=== PATIENT | male | born 1970 | race American Indian/Alaskan Native ===

== ENCOUNTER 2017-08-09 14:26 | Inpatient (IN) | payer MEDICAID ==
--- NOTE | 2017-08-09 15:23 | RAD ---
HISTORY: PES COMPARISON: No prior. FINDINGS: LUNGS: No active pulmonary disease. PLEURA: No significant pleural effusion identified, no pneumothorax apparent. CARDIOVASCULAR: Normal. OSSEOUS STRUCTURES: No significant abnormalities. VISUALIZED UPPER ABDOMEN: Normal. OTHER FINDINGS: None. IMPRESSION: No active disease.
--- NOTE | 2017-08-09 15:47 | ED PDOC ---
Arrival/HPI - General Chief Complaint: Psychiatric Evaluation Time Seen by Provider: 08/09/17 14:53 Historian: Patient - History of Present Illness Narrative History of Present Illness (Text): 08/09/17 15:40 47-year-old male with schizoaffective disorder and depression presents today with suicidal and homicidal ideations. Patient states he hasn't been sleeping in the past 3 days. Patient states he has thoughts of jumping in front of a train to kill himself. Patient states he is noncompliant with his medication. Patient denies chest pain or shortness of breath. Denies abdominal pain. Denies urinary symptoms. No nausea vomiting diarrhea or constipation. Denies any other complaints Past Medical History - Provider Review Nursing Documentation Reviewed: Yes - Travel History Have you recently traveled outside [place] w/in the past 3 mons?: No - Infectious Disease Hx of Infectious Diseases: None - Tetanus Immunization Tetanus Immunization: Unknown - Cardiac Hx Hypertension: Yes - Endocrine/Metabolic Hx Diabetes Mellitus Type 2: Yes - Psychiatric Hx Substance Use: Yes (heroin) - Anesthesia Hx Anesthesia: No Family/Social History - Physician Review Nursing Documentation Reviewed: Yes Family/Social History: Unknown Family HX Smoking Status: Current Some Days Smoker Hx Alcohol Use: No Hx Substance Use: Yes (heroin) Substance used: quit Allergies/Home Meds Allergies/Adverse Reactions: Allergies No Known Allergies Allergy (Verified 08/09/17 20:11) Home Medications: Home Meds Medication Instructions Recorded Confirmed MetFORMIN [glucOPHAGE] 1,000 mg PO DAILY 08/09/17 08/09/17 cloNIDine [clonidine HCl] 0.2 mg PO DAILY 08/09/17 08/09/17 Review of Systems - Review of Systems Constitutional: absent: Fatigue, Fevers Respiratory: absent: SOB, Cough Cardiovascular: absent: Chest Pain, Palpitations Gastrointestinal: absent: Abdominal Pain, Nausea, Vomiting Genitourinary Male: absent: Dysuria Musculoskeletal: absent: Arthralgias Skin: absent: Rash, Pruritis Neurological: absent: Headache, Dizziness Psychiatric: Anxiety, Depression, Suicidal Ideation Physical Exam Vital Signs Reviewed: Yes Vital Signs Temp Pulse Resp BP Pulse Ox 08/09/17 18:14 90 24 138/90 94 L 08/09/17 16:41 98.6 F 90 19 129/75 99 08/09/17 14:55 98.4 F 102 H 19 141/86 96 Temperature: Afebrile Blood Pressure: Normal Pulse: Tachycardic Respiratory Rate: Normal Appearance: Positive for: Well-Appearing, Non-Toxic, Comfortable Pain Distress: None Mental Status: Positive for: Alert and Oriented X 3, Agitated - Systems Exam Head: Present: Atraumatic Mouth: Present: Moist Mucous Membranes Neck: Present: Normal Range of Motion Respiratory/Chest: Present: Clear to Auscultation Cardiovascular: Present: Tachycardic. No: Rub, Gallop, Muffled Abdomen: No: Tenderness, Distention, Peritoneal Signs, Rebound, Guarding Back: Present: Normal Inspection Upper Extremity: Present: Normal ROM Lower Extremity: Present: Normal ROM Neurological: Present: GCS=15, Speech Normal Skin: Present: Warm, Dry, Normal Color. No: Rashes Psychiatric: Present: Alert, Oriented x 3, Suicidal Ideation, Homicidal Ideation Medical Decision Making ED Course and Treatment: 08/09/17 15:42 Patient is nontoxic well-appearing in no distress vital signs are stable. CBC WNL CMP WNL Tylenol WNL Salicylate WNL Alcohol level WNL Urine drug screen + benzos, + methadone, + barbituates UA; wnl cxr: wnl ekg NSR at 96b/m no st elevations ,normal axis, normal intervals. pt is medically cleared for PES evaluation Patient was seen and evaluated by PES screener: jensen pt signed voluntarily to behavioral health floor. Impression: Schizoaffective disorder Admitted to behavioral health floor - Lab Interpretations Lab Results: 08/09/17 15:40 08/09/17 15:40 Lab Results 08/09/17 17:35: Urine Opiates Screen Negative, Urine Methadone Screen Positive H , Ur Barbiturates Screen Positive H, Ur Phencyclidine Scrn Negative, Ur Amphetamines Screen Negative, U Benzodiazepines Scrn Positive, U Oth Cocaine Metabols Negative, U Cannabinoids Screen Negative 08/09/17 17:30: Urine Color Yellow, Urine Appearance Clear, Urine pH 6.0, Ur Specific [place] >= 1.030, Urine Protein Trace H, Urine Glucose (UA) Negative, Urine Ketones Negative, Urine Blood Negative, Urine Nitrate Negative, Urine Bilirubin Negative, Urine Urobilinogen 0.2, Ur Leukocyte Esterase Negative, Urine RBC 0 - 2, Urine WBC 1 - 3, Ur Epithelial Cells None, Urine Bacteria Few 08/09/17 15:40: Alcohol, Quantitative < 10 08/09/17 15:40: Salicylates < 1 L, Acetaminophen < 10.0 L 08/09/17 15:40: Sodium 142, Potassium 4.5, Chloride 103, Carbon Dioxide 27, Anion Gap 17, BUN 17, Creatinine 1.1, Est GFR ( Amer) > 60, Est GFR (Non- Af Amer) > 60, Random Glucose 113 H, Calcium 10.0, Total Bilirubin 0.4, AST 25, ALT 27, Alkaline Phosphatase 91, Total Protein 7.8, Albumin 4.5, Globulin 3.3, Albumin/Globulin Ratio 1.3 08/09/17 15:40: WBC 8.4, RBC 4.41, Hgb 13.0 L, Hct 38.3 L, MCV 86.8, MCH 29.5, MCHC 33.9, RDW 14.0, Plt Count 274, MPV 10.0, Gran % 61.9, Lymph % (Auto) 31.7, [place] % (Auto) 4.8, Eos % (Auto) 1.2 L, Baso % (Auto) 0.4, Gran # 5.22, Lymph # 2.7, [place] # 0.4, Eos # 0.1, Baso # 0.03 - RAD Interpretation Radiology Orders: 08/09/17 14:55 CHEST PORTABLE [RAD] Stat - Medication Orders Current Medication Orders: Acetaminophen (Tylenol 325mg Tab) 650 mg PO Q4H PRN PRN Reason: Pain, Mild (1-3) Al Hydrox/Mg Hydrox/Simethicone (Maalox Plus 30 Ml) 30 ml PO DAILY PRN PRN Reason: Upset Stomach Lorazepam (Ativan) 2 mg PO Q6H PRN; Protocol PRN Reason: Anxiety Lorazepam (Ativan) 2 mg IM Q6H PRN; Protocol PRN Reason: Agitation Magnesium Hydroxide (Milk Of Magnesia) 30 ml PO DAILY PRN PRN Reason: Constipation Zaleplon (Sonata) 5 mg PO HS PRN PRN Reason: Insomnia Ziprasidone (Geodon Inj) 20 mg IM Q6H PRN; Protocol PRN Reason: Agitation Ziprasidone (Geodon Cap) 20 mg PO Q6H PRN; Protocol PRN Reason: Agitation Discontinued Medications Lorazepam (Ativan) 2 mg IM ONCE ONE PRN Reason: Protocol Stop: 08/09/17 14:54 Last Admin: 08/09/17 15:07 Dose: 2 mg IM Administration Charges Document 08/09/17 15:07 MISHA (Rec: 08/09/17 15:08 MISHA [facility] [id number]) Injection Site MAR Injection Site Left Gluteus [place]on Charges for Administration # of IM Administrations 1 Disposition/Present on Arrival - Present on Arrival Any Indicators Present on Arrival: No History of DVT/PE: No History of Uncontrolled Diabetes: No Urinary Catheter: No History of Decub. Ulcer: No History Surgical Site Infection Following: None - Disposition Have Diagnosis and Disposition been Completed?: Yes Diagnosis: Schizoaffective disorder Disposition: HOSPITALIZED Disposition Time: 17:20 Patient Plan: Admission Patient Problems: Current Active Problems Problem Status Onset Schizoaffective disorder Acute Condition: FAIR
[2017-08-09 15:51] LABS: BASO # 0.03 K/mm3 (0.0-2.0); BASO % 0.4 % (0.0-3.0); EOS # 0.1 (0.0-0.7); EOS % 1.2 % (1.5-5.0); GRAN # 5.22 (1.4-6.5); GRAN % 61.9 % (50.0-68.0); HEMATOCRIT 38.3 % (42.0-52.0); LYMPH # 2.7 (1.2-3.4); LYMPH % 31.7 % (22.0-35.0); MEAN CELL VOLUME 86.8 fl (80.0-105.0); MEAN CORPUSCULAR HEMOGLOBIN 29.5 pg (25.0-35.0); MEAN CORPUSCULAR HGB CONC 33.9 g/dl (31.0-37.0); MONO # 0.4 (0.1-0.6); MONO % 4.8 % (1.0-6.0); WHITE BLOOD COUNT 8.4 10^3/ul (4.5-11.0)
[2017-08-09 16:05] LABS: ALB/GLOB RATIO 1.3 (1.1-1.8); ALKALINE PHOSPHATASE 91 U/L (38-126); ALT/SGPT 27 U/L (7-56); AST/SGOT 25 U/L (17-59); BILIRUBIN,TOTAL 0.4 mg/dL (0.2-1.3); BLOOD UREA NITROGEN 17 mg/dL (7-21); CARBON DIOXIDE 27 mmol/L (21-33); CHLORIDE 103 mmol/L (98-107); GFR AFRICAN-AMERICAN > 60; GLUCOSE,RANDOM 113 mg/dL (70-110); POTASSIUM 4.5 mmol/L (3.6-5.0); SODIUM 142 mmol/L (132-148); TOTAL PROTEIN 7.8 g/dL (5.8-8.3)
[2017-08-09 17:38] LABS: URINE BILIRUBIN NEGATIVE (NEGATIVE); URINE BLOOD NEGATIVE (NEGATIVE); URINE GLUCOSE (UA) NEGATIVE (NEGATIVE); URINE KETONE NEGATIVE (NEGATIVE); URINE LEUKOCYTE ESTERASE NEGATIVE Leu/uL (NEGATIVE); URINE PROTEIN TRACE mg/dL (<30 mg/dL); URINE UROBILINOGEN 0.2 E.U./dL (<1 E.U./dL)
[2017-08-09 17:42] LABS: URINE APPEARANCE CLEAR (CLEAR); URINE COLOR YELLOW (YELLOW)
[2017-08-09 17:48] LABS: URINE RBC 0 - 2 /hpf (0-2)
[2017-08-09 17:49] LABS: URINE BACTERIA FEW (NEG)
--- NOTE | 2017-08-09 19:45 | CARD ---
APPROVED REPORT EKG Measurement Heart [id number] <Conclusion> Normal sinus rhythm Normal ECG
[2017-08-09] MEDS ORDERED: Alum-Mag Hydrox-Simethicone Susp (30 mL) PO PRN (19:46)
[2017-08-09] MEDS ORDERED: Magnesium Hydroxide Susp 30 ml UD PO PRN (19:46)
--- NOTE | 2017-08-10 01:15 | PCM.BM ---
<Deb Lopez C - Last Filed: 08/10/17 01:12> Treatment Plan Problems - Problems identified on initial assessmt DEPRESSION Date Initiated: 08/09/17 Time Initiated: 20:00 Assessment reference: NA Status: Active SUICIDAL IDEATION Date Initiated: 08/09/17 Time Initiated: 20:00 Status: Active Treatment assets and liabiliti Patient Assests: adapts well, cooperative, motivated, self-reliant, ADL independent, negotiates basic needs, cognitively intact Patient Liabilities: live alone, financial problems, substance abuse, medical problems - Milieu Protocol Maintain good personal hygiene: daily Encourage regular showers, every shift Remind patient to perform daily oral care, every shift Assist patient to perform ADL's Maintain personal safety: every other day Educate patient to report safety concerns to staff, every other day Monitor environment for contraband/sharps Medication safety: Monitor for expected outcome, potential side effects: every other day, Assess barriers to learning: every other day, Assess readiness for medication education: every other day Family Contact Family involvement: Family/SO is involved Family contact: Patient agrees to contact Discharge/Continuing Care - Education Needs Education Needs: Patient Medication, Patient Diagnosis/Disease Process, Patient Placement options, Patient Community resources, Patient Health Practices/Safety - Discharge Discharge Criteria: Tolerates medication w/o severe side effects, Free of Suicidal thoughts, Free of Homicidal thoughts, Free of agitation, Normal sleep pattern, Ability to care for self <Darcie Lang - Last Filed: 08/10/17 13:46> - Diagnosis (1) Schizoaffective disorder Status: Acute Interventions: 08/10/17 13:47 Psychoeducation/psychotherapy Psychopharmacology/adjustment of medications as needed/ monitoring possible side effects Evaluate pt on daily basis Compliance with medications and follow up appointments Long acting medication if pt is noncompliant with pill form Suicide and homicide risk assessment and prevention, coping strategies, safety plan Relapse prevention Reduction of symptoms Improve functional status Possible assertive community treatment Cognitive behavioral therapy Family involvement Possible social skill training as outpatient (2) Opioid use disorder, moderate, in sustained remission, on maintenance therapy Status: Acute Interventions: 08/10/17 13:47 Maintaining sobriety Relapse prevention Possible rehabilitation Motivational interviewing 12-step programs: AA meetings <Jessica Crane Y - Last Filed: 08/10/17 16:28> Family Contact Family involvement: Famliy/SO not involved Family contact: Patient declines to allow family contact at present - Goals for Treatment Patient goals for treatment: "To feel normal."
[2017-08-10 08:06] LABS: CHOLESTEROL 165 mg/dL (130-200); GLUCOSE,FASTING 88 mg/dL (65-110)
[2017-08-10] MEDS ORDERED: Albuterol-Ipratrop 3 mg / 0.5 (3 ml) UD IH PRN (11:52)
--- NOTE | 2017-08-10 12:40 | CP.PCM.CON ---
<Bret Mendoza Marcial - Last Filed: 08/10/17 12:33> History of Present Illness - History of Present Illness History of Present Illness: Internal medicine consult note for Dr. Francisco Machado DO, PGY-3 Reason For Consult: Medical management HPI: 47 M with PMHx of Schizoaffective disorder and depression presented with 1 day duration of HI and SI with a plan of jumping in front of a train. Pt also states that he has not slept in 3 days. Pt explicitly denies any complaints at this time. Pt denies f/ch/cp/sob/n/v/d/ dysuria/frequency/urgency/hematuria/hematochezia/hematemesis PSHx: Pt denies PMHx: DM, HTN, Asthma, Schizoaffective disorder, Depression All: NKDA SocHx: 1/2 ppd tobacco X 10 years, Heroin (stopped a year ago) FamHx: HTN, Emphysema Meds: Metformin 1000mg bid, Catapres 2 mg qD, Albuterol PRN (uses it twice a day though) ROS: Const'l: pt denies fever, chills, generalized weakness ENT: pt denies dysphagia, otalgia, hearing deficit, rhinorrhea Eyes: pt denies sudden loss of vision, diplopia, blurred vision MSK: pt denies muscle stiffness, joint pain, extremity cramping Cardio: pt denies sob, heart murmur, cp Pulm: pt denies cough, hemoptysis, wheeze GI: pt denies loss of appetite, abdominal pain, constipation, melena, n/v/d : pt denies burning on urination, urinary frequency, hematuria, urinary urgency Neuro: pt denies paresis, paresthesia, dizziness, wheeler, numbness, tingling Derm: pt denies skin changes, lesions, nail changes Endo: pt denies intolerance to heat/cold, diaphoresis, night sweats, polydipsia Psych: pt denies anxiety, depression, mood changes Past Patient History - Infectious Disease Hx of Infectious Diseases: None - Tetanus Immunizations Tetanus Immunization: Unknown - Past Social History Smoking Status: Current Some Days Smoker - CARDIAC Hx Hypertension: Yes - PULMONARY Hx Tuberculosis: No - NEUROLOGICAL HX Cerebrovascular Accident: No Hx Seizures: No - RENAL Hx Chronic Kidney Disease: No - ENDOCRINE/METABOLIC Hx Diabetes Mellitus Type 2: Yes - HEMATOLOGICAL/ONCOLOGICAL Hx Cancer: No Hx Human Immunodeficiency Virus (HIV): No - INTEGUMENTARY Hx Dermatological Problems: No - MUSCULOSKELETAL/RHEUMATOLOGICAL Hx Musculoskeletal Disorders: No - GASTROINTESTINAL Hx Gastrointestinal Disorders: No - GENITOURINARY/GYNECOLOGICAL Hx Genitourinary Disorders: No Hx Sexually Transmitted Disorders: No - PSYCHIATRIC Hx Substance Use: Yes (heroin) - SURGICAL HISTORY Hx Surgeries: No - ANESTHESIA Hx Anesthesia: No Meds Home Medications: Home Medication List Medication Instructions Recorded Confirmed Type ARIPiprazole [Abilify] 10 mg PO DAILY #14 tab 08/15/17 Rx Fluticasone/Salmeterol 250/50 1 puff IH Q12 #1 puff 08/15/17 Rx [Advair Diskus 250/50] Gabapentin [Neurontin] 300 mg PO TID #45 cap 08/15/17 Rx Methadone 100 mg PO DAILY tab 08/15/17 Rx Nicotine 21 mg/24 hr [Nicoderm Cq] 1 patch TD DAILY #14 patch 08/15/17 Rx Sertraline [Zoloft] 100 mg PO DAILY #14 tab 08/15/17 Rx Zaleplon [Sonata] 5 mg PO HS PRN #14 cap 08/15/17 Rx amLODIPine [Norvasc] 10 mg PO DAILY #7 tab 08/15/17 Rx cloNIDine [Catapres] 0.1 mg PO BID #14 tab 08/15/17 Rx Allergies/Adverse Reactions: Allergies Allergy/AdvReac Type Severity Reaction Status Date / Time No Known Allergies Allergy Verified 08/09/17 20:11 - Medications Medications: Current Medications Acetaminophen (Tylenol 325mg Tab) 650 mg PO Q4H PRN PRN Reason: Pain, Mild (1-3) Al Hydrox/Mg Hydrox/Simethicone (Maalox Plus 30 Ml) 30 ml PO DAILY PRN PRN Reason: Upset Stomach Albuterol/Ipratropium (Duoneb 3 Mg/0.5 Mg (3 Ml) Ud) 3 ml IH Q2H PRN PRN Reason: Shortness of Breath Lorazepam (Ativan) 2 mg PO Q6H PRN; Protocol PRN Reason: Anxiety Lorazepam (Ativan) 2 mg IM Q6H PRN; Protocol PRN Reason: Agitation Magnesium Hydroxide (Milk Of Magnesia) 30 ml PO DAILY PRN PRN Reason: Constipation Methadone HCl (Methadone) 100 mg PO DAILY [facility] Fluticasone/Salmeterol (Advair Diskus 250/50) 1 puff IH Q12 KEYANNA Zaleplon (Sonata) 5 mg PO HS PRN PRN Reason: Insomnia Last Admin: 08/09/17 22:17 Dose: 5 mg Ziprasidone (Geodon Inj) 20 mg IM Q6H PRN; Protocol PRN Reason: Agitation Ziprasidone (Geodon Cap) 20 mg PO Q6H PRN; Protocol PRN Reason: Agitation Physical Exam - Additional Findings Additional findings: Phys Exam: VS as below Const'l: +Sluggish, a&o x 4, nad Head/Neck: neck supple, no jvd, trachea midline, carotid midline, no cervical /head mass Eyes: rory, nonicteric sclera, eom intact ENT: +Dry mucous membranes; auditory acuity grossly intact, throat not congested, no nasal deformity Cardio: rrr, no m/r/g, no carotid bruit, nml s1, s2 Pulm: +Course rhonchi diffusely anteriorly and posteriorly; no accessory muscle use, equal nml breath sounds bilaterally, ctab Abd: s/nt/nd, nbs x 4 q, no palpable masses Derm: no rashes, no ulcers, no lesions Extr: +Dry b/l LE; no edema, no cyanosis, no calf tenderness, no lesions, no varicosities Neuro: cn II-XII grossly intact, ue and le 5/5 muscle strength bilaterally, no los ue, le bilaterally and core Results - Vital Signs Recent Vital Signs: Last Vital Signs Temp 96.9 F L 08/10/17 06:59 Pulse 81 08/10/17 06:59 Resp 19 08/10/17 06:59 BP 122/84 08/10/17 06:59 Pulse Ox 94 L 08/09/17 18:14 - Labs Result Diagrams: 08/09/17 15:40 08/09/17 15:40 Labs: Laboratory Results - last 24 hr 08/09/17 08/10/17 08/10/17 22:21 06:38 07:00 POC Glucose (mg/dL) 57 L 102 Fasting Glucose 88 Triglycerides 117 Cholesterol 165 LDL Cholesterol Direct 93 HDL Cholesterol 54 TSH 3rd Generation 08/10/17 08/10/17 07:00 12:00 POC Glucose (mg/dL) 116 H Fasting Glucose Triglycerides Cholesterol LDL Cholesterol Direct HDL Cholesterol TSH 3rd Generation 0.87 Assessment & Plan - Assessment and Plan (Free Text) Assessment: A/P 47 M with PMHx of schizoaffective disorder and Depression, we are consulted to manage his diabetes, asthma, and HTN. No complaints at this time, but coarse breath sounds on exam. Acute Dehydration - Encourage oral intake Hx/o DM - RISS Low Hx/o Asthma - Duonebs q2 PRN - CXR shows no acute disease Hx/o HTN - BP stable right now, patient is normotensive - Hold home catapres HI, SI likely 2/2 medication non-compliance - As per psych Thank you for allowing us to participate in the care of this patient. <Janet Singh - Last Filed: 08/15/17 14:15> Meds - Medications Medications: Current Medications Acetaminophen (Tylenol 325mg Tab) 650 mg PO Q4H PRN PRN Reason: Pain, Mild (1-3) Al Hydrox/Mg Hydrox/Simethicone (Maalox Plus 30 Ml) 30 ml PO DAILY PRN PRN Reason: Upset Stomach Albuterol/Ipratropium (Duoneb 3 Mg/0.5 Mg (3 Ml) Ud) 3 ml IH Q2H PRN PRN Reason: Shortness of Breath Amlodipine Besylate (Norvasc) 10 mg PO DAILY [facility] Last Admin: 08/15/17 09:02 Dose: 10 mg Aripiprazole (Abilify) 10 mg PO AMHS [facility] Clonidine HCl (Catapres) 0.1 mg PO BID KEYNANA Last Admin: 08/15/17 09:01 Dose: 0.1 mg Gabapentin (Neurontin) 300 mg PO TID [facility] PRN Reason: Protocol Last Admin: 08/15/17 13:54 Dose: 300 mg Insulin Human Regular (Humulin R Low) 0 units SC ACHS [facility]ANNA PRN Reason: Protocol Last Admin: 08/15/17 09:03 Dose: Not Given Lorazepam (Ativan) 2 mg PO Q6H PRN; Protocol PRN Reason: Anxiety Last Admin: 08/15/17 13:54 Dose: 2 mg Lorazepam (Ativan) 2 mg IM Q6H PRN; Protocol PRN Reason: Agitation Magnesium Hydroxide (Milk Of Magnesia) 30 ml PO DAILY PRN PRN Reason: Constipation Methadone HCl (Methadone) 100 mg PO DAILY [facility] Last Admin: 08/15/17 09:02 Dose: 100 mg Nicotine (Nicoderm Cq) 1 patch TD DAILY [facility] Last Admin: 08/15/17 09:01 Dose: 1 patch Fluticasone/Salmeterol (Advair Diskus 250/50) 1 puff IH Q12 [facility] Last Admin: 08/15/17 07:05 Dose: 1 puff Sertraline HCl (Zoloft) 100 mg PO DAILY [facility] Last Admin: 08/15/17 09:02 Dose: 100 mg Zaleplon (Sonata) 5 mg PO HS PRN PRN Reason: Insomnia Last Admin: 08/14/17 22:08 Dose: 5 mg Ziprasidone (Geodon Inj) 20 mg IM Q6H PRN; Protocol PRN Reason: Agitation Ziprasidone (Geodon Cap) 20 mg PO Q6H PRN; Protocol PRN Reason: Agitation Last Admin: 08/14/17 22:08 Dose: 20 mg Results - Vital Signs Recent Vital Signs: Last Vital Signs Temp 98.2 F 08/15/17 07:48 Pulse 65 08/15/17 07:48 Resp 20 08/15/17 07:48 BP 116/82 08/15/17 09:02 Pulse Ox 97 08/11/17 06:07 - Labs Result Diagrams: 08/09/17 15:40 08/09/17 15:40 Labs: Laboratory Results - last 24 hr 08/14/17 08/14/17 08/15/17 16:23 21:37 07:40 POC Glucose (mg/dL) 120 H 208 H 111 H 08/15/17 11:11 POC Glucose (mg/dL) 168 H Attending/Attestation - Attestation I have personally seen and examined this patient.: Yes I have fully participated in the care of the patient.: Yes I have reviewed all pertinent clinical information: Yes Notes (Text): I have seen and examined the patient at bedside. Agree with the above note with the following additions/ exceptions: Briefly this is 47 year old male with history of schizoaffective disorder, depression, asthma and HTN who was admitted for evaluation of worsening of depression and suicidal thoughts. Manage as per psychiatrist. TSH within normal range. Patient appeared mildly dehydrated which was resolved upon evaluation. Continue to encourage oral water intake. BP was noted. Medications restarted. Thanks for allowing us to participate in patients care. We will sign off at this time. Please reconsult as needed. Dr Janet Singh
--- NOTE | 2017-08-10 14:29 | PCM.PSYCH ---
Initial Psychiatric Evaluation - Initial Psychiatric Evaluation Type of Admission: Voluntary Legal Status: Capacity (patient has capacity to sign consent for treatment) Chief Complaint (in patient's own words): I started to hear voices 3 days ago, they were telling me to jump in front of the train, instead of doing that I decided to come to the hospital" Patient's Reaction to Hospitalization: patient was admitted to the psychiatric inpatient unit for evaluation and stabilization of psychosis, mood symptoms, possible suicidal ideation with a plan to jump in front of the train. History of Present Illness and Precipitating Events: shortly patient is 47 year old -German male, not known previous psychiatric history, self reported history of schizoaffective disorder, patient also has history of opioid use disorder, reported to be sober for the past 2 years, patient also has multiple psychiatric admissions (more than 10), most recent was more than 6 months ago, patient currently unemployed, reportedly in [place], brought himself to the hospital looking for help for possible suicidal ideations as well as plan to jump in front of the train, possible depressive symptoms, possible psychotic symptoms. Considering the patient's symptoms and presentation, patient require to have psychiatric admission for further evaluation and stabilization. Patient has chronic noncompliance with the medications and follow-up appointment. Patient was seen today at the morning time at the treatment team meeting, poor personal hygiene, good ADLs, patient seems to be poor and unreliable historian, this board writer had the impression that pt does not want to provide whole history, pt was superficially cooperative. Patient said that 4-5 days ago she started to hear voices, command hallucinations, telling him to jump in front of the train, patient describes voices as a male voice. Patient does not have history of acting on them, and hot type hallucinations, patient reported that he wanted to come to the hospital because he didn't want to act on the voices. Patient also reported that he was feeling paranoid and was feeling that people talking about him. Patient reported that he also was feeling depressed, hopeless and helpless, worthless and guilty, patient reported that she was feeling this way for past 5 days. pt denied feeling anxious, denied history of abuse, denied history of aggression , denied history of legal problems. Patient reported that he has history of "mind racing", most recent was "just now ", but pt's speech is slow and underproductive. Patient reported history of opioid use disorder, is present moment attends methadone clinic at [place], dose of methadone 100 mg, confirmed by the nursing staff, last dose was given yesterday, will resume that medication. Patient denied any other substance abuse, denies alcohol consumption. patient reported being sober for past 3 years. as per collaterals, patient has history of hospital shopping, admitted himself into the hospital looking for food and senior care. past psychiatric history: Patient has history of one suicidal attempt at the age of 20, patient reported that he overdose on medications, denied history of being intubated after that, patient reported that he has all together more than 10 psychiatric admissions, most recent was about 6 months ago at [facility]. Patient does not remember how long that he stay in the hospital, does not remember medications what he was taking but remember Seroquel. Medical problems: Patient reported h/o asthma, observed limping. Patient reported smoking about one pack a day, nicotine patch offered. patient denied any history of mental illness, denied family history of suicidal attempts. MSE: poor personal hygiene, some psychomotor recommendation, speech was underproductive slow, low volume. No eye contact, mood described as "depressed and hopeless", affect was flat, thought processes concrete, thought content: Patient reported to hear voices, feeling paranoid, but patient does not present to be psychotic, insight and judgment limited, impulses seems to be well controlled. 08/09/17 15:40 08/09/17 15:40 Lab Results 08/10/17 12:00: POC Glucose (mg/dL) 116 H 08/10/17 07:00: TSH 3rd Generation 0.87 08/10/17 07:00: Fasting Glucose 88, Triglycerides 117, Cholesterol 165, LDL Cholesterol Direct 93, HDL Cholesterol 54 08/10/17 06:38: POC Glucose (mg/dL) 102 08/09/17 22:21: POC Glucose (mg/dL) 57 L 08/09/17 17:35: Urine Opiates Screen Negative, Urine Methadone Screen Positive H , Ur Barbiturates Screen Positive H, Ur Phencyclidine Scrn Negative, Ur Amphetamines Screen Negative, U Benzodiazepines Scrn Positive, U Oth Cocaine Metabols Negative, U Cannabinoids Screen Negative 08/09/17 17:30: Urine Color Yellow, Urine Appearance Clear, Urine pH 6.0, Ur Specific [place] >= 1.030, Urine Protein Trace H, Urine Glucose (UA) Negative, Urine Ketones Negative, Urine Blood Negative, Urine Nitrate Negative, Urine Bilirubin Negative, Urine Urobilinogen 0.2, Ur Leukocyte Esterase Negative, Urine RBC 0 - 2, Urine WBC 1 - 3, Ur Epithelial Cells None, Urine Bacteria Few 08/09/17 15:40: Alcohol, Quantitative < 10 08/09/17 15:40: Salicylates < 1 L, Acetaminophen < 10.0 L 08/09/17 15:40: Sodium 142, Potassium 4.5, Chloride 103, Carbon Dioxide 27, Anion Gap 17, BUN 17, Creatinine 1.1, Est GFR ( Amer) > 60, Est GFR (Non- Af Amer) > 60, Random Glucose 113 H, Calcium 10.0, Total Bilirubin 0.4, AST 25, ALT 27, Alkaline Phosphatase 91, Total Protein 7.8, Albumin 4.5, Globulin 3.3, Albumin/Globulin Ratio 1.3 08/09/17 15:40: WBC 8.4, RBC 4.41, Hgb 13.0 L, Hct 38.3 L, MCV 86.8, MCH 29.5, MCHC 33.9, RDW 14.0, Plt Count 274, MPV 10.0, Gran % 61.9, Lymph % (Auto) 31.7, [place] % (Auto) 4.8, Eos % (Auto) 1.2 L, Baso % (Auto) 0.4, Gran # 5.22, Lymph # 2.7, [place] # 0.4, Eos # 0.1, Baso # 0.03 impression: As per history schizoaffective disorderwhich is self-reported Opioid use disorder in remission, on maintenance methadone program Barbiturates were positive and urine Rule out malingering Treatment plan: Treatment plan: Milieu/structure/supportive therapy Medical consult appreciated, see medical team note for more detailed info SW consultation for discharge plan and social issues Med management Seroquel 100 mg at the nighttime for psychosis and mood stabilization Zoloft 50 mg daily for depression as well as for anxiety When necessary medications Methadone maintenance therapy 100 mg daily, dose was confirmed by methadone program [place] dose was confirmed by [facility] [phone] last dose was 08/09/17 Family involvement Follow up on labs Will monitor closely SW evaluation for d/c planning Pt was educated about risk/benefits and alternatives of medications, coping strategies (safety plan, suicide prevention), relapse prevention, importance of follow up with psychiatrist and therapist, stay away from drugs/alcohol/smoking Current Medications: Active Medications Generic Name Dose Route Start Last Admin Trade Name Freq PRN Reason Stop Dose Admin Acetaminophen 650 mg 08/09/17 19:46 Tylenol 325mg Tab PO Q4H PRN Pain, Mild (1-3) Al Hydrox/Mg Hydrox/Simethicone 30 ml 08/09/17 19:46 Maalox Plus 30 Ml PO DAILY PRN Upset Stomach Albuterol/Ipratropium 3 ml 08/10/17 11:52 Duoneb 3 Mg/0.5 Mg (3 Ml) Ud IH Q2H PRN Shortness of Breath Insulin Human Regular 0 units 08/10/17 16:30 Humulin R Low SC ACHS KEYANNA Protocol Lorazepam 2 mg 08/09/17 19:46 Ativan PO Q6H PRN Anxiety Protocol Lorazepam 2 mg 08/09/17 19:46 Ativan IM Q6H PRN Agitation Protocol Magnesium Hydroxide 30 ml 08/09/17 19:46 Milk Of Magnesia PO DAILY PRN Constipation Methadone HCl 100 mg 08/10/17 12:30 08/10/17 12:57 Methadone PO 100 mg DAILY KEYANNA Administration Fluticasone/Salmeterol 1 puff 08/10/17 18:00 Advair Diskus 250/50 IH Q12 KEYANNA Zaleplon 5 mg 08/09/17 19:46 08/09/17 22:17 Sonata PO 5 mg HS PRN Administration Insomnia Ziprasidone 20 mg 08/09/17 19:46 Geodon Inj IM Q6H PRN Agitation Protocol Ziprasidone 20 mg 08/09/17 19:46 Geodon Cap PO Q6H PRN Agitation Protocol Past Psychiatric History - Past Psychiatric History Pertinent Medical Hx (Current Medical&Sleep Prob, Allergies): Allergies Allergy/AdvReac Type Severity Reaction Status Date / Time No Known Allergies Allergy Verified 08/09/17 20:11 MetFORMIN [glucOPHAGE] 1,000 mg PO DAILY 08/09/17 cloNIDine [clonidine HCl] 0.2 mg PO DAILY 08/09/17 DSM 5 DX - Recommended/Plan of Treatment Projected ELOS: 5days Prognosis: fair Discharge Plan and Discharge Criteria: Pt will be not depressed or manic, will be more hopeful, will be not psychotic or anxious, will be not having thoughts of harming self or others, will be tolerating medications well, will not have major side effects, will be able to function, will not pose threat to self or others. - Smoking Cessation Smoking Cessation Initiated: Yes
[2017-08-10] MEDS: Insulin Reg-LOW-Coverage SC SCH ×2 (17:00→21:44)
[2017-08-10] MEDS: Fluticasone-Salmeterol 250-50mcg Diskus IH SCH (17:31)
[2017-08-11 06:07] VITALS: O2SAT 97
[2017-08-11] MEDS: Insulin Reg-LOW-Coverage SC SCH ×4 (08:24→21:56)
--- NOTE | 2017-08-11 15:50 | PCM.PYCHPN ---
Psychiatric Progress Note - Psychiatric Progress Note Patient seen today, length of contact: 30min Patient Chief Complaint: "I don't remember" Medical Problems: HTN, ?diabetes Diagnostic Results: 08/09/17 15:40 08/09/17 15:40 Lab Results 08/11/17 11:50: POC Glucose (mg/dL) 105 08/11/17 05:58: POC Glucose (mg/dL) 104 08/10/17 21:26: POC Glucose (mg/dL) 132 H 08/10/17 16:16: POC Glucose (mg/dL) 91 08/10/17 12:00: POC Glucose (mg/dL) 116 H 08/10/17 07:00: RPR Nonreactive 08/10/17 07:00: TSH 3rd Generation 0.87 08/10/17 07:00: Fasting Glucose 88, Triglycerides 117, Cholesterol 165, LDL Cholesterol Direct 93, HDL Cholesterol 54 08/10/17 06:38: POC Glucose (mg/dL) 102 08/09/17 22:21: POC Glucose (mg/dL) 57 L 08/09/17 17:35: Urine Opiates Screen Negative, Urine Methadone Screen Positive H , Ur Barbiturates Screen Positive H, Ur Phencyclidine Scrn Negative, Ur Amphetamines Screen Negative, U Benzodiazepines Scrn Positive, U Oth Cocaine Metabols Negative, U Cannabinoids Screen Negative 08/09/17 17:30: Urine Color Yellow, Urine Appearance Clear, Urine pH 6.0, Ur Specific [place] >= 1.030, Urine Protein Trace H, Urine Glucose (UA) Negative, Urine Ketones Negative, Urine Blood Negative, Urine Nitrate Negative, Urine Bilirubin Negative, Urine Urobilinogen 0.2, Ur Leukocyte Esterase Negative, Urine RBC 0 - 2, Urine WBC 1 - 3, Ur Epithelial Cells None, Urine Bacteria Few 08/09/17 15:40: Alcohol, Quantitative < 10 08/09/17 15:40: Salicylates < 1 L, Acetaminophen < 10.0 L 08/09/17 15:40: Sodium 142, Potassium 4.5, Chloride 103, Carbon Dioxide 27, Anion Gap 17, BUN 17, Creatinine 1.1, Est GFR ( Amer) > 60, Est GFR (Non- Af Amer) > 60, Random Glucose 113 H, Calcium 10.0, Total Bilirubin 0.4, AST 25, ALT 27, Alkaline Phosphatase 91, Total Protein 7.8, Albumin 4.5, Globulin 3.3, Albumin/Globulin Ratio 1.3 08/09/17 15:40: WBC 8.4, RBC 4.41, Hgb 13.0 L, Hct 38.3 L, MCV 86.8, MCH 29.5, MCHC 33.9, RDW 14.0, Plt Count 274, MPV 10.0, Gran % 61.9, Lymph % (Auto) 31.7, [place] % (Auto) 4.8, Eos % (Auto) 1.2 L, Baso % (Auto) 0.4, Gran # 5.22, Lymph # 2.7, [place] # 0.4, Eos # 0.1, Baso # 0.03 Vital Signs Temp Pulse Resp BP Pulse Ox 08/11/17 08:28 76 133/81 08/11/17 06:07 98.3 F 76 20 133/81 97 08/10/17 17:24 71 144/101 H 08/10/17 16:30 74 138/100 H 08/10/17 06:59 96.9 F L 81 19 122/84 08/09/17 20:28 20 08/09/17 18:14 90 24 138/90 94 L 08/09/17 16:41 98.6 F 90 19 129/75 99 08/09/17 14:55 98.4 F 102 H 19 141/86 96 DSM 5 Symptoms Update: shortly patient is 47 year old -Libyan male, not known previous psychiatric history, self reported history of schizoaffective disorder, patient also has history of opioid use disorder, reported to be sober for the past 2 years, patient also has multiple psychiatric admissions (more than 10), most recent was more than 6 months ago, patient currently unemployed, reportedly in [place], brought himself to the hospital looking for help for possible suicidal ideations as well as plan to jump in front of the train, possible depressive symptoms, possible psychotic symptoms. pt is very poor and unreliable historian, pt said last admission was more than six months ago, but after med list was obtained from pt's pharmacy [phone] all medications were filled in August 01, psychotropic medication was provided by Dr. Gardner, a psychiatrist at [place], when pt was confronted about it, pt had no explanation about it but "I don't remember". previous chart reviewed, pt was d/c from [place] [facility] unit on August 01. documented : "Patient has had multiple psychiatric admissions at [facility] the most recent in April. Patient admits he has not been compliant with his medication. After discharge he went back to [facility] , his methadone clinic that he has been going to for 3 years. Patient using heroin on top of methadone 10 bags/day. Patient drinks 1 pint of vodka/day and beer on top of that. Patient admits to xanax use 2 sticks/day. Patient denies barbiturate use even though his urine was positive . Patient denies any other drug use" Med list: Lexapro 20 mg by mouth daily Abilify 10 mg daily Amlodipine 10 mg daily gabapentin 600 mg 3 times a day, pt willing to resume meds. as per staff pt preoccupied with medications, constantly asking medications, no agitation or aggression. Patient reported that he has history of "mind racing", most recent was "just now ", but pt's speech is slow and underproductive. MSE: poor personal hygiene, some psychomotor retardation, speech was underproductive slow, low volume.intermittent eye contact, mood described as "depressed and hopeless", affect was flat, thought processes concrete, thought content: Patient reported to hear voices, feeling paranoid, but patient does not present to be psychotic, insight and judgment limited, impulses seems to be well controlled. impression: As per history schizoaffective disorderwhich is self-reported Opioid use disorder in remission, on maintenance methadone program Barbiturates were positive and urine Rule out malingering Treatment plan: Treatment plan: Milieu/structure/supportive therapy Medical consult appreciated, see medical team note for more detailed info SW consultation for discharge plan and social issues Med management Seroquel d/c, pt was on januvia (?DM) abilify resumed 5mg po amhs for psychosis neurontin resumed 300mg po tid for mood stabilization Zoloft 50 mg daily for depression as well as for anxiety amlodipine 10mg po daily for HTN When necessary medications Methadone maintenance therapy 100 mg daily, dose was confirmed by methadone program [place] dose was confirmed by [facility] meth[facility] [phone] last dose was 08/09/17 Family involvement Follow up on labs Will monitor closely SW evaluation for d/c planning Pt was educated about risk/benefits and alternatives of medications, coping strategies (safety plan, suicide prevention), relapse prevention, importance of follow up with psychiatrist and therapist, stay away from drugs/alcohol/smoking Medication Change: Yes (d/c seroquel, abilify started ) Medical Record Reviewed: Yes Consults ordered or reviewed: medical consult appreciated Mental Status Examination - Homicidal Ideation Homicidal Ideation: No Goal/Treatment Plan - Goal/Treatment Plan Need for Continued Stay: Remain at risks for inpatient hospitalization, Severe depression anxiety, Discharge may exacerbated symptoms, Severe functional impairment Estimated Date of D/C: 08/19/17
[2017-08-11] MEDS: Fluticasone-Salmeterol 250-50mcg Diskus IH SCH (18:07)
[2017-08-12] MEDS: Fluticasone-Salmeterol 250-50mcg Diskus IH SCH ×3 (09:30→19:51)
[2017-08-12] MEDS: Insulin Reg-LOW-Coverage SC SCH ×3 (09:43→17:37)
--- NOTE | 2017-08-12 12:47 | PCM.PYCHPN ---
Psychiatric Progress Note - Psychiatric Progress Note Patient seen today, length of contact: 30min Patient Chief Complaint: "I am doing better..." Medical Problems: HTN, ?diabetes Diagnostic Results: 08/09/17 15:40 08/09/17 15:40 Lab Results 08/11/17 11:50: POC Glucose (mg/dL) 105 08/11/17 05:58: POC Glucose (mg/dL) 104 08/10/17 21:26: POC Glucose (mg/dL) 132 H 08/10/17 16:16: POC Glucose (mg/dL) 91 08/10/17 12:00: POC Glucose (mg/dL) 116 H 08/10/17 07:00: RPR Nonreactive 08/10/17 07:00: TSH 3rd Generation 0.87 08/10/17 07:00: Fasting Glucose 88, Triglycerides 117, Cholesterol 165, LDL Cholesterol Direct 93, HDL Cholesterol 54 08/10/17 06:38: POC Glucose (mg/dL) 102 08/09/17 22:21: POC Glucose (mg/dL) 57 L 08/09/17 17:35: Urine Opiates Screen Negative, Urine Methadone Screen Positive H , Ur Barbiturates Screen Positive H, Ur Phencyclidine Scrn Negative, Ur Amphetamines Screen Negative, U Benzodiazepines Scrn Positive, U Oth Cocaine Metabols Negative, U Cannabinoids Screen Negative 08/09/17 17:30: Urine Color Yellow, Urine Appearance Clear, Urine pH 6.0, Ur Specific [place] >= 1.030, Urine Protein Trace H, Urine Glucose (UA) Negative, Urine Ketones Negative, Urine Blood Negative, Urine Nitrate Negative, Urine Bilirubin Negative, Urine Urobilinogen 0.2, Ur Leukocyte Esterase Negative, Urine RBC 0 - 2, Urine WBC 1 - 3, Ur Epithelial Cells None, Urine Bacteria Few 08/09/17 15:40: Alcohol, Quantitative < 10 08/09/17 15:40: Salicylates < 1 L, Acetaminophen < 10.0 L 08/09/17 15:40: Sodium 142, Potassium 4.5, Chloride 103, Carbon Dioxide 27, Anion Gap 17, BUN 17, Creatinine 1.1, Est GFR ( Amer) > 60, Est GFR (Non- Af Amer) > 60, Random Glucose 113 H, Calcium 10.0, Total Bilirubin 0.4, AST 25, ALT 27, Alkaline Phosphatase 91, Total Protein 7.8, Albumin 4.5, Globulin 3.3, Albumin/Globulin Ratio 1.3 08/09/17 15:40: WBC 8.4, RBC 4.41, Hgb 13.0 L, Hct 38.3 L, MCV 86.8, MCH 29.5, MCHC 33.9, RDW 14.0, Plt Count 274, MPV 10.0, Gran % 61.9, Lymph % (Auto) 31.7, [place] % (Auto) 4.8, Eos % (Auto) 1.2 L, Baso % (Auto) 0.4, Gran # 5.22, Lymph # 2.7, [place] # 0.4, Eos # 0.1, Baso # 0.03 Vital Signs Temp Pulse Resp BP Pulse Ox 08/11/17 08:28 76 133/81 08/11/17 06:07 98.3 F 76 20 133/81 97 08/10/17 17:24 71 144/101 H 08/10/17 16:30 74 138/100 H 08/10/17 06:59 96.9 F L 81 19 122/84 08/09/17 20:28 20 08/09/17 18:14 90 24 138/90 94 L 08/09/17 16:41 98.6 F 90 19 129/75 99 08/09/17 14:55 98.4 F 102 H 19 141/86 96 Temp Pulse Resp BP Pulse Ox 97.8 F 72 17 140/96 H 97 08/12/17 07:00 08/12/17 09:35 08/12/17 07:00 08/12/17 09:35 08/11/17 06:07 DSM 5 Symptoms Update: shortly patient is 47 year old -Dominican male, not known previous psychiatric history, self reported history of schizoaffective disorder, patient also has history of opioid use disorder, reported to be sober for the past 2 years, patient also has multiple psychiatric admissions (more than 10), most recent was more than 6 months ago, patient currently unemployed, reportedly in [place], brought himself to the hospital looking for help for possible suicidal ideations as well as plan to jump in front of the train, possible depressive symptoms, possible psychotic symptoms. pt is very poor and unreliable historian, recently discharged from the [place], less than a week ago, but said last admission was more than 6months ago. pt is low profile, stays in room, not participating in unit activities. Pt reported tolerating meds well, no side effects observed or reported, no agitation or aggression. Patient reported that he has history of "mind racing", most recent was "just now ", but pt's speech is slow and underproductive. MSE: poor personal hygiene, some psychomotor retardation, speech was underproductive slow, low volume.intermittent eye contact, mood described as "I am better", affect was flat, thought processes concrete, thought content: Patient reported to hear voices, feeling paranoid, but patient does not present to be psychotic, insight and judgment limited, impulses seems to be well controlled. impression: As per history schizoaffective disorderwhich is self-reported Opioid use disorder in remission, on maintenance methadone program Barbiturates were positive and urine Rule out malingering Treatment plan: Treatment plan: Milieu/structure/supportive therapy Medical consult appreciated, see medical team note for more detailed info consultation for discharge plan and social issues Med management abilify 5mg po amhs for psychosis neurontin 300mg po tid for mood stabilization Zoloft inceased to 100 mg daily for depression as well as for anxiety amlodipine 10mg po daily for HTN When necessary medications Methadone maintenance therapy 100 mg daily, dose was confirmed by methadone program [place] dose was confirmed by [facility] methadone clinic [phone] last dose was 08/09/17 Family involvement Follow up on labs Will monitor closely evaluation for d/c planning Pt was educated about risk/benefits and alternatives of medications, coping strategies (safety plan, suicide prevention), relapse prevention, importance of follow up with psychiatrist and therapist, stay away from drugs/alcohol/smoking Medication Change: Yes (zoloft increased) Medical Record Reviewed: Yes Mental Status Examination - Homicidal Ideation Homicidal Ideation: No Goal/Treatment Plan - Goal/Treatment Plan Need for Continued Stay: Remain at risks for inpatient hospitalization, Severe depression anxiety, Discharge may exacerbated symptoms, Severe functional impairment Estimated Date of D/C: 08/19/17
[2017-08-13] MEDS: Fluticasone-Salmeterol 250-50mcg Diskus IH SCH ×3 (08:42→21:06)
[2017-08-13] MEDS: Insulin Reg-LOW-Coverage SC SCH ×4 (08:48→21:17)
--- NOTE | 2017-08-13 09:10 | PCM.PYCHPN ---
Psychiatric Progress Note - Psychiatric Progress Note Patient seen today, length of contact: 25 min Patient Chief Complaint: "fair" Problems Identified/Issues Discussed: I reviewed assessment and recent notes. Patient was interviewed at bedside. He appears unkempt and superficially cooperative with my interview questions. Indicated he is feeling "fair". Affect is flat and responses are brief. Denies hallucinations and delusions were not elicited. Specifically denies hearing voices commanding him to hurt himself and denies any thoughts or plans to harm himself or others. Patient reports that he is tolerating his medications and denies any new discomfort or pain. He is sleeping well. Staff notes indicate the patient has been irritable and labile but in fair control. Paces the unit sometimes and appears anxious. Med seeking at times. There are no behavioral issues overnight Diagnostic Results: As per history schizoaffective disorderwhich is self-reported Opioid use disorder in remission, on maintenance methadone program Barbiturates were positive and urine Rule out malingering Medication Change: No ( ) Medical Record Reviewed: Yes Mental Status Examination - Cognitive Function Orientation: Person, Place, Situation - Mood Mood: Other ("fair") - Affect Affect: Flat - Speech Speech: Appropriate - Formal Thought Process Formal Thought Process: No Impairment - Suicidal Ideation Suicidal Ideation: No - Homicidal Ideation Homicidal Ideation: No Goal/Treatment Plan - Goal/Treatment Plan Need for Continued Stay: Remain at risks for inpatient hospitalization, Severe depression anxiety, Discharge may exacerbated symptoms, Severe functional impairment Progress Toward Problem(s) and Goals/Treatment Plan: * c/w current tx and plan * No new weekend labs thus far * Vitals reviewed and noted below: Selected Entries 08/12/17 08/12/17 08/12/17 07:00 09:34 09:35 Temperature 97.8 F Pulse Rate 72 72 Respiratory 17 Rate Blood Pressure 140/96 H 140/96 H 140/96 H 08/12/17 08/12/17 15:54 16:30 Temperature Pulse Rate 80 80 Respiratory Rate Blood Pressure 119/82 119/82 Estimated Date of D/C: 08/19/17
[2017-08-14] MEDS: Fluticasone-Salmeterol 250-50mcg Diskus IH SCH ×2 (09:33→18:46)
[2017-08-14] MEDS: Insulin Reg-LOW-Coverage SC SCH ×4 (09:36→22:47)
--- NOTE | 2017-08-14 09:45 | PCM.PYCHPN ---
Psychiatric Progress Note - Psychiatric Progress Note Patient seen today, length of contact: 25 min Patient Chief Complaint: "same" Problems Identified/Issues Discussed: I reviewed recent notes and patient was interviewed at bedside. He appears unkempt and superficially cooperative with my interview questions. Indicated he is feeling "the same". Affect is flat and responses are brief. Denies hallucinations and delusions were not elicited. Specifically denies hearing voices commanding him to hurt himself and denies any thoughts or plans to harm himself or others. Patient reports that he is tolerating his medications and denies any new discomfort or pain--except for lower back pain. He is sleeping well. Staff notes indicate the patient has been irritable and labile but in fair control. Paces the unit sometimes and appears anxious. Still needs some redirection. There were no major behavioral issues over the weekend. Diagnostic Results: As per history schizoaffective disorderwhich is self-reported Opioid use disorder in remission, on maintenance methadone program Barbiturates were positive and urine Rule out malingering Medication Change: No ( ) Medical Record Reviewed: Yes Mental Status Examination - Cognitive Function Orientation: Person, Place, Situation - Mood Mood: Other ("fair") - Affect Affect: Flat, Other (can be irritable, labile) - Speech Speech: Appropriate - Formal Thought Process Formal Thought Process: No Impairment - Suicidal Ideation Suicidal Ideation: No - Homicidal Ideation Homicidal Ideation: No Goal/Treatment Plan - Goal/Treatment Plan Need for Continued Stay: Remain at risks for inpatient hospitalization, Severe depression anxiety, Discharge may exacerbated symptoms, Severe functional impairment Progress Toward Problem(s) and Goals/Treatment Plan: * c/w current tx and plan * No new weekend labs thus far * Vitals reviewed and noted below: Selected Entries 08/13/17 08/13/17 08/13/17 07:02 08:40 09:00 Temperature 98.5 F Pulse Rate 77 77 Respiratory 20 Rate Blood Pressure 120/83 120/83 120/83 08/13/17 16:30 Temperature Pulse Rate 80 Respiratory Rate Blood Pressure 119/82 Estimated Date of D/C: 08/19/17
[2017-08-15] MEDS: Fluticasone-Salmeterol 250-50mcg Diskus IH SCH ×2 (07:05→17:59)
[2017-08-15] MEDS: Insulin Reg-LOW-Coverage SC SCH ×4 (09:03→22:50)
--- NOTE | 2017-08-15 17:53 | PCM.PYCHPN ---
Psychiatric Progress Note - Psychiatric Progress Note Patient seen today, length of contact: 30min Patient Chief Complaint: "I am not ready to go, I am hearing voices, I have bad thoughts, I don't care about eating, I have no appetite..." Problems Identified/Issues Discussed: Pt was educated about risk/benefits and alternatives of medications, coping strategies (safety plan, suicide prevention), relapse prevention, importance of follow up with psychiatrist and therapist, stay away from drugs/alcohol/smoking Medical Problems: HTN, ?diabetes Diagnostic Results: 08/09/17 15:40 08/09/17 15:40 Lab Results 08/11/17 11:50: POC Glucose (mg/dL) 105 08/11/17 05:58: POC Glucose (mg/dL) 104 08/10/17 21:26: POC Glucose (mg/dL) 132 H 08/10/17 16:16: POC Glucose (mg/dL) 91 08/10/17 12:00: POC Glucose (mg/dL) 116 H 08/10/17 07:00: RPR Nonreactive 08/10/17 07:00: TSH 3rd Generation 0.87 08/10/17 07:00: Fasting Glucose 88, Triglycerides 117, Cholesterol 165, LDL Cholesterol Direct 93, HDL Cholesterol 54 08/10/17 06:38: POC Glucose (mg/dL) 102 08/09/17 22:21: POC Glucose (mg/dL) 57 L 08/09/17 17:35: Urine Opiates Screen Negative, Urine Methadone Screen Positive H , Ur Barbiturates Screen Positive H, Ur Phencyclidine Scrn Negative, Ur Amphetamines Screen Negative, U Benzodiazepines Scrn Positive, U Oth Cocaine Metabols Negative, U Cannabinoids Screen Negative 08/09/17 17:30: Urine Color Yellow, Urine Appearance Clear, Urine pH 6.0, Ur Specific [place] >= 1.030, Urine Protein Trace H, Urine Glucose (UA) Negative, Urine Ketones Negative, Urine Blood Negative, Urine Nitrate Negative, Urine Bilirubin Negative, Urine Urobilinogen 0.2, Ur Leukocyte Esterase Negative, Urine RBC 0 - 2, Urine WBC 1 - 3, Ur Epithelial Cells None, Urine Bacteria Few 08/09/17 15:40: Alcohol, Quantitative < 10 08/09/17 15:40: Salicylates < 1 L, Acetaminophen < 10.0 L 08/09/17 15:40: Sodium 142, Potassium 4.5, Chloride 103, Carbon Dioxide 27, Anion Gap 17, BUN 17, Creatinine 1.1, Est GFR ( Amer) > 60, Est GFR (Non- Af Amer) > 60, Random Glucose 113 H, Calcium 10.0, Total Bilirubin 0.4, AST 25, ALT 27, Alkaline Phosphatase 91, Total Protein 7.8, Albumin 4.5, Globulin 3.3, Albumin/Globulin Ratio 1.3 08/09/17 15:40: WBC 8.4, RBC 4.41, Hgb 13.0 L, Hct 38.3 L, MCV 86.8, MCH 29.5, MCHC 33.9, RDW 14.0, Plt Count 274, MPV 10.0, Gran % 61.9, Lymph % (Auto) 31.7, [place] % (Auto) 4.8, Eos % (Auto) 1.2 L, Baso % (Auto) 0.4, Gran # 5.22, Lymph # 2.7, [place] # 0.4, Eos # 0.1, Baso # 0.03 Vital Signs Temp Pulse Resp BP Pulse Ox 08/11/17 08:28 76 133/81 08/11/17 06:07 98.3 F 76 20 133/81 97 08/10/17 17:24 71 144/101 H 08/10/17 16:30 74 138/100 H 08/10/17 06:59 96.9 F L 81 19 122/84 08/09/17 20:28 20 08/09/17 18:14 90 24 138/90 94 L 08/09/17 16:41 98.6 F 90 19 129/75 99 08/09/17 14:55 98.4 F 102 H 19 141/86 96 Temp Pulse Resp BP Pulse Ox 97.8 F 72 17 140/96 H 97 08/12/17 07:00 08/12/17 09:35 08/12/17 07:00 08/12/17 09:35 08/11/17 06:07 Temp Pulse Resp BP Pulse Ox 98.2 F 65 20 116/82 97 08/15/17 07:48 08/15/17 07:48 08/15/17 07:48 08/15/17 09:02 08/11/17 06:07 DSM 5 Symptoms Update: shortly patient is 47 year old -Citizen Of [place] male, not known previous psychiatric history, self reported history of schizoaffective disorder, patient also has history of opioid use disorder, reported to be sober for the past 2 years, patient also has multiple psychiatric admissions (more than 10), most recent was more than 6 months ago, patient currently unemployed, reportedly in [place], brought himself to the hospital looking for help for possible suicidal ideations as well as plan to jump in front of the train, possible depressive symptoms, possible psychotic symptoms. pt is very poor and unreliable historian, recently discharged from the [place], less than a week ago, but said last admission was more than 6months ago. pt is low profile, stays in room, not participating in unit activities, but fixated on benzodiazepines, methadone. Pt reported tolerating meds well, no side effects observed or reported, AIMS 0, no EPS, as per RN over the weekend no agitation or aggression. pt was seen at tx team meeting room pt said "I am not ready to go, I am hearing voices, I have bad thoughts, I don't care about eating, I have no appetite...", pt also requested to be discharged to the boarding home, "I want to be okay, I have an income..." Patient reported that he has history of "mind racing", most recent was "just now ", but pt's speech is slow and underproductive. patient tolerates medications well, no side effects observed or reported, aims 0 , no EPS. impression: As per history schizoaffective disorder which is self-reported Opioid use disorder in remission, on maintenance methadone program Barbiturates were positive and urine Rule out malingering Medication Change: Yes (ativan decreased, Abilify increased) Medical Record Reviewed: Yes Mental Status Examination - Cognitive Function Orientation: Person, Place, Situation Memory: Intact Attention: Poor Concentration: Poor Association: WNL Fund of Knowledge: WNL - Mood Mood: Other ("fair") - Affect Affect: Flat, Other (can be irritable, labile) - Speech Speech: Appropriate - Formal Thought Process Formal Thought Process: No Impairment - Suicidal Ideation Suicidal Ideation: No - Homicidal Ideation Homicidal Ideation: No Goal/Treatment Plan - Goal/Treatment Plan Need for Continued Stay: Remain at risks for inpatient hospitalization, Severe depression anxiety, Discharge may exacerbated symptoms, Severe functional impairment Progress Toward Problem(s) and Goals/Treatment Plan: Milieu/structure/supportive therapy Medical consult appreciated, see medical team note for more detailed info consultation for discharge plan and social issues Med management abilify 10mg po amhs for psychosis neurontin 300mg po tid for mood stabilization Zoloft 100 mg daily for depression as well as for anxiety amlodipine 10mg po daily for HTN When necessary medications Methadone maintenance therapy 100 mg daily, dose was confirmed by methadone program [place] dose was confirmed by [facility] methadone clinic [phone] last dose was 08/09/17 Family involvement Follow up on labs Will monitor closely evaluation for d/c planning Estimated Date of D/C: 08/19/17
[2017-08-16] MEDS: Fluticasone-Salmeterol 250-50mcg Diskus IH SCH ×2 (06:24→17:38)
[2017-08-16] MEDS: Insulin Reg-LOW-Coverage SC SCH ×4 (08:46→21:38)
--- NOTE | 2017-08-16 15:41 | PCM.PYCHPN ---
Psychiatric Progress Note - Psychiatric Progress Note Patient seen today, length of contact: 30min Patient Chief Complaint: "I feel better" Problems Identified/Issues Discussed: Pt was educated about risk/benefits and alternatives of medications, coping strategies (safety plan, suicide prevention), relapse prevention, importance of follow up with psychiatrist and therapist, stay away from drugs/alcohol/smoking Medical Problems: HTN, ?diabetes Diagnostic Results: 08/09/17 15:40 08/09/17 15:40 Lab Results 08/11/17 11:50: POC Glucose (mg/dL) 105 08/11/17 05:58: POC Glucose (mg/dL) 104 08/10/17 21:26: POC Glucose (mg/dL) 132 H 08/10/17 16:16: POC Glucose (mg/dL) 91 08/10/17 12:00: POC Glucose (mg/dL) 116 H 08/10/17 07:00: RPR Nonreactive 08/10/17 07:00: TSH 3rd Generation 0.87 08/10/17 07:00: Fasting Glucose 88, Triglycerides 117, Cholesterol 165, LDL Cholesterol Direct 93, HDL Cholesterol 54 08/10/17 06:38: POC Glucose (mg/dL) 102 08/09/17 22:21: POC Glucose (mg/dL) 57 L 08/09/17 17:35: Urine Opiates Screen Negative, Urine Methadone Screen Positive H , Ur Barbiturates Screen Positive H, Ur Phencyclidine Scrn Negative, Ur Amphetamines Screen Negative, U Benzodiazepines Scrn Positive, U Oth Cocaine Metabols Negative, U Cannabinoids Screen Negative 08/09/17 17:30: Urine Color Yellow, Urine Appearance Clear, Urine pH 6.0, Ur Specific [place] >= 1.030, Urine Protein Trace H, Urine Glucose (UA) Negative, Urine Ketones Negative, Urine Blood Negative, Urine Nitrate Negative, Urine Bilirubin Negative, Urine Urobilinogen 0.2, Ur Leukocyte Esterase Negative, Urine RBC 0 - 2, Urine WBC 1 - 3, Ur Epithelial Cells None, Urine Bacteria Few 08/09/17 15:40: Alcohol, Quantitative < 10 08/09/17 15:40: Salicylates < 1 L, Acetaminophen < 10.0 L 08/09/17 15:40: Sodium 142, Potassium 4.5, Chloride 103, Carbon Dioxide 27, Anion Gap 17, BUN 17, Creatinine 1.1, Est GFR ( Amer) > 60, Est GFR (Non- Af Amer) > 60, Random Glucose 113 H, Calcium 10.0, Total Bilirubin 0.4, AST 25, ALT 27, Alkaline Phosphatase 91, Total Protein 7.8, Albumin 4.5, Globulin 3.3, Albumin/Globulin Ratio 1.3 08/09/17 15:40: WBC 8.4, RBC 4.41, Hgb 13.0 L, Hct 38.3 L, MCV 86.8, MCH 29.5, MCHC 33.9, RDW 14.0, Plt Count 274, MPV 10.0, Gran % 61.9, Lymph % (Auto) 31.7, [place] % (Auto) 4.8, Eos % (Auto) 1.2 L, Baso % (Auto) 0.4, Gran # 5.22, Lymph # 2.7, [place] # 0.4, Eos # 0.1, Baso # 0.03 Vital Signs Temp Pulse Resp BP Pulse Ox 08/11/17 08:28 76 133/81 08/11/17 06:07 98.3 F 76 20 133/81 97 08/10/17 17:24 71 144/101 H 08/10/17 16:30 74 138/100 H 08/10/17 06:59 96.9 F L 81 19 122/84 08/09/17 20:28 20 08/09/17 18:14 90 24 138/90 94 L 08/09/17 16:41 98.6 F 90 19 129/75 99 08/09/17 14:55 98.4 F 102 H 19 141/86 96 Temp Pulse Resp BP Pulse Ox 97.8 F 72 17 140/96 H 97 08/12/17 07:00 08/12/17 09:35 08/12/17 07:00 08/12/17 09:35 08/11/17 06:07 Temp Pulse Resp BP Pulse Ox 98.2 F 65 20 116/82 97 08/15/17 07:48 08/15/17 07:48 08/15/17 07:48 08/15/17 09:02 08/11/17 06:07 Temp Pulse Resp BP Pulse Ox 98.1 F 65 16 115/67 97 08/16/17 07:52 08/16/17 07:52 08/16/17 07:52 08/16/17 08:45 08/11/17 06:07 DSM 5 Symptoms Update: shortly patient is 47 year old -[place] male, not known previous psychiatric history, self reported history of schizoaffective disorder, patient also has history of opioid use disorder, reported to be sober for the past 2 years, patient also has multiple psychiatric admissions (more than 10), most recent was more than 6 months ago, patient currently unemployed, reportedly in [place], brought himself to the hospital looking for help for possible suicidal ideations as well as plan to jump in front of the train, possible depressive symptoms, possible psychotic symptoms. pt is very poor and unreliable historian, recently discharged from the [place] pt was seen at the hallway, pt presented better, more organized, said that voices are better, pt denied thoughts of harming self or others, pt met with SW , d/c plan was discussed with pt, pt deemed to be ready for d/c tomorrow. patient tolerates medications well, no side effects observed or reported, aims 0 , no EPS. impression: As per history schizoaffective disorder which is self-reported Opioid use disorder in remission, on maintenance methadone program Barbiturates were positive and urine Rule out malingering Medication Change: Yes (ativan decreased) Medical Record Reviewed: Yes Consults ordered or reviewed: medical consult appreciated Mental Status Examination - Cognitive Function Orientation: Person, Place, Situation Memory: Intact Attention: Poor (improvement) Concentration: Poor (mprovement) Association: WNL Fund of Knowledge: WNL - Mood Mood: Other ("fair") - Affect Affect: Constricted - Speech Speech: Appropriate - Formal Thought Process Formal Thought Process: No Impairment - Suicidal Ideation Suicidal Ideation: No - Homicidal Ideation Homicidal Ideation: No Goal/Treatment Plan - Goal/Treatment Plan Need for Continued Stay: Remain at risks for inpatient hospitalization, Severe depression anxiety, Discharge may exacerbated symptoms, Severe functional impairment Progress Toward Problem(s) and Goals/Treatment Plan: Milieu/structure/supportive therapy Medical consult appreciated, see medical team note for more detailed info SW consultation for discharge plan and social issues Med management abilify 10mg po amhs for psychosis neurontin 300mg po tid for mood stabilization Zoloft 100 mg daily for depression as well as for anxiety amlodipine 10mg po daily for HTN When necessary medications Methadone maintenance therapy 100 mg daily, dose was confirmed by methadone program [place] dose was confirmed by [facility] methadone clinic [phone] last dose was 08/09/17 Family involvement Follow up on labs Will monitor closely SW evaluation for d/c planning Estimated Date of D/C: 08/17/17
[2017-08-17 07:01] VITALS: PULSE 76; RESP 22; TEMP 98.5
[2017-08-17] MEDS: Insulin Reg-LOW-Coverage SC SCH (08:10)
[2017-08-17 08:14] VITALS: BP 111/69
== END 2017-08-17 13:38 | disposition home or self-care (01) | DRG 430 ==
LOC: ED 14:26 → ERH 18:17 → PSYC 19:22
PROVIDERS: ADMIT Psychiatry & Neurology Psychiatry; ATTEND Psychiatry & Neurology Psychiatry
DX: F25.9 Schizoaffective disorder, unspecified (principal); R45.851 Suicidal ideations; R45.850 Homicidal ideations; E86.0 Dehydration; F11.21 Opioid dependence, in remission; Z56.0 Unemployment, unspecified; F41.9 Anxiety disorder, unspecified; F32.89 Other specified depressive episodes; E11.9 Type 2 diabetes mellitus without complications; I10 Essential (primary) hypertension; Z82.49 Family history of ischemic heart disease and other diseases of the circulatory system; Z83.6 Family history of other diseases of the respiratory system; J45.909 Unspecified asthma, uncomplicated; Z79.899 Other long term (current) drug therapy; F17.210 Nicotine dependence, cigarettes, uncomplicated; Z91.14 Patient's other noncompliance with medication regimen; R40.2412 Glasgow coma scale score 13-15, at arrival to emergency department

== ENCOUNTER 2017-09-16 12:27 | Inpatient (IN) | payer MEDICAID ==
[2017-09-16 12:27] VITALS: BMI 30.2
--- NOTE | 2017-09-16 12:32 | ED PDOC ---
Arrival/HPI - General Historian: Patient <Yonas Chambers - Last Filed: 09/16/17 18:19> <Rowan Medina - Last Filed: 09/27/17 12:16> - General Time Seen by Provider: 09/16/17 12:30 - History of Present Illness Narrative History of Present Illness (Text): 09/16/17 12:31 47 y/o male, pmh including htn/dm/copd, psychiatric history including schizoaffective/bipolar, nkda, c/o suicidal and homicidal plan x 1 day. Pt. stated that he is a chronic smoker with copd, been coughing for the past 3 days , admits on and off coughing. Pt. also stated that he has been hearing voices to tell him to commit suicide, no visual hallucination, suicidal plan is to run in front of the bus, admits feeling depressed, no chest pain or palpitation, no rash, no numbness or tingling, no night sweat, no other medical or psychological complaints. (Yonas Chambers) Past Medical History - Provider Review Nursing Documentation Reviewed: Yes - Infectious Disease Hx of Infectious Diseases: None - Tetanus Immunization Tetanus Immunization: Unknown - Cardiac Hx Hypertension: Yes - Pulmonary Hx Tuberculosis: No - Neurological HX Cerebrovascular Accident: No Hx Seizures: No - HEENT Hx HEENT Disorder: Yes Other/Comment: uses corrective glasses - Renal Hx Renal Disorder: No - Endocrine/Metabolic Hx Diabetes Mellitus Type 2: Yes - Hematological/Oncological Hx Cancer: No - Integumentary Hx Dermatological Disorder: No - Musculoskeletal/Rheumatological Hx Musculoskeletal Disorders: No - Gastrointestinal Hx Gastrointestinal Disorders: No - Genitourinary/Gynecological Hx Genitourinary Disorders: No Hx Sexually Transmitted Diseases: No - Psychiatric Hx Substance Use: Yes (heroin) - Anesthesia Hx Anesthesia: No <Yonas Chambers - Last Filed: 09/16/17 18:19> Family/Social History - Physician Review Nursing Documentation Reviewed: Yes Family/Social History: Unknown Family HX Smoking Status: Current Some Days Smoker Hx Alcohol Use: No Hx Substance Use: Yes (heroin) Substance used: quit <Yonas Chambers - Last Filed: 09/16/17 18:19> Allergies/Home Meds <Yonas Chambers - Last Filed: 09/16/17 18:19> <Rowan Medina - Last Filed: 09/27/17 12:16> Allergies/Adverse Reactions: Allergies No Known Allergies Allergy (Verified 09/17/17 02:37) Review of Systems - Review of Systems Constitutional: absent: Fatigue, Fevers Eyes: absent: Vision Changes ENT: absent: Hearing Changes Respiratory: Cough, Wheezing. absent: SOB, Sputum Cardiovascular: absent: Chest Pain Gastrointestinal: absent: Abdominal Pain, Diarrhea, Nausea, Vomiting Musculoskeletal: absent: Arthralgias, Back Pain Skin: absent: Rash, Pruritis Neurological: absent: Headache Psychiatric: Depression, Suicidal Ideation. absent: Anxiety <Yonas Chambers Q - Last Filed: 09/16/17 18:19> Physical Exam - Systems Exam Head: Present: Atraumatic, Normocephalic Pupils: Present: PERRL Extroacular Muscles: Present: EOMI Conjunctiva: Present: Normal Mouth: Present: Moist Mucous Membranes Neck: Present: Normal Range of Motion Respiratory/Chest: Present: Clear to Auscultation, Good Air Exchange, Wheezes, Decreased Breath Sounds. No: Respiratory Distress, Accessory Muscle Use, Rales , Retracting, Rhonchi, Tachypneic, Tender to Palpation Cardiovascular: Present: Regular Rate and Rhythm, Normal S1, S2, Other (no pedal edema). No: Murmurs Abdomen: Present: Normal Bowel Sounds. No: Tenderness, Distention, Peritoneal Signs Back: Present: Normal Inspection Upper Extremity: Present: Normal Inspection. No: Cyanosis, Edema Lower Extremity: Present: Normal Inspection. No: Edema Neurological: Present: GCS=15, Speech Normal, Motor Func Grossly Intact, Gait Normal, Memory Normal Skin: Present: Warm, Dry, Normal Color. No: Rashes Psychiatric: Present: Alert, Oriented x 3, Normal Insight, Normal Concentration <Yonas Chambers Q - Last Filed: 09/16/17 18:19> Vital Signs Temp Pulse Resp BP Pulse Ox 09/16/17 17:24 98.8 F 84 20 97/56 L 97 09/16/17 12:37 98.6 F 88 20 138/84 97 09/16/17 12:27 98.6 F 88 20 138/84 97 Medical Decision Making - Lab Interpretations I have reviewed the lab results: Yes Interpretation: No clinic. lab abnormalty - RAD Interpretation Mushroom Growing Supervisor: Radiologist - EKG Interpretation Interpreted by ED Physician: Yes Type: 12 lead EKG Comparison: Com.w/previous EKG <Yonas Chambers - Last Filed: 09/16/17 18:19> <Rowan Medina - Last Filed: 09/27/17 12:16> ED Course and Treatment: 09/16/17 12:40 -labs/ua/uds -ekg/cxr -duoneb/prednisone -Case discussed with Dr. Medina and agreed on the treatment/labs and PES consult plan. -observe and reassess 09/16/17 15:25 -chest xray show no active disease -EKG: NSR @ 87 BPM, no acute ST or T wave changes noted compared with previous ekg. -Labs are non-significant -Wheezing resolved with bilateral lungs clear to auscultate with no crackles/ rhonchis, sleeping well, vitally stable. -Pt. is medically clear and stable for the psychiatric evaluation. -Pending UA and UDS. -PES notified and will come to evaluate the patient. 09/16/17 16:47 -Mg+ 1.5, 1gm MgSulfate 1gm IV ordered. -UA show no UTI -UDS show +methadone. 09/16/17 18:19 -Pt. evaluated by the PES mariela, agreed to sign in, admission will be schizoaffective. Dr. Medina is not available to put in the admission, agreed on the consult, will admit for DR. Medina. (Yonas Chambers) - Lab Interpretations Lab Results: 09/16/17 13:20 09/16/17 13:20 Lab Results 09/16/17 16:12: Urine Color Yellow, Urine Appearance Clear, Urine pH 6.0, Ur Specific [place] >= 1.030, Urine Protein Negative, Urine Glucose (UA) Negative, Urine Ketones Negative, Urine Blood Negative, Urine Nitrate Negative, Urine Bilirubin Negative, Urine Urobilinogen 0.2, Ur Leukocyte Esterase Negative 09/16/17 16:12: Urine Opiates Screen Negative, Urine Methadone Screen Positive H , Ur Barbiturates Screen Negative, Ur Phencyclidine Scrn Negative, Ur Amphetamines Screen Negative, U Benzodiazepines Scrn Positive, U Oth Cocaine Metabols Negative, U Cannabinoids Screen Negative 09/16/17 13:20: WBC 5.2 D, RBC 4.35, Hgb 12.3 L, Hct 37.6 L, MCV 86.4, MCH 28.3 , MCHC 32.7, RDW 13.9, Plt Count 180, MPV 11.0, Gran % 52.3, Lymph % (Auto) 39.6 H, [place] % (Auto) 5.2, Eos % (Auto) 2.7, Baso % (Auto) 0.2, Gran # 2.72, Lymph # 2.1, [place] # 0.3, Eos # 0.1, Baso # 0.01 09/16/17 13:20: Alcohol, Quantitative < 10 09/16/17 13:20: Salicylates < 1 L, Acetaminophen < 10.0 L 09/16/17 13:20: Sodium 140, Potassium 4.2, Chloride 102, Carbon Dioxide 28, Anion Gap 14, BUN 10, Creatinine 0.8, Est GFR ( Amer) > 60, Est GFR (Non- Af Amer) > 60, Random Glucose 149 H, Calcium 9.8, Magnesium 1.5 L, Total Bilirubin 0.2, AST 32, ALT 32, Alkaline Phosphatase 64, Total Protein 7.6, Albumin 4.3, Globulin 3.3, Albumin/Globulin Ratio 1.3 - RAD Interpretation Radiology Orders: 09/16/17 12:37 CHEST PORTABLE [RAD] Stat HISTORY: cough and wheezing, copd history COMPARISON: 08/09/2017 FINDINGS: LUNGS: No active pulmonary disease. PLEURA: No significant pleural effusion identified, no pneumothorax apparent. CARDIOVASCULAR: Normal. OSSEOUS STRUCTURES: No significant abnormalities. VISUALIZED UPPER ABDOMEN: Normal. OTHER FINDINGS: None. IMPRESSION: No active disease. (Yonas Chambers) - EKG Interpretation EKG Interpretation (Text): 09/16/17 13:40 NSR @ 87 BPM, no acute ST or T wave changes noted compared with previous ekg. ( Yonas Chambers) - Medication Orders Current Medication Orders: Acetaminophen (Tylenol 325mg Tab) 650 mg PO Q6H PRN PRN Reason: Pain, Mild (1-3) Al Hydrox/Mg Hydrox/Simethicone (Maalox Plus 30 Ml) 30 ml PO DAILY PRN PRN Reason: Upset Stomach Albuterol/Ipratropium (Duoneb 3 Mg/0.5 Mg (3 Ml) Ud) 3 ml IH [id number] KEYANNA Last Admin: 09/27/17 08:06 Dose: Not Given Non-Admin Reason: Patient Refused Amlodipine Besylate (Norvasc) 10 mg PO DAILY [facility] Last Admin: 09/27/17 08:05 Dose: 10 mg MAR Blood Pressure Document 09/27/17 08:05 TW (Rec: 09/27/17 08:06 TW [id number]) Blood Pressure Blood Pressure (100/60-150/90) 125/81 Benztropine Mesylate (Cogentin) 1 mg PO BID [facility] Last Admin: 09/27/17 08:05 Dose: Not Given Non-Admin Reason: Patient Refused Budesonide (Pulmicort Respules) 0.5 mg IH [id number] [facility] Last Admin: 09/27/17 08:06 Dose: Not Given Non-Admin Reason: Patient Refused Divalproex Sodium (Depakote Dr(*Bid*)) 500 mg PO BID [facility] PRN Reason: Protocol Last Admin: 09/27/17 08:06 Dose: Not Given Non-Admin Reason: Patient Refused Fluphenazine HCl (Prolixin) 10 mg PO [facility] PRN Reason: Protocol Last Admin: 09/26/17 23:47 Dose: Not Given Non-Admin Reason: Patient Refused Folic Acid (Folic Acid) 1 mg PO DAILY [facility] Last Admin: 09/27/17 08:06 Dose: Not Given Non-Admin Reason: Patient Refused Haloperidol (Haldol) 5 mg PO Q6 PRN; Protocol PRN Reason: Agitation Last Admin: 09/22/17 00:34 Dose: 5 mg Re-Assess: Reassess Psych Meds Document 09/22/17 01:34 KM (Rec: 09/22/17 02:50 KM [id number]) Reassess Psych Med Effective Haloperidol Lactate (Haldol) 5 mg IM Q6 PRN; Protocol PRN Reason: Agitation Last Admin: 09/16/17 20:40 Dose: 5 mg IM Administration Charges Document 09/16/17 20:40 KM (Rec: 09/16/17 20:40 KM [id number]) Charges for Administration # of IM Administrations 1 Re-Assess: Reassess Psych Meds Document 09/16/17 21:40 KM (Rec: 09/16/17 23:54 KM [id number]) Reassess Psych Med Effective Lorazepam (Ativan) 2 mg PO Q6 PRN; Protocol PRN Reason: Agitation Last Admin: 09/25/17 21:35 Dose: 2 mg Behavioural Document 09/25/17 21:35 DCP (Rec: 09/25/17 21:35 DCP [id number]) Maintenance Maintenance Dose Yes Re-Assess: Reassess Psych Meds Document 09/26/17 07:39 TW (Rec: 09/26/17 07:39 TW [id number]) Reassess Psych Med Effective Lorazepam (Ativan) 2 mg IM Q6 PRN; Protocol PRN Reason: Agitation Last Admin: 09/16/17 20:40 Dose: 2 mg IM Administration Charges Document 09/16/17 20:40 KM (Rec: 09/16/17 20:40 KM [id number]) Charges for Administration # of IM Administrations 1 Re-Assess: Reassess Psych Meds Document 09/16/17 21:10 KM (Rec: 09/16/17 23:54 KM [id number]) Reassess Psych Med Effective Losartan Potassium (Cozaar) 25 mg PO DAILY [facility] Last Admin: 09/27/17 08:06 Dose: 25 mg Magnesium Hydroxide (Milk Of Magnesia) 30 ml PO DAILY PRN PRN Reason: Constipation Metformin HCl (Glucophage) 1,000 mg PO BID [facility] Last Admin: 09/27/17 08:06 Dose: 1,000 mg Methadone HCl (Methadone) 100 mg PO DAILY [facility] Last Admin: 09/27/17 08:03 Dose: 100 mg [facility] Pain Assessment Document 09/27/17 08:03 TW (Rec: 09/27/17 08:03 [id number] Pain Reassessment Is this a pain reassessment? No Re-Assess: [facility] Pain Assessment Document 09/27/17 09:03 TW (Rec: 09/27/17 09:39 TW [id number]) Pain Reassessment Is this a pain reassessment? No Multivitamins/Minerals (Therapeutic-M Tab) 1 tab PO 0800 [facility] Last Admin: 09/27/17 08:06 Dose: Not Given Non-Admin Reason: Patient Refused Nicotine (Nicoderm Cq) 1 patch TD DAILY [facility] Last Admin: 09/27/17 08:03 Dose: 1 patch MAR Transdermal Patch Site Document 09/27/17 08:03 TW (Rec: 09/27/17 08:03 [id number] Transdermal Patch Site Transdermal Patch Site Right Outer Upper Arm Sertraline HCl (Zoloft) 150 mg PO DAILY [facility] Last Admin: 09/27/17 08:06 Dose: Not Given Non-Admin Reason: Patient Refused Sitagliptin Phosphate (Januvia) 100 mg PO DAILY [facility] Last Admin: 09/27/17 08:06 Dose: 100 mg Thiamine HCl (Vitamin B1 Tab) 100 mg PO DAILY [facility] Last Admin: 09/27/17 08:06 Dose: Not Given Non-Admin Reason: Patient Refused Trazodone HCl (Desyrel) 100 mg PO PRN PRN Reason: Insomnia Last Admin: 09/26/17 21:43 Dose: 100 mg Discontinued Medications Albuterol/Ipratropium (Duoneb 3 Mg/0.5 Mg (3 Ml) Ud) 3 ml Q15M [facility] Stop: 09/16/17 13:16 Last Admin: 09/16/17 14:09 Dose: 3 ml Amlodipine Besylate (Norvasc) 10 mg PO DAILY [facility] Last Admin: 09/17/17 09:12 Dose: 10 mg MAR Blood Pressure Document 09/17/17 09:12 DC (Rec: 09/17/17 09:16 DC [id number]) Blood Pressure Blood Pressure (100/60-150/90) 131/86 Aripiprazole (Abilify) 5 mg PO DAILY [facility] Last Admin: 09/17/17 09:16 Dose: 5 mg Behavioural Document 09/17/17 09:16 DC (Rec: 09/17/17 09:16 DC [id number]) Maintenance Maintenance Dose Yes Re-Assess: Reassess Psych Meds Document 09/17/17 10:16 DC (Rec: 09/17/17 11:32 DC [id number]) Reassess Psych Med Effective Fluphenazine HCl (Prolixin) 5 mg PO BID [facility] PRN Reason: Protocol Last Admin: 09/20/17 09:24 Dose: 5 mg Behavioural Document 09/20/17 09:24 RGO (Rec: 09/20/17 09:24 RGO [id number]) Maintenance Maintenance Dose Yes Fluphenazine HCl (Prolixin) 5 mg PO TID [facility] PRN Reason: Protocol Last Admin: 09/21/17 12:33 Dose: 5 mg Behavioural Document 09/21/17 12:33 TW (Rec: 09/21/17 12:33 TW [id number]) Maintenance Maintenance Dose Yes Re-Assess: Reassess Psych Meds Document 09/21/17 13:33 TW (Rec: 09/21/17 14:25 TW [id number]) Reassess Psych Med Effective Fluphenazine HCl (Prolixin) 10 mg PO [facility] PRN Reason: Protocol Last Admin: 09/26/17 10:00 Dose: Not Given Non-Admin Reason: Patient Refused Gabapentin (Neurontin) 100 mg PO TID [facility] PRN Reason: Protocol Last Admin: 09/17/17 09:16 Dose: 100 mg Behavioural Document 09/17/17 09:16 DC (Rec: 09/17/17 09:16 DC [id number]) Maintenance Maintenance Dose Yes Re-Assess: Reassess Psych Meds Document 09/17/17 10:16 DC (Rec: 09/17/17 11:33 DC [id number]) Reassess Psych Med Effective Gabapentin (Neurontin) 300 mg PO TID [facility] PRN Reason: Protocol Last Admin: 09/18/17 08:10 Dose: 300 mg Behavioural Document 09/18/17 08:10 DC (Rec: 09/18/17 08:11 DC [id number]) Maintenance Maintenance Dose Yes Re-Assess: Reassess Psych Meds Document 09/18/17 09:10 DC (Rec: 09/18/17 16:24 DC [id number]) Reassess Psych Med Effective Magnesium Sulfate/Dextrose (Magnesium Sulfate 1 Gm/100 Ml D5w) 1 gm in 100 mls @ 100 mls/hr IVPB ONCE ONE Stop: 09/16/17 17:13 Last Admin: 09/16/17 16:47 Dose: 100 mls/hr eMAR Start Stop Document 09/16/17 16:47 SRE (Rec: 09/16/17 16:48 SRE [id number]) Intravenous Solution Start Date 09/16/17 Start Time 16:48 End Date 09/16/17 End time 17:50 Total Infusion Time 62 Lorazepam (Ativan) 1 mg PO Q8 [facility] PRN Reason: Protocol Last Admin: 09/20/17 14:25 Dose: 1 mg Behavioural Document 09/20/17 14:25 RGO (Rec: 09/20/17 14:25 RGO [id number]) Maintenance Maintenance Dose No Nonmedicinal Nonmedicinal Interventions Therapeutic Communication Behavior Behavior for Medication: Anxiety Lorazepam (Ativan) 1 mg PO BID [facility] PRN Reason: Protocol Last Admin: 09/22/17 09:02 Dose: 1 mg Behavioural Document 09/22/17 09:02 RGO (Rec: 09/22/17 09:02 RGO [id number]) Maintenance Maintenance Dose Yes Lorazepam (Ativan) 0.5 mg PO BID [facility] PRN Reason: Protocol Last Admin: 09/23/17 16:00 Dose: Not Given Non-Admin Reason: Patient Asleep Losartan Potassium (Cozaar) 25 mg PO DAILY [facility] Methadone HCl (Methadone) 100 mg PO DAILY [facility] Last Admin: 09/21/17 08:13 Dose: 100 mg [facility] Pain Assessment Document 09/21/17 08:13 TW (Rec: 09/21/17 08:13 [id number] Pain Reassessment Is this a pain reassessment? No Re-Assess: [facility] Pain Assessment Document 09/21/17 09:13 TW (Rec: 09/21/17 09:30 TW [id number]) Pain Reassessment Is this a pain reassessment? No Prednisone (Prednisone Tab) 60 mg PO STAT ONE Stop: 09/16/17 12:38 Last Admin: 09/16/17 14:08 Dose: 60 mg Sertraline HCl (Zoloft) 50 mg PO DAILY [facility] Last Admin: 09/17/17 09:17 Dose: 50 mg Sertraline HCl (Zoloft) 100 mg PO DAILY [facility] Last Admin: 09/21/17 08:14 Dose: 100 mg Zaleplon (Sonata) 5 mg PO HS PRN PRN Reason: Insomnia Last Admin: 09/18/17 00:40 Dose: 5 mg - PA / COMMERCIAL FIELD INSPECTOR / Resident Statement / has reviewed & agrees with the documentation as recorded. <Yonas Chambers - Last Filed: 09/16/17 18:19> - PA / COMMERCIAL FIELD INSPECTOR / Resident Statement / has reviewed & agrees with the documentation as recorded. <Rowan Medina - Last Filed: 09/27/17 12:16> Disposition/Present on Arrival - Present on Arrival Any Indicators Present on Arrival: No History of DVT/PE: No History of Uncontrolled Diabetes: No Urinary Catheter: No History of Decub. Ulcer: No History Surgical Site Infection Following: None - Disposition Have Diagnosis and Disposition been Completed?: Yes Disposition Time: 18:19 Patient Plan: Admission <Yonas Chambers - Last Filed: 09/16/17 18:19> <Rowan Medina - Last Filed: 09/27/17 12:16> - Disposition Diagnosis: COPD exacerbation, Drug abuse Disposition: HOSPITALIZED Patient Problems: Current Active Problems Problem Status Onset COPD exacerbation Acute Drug abuse Acute Condition: STABLE
[2017-09-16 12:40] VITALS: O2SAT 97
[2017-09-16] MEDS: Albuterol-Ipratrop 3 mg / 0.5 (3 ml) UD IH SCH ×3 (13:00→14:09)
--- NOTE | 2017-09-16 13:26 | RAD ---
HISTORY: cough and wheezing, copd history COMPARISON: 08/09/2017 FINDINGS: LUNGS: No active pulmonary disease. PLEURA: No significant pleural effusion identified, no pneumothorax apparent. CARDIOVASCULAR: Normal. OSSEOUS STRUCTURES: No significant abnormalities. VISUALIZED UPPER ABDOMEN: Normal. OTHER FINDINGS: None. IMPRESSION: No active disease.
[2017-09-16 13:35] LABS: BASO # 0.01 K/mm3 (0.0-2.0); BASO % 0.2 % (0.0-3.0); EOS # 0.1 (0.0-0.7); EOS % 2.7 % (1.5-5.0); GRAN # 2.72 (1.4-6.5); GRAN % 52.3 % (50.0-68.0); HEMOGLOBIN 12.3 g/dL (14.0-18.0); LYMPH # 2.1 (1.2-3.4); LYMPH % 39.6 % (22.0-35.0); MEAN CELL VOLUME 86.4 fl (80.0-105.0); MEAN CORPUSCULAR HEMOGLOBIN 28.3 pg (25.0-35.0); MEAN CORPUSCULAR HGB CONC 32.7 g/dl (31.0-37.0); MONO # 0.3 (0.1-0.6); MONO % 5.2 % (1.0-6.0); RBC 4.35 10^6/uL (3.5-6.1); RED CELL DISTRIBUTION WIDTH 13.9 % (11.5-14.5); WHITE BLOOD COUNT 5.2 10^3/ul (4.5-11.0)
[2017-09-16 13:49] LABS: ALB/GLOB RATIO 1.3 (1.1-1.8); ALBUMIN 4.3 g/dL (3.0-4.8); ALT/SGPT 32 U/L (7-56); AST/SGOT 32 U/L (17-59); BLOOD UREA NITROGEN 10 mg/dL (7-21); CALCIUM 9.8 mg/dL (8.4-10.5); GFR AFRICAN-AMERICAN > 60; GFR NON-AFRICAN AMERICAN > 60; MAGNESIUM 1.5 mg/dL (1.7-2.2)
[2017-09-16 13:50] LABS: ACETAMINOPHEN < 10.0 ug/ml (10.0-20.0); SALICYLATE < 1 mg/dL (2.0-20.0)
--- NOTE | 2017-09-16 15:34 | CARD ---
APPROVED REPORT EKG Measurement Heart [id number] <Conclusion> Normal sinus rhythm Possible Acute pericarditis Abnormal ECG
[2017-09-16] MEDS ORDERED: Magnesium Sulfate 1 gm in D5W 1 GM/100 ML BAG IVPB ONE (16:14)
[2017-09-16 16:31] LABS: URINE BILIRUBIN NEGATIVE (NEGATIVE); URINE BLOOD NEGATIVE (NEGATIVE); URINE GLUCOSE (UA) NEGATIVE (NEGATIVE); URINE LEUKOCYTE ESTERASE NEGATIVE Leu/uL (NEGATIVE); URINE NITRATE NEGATIVE (NEGATIVE); URINE PROTEIN NEGATIVE mg/dL (<30 mg/dL); URINE UROBILINOGEN 0.2 E.U./dL (<1 E.U./dL)
[2017-09-16 16:34] LABS: URINE COLOR YELLOW (YELLOW)
[2017-09-16 16:35] LABS: URINE APPEARANCE CLEAR (CLEAR)
[2017-09-16 16:41] LABS: BARBITURATES, UR NEGATIVE (NEGATIVE); BENZODIAZEPINES, UR POSITIVE (NEGATIVE); OPIATES, UR NEGATIVE (NEGATIVE); PHENCYCLIDINE, UR NEGATIVE (NEGATIVE)
[2017-09-16] MEDS ORDERED: Alum-Mag Hydrox-Simethicone Susp (30 mL) PO PRN (21:57)
[2017-09-16] MEDS ORDERED: Magnesium Hydroxide Susp 30 ml UD PO PRN (21:57)
--- NOTE | 2017-09-16 23:51 | PCM.BM ---
<Damian Chris - Last Filed: 09/16/17 23:48> Treatment Plan Problems - Problems identified on initial assessmt Agitated/aggressive behavior Date Initiated: 09/16/17 Time Initiated: 23:49 Assessment reference: NA Status: Active High Risk: Violence Date Initiated: 09/16/17 Time Initiated: 23:49 Assessment reference: NA Status: Active Suicidal Ideation Date Initiated: 09/16/17 Time Initiated: 23:49 Assessment reference: NA Status: Active Auditory Hallucinations Date Initiated: 09/16/17 Time Initiated: 23:49 Assessment reference: NA Status: Active Medication nonadherence Date Initiated: 09/16/17 Time Initiated: 23:50 Assessment reference: NA Status: Active Treatment assets and liabiliti Patient Assests: self-reliant, ADL independent, physically healthy, cognitively intact Patient Liabilities: live alone, financial problems, poor support system, relationship conflicts, substance abuse, medical problems - Milieu Protocol Maintain good personal hygiene: daily Encourage regular showers, daily Remind patient to perform daily oral care, daily Assist patient to perform ADL's Conduct patient checks and document Observation sheet: Q15 minutes Maintain personal safety: every shift Educate patient to report safety concerns to staff, every shift Monitor environment for contraband/sharps Medication safety: Monitor for expected outcome, potential side effects: every shift, Assess barriers to learning: every shift, Assess readiness for medication education: every shift Discharge/Continuing Care - Education Needs Education Needs: Patient Medication, Patient Diagnosis/Disease Process, Patient Coping Skills, Patient Anger Management skills, Patient Placement options, Patient Community resources, Patient Health Practices/Safety, Patient Personal Hygiene/Grooming, Patient Aftercare Safety Plan - Discharge Discharge Criteria: Free of Suicidal thoughts, Free of Homicidal thoughts, Free of agitation, Normal sleep pattern, Ability to care for self <Ayana Felix - Last Filed: 09/18/17 11:59> - Diagnosis (1) Bipolar affective disorder Status: Acute Interventions: MEDICATIONS 09/18/17 11:59 <Jessica Crane - Last Filed: 09/20/17 16:08> Family Contact Family involvement: Famliy/SO not involved Family contact: Patient declines to allow family contact at present - Outside Agency [facility] involvment: Information-sharing Agency contact name: [facility] Agency contact number: [phone]
[2017-09-17 08:04] LABS: ALB/GLOB RATIO 1.3 (1.1-1.8); ALBUMIN 4.1 g/dL (3.0-4.8); ALT/SGPT 32 U/L (7-56); AST/SGOT 39 U/L (17-59); BLOOD UREA NITROGEN 14 mg/dL (7-21); CALCIUM 9.7 mg/dL (8.4-10.5); GFR AFRICAN-AMERICAN > 60; GFR NON-AFRICAN AMERICAN > 60; GLUCOSE,FASTING 138 mg/dL (65-110); HDL CHOLESTEROL 53 mg/dL (29-60)
[2017-09-17 08:08] LABS: LDL CHOLESTEROL 133 mg/dL (0-129)
[2017-09-17 08:14] LABS: BASO # 0.01 K/mm3 (0.0-2.0); BASO % 0.1 % (0.0-3.0); EOS % 0.5 % (1.5-5.0); GRAN # 5.51 (1.4-6.5); HEMOGLOBIN 12.4 g/dL (14.0-18.0); LYMPH # 1.8 (1.2-3.4); LYMPH % 22.5 % (22.0-35.0); MEAN CELL VOLUME 85.4 fl (80.0-105.0); MEAN CORPUSCULAR HEMOGLOBIN 27.9 pg (25.0-35.0); MEAN CORPUSCULAR HGB CONC 32.7 g/dl (31.0-37.0); MEAN PLATELET VOLUME 10.9 fl (7.0-11.0); MONO # 0.5 (0.1-0.6); MONO % 6.9 % (1.0-6.0); RBC 4.44 10^6/uL (3.5-6.1); RED CELL DISTRIBUTION WIDTH 13.8 % (11.5-14.5); WHITE BLOOD COUNT 7.9 10^3/ul (4.5-11.0)
[2017-09-17 08:24] VITALS: RESP 20
--- NOTE | 2017-09-17 10:45 | PCM.PSYCH ---
Initial Psychiatric Evaluation - Initial Psychiatric Evaluation Type of Admission: Voluntary Chief Complaint (in patient's own words): "depressed, I was feeling suicidal" History of Present Illness and Precipitating Events: Patient is a single 47 year old -Burkin[place] male, self reported history of schizoaffective disorder, opioid use disorder on methadone maintenance, numerous psychiatric admissions (>10) most recently discharged from this unit on 08/17/17, historically poorly compliant with medications and aftercare recommendations who brought himself to the hospital looking for help with depression, suicidal ideation and command hallucinations telling him to commit suicide. Patient had been irritable and edgy on the unit. Last night he verbally instigating arguments with other patients. Ruel Pierre was called after he angered another patient who wanted to fight him. Patient was medicated with Haldol 5 mg and Ativan 2 mg IM with good effect. He is in fair control this morning however reluctant to fully engage in an interview. Eye contact is poor and responses are brief without much elaboration. He appears guarded and preoccupied. Denies hallucinations and doesnt appear to be responding to internal stimuli. He tells me that he took his medications after discharge from this unit last month but didnt follow up with any outpatient treatment. He will not comment on current stressors or drug/alcohol use at this time however indicates that he attends a methadone clinic and would like his dose to be confirmed so he can continue medication on the unit. Patient reminded about unit rules and aggression on this unit and he indicates that he will try to maintain better control. Presently he denies any discomfort or pain. He doesn't appear to be responding to internal stimuli and he denies hallucinations at this time. PSYCHIATRIC HISTORY ~08/09/17-08/17/17 hospitalized at [facility]. Diagnosed with Schizoaffective disorder, Opioid use disorder, moderate, in sustained remission , on maintenance therapy. Patient was discharged on Abilify 20 mg po daily, Neurontin 300 mg po TID, Zoloft 100 mg po daily and Sonata 5 mg HS prn. ~During patients 07/2017 hospitalization at [place], he was not forthcoming about his recent discharge from [facility] on August 01. Dr. Baxter documentation indicated "Patient has had multiple psychiatric admissions at [facility] the most recent in April. Patient admits he has not been compliant with his medication. After discharge he went back to [facility] , his methadone clinic that he has been going to for 3 years. Patient using heroin on top of methadone 10 bags/day. Patient drinks 1 pint of vodka/day and beer on top of that. Patient admits to xanax use 2 sticks/day. Patient denies barbiturate use even though his urine was positive. Patient denies any other drug use" ~Nursing note indicates that patient admitted to a past suicidal attempt 15 years ago by overdosing on Excedrin PM. SOCIAL Born and raised in [place]. Single. Denies having any children. Lives in an apartment. Patient reports history of opioid use disorder. He reportedly attends [facility] methadone clinic ([phone]) and receives 100 mg daily of methadone. This was confirmed during his prior admission to the unit in 07/2017. As per collaterals, patient has history of hospital shopping, admitted himself into the hospital looking for food and fpc. Patient reported smoking about one pack a day, nicotine patch offered and morbidity/mortality risks of continued tobacco use were reviewed with patient. Current Medications: Active Medications Generic Name Dose Route Start Last Admin Trade Name Freq PRN Reason Stop Dose Admin Acetaminophen 650 mg 09/16/17 21:57 Tylenol 325mg Tab PO Q6H PRN Pain, Mild (1-3) Al Hydrox/Mg Hydrox/Simethicone 30 ml 09/16/17 21:57 Maalox Plus 30 Ml PO DAILY PRN Upset Stomach Amlodipine Besylate 10 mg 09/17/17 08:00 Norvasc PO DAILY KEYANNA Aripiprazole 5 mg 09/17/17 08:00 Abilify PO DAILY KEYANNA Gabapentin 100 mg 09/17/17 08:00 Neurontin PO TID KEYANNA Protocol Haloperidol 5 mg 09/16/17 20:20 Haldol PO Q6 PRN Agitation Protocol Haloperidol Lactate 5 mg 09/16/17 20:20 09/16/17 20:40 Haldol IM 5 mg Q6 PRN Administration Agitation Protocol Lorazepam 2 mg 09/16/17 20:20 Ativan PO Q6 PRN Agitation Protocol Lorazepam 2 mg 09/16/17 20:20 09/16/17 20:40 Ativan IM 2 mg Q6 PRN Administration Agitation Protocol Magnesium Hydroxide 30 ml 09/16/17 21:57 Milk Of Magnesia PO DAILY PRN Constipation Nicotine 1 patch 09/17/17 08:00 Nicoderm Cq TD DAILY KEYANNA Sertraline HCl 50 mg 09/17/17 08:00 Zoloft PO DAILY KEYANNA Zaleplon 5 mg 09/16/17 22:51 09/17/17 01:46 Sonata PO 5 mg HS PRN Administration Insomnia Past Psychiatric History - Past Psychiatric History Pertinent Medical Hx (Current Medical&Sleep Prob, Allergies): Allergies Allergy/AdvReac Type Severity Reaction Status Date / Time No Known Allergies Allergy Verified 09/17/17 02:37 No Known Home Med 09/16/17 DSM 5 DX - DSM 5 DSM 5 Diagnosis: Schizoaffective Disorder Opioid Dependency on maintenance therapy - Recommended/Plan of Treatment Treatment Recommendations and Plan of Treatment: * group, milieu and supportive tx * Zoloft 100 mg po daily for depression and anxiety * Abilify 10 mg poi daily to augment for depression and help with mood control * Neurontin 300 mg po TID * Sonata 5 mg po HS prn: insomnia * Ativan 1 mg q8 with plan to taper * Phoned [facility] methadone clinic ([phone]) multiple times this morning however no one has been answering. Will continue outreach in order to confirm patient's methadone treatment. * Awaiting medical f/u * Vitals reviewed and noted below: 09/16/17 09/16/17 09/17/17 19:25 20:00 07:00 Temperature 98.6 F 98.1 F 97.3 F L Pulse Rate 88 94 H 81 Respiratory 18 18 20 Rate Blood Pressure 142/82 120/77 131/86 09/17/17 09:12 Temperature Pulse Rate Respiratory Rate Blood Pressure 131/86 ER LABS AND STUDIES 09/16/17 15:25 -chest xray show no active disease -EKG: NSR @ 87 BPM, no acute ST or T wave changes noted compared with previous ekg. 09/16/17 16:12: Urine Color Yellow, Urine Appearance Clear, Urine pH 6.0, Ur Specific Friend[place] >= 1.030, Urine Protein Negative, Urine Glucose (UA) Negative, Urine Ketones Negative, Urine Blood Negative, Urine Nitrate Negative, Urine Bilirubin Negative, Urine Urobilinogen 0.2, Ur Leukocyte Esterase Negative 09/16/17 16:12: Urine Opiates Screen Negative, Urine Methadone Screen Positive H , Ur Barbiturates Screen Negative, Ur Phencyclidine Scrn Negative, Ur Amphetamines Screen Negative, U Benzodiazepines Scrn Positive, U Oth Cocaine Metabols Negative, U Cannabinoids Screen Negative 09/16/17 13:20: WBC 5.2 D, RBC 4.35, Hgb 12.3 L, Hct 37.6 L, MCV 86.4, MCH 28.3 , MCHC 32.7, RDW 13.9, Plt Count 180, MPV 11.0, Gran % 52.3, Lymph % (Auto) 39.6 H, Buchanan % (Auto) 5.2, Eos % (Auto) 2.7, Baso % (Auto) 0.2, Gran # 2.72, Lymph # 2.1, Buchanan # 0.3, Eos # 0.1, Baso # 0.01 09/16/17 13:20: Alcohol, Quantitative < 10 09/16/17 13:20: Salicylates < 1 L, Acetaminophen < 10.0 L 09/16/17 13:20: Sodium 140, Potassium 4.2, Chloride 102, Carbon Dioxide 28, Anion Gap 14, BUN 10, Creatinine 0.8, Est GFR ( Amer) > 60, Est GFR (Non- Af Amer) > 60, Random Glucose 149 H, Calcium 9.8, Magnesium 1.5 L, Total Bilirubin 0.2, AST 32, ALT 32, Alkaline Phosphatase 64, Total Protein 7.6, Albumin 4.3, Globulin 3.3, Albumin/Globulin Ratio 1.3 - Smoking Cessation Smoking Cessation Initiated: Yes
--- NOTE | 2017-09-17 11:58 | CP.PCM.CON ---
<Yudy Greenwood - Last Filed: 09/17/17 15:16> History of Present Illness - History of Present Illness History of Present Illness: 47 AAM with PMHx of schizoaffective disorder, opioid abuse on 100mg methadone maintenance, historically poorly compliant with medications presenting to [facility] with complaints of depression, and suicidal ideation with auditory hallucinations. As per nursing staff, pt had an episode of aggression prompting a code garcia and subsequent administration of haldol 5 mg with good effect. Pt was seen and examined at bedside. Pt is requesting methadone at this time. He is cooperative and answering questions appropriately. Pt admits to having current suicidal ideation. He states that there was no triggers/stressors that prompted current episode of suicidal ideation. He stated that he just "gets depressed from time to time". Pt denied other complaints at this time. Pt is currently comfortable. He denied fever, chills, sob, chest pains, abdominal pains, n/v/d/c. Pt is tolerating po intake and moving bladder regularly. PSHx: Pt denies PMHx: DM, HTN, Asthma, Schizoaffective disorder, Depression All: NKDA SocHx: 1/2 ppd tobacco X 10 years, Heroin (stopped a year ago) FamHx: HTN, Emphysema Meds: Metformin 1000mg bid, losartan 25mg daily, amlodipine, januvia 100mg daily , methadone 100mg ([facility] - confirmed) Review of Systems - Review of Systems Review of Systems: As per HPI otherwise negative Past Patient History - Infectious Disease Hx of Infectious Diseases: None - Tetanus Immunizations Tetanus Immunization: Unknown - Past Medical History & Family History Past Medical History?: Yes - Past Social History Smoking Status: Current Some Days Smoker - CARDIAC Hx Hypertension: Yes - PULMONARY Hx Tuberculosis: No - NEUROLOGICAL HX Cerebrovascular Accident: No Hx Seizures: No - HEENT Hx HEENT Problems: Yes Other/Comment: uses corrective glasses - RENAL Hx Chronic Kidney Disease: No - ENDOCRINE/METABOLIC Hx Diabetes Mellitus Type 2: Yes - HEMATOLOGICAL/ONCOLOGICAL Hx Cancer: No - INTEGUMENTARY Hx Dermatological Problems: No - MUSCULOSKELETAL/RHEUMATOLOGICAL Hx Musculoskeletal Disorders: No - GASTROINTESTINAL Hx Gastrointestinal Disorders: No - GENITOURINARY/GYNECOLOGICAL Hx Genitourinary Disorders: No Hx Sexually Transmitted Disorders: No - PSYCHIATRIC Hx Depression: Yes Hx Schizophrenia: Yes Hx Substance Use: Yes - SURGICAL HISTORY Hx Surgeries: No - ANESTHESIA Hx Anesthesia: No Meds Allergies/Adverse Reactions: Allergies Allergy/AdvReac Type Severity Reaction Status Date / Time No Known Allergies Allergy Verified 09/17/17 02:37 - Medications Medications: Current Medications Acetaminophen (Tylenol 325mg Tab) 650 mg PO Q6H PRN PRN Reason: Pain, Mild (1-3) Al Hydrox/Mg Hydrox/Simethicone (Maalox Plus 30 Ml) 30 ml PO DAILY PRN PRN Reason: Upset Stomach Amlodipine Besylate (Norvasc) 10 mg PO DAILY [facility] Last Admin: 09/17/17 09:12 Dose: 10 mg Aripiprazole (Abilify) 10 mg PO DAILY [facility] Gabapentin (Neurontin) 300 mg PO TID [facility] PRN Reason: Protocol Haloperidol (Haldol) 5 mg PO Q6 PRN; Protocol PRN Reason: Agitation Last Admin: 09/17/17 09:17 Dose: 5 mg Haloperidol Lactate (Haldol) 5 mg IM Q6 PRN; Protocol PRN Reason: Agitation Last Admin: 09/16/17 20:40 Dose: 5 mg Lorazepam (Ativan) 2 mg PO Q6 PRN; Protocol PRN Reason: Agitation Last Admin: 09/17/17 09:17 Dose: 2 mg Lorazepam (Ativan) 2 mg IM Q6 PRN; Protocol PRN Reason: Agitation Last Admin: 09/16/17 20:40 Dose: 2 mg Lorazepam (Ativan) 1 mg PO Q8 KEYANNA PRN Reason: Protocol Magnesium Hydroxide (Milk Of Magnesia) 30 ml PO DAILY PRN PRN Reason: Constipation Metformin HCl (Glucophage) 1,000 mg PO BID [facility] Nicotine (Nicoderm Cq) 1 patch TD DAILY [facility] Last Admin: 09/17/17 09:17 Dose: 1 patch Sertraline HCl (Zoloft) 100 mg PO DAILY [facility] Sitagliptin Phosphate (Januvia) 100 mg PO DAILY [facility] Zaleplon (Sonata) 5 mg PO HS PRN PRN Reason: Insomnia Last Admin: 09/17/17 01:46 Dose: 5 mg Physical Exam - Constitutional Appears: No Acute Distress - Head Exam Head Exam: ATRAUMATIC, NORMAL INSPECTION, NORMOCEPHALIC - Eye Exam Eye Exam: EOMI, Normal appearance, PERRL Pupil Exam: NORMAL ACCOMODATION, PERRL - ENT Exam ENT Exam: Mucous Membranes Dry - Neck Exam Neck exam: Positive for: Normal Inspection - Respiratory Exam Respiratory Exam: Clear to Auscultation Bilateral, NORMAL BREATHING PATTERN - Cardiovascular Exam Cardiovascular Exam: REGULAR RHYTHM, +S1, +S2 - GI/Abdominal Exam GI & Abdominal Exam: Normal Bowel Sounds, Soft. absent: Tenderness - Extremities Exam Extremities exam: Positive for: normal inspection - Neurological Exam Neurological exam: Alert, CN II-XII Intact, Normal Gait, Oriented x3, Reflexes Normal - Psychiatric Exam Psychiatric exam: Anxious - Skin Skin Exam: Dry, Intact, Normal Color, Warm Results - Vital Signs Recent Vital Signs: Last Vital Signs Temp 97.3 F L 09/17/17 07:00 Pulse 81 09/17/17 07:00 Resp 20 09/17/17 07:00 BP 131/86 09/17/17 09:12 Pulse Ox 97 09/16/17 19:25 - Labs Result Diagrams: 09/17/17 07:00 09/17/17 07:00 Labs: Laboratory Results - last 24 hr 09/17/17 09/17/17 09/17/17 07:00 07:00 07:00 WBC 7.9 D RBC 4.44 Hgb 12.4 L Hct 37.9 L MCV 85.4 MCH 27.9 MCHC 32.7 RDW 13.8 Plt Count 238 MPV 10.9 Gran % 70.0 H Lymph % (Auto) 22.5 Sunflower % (Auto) 6.9 H Eos % (Auto) 0.5 L Baso % (Auto) 0.1 Gran # 5.51 Lymph # 1.8 Sunflower # 0.5 Eos # 0.0 Baso # 0.01 Sodium 140 Potassium 4.1 Chloride 103 Carbon Dioxide 29 Anion Gap 12 BUN 14 Creatinine 0.7 L Est GFR ( Amer) > 60 Est GFR (Non-Af Amer) > 60 POC Glucose (mg/dL) Random Glucose 138 H Fasting Glucose 138 H Calcium 9.7 Total Bilirubin 0.2 AST 39 ALT 32 Alkaline Phosphatase 66 Total Protein 7.3 Albumin 4.1 Globulin 3.2 Albumin/Globulin Ratio 1.3 Triglycerides 111 Cholesterol 202 H LDL Cholesterol Direct 133 H HDL Cholesterol 53 TSH 3rd Generation 0.75 09/17/17 09/17/17 07:25 11:04 WBC RBC Hgb Hct MCV MCH MCHC RDW Plt Count MPV Gran % Lymph % (Auto) Sunflower % (Auto) Eos % (Auto) Baso % (Auto) Gran # Lymph # Sunflower # Eos # Baso # Sodium Potassium Chloride Carbon Dioxide Anion Gap BUN Creatinine Est GFR ( Amer) Est GFR (Non-Af Amer) POC Glucose (mg/dL) 136 H 257 H Random Glucose Fasting Glucose Calcium Total Bilirubin AST ALT Alkaline Phosphatase Total Protein Albumin Globulin Albumin/Globulin Ratio Triglycerides Cholesterol LDL Cholesterol Direct HDL Cholesterol TSH 3rd Generation Assessment & Plan - Assessment and Plan (Free Text) Assessment: 47 AAM with PMHx of schizoaffective disorder, opioid abuse on 100mg methadone maintenance, historically poorly compliant with medications presenting to [facility] with complaints of depression, and suicidal ideation with auditory hallucinations. Manage as per psychiatrist. Pt vitals are stable. His labwork has been reviewed. TSH within normal range. Hyperglycemic, will restart home medicaitons. Patient appeared mildly dehydrated with dry mucous membranes, encouraged oral water intake. Thanks for allowing us to participate in patients care. We will sign off at this time. Please reconsult as needed. <Kishore Lynch P - Last Filed: 09/17/17 16:22> Meds - Medications Medications: Current Medications Acetaminophen (Tylenol 325mg Tab) 650 mg PO Q6H PRN PRN Reason: Pain, Mild (1-3) Al Hydrox/Mg Hydrox/Simethicone (Maalox Plus 30 Ml) 30 ml PO DAILY PRN PRN Reason: Upset Stomach Albuterol/Ipratropium (Duoneb 3 Mg/0.5 Mg (3 Ml) Ud) 3 ml IH [id number] KEYANNA Amlodipine Besylate (Norvasc) 10 mg PO DAILY KEYANNA Aripiprazole (Abilify) 10 mg PO DAILY KEYANNA Budesonide (Pulmicort Respules) 0.5 mg IH [id number] KEYANNA Gabapentin (Neurontin) 300 mg PO TID KEYANNA PRN Reason: Protocol Last Admin: 09/17/17 12:39 Dose: 300 mg Haloperidol (Haldol) 5 mg PO Q6 PRN; Protocol PRN Reason: Agitation Last Admin: 09/17/17 09:17 Dose: 5 mg Haloperidol Lactate (Haldol) 5 mg IM Q6 PRN; Protocol PRN Reason: Agitation Last Admin: 09/16/17 20:40 Dose: 5 mg Lorazepam (Ativan) 2 mg PO Q6 PRN; Protocol PRN Reason: Agitation Last Admin: 09/17/17 09:17 Dose: 2 mg Lorazepam (Ativan) 2 mg IM Q6 PRN; Protocol PRN Reason: Agitation Last Admin: 09/16/17 20:40 Dose: 2 mg Lorazepam (Ativan) 1 mg PO Q8 KEYANNA PRN Reason: Protocol Last Admin: 09/17/17 14:06 Dose: 1 mg Losartan Potassium (Cozaar) 25 mg PO DAILY [facility] Magnesium Hydroxide (Milk Of Magnesia) 30 ml PO DAILY PRN PRN Reason: Constipation Metformin HCl (Glucophage) 1,000 mg PO BID [facility] Last Admin: 09/17/17 15:38 Dose: 1,000 mg Methadone HCl (Methadone) 100 mg PO DAILY [facility] Last Admin: 09/17/17 12:40 Dose: 100 mg Nicotine (Nicoderm Cq) 1 patch TD DAILY [facility] Last Admin: 09/17/17 09:17 Dose: 1 patch Sertraline HCl (Zoloft) 100 mg PO DAILY [facility] Sitagliptin Phosphate (Januvia) 100 mg PO DAILY [facility] Last Admin: 09/17/17 12:40 Dose: 100 mg Zaleplon (Sonata) 5 mg PO HS PRN PRN Reason: Insomnia Last Admin: 09/17/17 01:46 Dose: 5 mg Results - Vital Signs Recent Vital Signs: Last Vital Signs Temp 97.3 F L 09/17/17 07:00 Pulse 81 09/17/17 07:00 Resp 20 09/17/17 07:00 BP 131/86 09/17/17 09:12 Pulse Ox 97 09/16/17 19:25 - Labs Result Diagrams: 09/17/17 07:00 09/17/17 07:00 Labs: Laboratory Results - last 24 hr 09/17/17 09/17/17 09/17/17 07:00 07:00 07:00 WBC 7.9 D RBC 4.44 Hgb 12.4 L Hct 37.9 L MCV 85.4 MCH 27.9 MCHC 32.7 RDW 13.8 Plt Count 238 MPV 10.9 Gran % 70.0 H Lymph % (Auto) 22.5 Sunflower % (Auto) 6.9 H Eos % (Auto) 0.5 L Baso % (Auto) 0.1 Gran # 5.51 Lymph # 1.8 Sunflower # 0.5 Eos # 0.0 Baso # 0.01 Sodium 140 Potassium 4.1 Chloride 103 Carbon Dioxide 29 Anion Gap 12 BUN 14 Creatinine 0.7 L Est GFR ( Amer) > 60 Est GFR (Non-Af Amer) > 60 POC Glucose (mg/dL) Random Glucose 138 H Fasting Glucose 138 H Calcium 9.7 Total Bilirubin 0.2 AST 39 ALT 32 Alkaline Phosphatase 66 Total Protein 7.3 Albumin 4.1 Globulin 3.2 Albumin/Globulin Ratio 1.3 Triglycerides 111 Cholesterol 202 H LDL Cholesterol Direct 133 H HDL Cholesterol 53 TSH 3rd Generation 0.75 RPR 09/17/17 09/17/17 09/17/17 07:00 07:25 11:04 WBC RBC Hgb Hct MCV MCH MCHC RDW Plt Count MPV Gran % Lymph % (Auto) Sunflower % (Auto) Eos % (Auto) Baso % (Auto) Gran # Lymph # Sunflower # Eos # Baso # Sodium Potassium Chloride Carbon Dioxide Anion Gap BUN Creatinine Est GFR ( Amer) Est GFR (Non-Af Amer) POC Glucose (mg/dL) 136 H 257 H Random Glucose Fasting Glucose Calcium Total Bilirubin AST ALT Alkaline Phosphatase Total Protein Albumin Globulin Albumin/Globulin Ratio Triglycerides Cholesterol LDL Cholesterol Direct HDL Cholesterol TSH 3rd Generation RPR Nonreactive Attending/Attestation - Attestation I have personally seen and examined this patient.: Yes I have fully participated in the care of the patient.: Yes I have reviewed all pertinent clinical information: Yes Notes (Text): 09/17/17 16:18 Patient c/o some wheezing, denies h/o asthma, but agrees to smoking and out patient using albuterol about 4-5 times/wk, h/o dm takes metformin and januvia, h/o htn on losartan, h/o heroin dependence on methadone dose confirmed 100mg/d, patient here/ for adjustment of psych meds for worsening depression and suicidal ideation. Will continue home meds, add pulmicort and duoneb as patient had prolonged exp sounds, accucheck achs with low coverage. Will sigh off, please call as needed.
[2017-09-17] MEDS: Albuterol-Ipratrop 3 mg / 0.5 (3 ml) UD IH SCH (20:10)
[2017-09-17] MEDS: Budesonide 0.5 mg/2 ml Inhal Susp UD IH SCH (20:10)
[2017-09-18] MEDS: Albuterol-Ipratrop 3 mg / 0.5 (3 ml) UD IH SCH ×4 (04:30→23:50)
[2017-09-18] MEDS: Budesonide 0.5 mg/2 ml Inhal Susp UD IH SCH ×2 (08:07→23:50)
[2017-09-18] MEDS: Divalproex 500 mg DR(BID formulation) PO SCH ×2 (08:12→16:20)
--- NOTE | 2017-09-18 10:02 | PCM.PYCHPN ---
Psychiatric Progress Note - Psychiatric Progress Note Patient seen today, length of contact: 25 min Patient Chief Complaint: "depressed" Problems Identified/Issues Discussed: History of Present Illness and Precipitating Events: Patient is a single 47 year old -[place] male, self reported history of schizoaffective disorder, opioid use disorder on methadone maintenance, numerous psychiatric admissions (>10) most recently discharged from this unit on 08/17/17, historically poorly compliant with medications and aftercare recommendations who brought himself to the hospital looking for help with depression, suicidal ideation and command hallucinations telling him to commit suicide. Patient had been irritable and edgy on the unit. Last night he verbally instigating arguments with other patients. Ruel Pierre was called after he angered another patient who wanted to fight him. Patient was medicated with Haldol 5 mg and Ativan 2 mg IM with good effect. He is in fair control this morning however reluctant to fully engage in an interview. Eye contact is poor and responses are brief without much elaboration. He appears guarded and preoccupied. Denies hallucinations and doesnt appear to be responding to internal stimuli. He tells me that he took his medications after discharge from this unit last month but didnt follow up with any outpatient treatment. He will not comment on current stressors or drug/alcohol use at this time however indicates that he attends a methadone clinic and would like his dose to be confirmed so he can continue medication on the unit. Patient reminded about unit rules and aggression on this unit and he indicates that he will try to maintain better control. Presently he denies any discomfort or pain. He doesn't appear to be responding to internal stimuli and he denies hallucinations at this time. PSYCHIATRIC HISTORY ~08/09/17-08/17/[address] [facility]. Diagnosed with Schizoaffective disorder, Opioid use disorder, moderate, in sustained remission , on maintenance therapy. Patient was discharged on Abilify 20 mg po daily, Neurontin 300 mg po TID, Zoloft 100 mg po daily and Sonata 5 mg HS prn. ~During patients 07/2017 hospitalization at [facility], he was not forthcoming about his recent discharge from [facility] on August 01. Dr. Baxter documentation indicated "Patient has had multiple psychiatric admissions at [facility] [place] the most recent in April. Patient admits he has not been compliant with his medication. After discharge he went back to [facility] , his methadone clinic that he has been going to for 3 years. Patient using heroin on top of methadone 10 bags/day. Patient drinks 1 pint of vodka/day and beer on top of that. Patient admits to xanax use 2 sticks/day. Patient denies barbiturate use even though his urine was positive. Patient denies any other drug use" ~Nursing note indicates that patient admitted to a past suicidal attempt 15 years ago by overdosing on Excedrin PM. SOCIAL Born and raised in [place] Single. Denies having any children. Lives in an apartment. Patient reports history of opioid use disorder. He reportedly attends [facility] methadone clinic ([phone]) and receives 100 mg daily of methadone. This was confirmed during his prior admission to the unit in 07/2017. As per collaterals, patient has history of hospital shopping, admitted himself into the hospital looking for food and prison. Patient reported smoking about one pack a day, nicotine patch offered and morbidity/mortality risks of continued tobacco use were reviewed with patient. ~~~~~~~~~~~~~~ I reviewed recent notes and met with patient at bedside. He is alert and oriented x3. Appears calmer and in better control than yesterday. Nursing notes appear to support this as well. Yesterday he required Haldol and Ativan in the AM for agitation and restlessness then another dose of Ativan prn for anxiety in the PM. This morning patient indicates that he remains depressed and didn't sleep well last night. He is tolerating his medications and denies any new discomfort or pain. Patient has not been observed to be responding to internal stimuli and he denies perceptual disturbance. There were no further conflicts yesterday and no behavioral issues overnight. Diagnostic Results: Schizoaffective Disorder Opioid Dependency on maintenance therapy Medication Change: Yes (started depakote, prolixin, cogentin, trazodone d/c'ed neurontin, sonata) Medical Record Reviewed: Yes Mental Status Examination - Cognitive Function Attention: WNL - Mood Mood: Depressed - Affect Affect: Constricted - Speech Speech: Appropriate - Formal Thought Process Formal Thought Process: No Impairment - Suicidal Ideation Suicidal Ideation: No - Homicidal Ideation Homicidal Ideation: No Goal/Treatment Plan - Goal/Treatment Plan Progress Toward Problem(s) and Goals/Treatment Plan: * group, milieu and supportive tx * Appreciate f/u by STANISLAV Forbes on 09/17/17 who spoke to pt's renal case manager in [place] - Pillo Childress, [phone] to advise of his hospitalization. general i farmworker provided following list of patient's medications Benzotropine 1 mg BID Depakote 500mg 1 tab BID Fluphenazine 10mg 1 tab BID Metformin 500mg 1 tab BID Sertraline 100 mg 1 tab AM Trazodone 100 mg qhs as needed for sleep PATIENT'S MEDICATIONS WERE UPDATED ON THE UNIT BASED ON AFOREMENTIONED UPDATED MEDICATION LIST. PLEASE NOTE THE FOLLOWING CHANGES. * Zoloft 100 mg po daily for depression and anxiety * d/c Abilify and start Fluphenazine 5 mg po bid with cogentin 1 mg po bid * Start depakote 500 mg po bid for mood control, check VPA 09/19/17 * d/c Neurontin 300 mg po TID * d/c Sonata 5 mg po HS prn: insomnia, start Trazodone 100 mg HS prn: sleep * Ativan 1 mg q8 for anxiety with plan to taper * Methadone 100 mg po daily continued by Dr. Greenwood * Appreciate f/u by Dr. Lynch on 09/17/17~signed off * Vitals reviewed and noted below: 09/16/17 09/16/17 09/17/17 19:25 20:00 07:00 Temperature 98.6 F 98.1 F 97.3 F L Pulse Rate 88 94 H 81 Respiratory 18 18 20 Rate Blood Pressure 142/82 120/77 131/86 09/17/17 09:12 Temperature Pulse Rate Respiratory Rate Blood Pressure 131/86 ER LABS AND STUDIES 09/16/17 15:25 -chest xray show no active disease -EKG: NSR @ 87 BPM, no acute ST or T wave changes noted compared with previous ekg. 09/16/17 16:12: Urine Color Yellow, Urine Appearance Clear, Urine pH 6.0, Ur Specific [place] >= 1.030, Urine Protein Negative, Urine Glucose (UA) Negative, Urine Ketones Negative, Urine Blood Negative, Urine Nitrate Negative, Urine Bilirubin Negative, Urine Urobilinogen 0.2, Ur Leukocyte Esterase Negative 09/16/17 16:12: Urine Opiates Screen Negative, Urine Methadone Screen Positive H , Ur Barbiturates Screen Negative, Ur Phencyclidine Scrn Negative, Ur Amphetamines Screen Negative, U Benzodiazepines Scrn Positive, U Oth Cocaine Metabols Negative, U Cannabinoids Screen Negative 09/16/17 13:20: WBC 5.2 D, RBC 4.35, Hgb 12.3 L, Hct 37.6 L, MCV 86.4, MCH 28.3 , MCHC 32.7, RDW 13.9, Plt Count 180, MPV 11.0, Gran % 52.3, Lymph % (Auto) 39.6 H, [place] % (Auto) 5.2, Eos % (Auto) 2.7, Baso % (Auto) 0.2, Gran # 2.72, Lymph # 2.1, [place] # 0.3, Eos # 0.1, Baso # 0.01 09/16/17 13:20: Alcohol, Quantitative < 10 09/16/17 13:20: Salicylates < 1 L, Acetaminophen < 10.0 L 09/16/17 13:20: Sodium 140, Potassium 4.2, Chloride 102, Carbon Dioxide 28, Anion Gap 14, BUN 10, Creatinine 0.8, Est GFR ( Amer) > 60, Est GFR (Non- Af Amer) > 60, Random Glucose 149 H, Calcium 9.8, Magnesium 1.5 L, Total Bilirubin 0.2, AST 32, ALT 32, Alkaline Phosphatase 64, Total Protein 7.6, Albumin 4.3, Globulin 3.3, Albumin/Globulin Ratio 1.3 FLOOR LABS Laboratory Results - last 24 hr 09/17/17 09/17/17 09/17/17 07:00 07:00 07:00 WBC 7.9 D RBC 4.44 Hgb 12.4 L Hct 37.9 L MCV 85.4 MCH 27.9 MCHC 32.7 RDW 13.8 Plt Count 238 MPV 10.9 Gran % 70.0 H Lymph % (Auto) 22.5 [place] % (Auto) 6.9 H Eos % (Auto) 0.5 L Baso % (Auto) 0.1 Gran # 5.51 Lymph # 1.8 [place] # 0.5 Eos # 0.0 Baso # 0.01 Sodium 140 Potassium 4.1 Chloride 103 Carbon Dioxide 29 Anion Gap 12 BUN 14 Creatinine 0.7 L Est GFR ( Amer) > 60 Est GFR (Non-Af Amer) > 60 POC Glucose (mg/dL) Random Glucose 138 H Fasting Glucose 138 H Calcium 9.7 Total Bilirubin 0.2 AST 39 ALT 32 Alkaline Phosphatase 66 Total Protein 7.3 Albumin 4.1 Globulin 3.2 Albumin/Globulin Ratio 1.3 Triglycerides 111 Cholesterol 202 H LDL Cholesterol Direct 133 H HDL Cholesterol 53 TSH 3rd Generation 0.75 RPR 09/17/17 09/17/17 09/17/17 07:00 07:25 11:04 WBC RBC Hgb Hct MCV MCH MCHC RDW Plt Count MPV Gran % Lymph % (Auto) [place] % (Auto) Eos % (Auto) Baso % (Auto) Gran # Lymph # [place] # Eos # Baso # Sodium Potassium Chloride Carbon Dioxide Anion Gap BUN Creatinine Est GFR ( Amer) Est GFR (Non-Af Amer) POC Glucose (mg/dL) 136 H 257 H Random Glucose Fasting Glucose Calcium Total Bilirubin AST ALT Alkaline Phosphatase Total Protein Albumin Globulin Albumin/Globulin Ratio Triglycerides Cholesterol LDL Cholesterol Direct HDL Cholesterol TSH 3rd Generation RPR Nonreactive 09/17/17 09/17/17 16:45 21:43 WBC RBC Hgb Hct MCV MCH MCHC RDW Plt Count MPV Gran % Lymph % (Auto) [place] % (Auto) Eos % (Auto) Baso % (Auto) Gran # Lymph # [place] # Eos # Baso # Sodium Potassium Chloride Carbon Dioxide Anion Gap BUN Creatinine Est GFR ( Amer) Est GFR (Non-Af Amer) POC Glucose (mg/dL) 120 H 150 H Random Glucose Fasting Glucose Calcium Total Bilirubin AST ALT Alkaline Phosphatase Total Protein Albumin Globulin Albumin/Globulin Ratio Triglycerides Cholesterol LDL Cholesterol Direct HDL Cholesterol TSH 3rd Generation RPR
[2017-09-19] MEDS: Albuterol-Ipratrop 3 mg / 0.5 (3 ml) UD IH SCH ×3 (03:30→13:57)
[2017-09-19] MEDS: Budesonide 0.5 mg/2 ml Inhal Susp UD IH SCH (08:58)
[2017-09-19] MEDS: Divalproex 500 mg DR(BID formulation) PO SCH ×2 (09:16→18:01)
--- NOTE | 2017-09-19 16:41 | PCM.PYCHPN ---
Psychiatric Progress Note - Psychiatric Progress Note Patient seen today, length of contact: 30 minutes Patient Chief Complaint: "I was not taking my medications because I don't want to mix them with vodka what I was drinking daily". Problems Identified/Issues Discussed: Suicide/ homicide prevention, past psychiatric h/o, current psychiatric symptoms , medical problems, risk/benefits and alternatives of medications, medications compliance, coping strategies, substance abuse h/o, relapse prevention, importance of follow up with psychiatrist and therapist, discharge plan. Medical Problems: diabetes Emphasis them Hypertension Alcohol use disorder Diagnostic Results: 09/17/17 07:00 09/17/17 07:00 Lab Results 09/19/17 08:00: Valproic Acid 33 L 09/19/17 07:54: POC Glucose (mg/dL) 113 H 09/18/17 22:00: POC Glucose (mg/dL) 130 H 09/18/17 11:43: POC Glucose (mg/dL) 101 09/18/17 08:02: POC Glucose (mg/dL) 94 09/17/17 21:43: POC Glucose (mg/dL) 150 H 09/17/17 16:45: POC Glucose (mg/dL) 120 H 09/17/17 11:04: POC Glucose (mg/dL) 257 H 09/17/17 07:25: POC Glucose (mg/dL) 136 H 09/17/17 07:00: RPR Nonreactive 09/17/17 07:00: TSH 3rd Generation 0.75 09/17/17 07:00: WBC 7.9 D, RBC 4.44, Hgb 12.4 L, Hct 37.9 L, MCV 85.4, MCH 27.9 , MCHC 32.7, RDW 13.8, Plt Count 238, MPV 10.9, Gran % 70.0 H, Lymph % (Auto) 22.5, [place] % (Auto) 6.9 H, Eos % (Auto) 0.5 L, Baso % (Auto) 0.1, Gran # 5.51, Lymph # 1.8, [place] # 0.5, Eos # 0.0, Baso # 0.01 09/17/17 07:00: Sodium 140, Potassium 4.1, Chloride 103, Carbon Dioxide 29, Anion Gap 12, BUN 14, Creatinine 0.7 L, Est GFR ( Amer) > 60, Est GFR ( Non-Af Amer) > 60, Random Glucose 138 H, Fasting Glucose 138 H, Calcium 9.7, Total Bilirubin 0.2, AST 39, ALT 32, Alkaline Phosphatase 66, Total Protein 7.3 , Albumin 4.1, Globulin 3.2, Albumin/Globulin Ratio 1.3, Triglycerides 111, Cholesterol 202 H, LDL Cholesterol Direct 133 H, HDL Cholesterol 53 09/16/17 16:12: Urine Color Yellow, Urine Appearance Clear, Urine pH 6.0, Ur Specific [place] >= 1.030, Urine Protein Negative, Urine Glucose (UA) Negative, Urine Ketones Negative, Urine Blood Negative, Urine Nitrate Negative, Urine Bilirubin Negative, Urine Urobilinogen 0.2, Ur Leukocyte Esterase Negative 09/16/17 16:12: Urine Opiates Screen Negative, Urine Methadone Screen Positive H , Ur Barbiturates Screen Negative, Ur Phencyclidine Scrn Negative, Ur Amphetamines Screen Negative, U Benzodiazepines Scrn Positive, U Oth Cocaine Metabols Negative, U Cannabinoids Screen Negative 09/16/17 13:20: WBC 5.2 D, RBC 4.35, Hgb 12.3 L, Hct 37.6 L, MCV 86.4, MCH 28.3 , MCHC 32.7, RDW 13.9, Plt Count 180, MPV 11.0, Gran % 52.3, Lymph % (Auto) 39.6 H, [place] % (Auto) 5.2, Eos % (Auto) 2.7, Baso % (Auto) 0.2, Gran # 2.72, Lymph # 2.1, [place] # 0.3, Eos # 0.1, Baso # 0.01 09/16/17 13:20: Alcohol, Quantitative < 10 09/16/17 13:20: Salicylates < 1 L, Acetaminophen < 10.0 L 09/16/17 13:20: Sodium 140, Potassium 4.2, Chloride 102, Carbon Dioxide 28, Anion Gap 14, BUN 10, Creatinine 0.8, Est GFR ( Amer) > 60, Est GFR (Non- Af Amer) > 60, Random Glucose 149 H, Calcium 9.8, Magnesium 1.5 L, Total Bilirubin 0.2, AST 32, ALT 32, Alkaline Phosphatase 64, Total Protein 7.6, Albumin 4.3, Globulin 3.3, Albumin/Globulin Ratio 1.3 Temp Pulse Resp BP Pulse Ox 97.3 F L 90 20 130/94 H 97 09/17/17 07:00 09/19/17 09:14 09/17/17 07:00 09/19/17 09:15 09/16/17 19:25 DSM 5 Symptoms Update: as per Dr. Felix's note; Patient is a single 47 year old -[place] male, self reported history of schizoaffective disorder, opioid use disorder on methadone maintenance, numerous psychiatric admissions (>10) most recently discharged from this unit on 08/17/17, historically poorly compliant with medications and aftercare recommendations who brought himself to the hospital looking for help with depression, suicidal ideation and command hallucinations telling him to commit suicide. patient was seen today at the treatment team meeting with staff and secondary social studies teacher as well as advanced nurse practitioner. Dr. Felix's note reviewed, discussed with staff. Patient presented to be flat, very poor and unreliable historian, concrete thought process, patient said after he was discharged from this hospital last month she stopped taking medications because "I did not want to mixed alcohol with medications". Patient reported that she was feeling depressed, reported that he was hearing voices telling him to hurt himself. patient reported that he was drinking daily, about 2 pints of vodka, patient reported last drink was last . patient said that he is willing to go for inpatient rehabilitation after discharge from this hospital. Patient does not present to be psychotic, but guarded and concrete thought processes, poverty of thoughts and poverty of speech. patient tolerates medications well, no side effects observed or reported, aims 0 , no EPS. Diagnostic Results: Schizoaffective Disorder alcohol use disorder Opioid Dependency on maintenance therapy Medication Change: Yes (all meds were resumed by , mmultivitamins, thiamine, folic acid sta) Medical Record Reviewed: Yes Consults ordered or reviewed: medical consult appreciated Mental Status Examination - Cognitive Function Orientation: Person, Place Memory: Impaired Attention: Poor Concentration: Poor Association: Loose Fund of Knowledge: Poor (baseline) - Mood Mood: Depressed - Affect Affect: Constricted - Speech Speech: Appropriate (poverty of speech) - Formal Thought Process Formal Thought Process: No Impairment - Suicidal Ideation Suicidal Ideation: No - Homicidal Ideation Homicidal Ideation: No Goal/Treatment Plan - Goal/Treatment Plan Need for Continued Stay: Remain at risks for inpatient hospitalization, Severe depression anxiety, Discharge may exacerbated symptoms, Failed transitioning, Severe functional impairment Progress Toward Problem(s) and Goals/Treatment Plan: Milieu/structure/supportive therapy Medical consult appreciated, see medical team note for more detailed info SW consultation for discharge plan and social issues Med management multivitamins, thiamine 100 mg daily, folic acid 1 mg daily with Ativan 1 mg 3 times a day scheduled for alcohol withdrawal symptoms Zoloft [address] Barr will be continued for depression and anxiety Trazodone 100 mg by mouth at the nighttime will be continued Prolixin 5 mg twice a day was started for psychotic symptoms with the plan to give Prolixin Decanoate mmethadone was confirmed Patient has not a candidate for naltrexone tx pt is willing to go to the inpatient rehab for alcohol addiction Family involvement Follow up on labs Will monitor closely Pt was educated about risk/benefits and alternatives of medications, coping strategies (safety plan, suicide prevention), relapse prevention, importance of follow up with psychiatrist and therapist, stay away from drugs/alcohol/smoking Estimated Date of D/C: 09/26/17 (we'll monitor closely) - Smoking Cessation Smoking Cessation Initiated: Yes
[2017-09-20] MEDS: Multivitamin With Minerals Tab PO SCH (09:21)
[2017-09-20] MEDS: Divalproex 500 mg DR(BID formulation) PO SCH ×2 (09:23→17:11)
[2017-09-20] MEDS: Albuterol-Ipratrop 3 mg / 0.5 (3 ml) UD IH SCH ×2 (12:53→21:34)
[2017-09-20] MEDS: Budesonide 0.5 mg/2 ml Inhal Susp UD IH SCH ×2 (12:53→21:35)
--- NOTE | 2017-09-20 17:00 | PCM.PYCHPN ---
Psychiatric Progress Note - Psychiatric Progress Note Patient seen today, length of contact: 30 minutes Patient Chief Complaint: "I am not well, I hear voices" Problems Identified/Issues Discussed: Suicide/ homicide prevention, past psychiatric h/o, current psychiatric symptoms , medical problems, risk/benefits and alternatives of medications, medications compliance, coping strategies, substance abuse h/o, relapse prevention, importance of follow up with psychiatrist and therapist, discharge plan. Medical Problems: diabetes Emphasis them Hypertension Alcohol use disorder Diagnostic Results: 09/17/17 07:00 09/17/17 07:00 Lab Results 09/19/17 08:00: Valproic Acid 33 L 09/19/17 07:54: POC Glucose (mg/dL) 113 H 09/18/17 22:00: POC Glucose (mg/dL) 130 H 09/18/17 11:43: POC Glucose (mg/dL) 101 09/18/17 08:02: POC Glucose (mg/dL) 94 09/17/17 21:43: POC Glucose (mg/dL) 150 H 09/17/17 16:45: POC Glucose (mg/dL) 120 H 09/17/17 11:04: POC Glucose (mg/dL) 257 H 09/17/17 07:25: POC Glucose (mg/dL) 136 H 09/17/17 07:00: RPR Nonreactive 09/17/17 07:00: TSH 3rd Generation 0.75 09/17/17 07:00: WBC 7.9 D, RBC 4.44, Hgb 12.4 L, Hct 37.9 L, MCV 85.4, MCH 27.9 , MCHC 32.7, RDW 13.8, Plt Count 238, MPV 10.9, Gran % 70.0 H, Lymph % (Auto) 22.5, [place] % (Auto) 6.9 H, Eos % (Auto) 0.5 L, Baso % (Auto) 0.1, Gran # 5.51, Lymph # 1.8, [place] # 0.5, Eos # 0.0, Baso # 0.01 09/17/17 07:00: Sodium 140, Potassium 4.1, Chloride 103, Carbon Dioxide 29, Anion Gap 12, BUN 14, Creatinine 0.7 L, Est GFR ( Amer) > 60, Est GFR ( Non-Af Amer) > 60, Random Glucose 138 H, Fasting Glucose 138 H, Calcium 9.7, Total Bilirubin 0.2, AST 39, ALT 32, Alkaline Phosphatase 66, Total Protein 7.3 , Albumin 4.1, Globulin 3.2, Albumin/Globulin Ratio 1.3, Triglycerides 111, Cholesterol 202 H, LDL Cholesterol Direct 133 H, HDL Cholesterol 53 09/16/17 16:12: Urine Color Yellow, Urine Appearance Clear, Urine pH 6.0, Ur Specific [place] >= 1.030, Urine Protein Negative, Urine Glucose (UA) Negative, Urine Ketones Negative, Urine Blood Negative, Urine Nitrate Negative, Urine Bilirubin Negative, Urine Urobilinogen 0.2, Ur Leukocyte Esterase Negative 09/16/17 16:12: Urine Opiates Screen Negative, Urine Methadone Screen Positive H , Ur Barbiturates Screen Negative, Ur Phencyclidine Scrn Negative, Ur Amphetamines Screen Negative, U Benzodiazepines Scrn Positive, U Oth Cocaine Metabols Negative, U Cannabinoids Screen Negative 09/16/17 13:20: WBC 5.2 D, RBC 4.35, Hgb 12.3 L, Hct 37.6 L, MCV 86.4, MCH 28.3 , MCHC 32.7, RDW 13.9, Plt Count 180, MPV 11.0, Gran % 52.3, Lymph % (Auto) 39.6 H, [place] % (Auto) 5.2, Eos % (Auto) 2.7, Baso % (Auto) 0.2, Gran # 2.72, Lymph # 2.1, [place] # 0.3, Eos # 0.1, Baso # 0.01 09/16/17 13:20: Alcohol, Quantitative < 10 09/16/17 13:20: Salicylates < 1 L, Acetaminophen < 10.0 L 09/16/17 13:20: Sodium 140, Potassium 4.2, Chloride 102, Carbon Dioxide 28, Anion Gap 14, BUN 10, Creatinine 0.8, Est GFR ( Amer) > 60, Est GFR (Non- Af Amer) > 60, Random Glucose 149 H, Calcium 9.8, Magnesium 1.5 L, Total Bilirubin 0.2, AST 32, ALT 32, Alkaline Phosphatase 64, Total Protein 7.6, Albumin 4.3, Globulin 3.3, Albumin/Globulin Ratio 1.3 Temp Pulse Resp BP Pulse Ox 97.3 F L 90 20 130/94 H 97 09/17/17 07:00 09/19/17 09:14 09/17/17 07:00 09/19/17 09:15 09/16/17 19:25 DSM 5 Symptoms Update: Patient is a single 47 year old -[place] male, self reported history of schizoaffective disorder, opioid use disorder on methadone maintenance, numerous psychiatric admissions (>10) most recently discharged from this unit on 08/17/17, historically poorly compliant with medications and aftercare recommendations who brought himself to the hospital looking for help with depression, suicidal ideation and command hallucinations telling him to commit suicide. patient was seen today in his room, pt is mumbling something, hard to understand , said that he feels that he has withdrawal symptoms. pt still c/o voices, but pt't thought process is concrete and no disorganized thoughts. Patient does not present to be psychotic, but guarded and concrete thought processes, poverty of thoughts and poverty of speech. patient tolerates medications well, no side effects observed or reported, aims 0 , no EPS. as per staff pt is compliant with meds, no behavioral issues. Diagnostic Results: Schizoaffective Disorder alcohol use disorder Opioid Dependency on maintenance therapy Medication Change: Yes (ativan decreased, prolixin increased) Medical Record Reviewed: Yes Consults ordered or reviewed: medical consult appreciated Mental Status Examination - Cognitive Function Orientation: Person, Place Memory: Impaired Attention: Poor Concentration: Poor Association: Loose Fund of Knowledge: Poor (baseline) - Mood Mood: Depressed - Affect Affect: Constricted - Speech Speech: Appropriate (poverty of speech) - Formal Thought Process Formal Thought Process: No Impairment - Suicidal Ideation Suicidal Ideation: No - Homicidal Ideation Homicidal Ideation: No Goal/Treatment Plan - Goal/Treatment Plan Need for Continued Stay: Remain at risks for inpatient hospitalization, Severe depression anxiety, Discharge may exacerbated symptoms, Failed transitioning, Severe functional impairment Progress Toward Problem(s) and Goals/Treatment Plan: Milieu/structure/supportive therapy Medical consult appreciated, see medical team note for more detailed info SW consultation for discharge plan and social issues Med management multivitamins, thiamine 100 mg daily, folic acid 1 mg daily with Ativan 1 mg 2 times a day scheduled for alcohol withdrawal symptoms Zoloft [address] Brar will be continued for depression and anxiety Trazodone 100 mg by mouth at the nighttime will be continued Prolixin 5 mg three times a day was started for psychotic symptoms with the plan to give Prolixin Decanoate methadone was confirmed Patient has not a candidate for naltrexone tx pt is willing to go to the inpatient rehab for alcohol addiction Family involvement Follow up on labs Will monitor closely Pt was educated about risk/benefits and alternatives of medications, coping strategies (safety plan, suicide prevention), relapse prevention, importance of follow up with psychiatrist and therapist, stay away from drugs/alcohol/smoking Estimated Date of D/C: 09/26/17 (we'll monitor closely)
[2017-09-21] MEDS: Albuterol-Ipratrop 3 mg / 0.5 (3 ml) UD IH SCH ×4 (01:54→20:08)
[2017-09-21] MEDS: Budesonide 0.5 mg/2 ml Inhal Susp UD IH SCH ×2 (08:00→20:08)
[2017-09-21] MEDS: Multivitamin With Minerals Tab PO SCH (08:14)
[2017-09-21] MEDS: Divalproex 500 mg DR(BID formulation) PO SCH ×2 (08:14→16:05)
--- NOTE | 2017-09-21 17:14 | PCM.PYCHPN ---
Psychiatric Progress Note - Psychiatric Progress Note Patient seen today, length of contact: 30 minutes Patient Chief Complaint: "I am kidna okay" Problems Identified/Issues Discussed: Suicide/ homicide prevention, past psychiatric h/o, current psychiatric symptoms , medical problems, risk/benefits and alternatives of medications, medications compliance, coping strategies, substance abuse h/o, relapse prevention, importance of follow up with psychiatrist and therapist, discharge plan. Medical Problems: diabetes Emphasis them Hypertension Alcohol use disorder Diagnostic Results: 09/17/17 07:00 09/17/17 07:00 Lab Results 09/19/17 08:00: Valproic Acid 33 L 09/19/17 07:54: POC Glucose (mg/dL) 113 H 09/18/17 22:00: POC Glucose (mg/dL) 130 H 09/18/17 11:43: POC Glucose (mg/dL) 101 09/18/17 08:02: POC Glucose (mg/dL) 94 09/17/17 21:43: POC Glucose (mg/dL) 150 H 09/17/17 16:45: POC Glucose (mg/dL) 120 H 09/17/17 11:04: POC Glucose (mg/dL) 257 H 09/17/17 07:25: POC Glucose (mg/dL) 136 H 09/17/17 07:00: RPR Nonreactive 09/17/17 07:00: TSH 3rd Generation 0.75 09/17/17 07:00: WBC 7.9 D, RBC 4.44, Hgb 12.4 L, Hct 37.9 L, MCV 85.4, MCH 27.9 , MCHC 32.7, RDW 13.8, Plt Count 238, MPV 10.9, Gran % 70.0 H, Lymph % (Auto) 22.5, [place] % (Auto) 6.9 H, Eos % (Auto) 0.5 L, Baso % (Auto) 0.1, Gran # 5.51, Lymph # 1.8, [place] # 0.5, Eos # 0.0, Baso # 0.01 09/17/17 07:00: Sodium 140, Potassium 4.1, Chloride 103, Carbon Dioxide 29, Anion Gap 12, BUN 14, Creatinine 0.7 L, Est GFR ( Amer) > 60, Est GFR ( Non-Af Amer) > 60, Random Glucose 138 H, Fasting Glucose 138 H, Calcium 9.7, Total Bilirubin 0.2, AST 39, ALT 32, Alkaline Phosphatase 66, Total Protein 7.3 , Albumin 4.1, Globulin 3.2, Albumin/Globulin Ratio 1.3, Triglycerides 111, Cholesterol 202 H, LDL Cholesterol Direct 133 H, HDL Cholesterol 53 09/16/17 16:12: Urine Color Yellow, Urine Appearance Clear, Urine pH 6.0, Ur Specific [place] >= 1.030, Urine Protein Negative, Urine Glucose (UA) Negative, Urine Ketones Negative, Urine Blood Negative, Urine Nitrate Negative, Urine Bilirubin Negative, Urine Urobilinogen 0.2, Ur Leukocyte Esterase Negative 09/16/17 16:12: Urine Opiates Screen Negative, Urine Methadone Screen Positive H , Ur Barbiturates Screen Negative, Ur Phencyclidine Scrn Negative, Ur Amphetamines Screen Negative, U Benzodiazepines Scrn Positive, U Oth Cocaine Metabols Negative, U Cannabinoids Screen Negative 09/16/17 13:20: WBC 5.2 D, RBC 4.35, Hgb 12.3 L, Hct 37.6 L, MCV 86.4, MCH 28.3 , MCHC 32.7, RDW 13.9, Plt Count 180, MPV 11.0, Gran % 52.3, Lymph % (Auto) 39.6 H, [place] % (Auto) 5.2, Eos % (Auto) 2.7, Baso % (Auto) 0.2, Gran # 2.72, Lymph # 2.1, [place] # 0.3, Eos # 0.1, Baso # 0.01 09/16/17 13:20: Alcohol, Quantitative < 10 09/16/17 13:20: Salicylates < 1 L, Acetaminophen < 10.0 L 09/16/17 13:20: Sodium 140, Potassium 4.2, Chloride 102, Carbon Dioxide 28, Anion Gap 14, BUN 10, Creatinine 0.8, Est GFR ( Amer) > 60, Est GFR (Non- Af Amer) > 60, Random Glucose 149 H, Calcium 9.8, Magnesium 1.5 L, Total Bilirubin 0.2, AST 32, ALT 32, Alkaline Phosphatase 64, Total Protein 7.6, Albumin 4.3, Globulin 3.3, Albumin/Globulin Ratio 1.3 Temp Pulse Resp BP Pulse Ox 97.3 F L 90 20 130/94 H 97 09/17/17 07:00 09/19/17 09:14 09/17/17 07:00 09/19/17 09:15 09/16/17 19:25 DSM 5 Symptoms Update: Patient is a single 47 year old -[place]aur[place] male, self reported history of schizoaffective disorder, opioid use disorder on methadone maintenance, numerous psychiatric admissions (>10) most recently discharged from this unit on 08/17/17, historically poorly compliant with medications and aftercare recommendations who brought himself to the hospital looking for help with depression, suicidal ideation and command hallucinations telling him to commit suicide. patient was seen today in his room with PCP, pt appeared to be withdrawn, but thought process is with some minimal improvement, more coherent. still c/o voices, but pt't thought process is concrete and no disorganized thoughts. pt said that he is willing to get prolixin Dec, pt does not want to go to rehab. as per staff pt is compliant with meds, not socializing, depressed, 09/20/17 was agitated and required PO Haldol, will increase prolixin. patient tolerates medications well, no side effects observed or reported, aims 0 , no EPS. Diagnostic Results: Schizoaffective Disorder alcohol use disorder Opioid Dependency on maintenance therapy Medication Change: Yes (zoloft increased, prolixin incrased) Medical Record Reviewed: Yes Consults ordered or reviewed: medical consult appreciated Mental Status Examination - Cognitive Function Orientation: Person, Place Memory: Impaired Attention: Poor Concentration: Poor Association: Loose Fund of Knowledge: Poor (baseline) - Mood Mood: Depressed ("I am depressed") - Affect Affect: Constricted - Speech Speech: Appropriate (poverty of speech) - Formal Thought Process Formal Thought Process: No Impairment - Suicidal Ideation Suicidal Ideation: No - Homicidal Ideation Homicidal Ideation: No Goal/Treatment Plan - Goal/Treatment Plan Need for Continued Stay: Remain at risks for inpatient hospitalization, Severe depression anxiety, Discharge may exacerbated symptoms, Failed transitioning, Severe functional impairment Progress Toward Problem(s) and Goals/Treatment Plan: Milieu/structure/supportive therapy Medical consult appreciated, see medical team note for more detailed info SW consultation for discharge plan and social issues Med management multivitamins, thiamine 100 mg daily, folic acid 1 mg daily with Ativan 1 mg 2 times a day scheduled for alcohol withdrawal symptoms Zoloft 150 mg will be increased today for depression and anxiety Trazodone 100 mg by mouth at the nighttime will be continued Prolixin 10 mg twice a day for psychotic symptoms with the plan to give Prolixin Decanoate methadone was confirmed Patient has not a candidate for naltrexone tx pt is willing to go to the inpatient rehab for alcohol addiction Family involvement Follow up on labs Will monitor closely Pt was educated about risk/benefits and alternatives of medications, coping strategies (safety plan, suicide prevention), relapse prevention, importance of follow up with psychiatrist and therapist, stay away from drugs/alcohol/smoking Estimated Date of D/C: 09/26/17 (we'll monitor closely)
[2017-09-22] MEDS: Albuterol-Ipratrop 3 mg / 0.5 (3 ml) UD IH SCH ×3 (01:18→22:53)
[2017-09-22] MEDS: Budesonide 0.5 mg/2 ml Inhal Susp UD IH SCH ×2 (08:40→22:53)
[2017-09-22] MEDS: Divalproex 500 mg DR(BID formulation) PO SCH ×2 (09:01→17:47)
[2017-09-22] MEDS: Multivitamin With Minerals Tab PO SCH (09:03)
--- NOTE | 2017-09-22 17:03 | PCM.PYCHPN ---
Psychiatric Progress Note - Psychiatric Progress Note Patient seen today, length of contact: 30 minutes Patient Chief Complaint: "I do not want to go to the rehab" Problems Identified/Issues Discussed: Suicide/ homicide prevention, past psychiatric h/o, current psychiatric symptoms , medical problems, risk/benefits and alternatives of medications, medications compliance, coping strategies, substance abuse h/o, relapse prevention, importance of follow up with psychiatrist and therapist, discharge plan. Medical Problems: diabetes Emphasis them Hypertension Alcohol use disorder Diagnostic Results: 09/17/17 07:00 09/17/17 07:00 Lab Results 09/19/17 08:00: Valproic Acid 33 L 09/19/17 07:54: POC Glucose (mg/dL) 113 H 09/18/17 22:00: POC Glucose (mg/dL) 130 H 09/18/17 11:43: POC Glucose (mg/dL) 101 09/18/17 08:02: POC Glucose (mg/dL) 94 09/17/17 21:43: POC Glucose (mg/dL) 150 H 09/17/17 16:45: POC Glucose (mg/dL) 120 H 09/17/17 11:04: POC Glucose (mg/dL) 257 H 09/17/17 07:25: POC Glucose (mg/dL) 136 H 09/17/17 07:00: RPR Nonreactive 09/17/17 07:00: TSH 3rd Generation 0.75 09/17/17 07:00: WBC 7.9 D, RBC 4.44, Hgb 12.4 L, Hct 37.9 L, MCV 85.4, MCH 27.9 , MCHC 32.7, RDW 13.8, Plt Count 238, MPV 10.9, Gran % 70.0 H, Lymph % (Auto) 22.5, [place] % (Auto) 6.9 H, Eos % (Auto) 0.5 L, Baso % (Auto) 0.1, Gran # 5.51, Lymph # 1.8, [place] # 0.5, Eos # 0.0, Baso # 0.01 09/17/17 07:00: Sodium 140, Potassium 4.1, Chloride 103, Carbon Dioxide 29, Anion Gap 12, BUN 14, Creatinine 0.7 L, Est GFR ( Amer) > 60, Est GFR ( Non-Af Amer) > 60, Random Glucose 138 H, Fasting Glucose 138 H, Calcium 9.7, Total Bilirubin 0.2, AST 39, ALT 32, Alkaline Phosphatase 66, Total Protein 7.3 , Albumin 4.1, Globulin 3.2, Albumin/Globulin Ratio 1.3, Triglycerides 111, Cholesterol 202 H, LDL Cholesterol Direct 133 H, HDL Cholesterol 53 09/16/17 16:12: Urine Color Yellow, Urine Appearance Clear, Urine pH 6.0, Ur Specific [place] >= 1.030, Urine Protein Negative, Urine Glucose (UA) Negative, Urine Ketones Negative, Urine Blood Negative, Urine Nitrate Negative, Urine Bilirubin Negative, Urine Urobilinogen 0.2, Ur Leukocyte Esterase Negative 09/16/17 16:12: Urine Opiates Screen Negative, Urine Methadone Screen Positive H , Ur Barbiturates Screen Negative, Ur Phencyclidine Scrn Negative, Ur Amphetamines Screen Negative, U Benzodiazepines Scrn Positive, U Oth Cocaine Metabols Negative, U Cannabinoids Screen Negative 09/16/17 13:20: WBC 5.2 D, RBC 4.35, Hgb 12.3 L, Hct 37.6 L, MCV 86.4, MCH 28.3 , MCHC 32.7, RDW 13.9, Plt Count 180, MPV 11.0, Gran % 52.3, Lymph % (Auto) 39.6 H, [place] % (Auto) 5.2, Eos % (Auto) 2.7, Baso % (Auto) 0.2, Gran # 2.72, Lymph # 2.1, [place] # 0.3, Eos # 0.1, Baso # 0.01 09/16/17 13:20: Alcohol, Quantitative < 10 09/16/17 13:20: Salicylates < 1 L, Acetaminophen < 10.0 L 09/16/17 13:20: Sodium 140, Potassium 4.2, Chloride 102, Carbon Dioxide 28, Anion Gap 14, BUN 10, Creatinine 0.8, Est GFR ( Amer) > 60, Est GFR (Non- Af Amer) > 60, Random Glucose 149 H, Calcium 9.8, Magnesium 1.5 L, Total Bilirubin 0.2, AST 32, ALT 32, Alkaline Phosphatase 64, Total Protein 7.6, Albumin 4.3, Globulin 3.3, Albumin/Globulin Ratio 1.3 Temp Pulse Resp BP Pulse Ox 97.3 F L 90 20 130/94 H 97 09/17/17 07:00 09/19/17 09:14 09/17/17 07:00 09/19/17 09:15 09/16/17 19:25 Temp Pulse Resp BP Pulse Ox 98.0 F 93 H 20 126/86 97 09/22/17 07:11 09/22/17 09:02 09/22/17 07:11 09/22/17 09:02 09/16/17 19:25 DSM 5 Symptoms Update: Patient is a single 47 year old -Bel[place] male, self reported history of schizoaffective disorder, opioid use disorder on methadone maintenance, numerous psychiatric admissions (>10) most recently discharged from this unit on 08/17/17, historically poorly compliant with medications and aftercare recommendations who brought himself to the hospital looking for help with depression, suicidal ideation and command hallucinations telling him to commit suicide. patient was seen today at the dining area, patient presented somewhat better today, was observed started socializing with others, patient has somewhat better eye contact, was able to hold conversation, patient expressed no interest to go to inpatient rehabilitation, off note initially patient was willing to. Patient reported that his depressive symptoms are improving, denied any thoughts of killing himself or others, patient was educated about Prolixin Decano[place], patient wants to think about this medication to be given. still c/o voices,thought process is concrete and no disorganized thoughts. pt said that he is willing to get prolixin Dec, pt does not want to go to rehab. last PRN 09/20/17 was agitated and required PO Haldol, prolixin was increased 09/21 patient tolerates medications well, no side effects observed or reported, aims 0 , no EPS. Diagnostic Results: Schizoaffective Disorder alcohol use disorder Opioid Dependency on maintenance therapy Medication Change: Yes (zoloft increased, prolixin incrased) Medical Record Reviewed: Yes Mental Status Examination - Cognitive Function Orientation: Person, Place Memory: Impaired Attention: Poor Concentration: Poor Association: Loose Fund of Knowledge: Poor (baseline) - Mood Mood: Depressed ("I am depressed") - Affect Affect: Constricted - Speech Speech: Appropriate (poverty of speech) - Formal Thought Process Formal Thought Process: No Impairment - Suicidal Ideation Suicidal Ideation: No - Homicidal Ideation Homicidal Ideation: No Goal/Treatment Plan - Goal/Treatment Plan Need for Continued Stay: Remain at risks for inpatient hospitalization, Severe depression anxiety, Discharge may exacerbated symptoms, Failed transitioning, Severe functional impairment Progress Toward Problem(s) and Goals/Treatment Plan: Milieu/structure/supportive therapy Medical consult appreciated, see medical team note for more detailed info SW consultation for discharge plan and social issues Med management multivitamins, thiamine 100 mg daily, folic acid 1 mg daily with Ativan 0.5 mg 2 times a day scheduled for alcohol withdrawal symptoms Zoloft 150 mg will be increased today for depression and anxiety Trazodone 100 mg by mouth at the nighttime will be continued Prolixin 10 mg twice a day for psychotic symptoms with the plan to give Prolixin Decanoate methadone was confirmed Patient has not a candidate for naltrexone tx pt is willing to go to the inpatient rehab for alcohol addiction Family involvement Follow up on labs Will monitor closely Pt was educated about risk/benefits and alternatives of medications, coping strategies (safety plan, suicide prevention), relapse prevention, importance of follow up with psychiatrist and therapist, stay away from drugs/alcohol/smoking Estimated Date of D/C: 09/26/17 (we'll monitor closely)
[2017-09-23] MEDS: Albuterol-Ipratrop 3 mg / 0.5 (3 ml) UD IH SCH ×4 (02:04→23:44)
[2017-09-23] MEDS: Budesonide 0.5 mg/2 ml Inhal Susp UD IH SCH ×2 (08:14→23:44)
[2017-09-23] MEDS: Multivitamin With Minerals Tab PO SCH (09:10)
[2017-09-23] MEDS: Divalproex 500 mg DR(BID formulation) PO SCH ×2 (09:12→18:26)
--- NOTE | 2017-09-23 17:23 | PCM.PYCHPN ---
Psychiatric Progress Note - Psychiatric Progress Note Patient seen today, length of contact: 30 minutes Patient Chief Complaint: "I have no energy..." Problems Identified/Issues Discussed: Suicide/ homicide prevention, past psychiatric h/o, current psychiatric symptoms , medical problems, risk/benefits and alternatives of medications, medications compliance, coping strategies, substance abuse h/o, relapse prevention, importance of follow up with psychiatrist and therapist, discharge plan. Medical Problems: diabetes Emphasis them Hypertension Alcohol use disorder Diagnostic Results: 09/17/17 07:00 09/17/17 07:00 Lab Results 09/19/17 08:00: Valproic Acid 33 L 09/19/17 07:54: POC Glucose (mg/dL) 113 H 09/18/17 22:00: POC Glucose (mg/dL) 130 H 09/18/17 11:43: POC Glucose (mg/dL) 101 09/18/17 08:02: POC Glucose (mg/dL) 94 09/17/17 21:43: POC Glucose (mg/dL) 150 H 09/17/17 16:45: POC Glucose (mg/dL) 120 H 09/17/17 11:04: POC Glucose (mg/dL) 257 H 09/17/17 07:25: POC Glucose (mg/dL) 136 H 09/17/17 07:00: RPR Nonreactive 09/17/17 07:00: TSH 3rd Generation 0.75 09/17/17 07:00: WBC 7.9 D, RBC 4.44, Hgb 12.4 L, Hct 37.9 L, MCV 85.4, MCH 27.9 , MCHC 32.7, RDW 13.8, Plt Count 238, MPV 10.9, Gran % 70.0 H, Lymph % (Auto) 22.5, [place] % (Auto) 6.9 H, Eos % (Auto) 0.5 L, Baso % (Auto) 0.1, Gran # 5.51, Lymph # 1.8, [place] # 0.5, Eos # 0.0, Baso # 0.01 09/17/17 07:00: Sodium 140, Potassium 4.1, Chloride 103, Carbon Dioxide 29, Anion Gap 12, BUN 14, Creatinine 0.7 L, Est GFR ( Amer) > 60, Est GFR ( Non-Af Amer) > 60, Random Glucose 138 H, Fasting Glucose 138 H, Calcium 9.7, Total Bilirubin 0.2, AST 39, ALT 32, Alkaline Phosphatase 66, Total Protein 7.3 , Albumin 4.1, Globulin 3.2, Albumin/Globulin Ratio 1.3, Triglycerides 111, Cholesterol 202 H, LDL Cholesterol Direct 133 H, HDL Cholesterol 53 09/16/17 16:12: Urine Color Yellow, Urine Appearance Clear, Urine pH 6.0, Ur Specific [place] >= 1.030, Urine Protein Negative, Urine Glucose (UA) Negative, Urine Ketones Negative, Urine Blood Negative, Urine Nitrate Negative, Urine Bilirubin Negative, Urine Urobilinogen 0.2, Ur Leukocyte Esterase Negative 09/16/17 16:12: Urine Opiates Screen Negative, Urine Methadone Screen Positive H , Ur Barbiturates Screen Negative, Ur Phencyclidine Scrn Negative, Ur Amphetamines Screen Negative, U Benzodiazepines Scrn Positive, U Oth Cocaine Metabols Negative, U Cannabinoids Screen Negative 09/16/17 13:20: WBC 5.2 D, RBC 4.35, Hgb 12.3 L, Hct 37.6 L, MCV 86.4, MCH 28.3 , MCHC 32.7, RDW 13.9, Plt Count 180, MPV 11.0, Gran % 52.3, Lymph % (Auto) 39.6 H, [place] % (Auto) 5.2, Eos % (Auto) 2.7, Baso % (Auto) 0.2, Gran # 2.72, Lymph # 2.1, [place] # 0.3, Eos # 0.1, Baso # 0.01 09/16/17 13:20: Alcohol, Quantitative < 10 09/16/17 13:20: Salicylates < 1 L, Acetaminophen < 10.0 L 09/16/17 13:20: Sodium 140, Potassium 4.2, Chloride 102, Carbon Dioxide 28, Anion Gap 14, BUN 10, Creatinine 0.8, Est GFR ( Amer) > 60, Est GFR (Non- Af Amer) > 60, Random Glucose 149 H, Calcium 9.8, Magnesium 1.5 L, Total Bilirubin 0.2, AST 32, ALT 32, Alkaline Phosphatase 64, Total Protein 7.6, Albumin 4.3, Globulin 3.3, Albumin/Globulin Ratio 1.3 Temp Pulse Resp BP Pulse Ox 97.3 F L 90 20 130/94 H 97 09/17/17 07:00 09/19/17 09:14 09/17/17 07:00 09/19/17 09:15 09/16/17 19:25 Temp Pulse Resp BP Pulse Ox 98.0 F 93 H 20 126/86 97 09/22/17 07:11 09/22/17 09:02 09/22/17 07:11 09/22/17 09:02 09/16/17 19:25 DSM 5 Symptoms Update: Patient is a single 47 year old -Malaysian male, self reported history of schizoaffective disorder, opioid use disorder on methadone maintenance, numerous psychiatric admissions (>10) most recently discharged from this unit on 08/17/17, historically poorly compliant with medications and aftercare recommendations who brought himself to the hospital looking for help with depression, suicidal ideation and command hallucinations telling him to commit suicide. patient was seen today in his room. pt c/o feeling no energy and ahedonic. yesterday was observed started socializing with others, patient has somewhat better eye contact, was able to hold conversation, patient expressed no interest to go to inpatient rehabilitation, off note initially patient was willing to. Patient reported that his depressive symptoms are improving, denied any thoughts of killing himself or others, patient was educated about Prolixin [place], patient wants to think about this medication to be given. still c/o voices,thought process is concrete and no disorganized thoughts. pt said that he is willing to get prolixin Dec, pt does not want to go to rehab. last PRN 09/20/17 was agitated and required PO Haldol, prolixin was increased 09/21 patient tolerates medications well, no side effects observed or reported, aims 0 , no EPS. Diagnostic Results: Schizoaffective Disorder alcohol use disorder Opioid Dependency on maintenance therapy Medication Change: Yes (zoloft increased, prolixin incrased) Medical Record Reviewed: Yes Consults ordered or reviewed: medical consult appreciated Mental Status Examination - Cognitive Function Orientation: Person, Place Memory: Impaired Attention: Poor Concentration: Poor Association: Loose Fund of Knowledge: Poor (baseline) - Mood Mood: Depressed ("I am depressed") - Affect Affect: Constricted - Speech Speech: Appropriate (poverty of speech) - Formal Thought Process Formal Thought Process: No Impairment - Suicidal Ideation Suicidal Ideation: No - Homicidal Ideation Homicidal Ideation: No Goal/Treatment Plan - Goal/Treatment Plan Need for Continued Stay: Remain at risks for inpatient hospitalization, Severe depression anxiety, Discharge may exacerbated symptoms, Failed transitioning, Severe functional impairment Progress Toward Problem(s) and Goals/Treatment Plan: Milieu/structure/supportive therapy Medical consult appreciated, see medical team note for more detailed info SW consultation for discharge plan and social issues Med management multivitamins, thiamine 100 mg daily, folic acid 1 mg daily with Ativan was d/c Zoloft 150 mg ibncreased yesterday depression and anxiety Trazodone 100 mg by mouth at the nighttime will be continued Prolixin 10 mg twice a day for psychotic symptoms with the plan to give Prolixin Decanoate methadone was confirmed Patient has not a candidate for naltrexone tx pt is willing to go to the inpatient rehab for alcohol addiction Family involvement Follow up on labs Will monitor closely Pt was educated about risk/benefits and alternatives of medications, coping strategies (safety plan, suicide prevention), relapse prevention, importance of follow up with psychiatrist and therapist, stay away from drugs/alcohol/smoking Estimated Date of D/C: 09/26/17 (we'll monitor closely)
[2017-09-24] MEDS: Albuterol-Ipratrop 3 mg / 0.5 (3 ml) UD IH SCH ×4 (02:05→21:49)
[2017-09-24] MEDS: Divalproex 500 mg DR(BID formulation) PO SCH ×2 (09:01→19:06)
[2017-09-24] MEDS: Multivitamin With Minerals Tab PO SCH ×2 (09:01→09:13)
[2017-09-24] MEDS: Budesonide 0.5 mg/2 ml Inhal Susp UD IH SCH ×2 (09:32→21:49)
--- NOTE | 2017-09-24 09:47 | PCM.PYCHPN ---
Psychiatric Progress Note - Psychiatric Progress Note Patient seen today, length of contact: 25 minutes Patient Chief Complaint: "A little better" Problems Identified/Issues Discussed: I reviewed recent notes and met with patient at bedside. Patient is known to me from admission interview during this hospitalization. He has been irritable and aloof on the unit. He is in fair control this morning however reluctant to fully engage in an interview. Eye contact is fair and responses remain brief without much elaboration. He still appears guarded and preoccupied. Denies any hallucinations this morning (though has endorsed them to staff members) and he doesn't appear to be responding to internal stimuli. Presently he denies any new discomfort or pain. He is tolerating current medications well. Slept well last night. There were no major behavioral issues overnight. Diagnostic Results: Schizoaffective Disorder Alcohol Use Disorder Opioid Dependency on maintenance therapy Medication Change: Yes (zoloft increased, prolixin incrased) Medical Record Reviewed: Yes Mental Status Examination - Cognitive Function Orientation: Person, Place Memory: Impaired Attention: Poor Concentration: Poor Association: Loose Fund of Knowledge: Poor (baseline) - Mood Mood: Depressed (Improving) - Affect Affect: Constricted, Other (preoccupied) - Speech Speech: Appropriate (poverty of speech) - Formal Thought Process Formal Thought Process: No Impairment - Suicidal Ideation Suicidal Ideation: No - Homicidal Ideation Homicidal Ideation: No Goal/Treatment Plan - Goal/Treatment Plan Need for Continued Stay: Remain at risks for inpatient hospitalization, Severe depression anxiety, Discharge may exacerbated symptoms, Failed transitioning, Severe functional impairment Progress Toward Problem(s) and Goals/Treatment Plan: * group, milieu and supportive tx * Zoloft 150 mg po daily for depression and anxiety * Fluphenazine 10 mg po AMHS with cogentin 1 mg po bid * Depakote 500 mg po bid for mood control. VPA noted below: 09/19/17 08:00 Valproic Acid 33 L * Trazodone 100 mg HS prn: sleep * Methadone 100 mg po daily * Vitals reviewed and noted below: 09/22/17 09/22/17 09/23/17 09:02 16:00 09:07 Pulse Rate 93 H 102 H Blood Pressure 126/86 108/60 123/83 09/23/17 09:12 Pulse Rate 89 Blood Pressure 123/83 PRIOR FLOOR LABS Laboratory Results - last 24 hr 01/02/2709/17/17 09/17/17 07:00 07:00 07:00 WBC 7.9 D RBC 4.44 Hgb 12.4 L Hct 37.9 L MCV 85.4 MCH 27.9 MCHC 32.7 RDW 13.8 Plt Count 238 MPV 10.9 Gran % 70.0 H Lymph % (Auto) 22.5 [place] % (Auto) 6.9 H Eos % (Auto) 0.5 L Baso % (Auto) 0.1 Gran # 5.51 Lymph # 1.8 [place] # 0.5 Eos # 0.0 Baso # 0.01 Sodium 140 Potassium 4.1 Chloride 103 Carbon Dioxide 29 Anion Gap 12 BUN 14 Creatinine 0.7 L Est GFR ( Amer) > 60 Est GFR (Non-Af Amer) > 60 POC Glucose (mg/dL) Random Glucose 138 H Fasting Glucose 138 H Calcium 9.7 Total Bilirubin 0.2 AST 39 ALT 32 Alkaline Phosphatase 66 Total Protein 7.3 Albumin 4.1 Globulin 3.2 Albumin/Globulin Ratio 1.3 Triglycerides 111 Cholesterol 202 H LDL Cholesterol Direct 133 H HDL Cholesterol 53 TSH 3rd Generation 0.75 RPR 09/17/17 09/17/17 09/17/17 07:00 07:25 11:04 WBC RBC Hgb Hct MCV MCH MCHC RDW Plt Count MPV Gran % Lymph % (Auto) [place] % (Auto) Eos % (Auto) Baso % (Auto) Gran # Lymph # [place] # Eos # Baso # Sodium Potassium Chloride Carbon Dioxide Anion Gap BUN Creatinine Est GFR ( Amer) Est GFR (Non-Af Amer) POC Glucose (mg/dL) 136 H 257 H Random Glucose Fasting Glucose Calcium Total Bilirubin AST ALT Alkaline Phosphatase Total Protein Albumin Globulin Albumin/Globulin Ratio Triglycerides Cholesterol LDL Cholesterol Direct HDL Cholesterol TSH 3rd Generation RPR Nonreactive 09/17/17 09/17/17 16:45 21:43 WBC RBC Hgb Hct MCV MCH MCHC RDW Plt Count MPV Gran % Lymph % (Auto) [place] % (Auto) Eos % (Auto) Baso % (Auto) Gran # Lymph # [place] # Eos # Baso # Sodium Potassium Chloride Carbon Dioxide Anion Gap BUN Creatinine Est GFR ( Amer) Est GFR (Non-Af Amer) POC Glucose (mg/dL) 120 H 150 H Random Glucose Fasting Glucose Calcium Total Bilirubin AST ALT Alkaline Phosphatase Total Protein Albumin Globulin Albumin/Globulin Ratio Triglycerides Cholesterol LDL Cholesterol Direct HDL Cholesterol TSH 3rd Generation RPR Estimated Date of D/C: 09/26/17 (we'll monitor closely)
[2017-09-25] MEDS: Albuterol-Ipratrop 3 mg / 0.5 (3 ml) UD IH SCH ×4 (01:15→22:30)
[2017-09-25] MEDS: Multivitamin With Minerals Tab PO SCH (08:14)
[2017-09-25] MEDS: Divalproex 500 mg DR(BID formulation) PO SCH ×2 (08:14→17:01)
[2017-09-25] MEDS: Budesonide 0.5 mg/2 ml Inhal Susp UD IH SCH ×2 (08:33→22:30)
--- NOTE | 2017-09-25 09:27 | PCM.PYCHPN ---
Psychiatric Progress Note - Psychiatric Progress Note Patient seen today, length of contact: 25 minutes Patient Chief Complaint: "A little better" Problems Identified/Issues Discussed: I reviewed recent notes and met with patient at bedside and in the hallway. Patient continues to be mildly irritable and aloof on the unit. He is in fair control this morning however again reluctant to fully engage in an interview except to repeatedly indicate that he would like to be discharged soon. Explains that he has an important eye doctor appointment tomorrow and has been waiting months for it. His responses remain brief and flat without much elaboration. He still appears guarded and preoccupied. Denies any hallucinations this morning and he doesn't appear to be responding to internal stimuli however he is oddly related. Presently he denies any new discomfort or pain. He is tolerating current medications well. Staff notes indicate that patient has been more visible, observed watching tv. Patient was reluctant to take medications and staff were able to reassure and educate him. He ultimately only refused his vitamins yesterday. There were no major behavioral issues over the weekend. Diagnostic Results: Schizoaffective Disorder Alcohol Use Disorder Opioid Dependency on maintenance therapy Medication Change: Yes ( ) Medical Record Reviewed: Yes Mental Status Examination - Cognitive Function Orientation: Person, Place Memory: Impaired Attention: Poor Concentration: Poor Association: Loose Fund of Knowledge: Poor (baseline) - Mood Mood: Depressed ("better") - Affect Affect: Constricted, Flat, Other (preoccupied) - Speech Speech: Appropriate (poverty of speech) - Formal Thought Process Formal Thought Process: No Impairment (He does appear preoccupied and oddly related) - Suicidal Ideation Suicidal Ideation: No - Homicidal Ideation Homicidal Ideation: No Goal/Treatment Plan - Goal/Treatment Plan Need for Continued Stay: Remain at risks for inpatient hospitalization, Severe depression anxiety, Discharge may exacerbated symptoms, Failed transitioning, Severe functional impairment Progress Toward Problem(s) and Goals/Treatment Plan: * group, milieu and supportive tx * Zoloft 150 mg po daily for depression and anxiety * Fluphenazine 10 mg po AMHS with cogentin 1 mg po bid * Depakote 500 mg po bid for mood control. VPA noted below: 09/19/17 08:00 Valproic Acid 33 L * Trazodone 100 mg HS prn: sleep * Methadone 100 mg po daily * Vitals reviewed and noted below: 0109/23/17 09/23/17 16:00 09:07 09:12 Pulse Rate 102 H 89 Blood Pressure 108/60 123/83 123/83 09/24/17 09/24/17 09:00 09:01 Pulse Rate 90 Blood Pressure 124/89 PRIOR FLOOR LABS Laboratory Results - last 24 hr 09/17/17 09/17/17 09/17/17 07:00 07:00 07:00 WBC 7.9 D RBC 4.44 Hgb 12.4 L Hct 37.9 L MCV 85.4 MCH 27.9 MCHC 32.7 RDW 13.8 Plt Count 238 MPV 10.9 Gran % 70.0 H Lymph % (Auto) 22.5 [place] % (Auto) 6.9 H Eos % (Auto) 0.5 L Baso % (Auto) 0.1 Gran # 5.51 Lymph # 1.8 [place] # 0.5 Eos # 0.0 Baso # 0.01 Sodium 140 Potassium 4.1 Chloride 103 Carbon Dioxide 29 Anion Gap 12 BUN 14 Creatinine 0.7 L Est GFR ( Amer) > 60 Est GFR (Non-Af Amer) > 60 POC Glucose (mg/dL) Random Glucose 138 H Fasting Glucose 138 H Calcium 9.7 Total Bilirubin 0.2 AST 39 ALT 32 Alkaline Phosphatase 66 Total Protein 7.3 Albumin 4.1 Globulin 3.2 Albumin/Globulin Ratio 1.3 Triglycerides 111 Cholesterol 202 H LDL Cholesterol Direct 133 H HDL Cholesterol 53 TSH 3rd Generation 0.75 RPR 09/17/17 09/17/17 09/17/17 07:00 07:25 11:04 WBC RBC Hgb Hct MCV MCH MCHC RDW Plt Count MPV Gran % Lymph % (Auto) [place] % (Auto) Eos % (Auto) Baso % (Auto) Gran # Lymph # [place] # Eos # Baso # Sodium Potassium Chloride Carbon Dioxide Anion Gap BUN Creatinine Est GFR ( Amer) Est GFR (Non-Af Amer) POC Glucose (mg/dL) 136 H 257 H Random Glucose Fasting Glucose Calcium Total Bilirubin AST ALT Alkaline Phosphatase Total Protein Albumin Globulin Albumin/Globulin Ratio Triglycerides Cholesterol LDL Cholesterol Direct HDL Cholesterol TSH 3rd Generation RPR Nonreactive 09/17/17 09/17/17 16:45 21:43 WBC RBC Hgb Hct MCV MCH MCHC RDW Plt Count MPV Gran % Lymph % (Auto) [place] % (Auto) Eos % (Auto) Baso % (Auto) Gran # Lymph # [place] # Eos # Baso # Sodium Potassium Chloride Carbon Dioxide Anion Gap BUN Creatinine Est GFR ( Amer) Est GFR (Non-Af Amer) POC Glucose (mg/dL) 120 H 150 H Random Glucose Fasting Glucose Calcium Total Bilirubin AST ALT Alkaline Phosphatase Total Protein Albumin Globulin Albumin/Globulin Ratio Triglycerides Cholesterol LDL Cholesterol Direct HDL Cholesterol TSH 3rd Generation RPR Estimated Date of D/C: 09/26/17 (we'll monitor closely)
[2017-09-26] MEDS: Albuterol-Ipratrop 3 mg / 0.5 (3 ml) UD IH SCH ×4 (02:04→22:35)
[2017-09-26] MEDS: Divalproex 500 mg DR(BID formulation) PO SCH ×2 (07:44→17:06)
[2017-09-26] MEDS: Multivitamin With Minerals Tab PO SCH (07:51)
[2017-09-26] MEDS: Budesonide 0.5 mg/2 ml Inhal Susp UD IH SCH ×2 (09:25→22:35)
--- NOTE | 2017-09-26 10:38 | PCM.BM ---
<Dave Hinton - Last Filed: 09/26/17 10:38> Treatment Plan Problems - Problems identified on initial assessmt Agitated/aggressive behavior Date Initiated: 09/16/17 Time Initiated: 23:49 Date resolved: 09/26/17 Assessment reference: NA Status: Active High Risk: Violence Date Initiated: 09/16/17 Time Initiated: 23:49 Date resolved: 09/26/17 Assessment reference: NA Status: Active Suicidal Ideation Date Initiated: 09/16/17 Time Initiated: 23:49 Date resolved: 09/26/17 Assessment reference: NA Status: Active Auditory Hallucinations Date Initiated: 09/16/17 Time Initiated: 23:49 Date resolved: 09/26/17 Assessment reference: NA Status: Active Medication nonadherence Date Initiated: 09/16/17 Time Initiated: 23:50 Date resolved: 09/26/17 Assessment reference: NA Status: Active Treatment assets and liabiliti Patient Assests: self-reliant, ADL independent, physically healthy, cognitively intact Patient Liabilities: live alone, financial problems, poor support system, relationship conflicts, substance abuse, medical problems - Milieu Protocol Maintain good personal hygiene: daily Encourage regular showers, daily Remind patient to perform daily oral care, daily Assist patient to perform ADL's Conduct patient checks and document Observation sheet: Q15 minutes Maintain personal safety: every shift Educate patient to report safety concerns to staff, every shift Monitor environment for contraband/sharps Medication safety: Monitor for expected outcome, potential side effects: every shift, Assess barriers to learning: every shift, Assess readiness for medication education: every shift Milieu Narrative: * group, milieu and supportive tx * Zoloft 150 mg po daily for depression and anxiety * Fluphenazine 10 mg po AMHS with cogentin 1 mg po bid * Depakote 500 mg po bid for mood control. VPA noted below: 09/19/17 08:00 Valproic Acid 33 L * Trazodone 100 mg HS prn: sleep * Methadone 100 mg po daily * Vitals reviewed and noted below: 09/22/17 09/22/17 09/23/17 09:02 16:00 09:07 Pulse Rate 93 H 102 H Blood Pressure 126/86 108/60 123/83 09/23/17 09:12 Pulse Rate 89 Blood Pressure 123/83 PRIOR FLOOR LABS Laboratory Results - last 24 hr 09/17/17 09/17/17 09/17/17 07:00 07:00 07:00 WBC 7.9 D RBC 4.44 Hgb 12.4 L Hct 37.9 L MCV 85.4 MCH 27.9 MCHC 32.7 RDW 13.8 Plt Count 238 MPV 10.9 Gran % 70.0 H Lymph % (Auto) 22.5 [place] % (Auto) 6.9 H Eos % (Auto) 0.5 L Baso % (Auto) 0.1 Gran # 5.51 Lymph # 1.8 [place] # 0.5 Eos # 0.0 Baso # 0.01 Sodium 140 Potassium 4.1 Chloride 103 Carbon Dioxide 29 Anion Gap 12 BUN 14 Creatinine 0.7 L Est GFR ( Amer) > 60 Est GFR (Non-Af Amer) > 60 POC Glucose (mg/dL) Random Glucose 138 H Fasting Glucose 138 H Calcium 9.7 Total Bilirubin 0.2 AST 39 ALT 32 Alkaline Phosphatase 66 Total Protein 7.3 Albumin 4.1 Globulin 3.2 Albumin/Globulin Ratio 1.3 Triglycerides 111 Cholesterol 202 H LDL Cholesterol Direct 133 H HDL Cholesterol 53 TSH 3rd Generation 0.75 RPR 09/17/17 09/17/17 09/17/17 07:00 07:25 11:04 WBC RBC Hgb Hct MCV MCH MCHC RDW Plt Count MPV Gran % Lymph % (Auto) [place] % (Auto) Eos % (Auto) Baso % (Auto) Gran # Lymph # [place] # Eos # Baso # Sodium Potassium Chloride Carbon Dioxide Anion Gap BUN Creatinine Est GFR ( Amer) Est GFR (Non-Af Amer) POC Glucose (mg/dL) 136 H 257 H Random Glucose Fasting Glucose Calcium Total Bilirubin AST ALT Alkaline Phosphatase Total Protein Albumin Globulin Albumin/Globulin Ratio Triglycerides Cholesterol LDL Cholesterol Direct HDL Cholesterol TSH 3rd Generation RPR Nonreactive 09/17/17 09/17/17 16:45 21:43 WBC RBC Hgb Hct MCV MCH MCHC RDW Plt Count MPV Gran % Lymph % (Auto) [place] % (Auto) Eos % (Auto) Baso % (Auto) Gran # Lymph # [place] # Eos # Baso # Sodium Potassium Chloride Carbon Dioxide Anion Gap BUN Creatinine Est GFR ( Amer) Est GFR (Non-Af Amer) POC Glucose (mg/dL) 120 H 150 H Random Glucose Fasting Glucose Calcium Total Bilirubin AST ALT Alkaline Phosphatase Total Protein Albumin Globulin Albumin/Globulin Ratio Triglycerides Cholesterol LDL Cholesterol Direct HDL Cholesterol TSH 3rd Generation RPR Family Contact Family involvement: Famliy/SO not involved Family contact: Patient declines to allow family contact at present - Outside Agency [facility] involvment: Information-sharing Agency contact name: [facility] contact number: [phone] Discharge/Continuing Care - Education Needs Education Needs: Patient Medication, Patient Diagnosis/Disease Process, Patient Coping Skills, Patient Anger Management skills, Patient Placement options, Patient Community resources, Patient Health Practices/Safety, Patient Personal Hygiene/Grooming, Patient Aftercare Safety Plan - Discharge Discharge Criteria: Free of Suicidal thoughts, Free of Homicidal thoughts, Free of agitation, Normal sleep pattern, Ability to care for self - Treatment Team Participation Patient/Family/SO Statement: * group, milieu and supportive tx * Zoloft 150 mg po daily for depression and anxiety * Fluphenazine 10 mg po AMHS with cogentin 1 mg po bid * Depakote 500 mg po bid for mood control. VPA noted below: 09/19/17 08:00 Valproic Acid 33 L * Trazodone 100 mg HS prn: sleep * Methadone 100 mg po daily * Vitals reviewed and noted below: 09/22/17 09/22/17 09/23/17 09:02 16:00 09:07 Pulse Rate 93 H 102 H Blood Pressure 126/86 108/60 123/83 09/23/17 09:12 Pulse Rate 89 Blood Pressure 123/83 PRIOR FLOOR LABS Laboratory Results - last 24 hr 09/17/17 09/17/17 09/17/17 07:00 07:00 07:00 WBC 7.9 D RBC 4.44 Hgb 12.4 L Hct 37.9 L MCV 85.4 MCH 27.9 MCHC 32.7 RDW 13.8 Plt Count 238 MPV 10.9 Gran % 70.0 H Lymph % (Auto) 22.5 [place] % (Auto) 6.9 H Eos % (Auto) 0.5 L Baso % (Auto) 0.1 Gran # 5.51 Lymph # 1.8 [place] # 0.5 Eos # 0.0 Baso # 0.01 Sodium 140 Potassium 4.1 Chloride 103 Carbon Dioxide 29 Anion Gap 12 BUN 14 Creatinine 0.7 L Est GFR ( Amer) > 60 Est GFR (Non-Af Amer) > 60 POC Glucose (mg/dL) Random Glucose 138 H Fasting Glucose 138 H Calcium 9.7 Total Bilirubin 0.2 AST 39 ALT 32 Alkaline Phosphatase 66 Total Protein 7.3 Albumin 4.1 Globulin 3.2 Albumin/Globulin Ratio 1.3 Triglycerides 111 Cholesterol 202 H LDL Cholesterol Direct 133 H HDL Cholesterol 53 TSH 3rd Generation 0.75 RPR 09/17/17 09/17/17 09/17/17 07:00 07:25 11:04 WBC RBC Hgb Hct MCV MCH MCHC RDW Plt Count MPV Gran % Lymph % (Auto) [place] % (Auto) Eos % (Auto) Baso % (Auto) Gran # Lymph # [place] # Eos # Baso # Sodium Potassium Chloride Carbon Dioxide Anion Gap BUN Creatinine Est GFR ( Amer) Est GFR (Non-Af Amer) POC Glucose (mg/dL) 136 H 257 H Random Glucose Fasting Glucose Calcium Total Bilirubin AST ALT Alkaline Phosphatase Total Protein Albumin Globulin Albumin/Globulin Ratio Triglycerides Cholesterol LDL Cholesterol Direct HDL Cholesterol TSH 3rd Generation RPR Nonreactive 09/17/17 09/17/17 16:45 21:43 WBC RBC Hgb Hct MCV MCH MCHC RDW Plt Count MPV Gran % Lymph % (Auto) [place] % (Auto) Eos % (Auto) Baso % (Auto) Gran # Lymph # [place] # Eos # Baso # Sodium Potassium Chloride Carbon Dioxide Anion Gap BUN Creatinine Est GFR ( Amer) Est GFR (Non-Af Amer) POC Glucose (mg/dL) 120 H 150 H Random Glucose Fasting Glucose Calcium Total Bilirubin AST ALT Alkaline Phosphatase Total Protein Albumin Globulin Albumin/Globulin Ratio Triglycerides Cholesterol LDL Cholesterol Direct HDL Cholesterol TSH 3rd Generation RPR Treatment Plan Review - Problem Agitated/aggressive behavior Time Initiated: 23:49 High Risk: Violence Time Initiated: 23:49 Suicidal Ideation Time Initiated: 23:49 Auditory Hallucinations Time Initiated: 23:49 Medication nonadherence Time Initiated: 23:50 <Darcie Lang - Last Filed: 09/27/17 16:08> - Diagnosis (1) Opioid use disorder, moderate, in sustained remission, on maintenance therapy Status: Chronic Interventions: 09/27/17 16:07 pt is on maintenance tx, methadone, will f/u there (2) Schizoaffective disorder Status: Chronic Interventions: 09/27/17 16:07 got better psychosis is improved no agitation/no aggression pt did not want to be on injectable form of meds 09/27/17 16:08 pt is not suicidal or homicidal
--- NOTE | 2017-09-26 14:51 | PCM.PYCHPN ---
Psychiatric Progress Note - Psychiatric Progress Note Patient seen today, length of contact: 30min Patient Chief Complaint: "I don't know what hospital Im in" Problems Identified/Issues Discussed: Suicide/ homicide prevention, past psychiatric h/o, current psychiatric symptoms , medical problems, risk/benefits and alternatives of medications, medications compliance, coping strategies, substance abuse h/o, relapse prevention, importance of follow up with psychiatrist and therapist, discharge plan. Medical Problems: diabetes Emphasis them Hypertension Alcohol use disorder Diagnostic Results: 09/17/17 07:00 09/17/17 07:00 Lab Results 09/19/17 08:00: Valproic Acid 33 L 09/19/17 07:54: POC Glucose (mg/dL) 113 H 09/18/17 22:00: POC Glucose (mg/dL) 130 H 09/18/17 11:43: POC Glucose (mg/dL) 101 09/18/17 08:02: POC Glucose (mg/dL) 94 09/17/17 21:43: POC Glucose (mg/dL) 150 H 09/17/17 16:45: POC Glucose (mg/dL) 120 H 09/17/17 11:04: POC Glucose (mg/dL) 257 H 09/17/17 07:25: POC Glucose (mg/dL) 136 H 09/17/17 07:00: RPR Nonreactive 09/17/17 07:00: TSH 3rd Generation 0.75 09/17/17 07:00: WBC 7.9 D, RBC 4.44, Hgb 12.4 L, Hct 37.9 L, MCV 85.4, MCH 27.9 , MCHC 32.7, RDW 13.8, Plt Count 238, MPV 10.9, Gran % 70.0 H, Lymph % (Auto) 22.5, [place] % (Auto) 6.9 H, Eos % (Auto) 0.5 L, Baso % (Auto) 0.1, Gran # 5.51, Lymph # 1.8, [place] # 0.5, Eos # 0.0, Baso # 0.01 09/17/17 07:00: Sodium 140, Potassium 4.1, Chloride 103, Carbon Dioxide 29, Anion Gap 12, BUN 14, Creatinine 0.7 L, Est GFR ( Amer) > 60, Est GFR ( Non-Af Amer) > 60, Random Glucose 138 H, Fasting Glucose 138 H, Calcium 9.7, Total Bilirubin 0.2, AST 39, ALT 32, Alkaline Phosphatase 66, Total Protein 7.3 , Albumin 4.1, Globulin 3.2, Albumin/Globulin Ratio 1.3, Triglycerides 111, Cholesterol 202 H, LDL Cholesterol Direct 133 H, HDL Cholesterol 53 09/16/17 16:12: Urine Color Yellow, Urine Appearance Clear, Urine pH 6.0, Ur Specific [place] >= 1.030, Urine Protein Negative, Urine Glucose (UA) Negative, Urine Ketones Negative, Urine Blood Negative, Urine Nitrate Negative, Urine Bilirubin Negative, Urine Urobilinogen 0.2, Ur Leukocyte Esterase Negative 09/16/17 16:12: Urine Opiates Screen Negative, Urine Methadone Screen Positive H , Ur Barbiturates Screen Negative, Ur Phencyclidine Scrn Negative, Ur Amphetamines Screen Negative, U Benzodiazepines Scrn Positive, U Oth Cocaine Metabols Negative, U Cannabinoids Screen Negative 09/16/17 13:20: WBC 5.2 D, RBC 4.35, Hgb 12.3 L, Hct 37.6 L, MCV 86.4, MCH 28.3 , MCHC 32.7, RDW 13.9, Plt Count 180, MPV 11.0, Gran % 52.3, Lymph % (Auto) 39.6 H, [place] % (Auto) 5.2, Eos % (Auto) 2.7, Baso % (Auto) 0.2, Gran # 2.72, Lymph # 2.1, [place] # 0.3, Eos # 0.1, Baso # 0.01 09/16/17 13:20: Alcohol, Quantitative < 10 09/16/17 13:20: Salicylates < 1 L, Acetaminophen < 10.0 L 09/16/17 13:20: Sodium 140, Potassium 4.2, Chloride 102, Carbon Dioxide 28, Anion Gap 14, BUN 10, Creatinine 0.8, Est GFR ( Amer) > 60, Est GFR (Non- Af Amer) > 60, Random Glucose 149 H, Calcium 9.8, Magnesium 1.5 L, Total Bilirubin 0.2, AST 32, ALT 32, Alkaline Phosphatase 64, Total Protein 7.6, Albumin 4.3, Globulin 3.3, Albumin/Globulin Ratio 1.3 Temp Pulse Resp BP Pulse Ox 97.3 F L 90 20 130/94 H 97 09/17/17 07:00 09/19/17 09:14 09/17/17 07:00 09/19/17 09:15 09/16/17 19:25 Temp Pulse Resp BP Pulse Ox 98.0 F 93 H 20 126/86 97 09/22/17 07:11 09/22/17 09:02 09/22/17 07:11 09/22/17 09:02 09/16/17 19:25 DSM 5 Symptoms Update: Patient is a single 47 year old -[place] male, self reported history of schizoaffective disorder, opioid use disorder on methadone maintenance, numerous psychiatric admissions (>10) most recently discharged from this unit on 08/17/17, historically poorly compliant with medications and aftercare recommendations who brought himself to the hospital looking for help with depression, suicidal ideation and command hallucinations telling him to commit suicide. patient was seen today at tx team meeting pt submitted 48hr notice, was found to be not committable. pt presented to be confused, does not know what hospital he is in. will hold his d/c, hold morning dose of prolixin. pt denied thoughts of harming self or others. pt does not want to be on prolixin shot, does not want to go to rehab. patient tolerates medications well, no side effects observed or reported, aims 0 , no EPS. Diagnostic Results: Schizoaffective Disorder alcohol use disorder Opioid Dependency on maintenance therapy Medication Change: Yes (prolixin decreased) Medical Record Reviewed: Yes Mental Status Examination - Cognitive Function Orientation: Person, Place Memory: Impaired Attention: Poor Concentration: Poor Association: Loose Fund of Knowledge: Poor (baseline) - Mood Mood: Depressed (Improving) - Affect Affect: Constricted, Other (preoccupied) - Speech Speech: Appropriate (poverty of speech) - Formal Thought Process Formal Thought Process: No Impairment - Suicidal Ideation Suicidal Ideation: No - Homicidal Ideation Homicidal Ideation: No Goal/Treatment Plan - Goal/Treatment Plan Need for Continued Stay: Remain at risks for inpatient hospitalization, Severe depression anxiety, Discharge may exacerbated symptoms, Failed transitioning, Severe functional impairment Progress Toward Problem(s) and Goals/Treatment Plan: Milieu/structure/supportive therapy Medical consult appreciated, see medical team note for more detailed info SW consultation for discharge plan and social issues Med management multivitamins, thiamine 100 mg daily, folic acid 1 mg daily with Ativan was d/c Zoloft 150 mg ibncreased yesterday depression and anxiety Trazodone 100 mg by mouth at the nighttime will be continued Prolixin 10 mg hs psychotic symptoms with the plan to give Prolixin [place]ate methadone was confirmed Patient has not a candidate for naltrexone tx pt is willing to go to the inpatient rehab for alcohol addiction Family involvement Follow up on labs Will monitor closely Pt was educated about risk/benefits and alternatives of medications, coping strategies (safety plan, suicide prevention), relapse prevention, importance of follow up with psychiatrist and therapist, stay away from drugs/alcohol/smoking Estimated Date of D/C: 09/27/17 (we'll monitor closely)
[2017-09-27] MEDS: Albuterol-Ipratrop 3 mg / 0.5 (3 ml) UD IH SCH ×2 (01:53→08:06)
[2017-09-27 07:08] VITALS: BP 125/81; PULSE 89; TEMP 98.2
[2017-09-27] MEDS: Budesonide 0.5 mg/2 ml Inhal Susp UD IH SCH (08:06)
[2017-09-27] MEDS: Multivitamin With Minerals Tab PO SCH (08:06)
[2017-09-27] MEDS: Divalproex 500 mg DR(BID formulation) PO SCH (08:06)
--- NOTE | 2017-09-27 16:18 | PCM.PYCHDC ---
Mental Status Examination - Mental Status Examination Orientation: Person, Place, Situation, Time Memory: Intact Mood: Neutral Affect: Constricted Attention: WNL Concentration: WNL Association: Loose (baseline) Fund of Knowledge: WNL Formal Thought Process: No Impairment Description of patient's judgement and insight: Pt has improved insight into mental and medical illness, pt was compliant with medications and unit rules and regulations, pt was going to groups, was calm, cooperative, socially appropriate, no behavioral incidents, no agitation, no aggression. Psychotic Thoughts and Behaviors: Pt denied v/a/t hallucinations, denied paranoid ideations, pt does not appear to be psychotic, and thought process is goal directed. Suicidal Ideation: No Current Homicidal Ideation?: No Plan: pt adamantly denied thoughts of harming self or others denied intent or plan. Discharge Summary - Discharge Note Reason for Hospitalization: disorganized thoughts and behavior Psychiatric History (includes Medical, Family, Personal Hx): long history of schizophrenia Laboratory Data: Abnormal Lab Results 09/26/17 09/26/17 09/27/17 16:54 21:39 07:26 POC Glucose (mg/dL) 91 124 H 82 09/17/17 07:00 09/17/17 07:00 Lab Results 09/27/17 07:26: POC Glucose (mg/dL) 82 09/26/17 21:39: POC Glucose (mg/dL) 124 H 09/26/17 16:54: POC Glucose (mg/dL) 91 09/26/17 11:53: POC Glucose (mg/dL) 144 H 09/26/17 07:15: POC Glucose (mg/dL) 81 09/25/17 21:09: POC Glucose (mg/dL) 112 H 09/25/17 16:17: POC Glucose (mg/dL) 95 09/25/17 12:47: POC Glucose (mg/dL) 84 09/25/17 07:16: POC Glucose (mg/dL) 84 09/24/17 21:48: POC Glucose (mg/dL) 83 09/24/17 16:26: POC Glucose (mg/dL) 107 09/24/17 11:36: POC Glucose (mg/dL) 147 H 09/24/17 07:43: POC Glucose (mg/dL) 91 09/23/17 21:40: POC Glucose (mg/dL) 91 09/23/17 19:15: POC Glucose (mg/dL) 115 H 09/23/17 16:12: POC Glucose (mg/dL) 114 H 09/23/17 12:20: POC Glucose (mg/dL) 95 09/23/17 07:26: POC Glucose (mg/dL) 99 09/22/17 21:37: POC Glucose (mg/dL) 93 09/22/17 16:11: POC Glucose (mg/dL) 99 09/22/17 12:18: POC Glucose (mg/dL) 118 H 09/22/17 07:17: POC Glucose (mg/dL) 95 09/21/17 21:02: POC Glucose (mg/dL) 124 H 09/21/17 16:10: POC Glucose (mg/dL) 104 09/21/17 11:32: POC Glucose (mg/dL) 110 09/21/17 07:14: POC Glucose (mg/dL) 112 H 09/20/17 16:16: POC Glucose (mg/dL) 125 H 09/20/17 08:12: POC Glucose (mg/dL) 87 09/19/17 21:41: POC Glucose (mg/dL) 110 09/19/17 16:47: POC Glucose (mg/dL) 118 H 09/19/17 08:00: Valproic Acid 33 L 09/19/17 07:54: POC Glucose (mg/dL) 113 H 09/18/17 22:00: POC Glucose (mg/dL) 130 H 09/18/17 11:43: POC Glucose (mg/dL) 101 09/18/17 08:02: POC Glucose (mg/dL) 94 09/17/17 21:43: POC Glucose (mg/dL) 150 H 09/17/17 16:45: POC Glucose (mg/dL) 120 H 09/17/17 11:04: POC Glucose (mg/dL) 257 H 09/17/17 07:25: POC Glucose (mg/dL) 136 H 09/17/17 07:00: RPR Nonreactive 09/17/17 07:00: TSH 3rd Generation 0.75 09/17/17 07:00: WBC 7.9 D, RBC 4.44, Hgb 12.4 L, Hct 37.9 L, MCV 85.4, MCH 27.9 , MCHC 32.7, RDW 13.8, Plt Count 238, MPV 10.9, Gran % 70.0 H, Lymph % (Auto) 22.5, Dawes % (Auto) 6.9 H, Eos % (Auto) 0.5 L, Baso % (Auto) 0.1, Gran # 5.51, Lymph # 1.8, Dawes # 0.5, Eos # 0.0, Baso # 0.01 09/17/17 07:00: Sodium 140, Potassium 4.1, Chloride 103, Carbon Dioxide 29, Anion Gap 12, BUN 14, Creatinine 0.7 L, Est GFR ( Amer) > 60, Est GFR ( Non-Af Amer) > 60, Random Glucose 138 H, Fasting Glucose 138 H, Calcium 9.7, Total Bilirubin 0.2, AST 39, ALT 32, Alkaline Phosphatase 66, Total Protein 7.3 , Albumin 4.1, Globulin 3.2, Albumin/Globulin Ratio 1.3, Triglycerides 111, Cholesterol 202 H, LDL Cholesterol Direct 133 H, HDL Cholesterol 53 09/16/17 16:12: Urine Color Yellow, Urine Appearance Clear, Urine pH 6.0, Ur Specific [place] >= 1.030, Urine Protein Negative, Urine Glucose (UA) Negative, Urine Ketones Negative, Urine Blood Negative, Urine Nitrate Negative, Urine Bilirubin Negative, Urine Urobilinogen 0.2, Ur Leukocyte Esterase Negative 09/16/17 16:12: Urine Opiates Screen Negative, Urine Methadone Screen Positive H , Ur Barbiturates Screen Negative, Ur Phencyclidine Scrn Negative, Ur Amphetamines Screen Negative, U Benzodiazepines Scrn Positive, U Oth Cocaine Metabols Negative, U Cannabinoids Screen Negative 09/16/17 13:20: WBC 5.2 D, RBC 4.35, Hgb 12.3 L, Hct 37.6 L, MCV 86.4, MCH 28.3 , MCHC 32.7, RDW 13.9, Plt Count 180, MPV 11.0, Gran % 52.3, Lymph % (Auto) 39.6 H, Dawes % (Auto) 5.2, Eos % (Auto) 2.7, Baso % (Auto) 0.2, Gran # 2.72, Lymph # 2.1, Dawes # 0.3, Eos # 0.1, Baso # 0.01 09/16/17 13:20: Alcohol, Quantitative < 10 09/16/17 13:20: Salicylates < 1 L, Acetaminophen < 10.0 L 09/16/17 13:20: Sodium 140, Potassium 4.2, Chloride 102, Carbon Dioxide 28, Anion Gap 14, BUN 10, Creatinine 0.8, Est GFR ( Amer) > 60, Est GFR (Non- Af Amer) > 60, Random Glucose 149 H, Calcium 9.8, Magnesium 1.5 L, Total Bilirubin 0.2, AST 32, ALT 32, Alkaline Phosphatase 64, Total Protein 7.6, Albumin 4.3, Globulin 3.3, Albumin/Globulin Ratio 1.3 Vital Signs Temp Pulse Resp BP Pulse Ox 09/27/17 08:05 125/81 09/27/17 07:08 98.2 F 89 20 125/81 09/26/17 07:45 124/87 09/26/17 07:06 98.4 F 86 20 124/87 09/25/17 08:13 128/83 09/25/17 07:45 97.9 F 84 20 128/83 09/24/17 09:01 124/89 09/24/17 09:00 90 124/89 09/23/17 09:12 89 123/83 09/23/17 09:07 123/83 09/22/17 16:00 102 H 108/60 09/22/17 09:02 93 H 126/86 09/22/17 08:56 126/86 09/22/17 07:11 98.0 F 91 H 20 09/21/17 08:14 128/87 09/21/17 07:29 97.7 F 96 H 20 128/87 09/20/17 16:30 91 H 128/80 09/20/17 09:30 85 105/72 09/20/17 09:21 105/72 09/20/17 07:23 98.4 F 85 20 105/72 09/19/17 15:00 82 103/57 L 09/19/17 09:15 130/94 H 09/19/17 09:14 90 134/90 09/18/17 08:16 90 130/84 09/18/17 08:13 130/84 09/17/17 20:05 58 L 09/17/17 09:12 131/86 09/17/17 07:00 97.3 F L 81 20 131/86 09/16/17 20:00 98.1 F 94 H 18 120/77 09/16/17 19:25 98.6 F 88 18 142/82 97 09/16/17 17:24 98.8 F 84 20 97/56 L 97 09/16/17 12:37 98.6 F 88 20 138/84 97 09/16/17 12:27 98.6 F 88 20 138/84 97 Consultations:: List each consultation separately and include: 1. Reason for request. 2. Findings. 3. Follow-up Consultations: medical consult appreciated see notes for more detailed information Summary of Hospital Course include:: 1. Description of specific treatment plan utilized for patients during their course of treatmen. 2. Summarize the time- course for resolution of acute symptoms and/or regressed behaviors. 3. Describe issues identified and worked on during hospitalization. 4. Describe medication utilized. 5. Describe medical problems identified and treated. 6. Reassessment of suicide risk Summary of Hospital Course: initially pt was seen by , as per her assessment at the time of admission: Patient is a single 47 year old -Israeli male, self reported history of schizoaffective disorder, opioid use disorder on methadone maintenance, numerous psychiatric admissions (>10) most recently discharged from this unit on 08/17/17, historically poorly compliant with medications and aftercare recommendations who brought himself to the hospital looking for help with depression, suicidal ideation and command hallucinations telling him to commit suicide. at the first day of admission patient had been irritable and edgy on the unit, instigating arguments with other patients. Ruel Pierre was called at the first day of admission. PSYCHIATRIC HISTORY ~08/09/17-08/17/17 hospitalized at [facility]. Diagnosed with Schizoaffective disorder, Opioid use disorder, moderate, in sustained remission , on maintenance therapy. Patient was discharged on Abilify 20 mg po daily, Neurontin 300 mg po TID, Zoloft 100 mg po daily and Sonata 5 mg HS prn. ~During patients 07/2017 hospitalization at [place], he was not forthcoming about his recent discharge from [facility] on August 01. Dr. Baxter documentation indicated "Patient has had multiple psychiatric admissions at [facility] the most recent in April. Patient admits he has not been compliant with his medication. After discharge he went back to [facility] , his methadone clinic that he has been going to for 3 years. Patient using heroin on top of methadone 10 bags/day. Patient drinks 1 pint of vodka/day and beer on top of that. Patient admits to xanax use 2 sticks/day. Patient denies barbiturate use even though his urine was positive. Patient denies any other drug use" ~Nursing note indicates that patient admitted to a past suicidal attempt 15 years ago by overdosing on Excedrin PM. SOCIAL Born and raised in [place]. Single. Denies having any children. Lives in an apartment. Patient reports history of opioid use disorder. He reportedly attends [facility] methadone clinic ([phone]) and receives 100 mg daily of methadone. This was confirmed during his prior admission to the unit in 07/2017. As per collaterals, patient has history of hospital shopping, admitted himself into the hospital looking for food and halfway. Patient reported smoking about one pack a day, nicotine patch offered and morbidity/mortality risks of continued tobacco use were reviewed with patient. pt was stabilized on the following medications: multivitamins, thiamine 100 mg daily, folic acid 1 mg daily with Ativan was tapered down Zoloft 150 mg increased for depression and anxiety Trazodone 100 mg by mouth at the nighttime will be continued Prolixin 10 mg hs psychotic symptoms with the plan to give Prolixin Decanoate, but pt refused to have IM of decannoate methadone was confirmed and continued Patient has not a candidate for naltrexone tx because pt is on methadone, pt did not want to be on antabuse or campral. pt tolerated meds well, no side effects observed or reported, AIMS 0, no EPS. pt wanted to go to the inpatient rehab but changed his mind and did not want to be referred there. pt was scheduled for d/c 09/26/17 because pt requested to be d/c and submitted 48hr notice, pt was screened by [facility], was found to be not committable 09/26/17 at the treatment team meeting pt presented to be confused, this filing writer held Prolixin at am. today pt presented to be more alert, no psychosis, denied v/a/t hallucinations, adamantly denied thoughts of harming self or others. Over the course of this hospitalization pt was attending groups, pt also had medication management, had therapeutic milieu. Overall pt improved significantly, pt's affect became brighter, pt was less depressed, has realistic future oriented plans, pt also does not appear to be psychotic, or anxious, pt was socially appropriate, no behavioral issues, pts insight improved as well and soon pt deemed to be ready for discharge. At the time of the discharge pt denied been depressed, denied thoughts of harming self or others, denied psychotic symptoms, and pt does not appeared to be psychotic, denied been anxious, pt is not in imminent danger to self or others, will be following up at outpatient provider., information about follow up appointment, time and address provided to the pt, it is patient responsibility to follow up with outpatient clinic, PMD as well as specialists ( see note for more detailed information). In case pt will need to obtain results of studies pending at discharge pt was provided with contact information of Psychiatric Inpatient unit [phone] as well as Medical Record Department [phone]. Nicotine patch was offered Naltrexone treatment, is not an option because pt is on methadone, pt was offered campral and antabuse but pt refused it. Counseling about smoking and alcohol cessation provided AA meetings as well as smoking cessation treatment program information was provided by the pt was provided with prescriptions for all of medications (please see medication reconciliation form) Pt was educated about safety plan in case of worsening of symptoms or in case of suicidal or homicidal ideation call 911 or go to the nearest ER, also was educated to take meds as prescribed and stay away from drugs, pt verbalized understanding. - Diagnosis (1) Opioid use disorder, moderate, in sustained remission, on maintenance therapy Status: Chronic Priority: High (2) Schizoaffective disorder Status: Chronic Priority: High - Final Diagnosis (DSM 5) Condition upon Discharge: STABLE Disposition: HOME/ ROUTINE Follow-up Treatment Plan: At the time of the discharge pt denied been depressed, denied thoughts of harming self or others, denied psychotic symptoms, and pt does not appeared to be psychotic, denied been anxious, pt is not in imminent danger to self or others, will be following up at outpatient provider., information about follow up appointment, time and address provided to the pt, it is patient responsibility to follow up with outpatient clinic, PMD as well as specialists ( see note for more detailed information). In case pt will need to obtain results of studies pending at discharge pt was provided with contact information of Psychiatric Inpatient unit [phone] as well as Medical Record Department [phone]. Nicotine patch was offered Naltrexone treatment, is not an option because pt is on methadone, pt was offered campral and antabuse but pt refused it. Counseling about smoking and alcohol cessation provided AA meetings as well as smoking cessation treatment program information was provided by the pt was provided with prescriptions for all of medications (please see medication reconciliation form) Pt was educated about safety plan in case of worsening of symptoms or in case of suicidal or homicidal ideation call 911 or go to the nearest ER, also was educated to take meds as prescribed and stay away from drugs, pt verbalized understanding. Prescriptions/Medication Reconciliation: amLODIPine [Norvasc] 10 mg PO DAILY #7 tab Benztropine [Cogentin] 1 mg PO BID #30 tab Divalproex [Depakote DR(*BID*)] 500 mg PO BID #30 tcp fluPHENAZine [Prolixin] 10 mg PO HS #14 tab Folic Acid 1 mg PO DAILY #14 tab Losartan [Cozaar] 25 mg PO DAILY #7 tab MetFORMIN [glucoPHAGE] 1,000 mg PO BID #14 tab Multimineral/Multivitamin [Therapeutic-M Tab] 1 tab PO 0800 #14 tab Nicotine 21 mg/24 hr [Nicoderm Cq] 14 each TD DAILY #14 patch Sertraline [Zoloft] 150 mg PO DAILY #45 tab SITagliptin [Januvia] 100 mg PO DAILY #7 tab Thiamine [Vitamin B1 Tab] 100 mg PO DAILY #14 tab traZODone [Desyrel] 100 mg PO HS #14 tab - Smoking Cessation Smoking Cessation Medication prescribed: Yes - Antipsychotic Medications Pt discharged on 2 or more routine antipsychotic medications: No
== END 2017-09-27 12:42 | disposition home or self-care (01) | DRG 430 ==
LOC: ED 12:27 → ERH 18:20 → PSYC 19:50 → 5RSO 20:08 → PSYC 20:10 → 5RSO 21:12 → PSYC 21:13
PROVIDERS: ADMIT Psychiatry & Neurology Psychiatry; ATTEND Psychiatry & Neurology Psychiatry
DX: F25.9 Schizoaffective disorder, unspecified (principal); E11.65 Type 2 diabetes mellitus with hyperglycemia; R45.851 Suicidal ideations; E86.0 Dehydration; J44.1 Chronic obstructive pulmonary disease with (acute) exacerbation; F10.20 Alcohol dependence, uncomplicated; F11.21 Opioid dependence, in remission; F17.200 Nicotine dependence, unspecified, uncomplicated; F31.9 Bipolar disorder, unspecified; F41.9 Anxiety disorder, unspecified; I10 Essential (primary) hypertension; Z79.84 Long term (current) use of oral hypoglycemic drugs; Z91.14 Patient's other noncompliance with medication regimen; R40.2412 Glasgow coma scale score 13-15, at arrival to emergency department; G47.00 Insomnia, unspecified

== ENCOUNTER 2018-05-03 11:58 | Inpatient (IN) | payer MEDICAID, OTHER ==
[2018-05-03 11:59] VITALS: BMI 32.1
--- NOTE | 2018-05-03 12:58 | ED PDOC ---
Arrival/HPI - General Chief Complaint: Psychiatric Evaluation Time Seen by Provider: 05/03/18 12:29 Historian: Patient - History of Present Illness Narrative History of Present Illness (Text): 05/03/18 12:55 48 year old male, whose past medical history includes depression, anxiety, schizophrenia, hypertension, DMII, and asthma, presents to the emergency department complaining of feeling depressed and having suicidal thoughts. Patient states he has a plan to jump in front of a train. Patient presents to the ER to seek help. He also reports visual hallucinations and states he sees people. Patient denies any fever, chills, chest pain, shortness of breath, nausea, vomiting, diarrhea, urinary symptoms, back pain, neck pain, headache, dizziness, homicidal Ideation, or any other complaints. Symptom Onset: Gradual Symptom Course: Unchanged Activities at Onset: Light Context: Home Past Medical History - Provider Review Nursing Documentation Reviewed: Yes - Infectious Disease Hx of Infectious Diseases: None - Tetanus Immunization Tetanus Immunization: Unknown - Cardiac Hx Cardiac Disorders: Yes Hx Cardiac Arrhythmia: Yes (tachycardia) Hx Hypertension: Yes - Pulmonary Hx Respiratory Disorders: Yes Hx Asthma: Yes - Neurological Hx Seizures: No - HEENT Hx HEENT Disorder: Yes Hx Cataracts: Yes (R) - Renal Hx Renal Disorder: No - Endocrine/Metabolic Hx Endocrine Disorders: Yes Hx Diabetes Mellitus Type 2: Yes - Hematological/Oncological Hx Blood Disorders: No - Integumentary Hx Dermatological Disorder: No - Musculoskeletal/Rheumatological Hx Arthritis: No - Gastrointestinal Hx Gastrointestinal Disorders: No - Genitourinary/Gynecological Hx Genitourinary Disorders: No - Psychiatric Hx Substance Use: (denies; methadone) - Surgical History Hx Cataract Extraction: Yes - Anesthesia Hx Anesthesia: Yes Hx Anesthesia Reactions: No - Suicidal Assessment Suicide Risk Precautions: Suicide Precautions Family/Social History - Physician Review Nursing Documentation Reviewed: Yes Family/Social History: No Known Family HX Smoking Status: Light Smoker < 10 Cigarettes Daily Hx Alcohol Use: No Hx Substance Use: (denies; methadone) Substance used: quit Allergies/Home Meds Allergies/Adverse Reactions: Allergies No Known Allergies Allergy (Verified 05/03/18 12:09) PER PATIENT Home Medications: Home Meds Medication Instructions Recorded Confirmed No Known Home Med 05/03/18 05/03/18 Review of Systems - Physician Review All systems were reviewed & negative as marked: Yes - Review of Systems Constitutional: absent: Fevers, Other (Chills) Respiratory: absent: SOB Cardiovascular: absent: Chest Pain Gastrointestinal: absent: Diarrhea, Nausea, Vomiting Genitourinary Male: absent: Dysuria, Frequency, Hematuria Musculoskeletal: absent: Back Pain, Neck Pain Neurological: absent: Headache, Dizziness Psychiatric: Depression, Suicidal Ideation (with plan), Other ((+)visual hallucinations (-) homicidal ideations) Physical Exam Vital Signs Reviewed: Yes Vital Signs Temp Pulse Resp BP Pulse Ox 05/03/18 16:35 78 17 135/82 98 05/03/18 15:30 85 18 132/87 99 05/03/18 13:01 97.9 F 88 17 136/94 H 98 05/03/18 12:10 99.2 F 92 H 17 150/105 H 95 Temperature: Afebrile Blood Pressure: Hypertensive Pulse: Regular Respiratory Rate: Normal Appearance: Positive for: Well-Appearing, Non-Toxic, Comfortable Pain Distress: None Mental Status: Positive for: Alert and Oriented X 3 Finger Stick Blood Glucose: 130 - Systems Exam Head: Present: Atraumatic, Normocephalic Pupils: Present: PERRL Extroacular Muscles: Present: EOMI Conjunctiva: Present: Normal Mouth: Present: Moist Mucous Membranes Neck: Present: Normal Range of Motion Respiratory/Chest: Present: Clear to Auscultation, Good Air Exchange. No: Respiratory Distress, Accessory Muscle Use Cardiovascular: Present: Regular Rate and Rhythm, Normal S1, S2. No: Murmurs Abdomen: No: Tenderness, Distention, Peritoneal Signs Back: Present: Normal Inspection Upper Extremity: Present: Normal Inspection. No: Cyanosis, Edema Lower Extremity: Present: Normal Inspection. No: Edema Neurological: Present: GCS=15, CN II-XII Intact, Speech Normal Skin: Present: Warm, Dry, Normal Color. No: Rashes Psychiatric: Present: Alert, Oriented x 3, Normal Insight, Normal Concentration Medical Decision Making ED Course and Treatment: 05/03/18 13:00 Impression: 48 year old male presents complaining of feeling depressed and suicidal ideation with a plan to jump in front of a train. Patient also reports visual hallucination. Plan: -- Labs -- Urinalysis -- EKG -- Labs -- Reassess and disposition Prior Visits: Notes and results from previous visits were reviewed. Progress Notes: 05/03/18 22:17 CXR NAD EKG NSR @86bpm Lab was unremarkable UDS + Methadone. T Renetta PT was medically cleared and was seen in ED by MIKI Chew. She DC with Dr. Sprague and pt was admitted for schizoaffective disorder. - Lab Interpretations Lab Results: 05/03/18 13:30 05/03/18 13:30 Lab Results 05/03/18 13:30: Alcohol, Quantitative < 10 05/03/18 13:30: Salicylates < 1 L, Acetaminophen < 10.0 L 05/03/18 13:30: Sodium 139, Potassium 4.3, Chloride 99, Carbon Dioxide 31, Anion Gap 13, BUN 12, Creatinine 0.7 L, Est GFR ( Amer) > 60, Est GFR ( Non-Af Amer) > 60, Random Glucose 160 H, Calcium 9.7, Magnesium 1.8, Total Bilirubin 0.2, AST 54, ALT 62 H, Alkaline Phosphatase 94, Total Protein 7.8, Albumin 4.4, Globulin 3.5, Albumin/Globulin Ratio 1.3 05/03/18 13:30: WBC 6.3 D, RBC 4.42, Hgb 12.5 L, Hct 36.5 L, MCV 82.6, MCH 28.3 , MCHC 34.2, RDW 13.2, Plt Count 285, MPV 11.4 H, Gran % 55.7, Lymph % (Auto) 35.5 H, Barbour % (Auto) 5.3, Eos % (Auto) 2.9, Baso % (Auto) 0.6, Gran # 3.50, Lymph # (Auto) 2.2, Barbour # (Auto) 0.3, Eos # (Auto) 0.2, Baso # (Auto) 0.04 05/03/18 13:20: Urine Opiates Screen Negative, Urine Methadone Screen Positive H , Ur Barbiturates Screen Negative, Ur Phencyclidine Scrn Negative, Ur Amphetamines Screen Negative, U Benzodiazepines Scrn Positive H, U Oth Cocaine Metabols Negative, U Cannabinoids Screen Negative 05/03/18 13:20: Urine Color Yellow, Urine Appearance Sl cloudy, Urine pH 7.5, Ur Specific Thurman 1.015, Urine Protein Trace H, Urine Glucose (UA) 100 H, Urine Ketones Negative, Urine Blood Negative, Urine Nitrate Negative, Urine Bilirubin Negative, Urine Urobilinogen 0.2, Ur Leukocyte Esterase Trace H, Urine RBC 0 - 2, Urine WBC 5 - 10, Urine Bacteria Trace, Urine Other Usperm 05/03/18 12:52: POC Glucose (mg/dL) 130 H I have reviewed the lab results: Yes - EKG Interpretation Interpreted by ED Physician: Yes Type: 12 lead EKG - Medication Orders Current Medication Orders: Acetaminophen (Tylenol 325mg Tab) 650 mg PO Q4 PRN PRN Reason: Pain, moderate (4-7) Al Hydrox/Mg Hydrox/Simethicone (Maalox Plus 30 Ml) 30 ml PO DAILY PRN PRN Reason: Upset Stomach Albuterol (Ventolin Hfa 90 Mcg/Actuation (8 G)) 2 puff IH [id number] PRN PRN Reason: Shortness of Breath Amlodipine Besylate (Norvasc) 10 mg PO DAILY [facility] Benztropine Mesylate (Cogentin) 0.5 mg PO BID [facility] Last Admin: 05/03/18 19:22 Dose: 0.5 mg Divalproex Sodium (Depakote Dr(*Bid*)) 500 mg PO BID [facility] Last Admin: 05/03/18 19:22 Dose: 500 mg Behavioural Document 05/03/18 19:22 RGO (Rec: 05/03/18 19:22 RGO [id number]) Maintenance Maintenance Dose Yes Fluphenazine HCl (Prolixin) 5 mg PO HS KEYANNA PRN Reason: Protocol Last Admin: 05/03/18 22:00 Dose: 5 mg Behavioural Document 05/03/18 22:00 RM (Rec: 05/03/18 22:00 RM [id number]) Maintenance Maintenance Dose Yes Folic Acid (Folic Acid) 1 mg PO DAILY [facility] Lorazepam (Ativan) 2 mg IM Q6H PRN; Protocol PRN Reason: Anxiety Lorazepam (Ativan) 2 mg PO Q6H PRN; Protocol PRN Reason: Anxiety Lorazepam (Ativan) 2 mg PO QID KEYANNA PRN Reason: Protocol Last Admin: 05/03/18 21:58 Dose: 2 mg Behavioural Document 05/03/18 21:58 RM (Rec: 05/03/18 21:58 RM [id number]) Maintenance Maintenance Dose Yes Losartan Potassium (Cozaar) 25 mg PO DAILY [facility] Magnesium Hydroxide (Milk Of Magnesia) 30 ml PO DAILY PRN PRN Reason: Constipation Metformin HCl (Glucophage) 1,000 mg PO BID [facility] Last Admin: 05/03/18 19:22 Dose: 1,000 mg Multivitamins/Minerals (Therapeutic-M Tab) 1 tab PO 0800 [facility] Nicotine (Nicoderm Cq) 1 patch TD DAILY [facility] Sitagliptin Phosphate (Januvia) 100 mg PO DAILY [facility] Thiamine HCl (Vitamin B1 Tab) 100 mg PO DAILY [facility] Trazodone HCl (Desyrel) 50 mg PO HS [facility] Last Admin: 05/03/18 21:59 Dose: 50 mg Ziprasidone (Geodon Cap) 20 mg PO Q6H PRN; Protocol PRN Reason: Agitation Ziprasidone (Geodon Inj) 20 mg IM Q6H PRN; Protocol PRN Reason: Agitation - Scribe Statement The provider has reviewed the documentation as recorded by the Rossanaibe Ceci Delvalle Provider Scribe Attestation: All medical record entries made by the Scribwillow were at my direction and personally dictated by me. I have reviewed the chart and agree that the record accurately reflects my personal performance of the history, physical exam, medical decision making, and the department course for this patient. I have also personally directed, reviewed, and agree with the discharge instructions and disposition. Disposition/Present on Arrival - Present on Arrival Any Indicators Present on Arrival: No History of DVT/PE: No History of Uncontrolled Diabetes: No Urinary Catheter: No History of Decub. Ulcer: No History Surgical Site Infection Following: None - Disposition Have Diagnosis and Disposition been Completed?: Yes Diagnosis: Schizoaffective disorder Disposition: HOSPITALIZED Disposition Time: 15:50 Patient Plan: Admission Patient Problems: Current Active Problems Problem Status Onset Schizoaffective disorder Chronic Condition: STABLE
[2018-05-03 13:38] LABS: PH,URINE 7.5 (4.7-8.0); URINE APPEARANCE SL CLOUDY (CLEAR); URINE BILIRUBIN NEGATIVE (NEGATIVE); URINE BLOOD NEGATIVE (NEGATIVE); URINE COLOR YELLOW (YELLOW); URINE GLUCOSE (UA) 100 mg/dL (NEGATIVE); URINE LEUKOCYTE ESTERASE TRACE Leu/uL (NEGATIVE); URINE PROTEIN TRACE mg/dL (<30 mg/dL); URINE UROBILINOGEN 0.2 E.U./dL (<1 E.U./dL)
[2018-05-03 13:55] LABS: PHENCYCLIDINE, UR NEGATIVE (NEGATIVE); URINE BACTERIA TRACE (NEG); URINE RBC 0 - 2 /hpf (0-2)
[2018-05-03 14:03] LABS: BASO # 0.04 K/mm3 (0.0-2.0); BASO % 0.6 % (0.0-3.0); EOS # 0.2 (0.0-0.7); EOS % 2.9 % (1.5-5.0); GRAN # 3.5 (1.4-6.5); GRAN % 55.7 % (50.0-68.0); HEMOGLOBIN 12.5 g/dL (14.0-18.0); LYMPH # 2.2 (1.2-3.4); LYMPH % 35.5 % (22.0-35.0); MEAN CELL VOLUME 82.6 fl (80.0-105.0); MEAN CORPUSCULAR HEMOGLOBIN 28.3 pg (25.0-35.0); MEAN CORPUSCULAR HGB CONC 34.2 g/dl (31.0-37.0); MEAN PLATELET VOLUME 11.4 fl (7.0-11.0); MONO # 0.3 (0.1-0.6); MONO % 5.3 % (1.0-6.0); RBC 4.42 10^6/uL (3.5-6.1); RED CELL DISTRIBUTION WIDTH 13.2 % (11.5-14.5); WHITE BLOOD COUNT 6.3 10^3/ul (4.5-11.0)
[2018-05-03 14:03] LABS: BARBITURATES, UR NEGATIVE (NEGATIVE); BENZODIAZEPINES, UR POSITIVE (NEGATIVE); OPIATES, UR NEGATIVE (NEGATIVE)
[2018-05-03 14:21] LABS: ALB/GLOB RATIO 1.3 (1.1-1.8); ALBUMIN 4.4 g/dL (3.0-4.8); ALT/SGPT 62 U/L (7-56); AST/SGOT 54 U/L (17-59); BLOOD UREA NITROGEN 12 mg/dL (7-21); CALCIUM 9.7 mg/dL (8.4-10.5); GFR NON-AFRICAN AMERICAN > 60
[2018-05-03 14:22] LABS: ACETAMINOPHEN < 10.0 ug/ml (10.0-20.0); SALICYLATE < 1 mg/dL (2.0-20.0)
--- NOTE | 2018-05-03 16:08 | RAD ---
Date of service: 05/03/2018 HISTORY: admission COMPARISON: No prior. FINDINGS: LUNGS: No active pulmonary disease. PLEURA: No significant pleural effusion identified, no pneumothorax apparent. CARDIOVASCULAR: Normal. OSSEOUS STRUCTURES: No significant abnormalities. VISUALIZED UPPER ABDOMEN: Normal. OTHER FINDINGS: None. IMPRESSION: No active disease.
[2018-05-03] MEDS ORDERED: Magnesium Hydroxide Susp 30 ml UD PO PRN (18:46)
[2018-05-03] MEDS: Divalproex 500 mg DR(BID formulation) PO SCH (19:22)
[2018-05-03 20:35] VITALS: O2SAT 96
[2018-05-03] MEDS ORDERED: Albuterol HFA 90 mcg/actuation (8 g) IH PRN (20:35)
--- NOTE | 2018-05-03 20:39 | PCM.BM ---
<Katelyn Noriega - Last Filed: 05/03/18 20:36> Treatment Plan Problems - Problems identified on initial assessmt INEFFECTIVE INDV COPING Date Initiated: 05/03/18 Time Initiated: 22:00 Assessment reference: NA Status: Active Priority: 1 HELPLESS/HOPELESS Date Initiated: 05/03/18 Time Initiated: 22:00 Assessment reference: NA Status: Active Priority: 2 NON COMPLIANCE WITH TX Date Initiated: 05/03/18 Time Initiated: 22:00 Assessment reference: NA Priority: 3 Treatment assets and liabiliti Patient Assests: cooperative, self-reliant, ADL independent, physically healthy , cognitively intact Patient Liabilities: live alone, substance abuse - Milieu Protocol Maintain good personal hygiene: every shift Encourage regular showers, every shift Remind patient to perform daily oral care, every shift Assist patient to perform ADL's Maintain personal safety: daily Educate patient to report safety concerns to staff, daily Monitor environment for contraband/sharps Medication safety: Monitor for expected outcome, potential side effects: daily, Assess barriers to learning: daily, Assess readiness for medication education: daily Discharge/Continuing Care - Education Needs Education Needs: Patient Medication, Patient Diagnosis/Disease Process, Patient Coping Skills, Patient Community resources, Patient Activities of Daily Living, Patient Pain, Patient Nutrition, Patient Health Practices/Safety, Patient Personal Hygiene/Grooming, Patient Aftercare Safety Plan - Discharge Discharge Criteria: Tolerates medication w/o severe side effects, Free of Suicidal thoughts, Free of agitation, Normal sleep pattern, Ability to care for self, No longer exhibiting s/s of withdrawal, Reduction of target symptoms Discharge to:: Home <Darcie Lang - Last Filed: 05/04/18 14:04> - Diagnosis (1) Schizoaffective disorder Status: Chronic Interventions: 05/04/18 14:04 Psychoeducation/psychotherapy Psychopharmacology/adjustment of medications as needed/ monitoring possible side effects Evaluate pt on daily basis Compliance with medications and follow up appointments Long acting medication if pt is noncompliant with pill form Suicide and homicide risk assessment and prevention, coping strategies, safety plan Relapse prevention Reduction of symptoms Improve functional status Possible assertive community treatment Cognitive behavioral therapy Family involvement Possible social skill training as outpatient (2) Alcohol use disorder, severe, dependence Status: Acute Interventions: 05/04/18 14:05 Monitoring withdrawal symptoms Medical detoxification Pharmacotherapy for alcohol/benzos/opioid dependence Maintaining sobriety Relapse prevention Possible rehabilitation Motivational interviewing 12-step programs: AA meetings (3) Opioid dependence Status: Acute Interventions: 05/04/18 14:05 Monitoring withdrawal symptoms Medical detoxification Pharmacotherapy for alcohol/benzos/opioid dependence Maintaining sobriety Relapse prevention Possible rehabilitation Motivational interviewing 12-step programs: AA meetings pt is on maintenance therapy Methadone <Naina Alfredo - Last Filed: 05/05/18 15:29>
--- NOTE | 2018-05-03 23:22 | CARD ---
APPROVED REPORT Date of service: 05/03/2018 EKG Measurement Heart [id number] <Conclusion> Normal sinus rhythm Normal ECG
[2018-05-04 07:18] LABS: HDL CHOLESTEROL 49 mg/dL (29-60)
[2018-05-04 07:29] LABS: LDL CHOLESTEROL 130 mg/dL (0-129)
[2018-05-04 07:33] LABS: FREE T4 0.78 ng/dL (0.78-2.19)
[2018-05-04] MEDS: Divalproex 500 mg DR(BID formulation) PO SCH ×2 (09:37→16:06)
[2018-05-04] MEDS: Multivitamin With Minerals Tab PO SCH (09:39)
--- NOTE | 2018-05-04 12:34 | CP.PCM.CON ---
<AgathaRolando - Last Filed: 05/04/18 12:21> History of Present Illness - History of Present Illness History of Present Illness: IM Consult Note for Hospitalist Service Rolando Snider, PGY-3 IM This is a 48 yo M with PMH of depression, anxiety, schizophrenia, hypertension, DMII, and asthma who presented to [facility] with acute complaint of depression and suicidal ideation with plan to jump in front of a train. Patient was admitted to Psych unit for depression/SI; IM was consulted for medical management. Patient seen in room today, somnolent but arousable. Reports not feeling well currently due to depression, but denies any acute medical issues. Reports compliance with home metformin, norvasc, losartan, and januvia, but unable to state dosing. Reports getting refills through repeat visits to [facility] ED, as he has no PMD. Denies homelessness. Denies chest pain, shortness of breath, nausea, emesis, dysuria, diarrhea, constipation, PO intolerance, or focal weakness. Disoriented to day (thinks it's tuesday, then tuesday), but oriented to month, year, location, and self. Requires repeated arousals as repeated drifts back into somnolence. PMH: DM, HTN, Asthma, Schizoaffective disorder, Depression PSH: Pt denies Soc Hx: 1/2 ppd tobacco X 2 years, more previously (smoking in excess of 20 years), alcohol (vodka, 1-2 pints daily, last drink Tuesday), denies illicits but as per prior charting used Heroin (stopped a year ago), denies ever IV drug use Fam Hx: HTN, Emphysema PMD: none, gets refills through [facility] [place] ED visits Review of Systems - Review of Systems Systems not reviewed;Unavailable: Other (somnolence) Review of Systems: as per HPI Past Patient History - Infectious Disease Hx of Infectious Diseases: None - Tetanus Immunizations Tetanus Immunization: Unknown - Past Medical History & Family History Past Medical History?: Yes - Past Social History Smoking Status: Light Smoker < 10 Cigarettes Daily - CARDIAC Hx Cardiac Disorders: Yes Hx Cardia Arrhythmia: Yes (tachycardia) Hx Hypertension: Yes - PULMONARY Hx Respiratory Disorders: Yes Hx Asthma: Yes - NEUROLOGICAL Hx Seizures: No - HEENT Hx HEENT Problems: Yes Hx Cataracts: Yes (R) - RENAL Hx Chronic Kidney Disease: No - ENDOCRINE/METABOLIC Hx Endocrine Disorders: Yes Hx Diabetes Mellitus Type 2: Yes - HEMATOLOGICAL/ONCOLOGICAL Hx Blood Disorders: No - INTEGUMENTARY Hx Dermatological Problems: No - MUSCULOSKELETAL/RHEUMATOLOGICAL Hx Arthritis: No - GASTROINTESTINAL Hx Gastrointestinal Disorders: No - GENITOURINARY/GYNECOLOGICAL Hx Genitourinary Disorders: No - PSYCHIATRIC Hx Substance Use: (denies; methadone) - SURGICAL HISTORY Hx Cataract Extraction: Yes - ANESTHESIA Hx Anesthesia: Yes Hx Anesthesia Reactions: No Meds Allergies/Adverse Reactions: Allergies Allergy/AdvReac Type Severity Reaction Status Date / Time No Known Allergies Allergy Verified 05/03/18 12:09 - Medications Medications: Current Medications Acetaminophen (Tylenol 325mg Tab) 650 mg PO Q4 PRN PRN Reason: Pain, moderate (4-7) Al Hydrox/Mg Hydrox/Simethicone (Maalox Plus 30 Ml) 30 ml PO DAILY PRN PRN Reason: Upset Stomach Albuterol (Ventolin Hfa 90 Mcg/Actuation (8 G)) 2 puff IH [id number] PRN PRN Reason: Shortness of Breath Amlodipine Besylate (Norvasc) 10 mg PO DAILY [facility] Last Admin: 05/04/18 09:35 Dose: 10 mg Aspirin (Aspirin Chewable) 81 mg PO DAILY [facility] Atorvastatin Calcium (Lipitor) 40 mg PO DIN [facility] Benztropine Mesylate (Cogentin) 0.5 mg PO BID [facility] Last Admin: 05/04/18 09:38 Dose: 0.5 mg Divalproex Sodium (Depakote Dr(*Bid*)) 500 mg PO BID [facility] Last Admin: 05/04/18 09:37 Dose: 500 mg Fluphenazine HCl (Prolixin) 5 mg PO [facility] PRN Reason: Protocol Last Admin: 05/03/18 22:00 Dose: 5 mg Folic Acid (Folic Acid) 1 mg PO DAILY [facility] Last Admin: 05/04/18 09:38 Dose: 1 mg Lorazepam (Ativan) 2 mg IM Q6H PRN; Protocol PRN Reason: Anxiety Lorazepam (Ativan) 2 mg PO Q6H PRN; Protocol PRN Reason: Anxiety Lorazepam (Ativan) 2 mg PO QID [facility] PRN Reason: Protocol Last Admin: 05/04/18 09:38 Dose: 2 mg Losartan Potassium (Cozaar) 25 mg PO DAILY [facility] Last Admin: 05/04/18 09:39 Dose: 25 mg Magnesium Hydroxide (Milk Of Magnesia) 30 ml PO DAILY PRN PRN Reason: Constipation Metformin HCl (Glucophage) 1,000 mg PO BID [facility] Last Admin: 05/04/18 09:35 Dose: 1,000 mg Multivitamins/Minerals (Therapeutic-M Tab) 1 tab PO 0800 [facility] Last Admin: 05/04/18 09:39 Dose: 1 tab Nicotine (Nicoderm Cq) 1 patch TD DAILY [facility] Sitagliptin Phosphate (Januvia) 100 mg PO DAILY [facility] Last Admin: 05/04/18 09:38 Dose: 100 mg Thiamine HCl (Vitamin B1 Tab) 100 mg PO DAILY [facility] Last Admin: 05/04/18 09:40 Dose: 100 mg Trazodone HCl (Desyrel) 50 mg PO HS [facility] Last Admin: 05/03/18 21:59 Dose: 50 mg Ziprasidone (Geodon Cap) 20 mg PO Q6H PRN; Protocol PRN Reason: Agitation Ziprasidone (Geodon Inj) 20 mg IM Q6H PRN; Protocol PRN Reason: Agitation Physical Exam - Constitutional Appears: Non-toxic, No Acute Distress, Other (somnolent/lethargic) - Head Exam Head Exam: ATRAUMATIC, NORMOCEPHALIC - Eye Exam Eye Exam: Conjunctival injection, PERRL. absent: Scleral icterus Pupil Exam: NORMAL ACCOMODATION, PERRL. absent: Fixed, Irregular, Unequal - ENT Exam ENT Exam: Mucous Membranes Moist - Neck Exam Neck exam: Positive for: Normal Inspection. Negative for: Thyromegaly - Respiratory Exam Respiratory Exam: Decreased Breath Sounds (mildly decreased in all hoyt), Wheezes (faint end-expiratory wheezing). absent: Accessory Muscle Use, Chest Wall Tenderness, Clear to Auscultation Bilateral, Rales, Rhonchi, Respiratory Distress Additional comments: Not taking true deep breaths, likely 2/2 somnolence - Cardiovascular Exam Cardiovascular Exam: REGULAR RHYTHM, RRR, +S1, +S2. absent: Bradycardia, Tachycardia, Irregular Rhythm, JVD, +S4 - GI/Abdominal Exam GI & Abdominal Exam: Normal Bowel Sounds, Soft. absent: Diminished Bowel Sounds , Distended, Firm, Hyperactive Bowel Sounds, Hypoactive Bowel Sounds, Rigid, Tenderness - Extremities Exam Extremities exam: Positive for: normal capillary refill, pedal pulses present. Negative for: calf tenderness, pedal edema, tenderness Additional comments: dry and cracked skin throughout bilateral anterior LE, poor skin care but no overt ulcerations/erythema/fluctuant areas appreciated - Neurological Exam Additional comments: somnolent but arousable, does drift back into somnolence requiring repeat arousals able to follow commands but occasionally requires repeat prompting no gross neuro deficit appreciated but limited exam due to somnolence - Psychiatric Exam Additional comments: somnolent, flat mood/affect when awake - Skin Skin Exam: Dry, Intact, Normal Color, Warm Additional comments: except as noted on extremities exam Results - Vital Signs Recent Vital Signs: Last Vital Signs Temp 97.6 F 05/04/18 07:27 Pulse 79 05/04/18 09:39 Resp 20 05/04/18 07:27 BP 125/81 05/04/18 09:39 Pulse Ox 96 05/03/18 18:00 - Labs Result Diagrams: 05/03/18 13:30 05/03/18 13:30 Labs: Laboratory Results - last 24 hr 05/03/18 05/03/18 05/04/18 19:25 21:29 06:30 POC Glucose (mg/dL) 307 H 286 H Triglycerides Cholesterol LDL Cholesterol Direct HDL Cholesterol Free T4 0.78 TSH 3rd Generation 2.33 05/04/18 05/04/18 05/04/18 06:30 07:32 11:39 POC Glucose (mg/dL) 173 H 163 H Triglycerides 262 H Cholesterol 219 H LDL Cholesterol Direct 130 H HDL Cholesterol 49 Free T4 TSH 3rd Generation Assessment & Plan - Assessment and Plan (Free Text) Assessment: This is a 48 yo M with PMH of depression, anxiety, schizophrenia, hypertension, DMII, and asthma who presented to [facility] with acute complaint of depression and suicidal ideation with plan to jump in front of a train. Patient was admitted to Psych unit for depression/SI; IM was consulted for medical management. Plan: 1) Depression/SI -defer to Psych for management 2) Elevated alcohol intake as per pt -Ativan prn and noé already ordered by Psych primary, prn amalia as well, no additional management at this time 3) Hx of Heroin use -Psych unit contacted patient's Methadone clinic to confirm methadone dosing, no additional management at this time 4) HTN -continue norvasc and cozaar 5) DM -continue metformin and Januvia, fingersticks ACHS 6) Asthma -prn Ventolin 7) Elevated lipid panel -will start Lipitor 40mg -given elevated lipids, hx HTN, hx DM, elevated risk for CAD, will start Aspirin 81mg daily as well Dispo: Psych inpatient FEN: Heart healthy diet Access: N/A Consults: IM for medical management (Psych is primary) Ppx: Ambulation for DVT At this time, no acute intervention required by medical team, patient is medically optimized. Will sign off. Reconsult as needed. Seen, reviewed, discussed with attending, Dr. Sánchez <Epifanio Sánchez - Last Filed: 05/04/18 18:45> Meds - Medications Medications: Current Medications Acetaminophen (Tylenol 325mg Tab) 650 mg PO Q4 PRN PRN Reason: Pain, moderate (4-7) Al Hydrox/Mg Hydrox/Simethicone (Maalox Plus 30 Ml) 30 ml PO DAILY PRN PRN Reason: Upset Stomach Albuterol (Ventolin Hfa 90 Mcg/Actuation (8 G)) 2 puff IH [id number] PRN PRN Reason: Shortness of Breath Amlodipine Besylate (Norvasc) 10 mg PO DAILY [facility] Last Admin: 05/04/18 09:35 Dose: 10 mg Aspirin (Aspirin Chewable) 81 mg PO DAILY [facility] Last Admin: 05/04/18 13:33 Dose: 81 mg Atorvastatin Calcium (Lipitor) 40 mg PO DIN [facility] Last Admin: 05/04/18 17:40 Dose: 40 mg Benztropine Mesylate (Cogentin) 0.5 mg PO BID [facility] Last Admin: 05/04/18 16:06 Dose: 0.5 mg Divalproex Sodium (Depakote Dr(*Bid*)) 500 mg PO BID [facility] Last Admin: 05/04/18 16:06 Dose: 500 mg Fluphenazine HCl (Prolixin) 5 mg PO HS [facility] PRN Reason: Protocol Last Admin: 05/03/18 22:00 Dose: 5 mg Folic Acid (Folic Acid) 1 mg PO DAILY [facility] Last Admin: 05/04/18 09:38 Dose: 1 mg Lorazepam (Ativan) 2 mg IM Q6H PRN; Protocol PRN Reason: Anxiety Lorazepam (Ativan) 2 mg PO Q6H PRN; Protocol PRN Reason: Anxiety Lorazepam (Ativan) 2 mg PO QID [facility] PRN Reason: Protocol Last Admin: 05/04/18 17:31 Dose: 2 mg Losartan Potassium (Cozaar) 25 mg PO DAILY [facility] Last Admin: 05/04/18 09:39 Dose: 25 mg Magnesium Hydroxide (Milk Of Magnesia) 30 ml PO DAILY PRN PRN Reason: Constipation Metformin HCl (Glucophage) 1,000 mg PO BID [facility] Last Admin: 05/04/18 16:06 Dose: 1,000 mg Methadone HCl (Methadone) 90 mg PO DAILY [facility] Last Admin: 05/04/18 16:05 Dose: 90 mg Multivitamins/Minerals (Therapeutic-M Tab) 1 tab PO 0800 [facility] Last Admin: 05/04/18 09:39 Dose: 1 tab Nicotine (Nicoderm Cq) 1 patch TD DAILY [facility] Last Admin: 05/04/18 13:35 Dose: 1 patch Sitagliptin Phosphate (Januvia) 100 mg PO DAILY [facility] Last Admin: 05/04/18 09:38 Dose: 100 mg Thiamine HCl (Vitamin B1 Tab) 100 mg PO DAILY [facility] Last Admin: 05/04/18 09:40 Dose: 100 mg Trazodone HCl (Desyrel) 50 mg PO HS [facility] Last Admin: 05/03/18 21:59 Dose: 50 mg Ziprasidone (Geodon Cap) 20 mg PO Q6H PRN; Protocol PRN Reason: Agitation Ziprasidone (Geodon Inj) 20 mg IM Q6H PRN; Protocol PRN Reason: Agitation Results - Vital Signs Recent Vital Signs: Last Vital Signs Temp 97.6 F 05/04/18 07:27 Pulse 81 05/04/18 15:00 Resp 20 05/04/18 07:27 BP 120/74 05/04/18 15:00 Pulse Ox 96 05/03/18 18:00 - Labs Result Diagrams: 05/03/18 13:30 05/03/18 13:30 Labs: Laboratory Results - last 24 hr 05/03/18 05/03/18 05/04/18 19:25 21:29 06:30 POC Glucose (mg/dL) 307 H 286 H Triglycerides Cholesterol LDL Cholesterol Direct HDL Cholesterol Free T4 0.78 TSH 3rd Generation 2.33 RPR 05/04/18 05/04/18 05/04/18 06:30 06:30 07:32 POC Glucose (mg/dL) 173 H Triglycerides 262 H Cholesterol 219 H LDL Cholesterol Direct 130 H HDL Cholesterol 49 Free T4 TSH 3rd Generation RPR Nonreactive 05/04/18 05/04/18 11:39 16:07 POC Glucose (mg/dL) 163 H 148 H Triglycerides Cholesterol LDL Cholesterol Direct HDL Cholesterol Free T4 TSH 3rd Generation RPR Attending/Attestation - Attestation I have personally seen and examined this patient.: Yes I have fully participated in the care of the patient.: Yes I have reviewed all pertinent clinical information: Yes Notes (Text): 05/04/18 18:42 Attending note; Patient seen and examined with resident in psychiatric floor. Patient is resting comfortably. Denies any complaints. Not in any acute distress. Patient is a 48 year old male with PMH of depression, anxiety, schizophrenia, hypertension, DMII, and asthma who presented to [facility] with suicidal ideation. hypertension; continue Norvasc and Cozaar. diabetes; continue metformin and Januvia. Continue Regular Insulin sliding scale. History of asthma; stable respiratory status. Active smoking; smoking cessation is strongly advised. Continue NicoDerm patch. Alcohol abuse; alcohol cessation is strongly advised. Monitor for withdrawal symptoms. Drug abuse; drug abuse cessation is strongly advised. Patient is on methadone program. Labs reviewed. Hyperlipidemia; started on Lipitor. Dietary education given. Patient is medically stable. Please reconsult as needed.
--- NOTE | 2018-05-04 14:04 | PCM.PSYCH ---
Initial Psychiatric Evaluation - Initial Psychiatric Evaluation Type of Admission: Voluntary Legal Status: Capacity (ppatient has capacity to sign consent for treatment) Chief Complaint (in patient's own words): "I am depressed and having suicidal thoughts to jump in front of a train. I have no one in my life, I live alone. I have an apartment but I'd rather be in the streets." Patient's Reaction to Hospitalization: patient was admitted for evaluation of depressive symptoms suicidal ideation, command type hallucinations. History of Present Illness and Precipitating Events: shortly patient is 4 year old -[place] male, with reported history of schizoaffective disorder, patient also has history of opioid use disorder, reported to be sober for the past 3 years, alcoholic, drinks daily about 2pints of vodka, patient also has multiple psychiatric admissions (more than 10), most recent was less than a month ago, patient currently unemployed, reportedly lives in [place], brought himself to the hospital looking for help for possible suicidal ideations as well as plan to jump in front of the train, possible depressive symptoms, possible psychotic symptoms. in the ED pt made statements like "it's like the train is pulling me toward it". Considering the patient's symptoms and presentation, patient require to have psychiatric admission for further evaluation and stabilization. Patient has chronic noncompliance with the medications and follow-up appointment. Patient was seen today at the morning time at the treatment team meeting room, poor personal hygiene, good ADLs, patient seems to be poor and unreliable historian, this investment underwriter had the impression that pt does not want to provide whole history, pt was superficially cooperative. Patient said that 4-5 days ago she started to hear voices, command hallucinations, telling him to jump in front of the train and "train is pulling me towards it" patient describes voices as a female voice. Patient does not have history of acting on them, and hot type hallucinations, patient reported that he wanted to come to the hospital because he didn't want to act on the voices. Patient also reported that he was feeling paranoid and was feeling that people talking about him. Patient reported that he also was feeling depressed, hopeless and helpless, worthless and guilty, patient reported that she was feeling this way for past 5 days. pt denied feeling anxious, denied history of abuse, denied history of aggression , denied history of legal problems. Patient reported that he has history of "mind racing", most recent was "just now ", but pt's speech is slow and underproductive. Patient reported history of opioid use disorder, is present moment attends methadone clinic at [place], dose of methadone 90 mg, confirmed by the medical student, resumed the same dose. Last dose was given yesterday. Patient denied any other substance abuse, denies alcohol consumption. patient reported being sober for past 3 years. as per collaterals, patient has history of hospital shopping, admitted himself into the hospital looking for food and intermediate. past psychiatric history: Patient has history of one suicidal attempt at the age of 20, patient reported that he overdose on medications, denied history of being intubated after that, patient reported that he has all together more than 10 psychiatric admissions, most recent was about three months ago at [facility], but was noncompliant with meds. Medical problems: Patient reported h/o asthma, observed limping, DM, called for the medical consult. Patient reported smoking about one pack a day, nicotine patch offered. patient denied any history of mental illness, denied family history of suicidal attempts. 05/03/18 13:30 05/03/18 13:30 Lab Results 05/04/18 11:39: POC Glucose (mg/dL) 163 H 05/04/18 07:32: POC Glucose (mg/dL) 173 H 05/04/18 06:30: Triglycerides 262 H, Cholesterol 219 H, LDL Cholesterol Direct 130 H, HDL Cholesterol 49 05/04/18 06:30: Free T4 0.78, TSH 3rd Generation 2.33 05/03/18 21:29: POC Glucose (mg/dL) 286 H 05/03/18 19:25: POC Glucose (mg/dL) 307 H 05/03/18 13:30: Alcohol, Quantitative < 10 05/03/18 13:30: Salicylates < 1 L, Acetaminophen < 10.0 L 05/03/18 13:30: Sodium 139, Potassium 4.3, Chloride 99, Carbon Dioxide 31, Anion Gap 13, BUN 12, Creatinine 0.7 L, Est GFR ( Amer) > 60, Est GFR ( Non-Af Amer) > 60, Random Glucose 160 H, Calcium 9.7, Magnesium 1.8, Total Bilirubin 0.2, AST 54, ALT 62 H, Alkaline Phosphatase 94, Total Protein 7.8, Albumin 4.4, Globulin 3.5, Albumin/Globulin Ratio 1.3 05/03/18 13:30: WBC 6.3 D, RBC 4.42, Hgb 12.5 L, Hct 36.5 L, MCV 82.6, MCH 28.3 , MCHC 34.2, RDW 13.2, Plt Count 285, MPV 11.4 H, Gran % 55.7, Lymph % (Auto) 35.5 H, [place] % (Auto) 5.3, Eos % (Auto) 2.9, Baso % (Auto) 0.6, Gran # 3.50, Lymph # (Auto) 2.2, [place] # (Auto) 0.3, Eos # (Auto) 0.2, Baso # (Auto) 0.04 05/03/18 13:20: Urine Opiates Screen Negative, Urine Methadone Screen Positive H , Ur Barbiturates Screen Negative, Ur Phencyclidine Scrn Negative, Ur Amphetamines Screen Negative, U Benzodiazepines Scrn Positive H, U Oth Cocaine Metabols Negative, U Cannabinoids Screen Negative 05/03/18 13:20: Urine Color Yellow, Urine Appearance Sl cloudy, Urine pH 7.5, Ur Specific [place] 1.015, Urine Protein Trace H, Urine Glucose (UA) 100 H, Urine Ketones Negative, Urine Blood Negative, Urine Nitrate Negative, Urine Bilirubin Negative, Urine Urobilinogen 0.2, Ur Leukocyte Esterase Trace H, Urine RBC 0 - 2, Urine WBC 5 - 10, Urine Bacteria Trace, Urine Other Usperm 05/03/18 12:52: POC Glucose (mg/dL) 130 H Vital Signs Temp Pulse Resp BP Pulse Ox 05/04/18 09:39 79 125/81 05/04/18 09:35 125/81 05/04/18 07:27 97.6 F 73 20 125/81 05/03/18 18:00 97.9 F 82 18 144/97 H 96 05/03/18 16:36 98 05/03/18 16:35 78 17 135/82 98 05/03/18 15:30 85 18 132/87 99 05/03/18 13:01 97.9 F 88 17 136/94 H 98 05/03/18 12:10 99.2 F 92 H 17 150/105 H 95 Current Medications: Active Medications Generic Name Dose Route Start Last Admin Trade Name Freq PRN Reason Stop Dose Admin Acetaminophen 650 mg 05/03/18 18:46 Tylenol 325mg Tab PO Q4 PRN Pain, moderate (4-7) Al Hydrox/Mg Hydrox/Simethicone 30 ml 05/03/18 18:46 Maalox Plus 30 Ml PO DAILY PRN Upset Stomach Albuterol 2 puff 05/03/18 20:35 Ventolin Hfa 90 Mcg/Actuation (8 G) IH [id number] PRN Shortness of Breath Amlodipine Besylate 10 mg 05/04/18 08:00 Norvasc PO DAILY [facility] Benztropine Mesylate 0.5 mg 05/03/18 18:45 05/03/18 19:22 Cogentin PO 0.5 mg BID KEYANNA Administration Divalproex Sodium 500 mg 05/03/18 18:45 05/03/18 19:22 Depestrella Schumacher(*Bid*) PO 500 mg BID [facility] Administration Fluphenazine HCl 5 mg 05/03/18 22:00 05/03/18 22:00 Prolixin PO 5 mg HS [facility] Administration Protocol Folic Acid 1 mg 05/04/18 08:00 Folic Acid PO DAILY [facility] Lorazepam 2 mg 05/03/18 18:41 Ativan IM Q6H PRN Anxiety Protocol Lorazepam 2 mg 05/03/18 18:43 Ativan PO Q6H PRN Anxiety Protocol Lorazepam 2 mg 05/03/18 22:00 05/03/18 21:58 Ativan PO 2 mg QID KEYANNA Administration Protocol Losartan Potassium 25 mg 05/04/18 08:00 Cozaar PO DAILY [facility] Magnesium Hydroxide 30 ml 05/03/18 18:46 Milk Of Magnesia PO DAILY PRN Constipation Metformin HCl 1,000 mg 05/03/18 18:45 05/03/18 19:22 Glucophage PO 1,000 mg BID [facility] Administration Multivitamins/Minerals 1 tab 05/04/18 08:00 Therapeutic-M Tab PO 0800 [facility] Nicotine 1 patch 05/04/18 08:00 Nicoderm Cq TD DAILY [facility] Sitagliptin Phosphate 100 mg 05/04/18 08:00 Januvia PO DAILY [facility] Thiamine HCl 100 mg 05/04/18 08:00 Vitamin B1 Tab PO DAILY KEYANNA Trazodone HCl 50 mg 05/03/18 22:00 05/03/18 21:59 Desyrel PO 50 mg HS KEYANNA Administration Ziprasidone 20 mg 05/03/18 18:40 Geodon Cap PO Q6H PRN Agitation Protocol Ziprasidone 20 mg 05/03/18 18:41 Geodon Inj IM Q6H PRN Agitation Protocol Past Psychiatric History - Past Psychiatric History Previous Treatment History: Inpatient Prior Professional Help: see HPI Prior Psychiatric Treatment: see HPI At what hospital: see HPI Duration: see HPI Nature of Treatment: see HPI Explanation of prior treatment: see HPI History of Abuse: see HPI History of ETOH/Drug Use: see HPI History of Family Illness: see HPI Pertinent Medical Hx (Current Medical&Sleep Prob, Allergies): Allergies Allergy/AdvReac Type Severity Reaction Status Date / Time No Known Allergies Allergy Verified 05/03/18 12:09 No Known Home Med 05/03/18 patient said being noncompliant with meds Review of Systems - Review of Systems Systems not reviewed;Unavailable: Acuity of Condition - EENT Eyes: As Per HPI Ears: As Per HPI Nose/Mouth/Throat: As Per HPI - Cardiovascular Cardiovascular: As Per HPI - Respiratory Respiratory: As Per HPI - Gastrointestinal Gastrointestinal: As Per HPI - Genitourinary Genitourinary: As Per HPI - Reproductive: Male Reproductive:Male: As Per HPI - Musculoskeletal Musculoskeletal: As Par HPI - Integumentary Integumentary: As Per HPI - Neurological Neurological: As Per HPI - Psychiatric Psychiatric: As Per HPI - Endocrine Endocrine: As Per HPI - Hematologic/Lymphatic Hematologic: As Per HPI Mental Status Examination - Personal Presentation Personal Presentation: Looks stated age - Affect Affect: Flat - Motor Activity Motor Activity: Psychomotor Retardation - Reliability in Providing Information Reliability in Providing Information: Poor, due to alteration in thoughts, Poor , due to cognitve impairment - Speech Speech: Disorganized - Mood Mood: Depressed - Formal Thought Process Formal Thought Process: Hallucinations, Delusions, Paranoia - Hallucinations/Delusions Delusions: Persecution - Obsessions/Compulsions Obsessions: None Compulsions: None - Cognitive Functions Orientation: Person, Place, Situation Sensorium: Alert Attention/Concentration: Easily distracted Abstract Thinking: [place] Estimate of Intelligence: Below average Judgement: Intact, as evidence by: Insight regarding need for hospitalization - Risk Risk: Withdrawal, Diminished functioning - Strength & Assets Inventory Strength & Assets Inventory: Cooperative - Limitations Limitations: Living alone (h/o substance abuse), Other DSM 5 DX - DSM 5 DSM 5 Diagnosis: As per history schizoaffective disorderwhich Opioid use disorder in remission, on maintenance methadone program alcohol abuse - Recommended/Plan of Treatment Treatment Recommendations and Plan of Treatment: Milieu/structure/supportive therapy Medical consult called and appreciated SW consultation for discharge plan and social issues Med management prolixin for psychosis depakote 500mg po bid trazodone for depression 50mg po sh ativan scheduled for alcohol withdrawals MVI, thiamine and folic acid When necessary medications Methadone maintenance therapy 90 mg daily, dose was confirmed by methadone program [place] dose was confirmed by [facility] meth[facility]one clinic [phone] last dose was 05/03/18 Family involvement Follow up on labs Will monitor closely evaluation for d/c planning Pt was educated about risk/benefits and alternatives of medications, coping strategies (safety plan, suicide prevention), relapse prevention, importance of follow up with psychiatrist and therapist, stay away from drugs/alcohol/smoking Projected ELOS: 7days Prognosis: guarded Discharge Plan and Discharge Criteria: Pt will be not depressed or manic, will be more hopeful, will be not psychotic or anxious, will be not having thoughts of harming self or others, will be tolerating medications well, will not have major side effects, will be able to function, will not pose threat to self or others. - Smoking Cessation Smoking Cessation Initiated: Yes
[2018-05-05] MEDS: Divalproex 500 mg DR(BID formulation) PO SCH ×2 (08:33→18:04)
[2018-05-05] MEDS: Multivitamin With Minerals Tab PO SCH (08:33)
--- NOTE | 2018-05-05 13:55 | PCM.PYCHPN ---
Psychiatric Progress Note - Psychiatric Progress Note Patient seen today, length of contact: 30min Patient Chief Complaint: "I am alright..." Problems Identified/Issues Discussed: Suicide/ homicide prevention, past psychiatric h/o, current psychiatric symptoms , medical problems, risk/benefits and alternatives of medications, medications compliance, coping strategies, substance abuse h/o, relapse prevention, importance of follow up with psychiatrist and therapist, discharge plan. Medical Problems: HTN DM Asthma Elevated lipid panel Diagnostic Results: 05/03/18 13:30 05/03/18 13:30 Lab Results 05/05/18 11:24: POC Glucose (mg/dL) 194 H 05/05/18 07:07: POC Glucose (mg/dL) 206 H 05/04/18 20:55: POC Glucose (mg/dL) 173 H 05/04/18 16:07: POC Glucose (mg/dL) 148 H 05/04/18 11:39: POC Glucose (mg/dL) 163 H 05/04/18 07:32: POC Glucose (mg/dL) 173 H 05/04/18 06:30: Triglycerides 262 H, Cholesterol 219 H, LDL Cholesterol Direct 130 H, HDL Cholesterol 49 05/04/18 06:30: RPR Nonreactive 05/04/18 06:30: Free T4 0.78, TSH 3rd Generation 2.33 05/03/18 21:29: POC Glucose (mg/dL) 286 H 05/03/18 19:25: POC Glucose (mg/dL) 307 H 05/03/18 13:30: Alcohol, Quantitative < 10 05/03/18 13:30: Salicylates < 1 L, Acetaminophen < 10.0 L 05/03/18 13:30: Sodium 139, Potassium 4.3, Chloride 99, Carbon Dioxide 31, Anion Gap 13, BUN 12, Creatinine 0.7 L, Est GFR ( Amer) > 60, Est GFR ( Non-Af Amer) > 60, Random Glucose 160 H, Calcium 9.7, Magnesium 1.8, Total Bilirubin 0.2, AST 54, ALT 62 H, Alkaline Phosphatase 94, Total Protein 7.8, Albumin 4.4, Globulin 3.5, Albumin/Globulin Ratio 1.3 05/03/18 13:30: WBC 6.3 D, RBC 4.42, Hgb 12.5 L, Hct 36.5 L, MCV 82.6, MCH 28.3 , MCHC 34.2, RDW 13.2, Plt Count 285, MPV 11.4 H, Gran % 55.7, Lymph % (Auto) 35.5 H, [place] % (Auto) 5.3, Eos % (Auto) 2.9, Baso % (Auto) 0.6, Gran # 3.50, Lymph # (Auto) 2.2, [place] # (Auto) 0.3, Eos # (Auto) 0.2, Baso # (Auto) 0.04 05/03/18 13:20: Urine Opiates Screen Negative, Urine Methadone Screen Positive H , Ur Barbiturates Screen Negative, Ur Phencyclidine Scrn Negative, Ur Amphetamines Screen Negative, U Benzodiazepines Scrn Positive H, U Oth Cocaine Metabols Negative, U Cannabinoids Screen Negative 05/03/18 13:20: Urine Color Yellow, Urine Appearance Sl cloudy, Urine pH 7.5, Ur Specific [place] 1.015, Urine Protein Trace H, Urine Glucose (UA) 100 H, Urine Ketones Negative, Urine Blood Negative, Urine Nitrate Negative, Urine Bilirubin Negative, Urine Urobilinogen 0.2, Ur Leukocyte Esterase Trace H, Urine RBC 0 - 2, Urine WBC 5 - 10, Urine Bacteria Trace, Urine Other Usperm 05/03/18 12:52: POC Glucose (mg/dL) 130 H Vital Signs Temp Pulse Resp BP Pulse Ox 05/05/18 08:35 82 112/73 05/05/18 08:34 112/73 05/05/18 07:14 99.0 F 82 20 112/73 05/04/18 15:00 81 120/74 05/04/18 09:39 79 125/81 05/04/18 09:35 125/81 05/04/18 07:27 97.6 F 73 20 125/81 05/03/18 18:00 97.9 F 82 18 144/97 H 96 05/03/18 16:36 98 05/03/18 16:35 78 17 135/82 98 05/03/18 15:30 85 18 132/87 99 05/03/18 13:01 97.9 F 88 17 136/94 H 98 05/03/18 12:10 99.2 F 92 H 17 150/105 H 95 DSM 5 Symptoms Update: shortly patient is 48 year old -[place]egales[place] male, with reported history of schizoaffective disorder, patient also has history of opioid use disorder, reported to be sober for the past 3 years, alcoholic, drinks daily about 2pints of vodka, patient also has multiple psychiatric admissions (more than 10), most recent was less than a month ago, patient currently unemployed, reportedly lives in [place], brought himself to the hospital looking for help for possible suicidal ideations as well as plan to jump in front of the train, possible depressive symptoms, possible psychotic symptoms. in the ED pt made statements like "it's like the train is pulling me toward it". patient was seen at the treatment team meeting, patient presented with a very unsteady gait, presented like he is high on medications, methadone will be decreased to 80 mg a day, we will start tapering down Ativan. Patient is aware of the plan. pt presented to be disorganized, smirking, pt said that last time he was hearing voices was yesterday. pt denied any intent or plan to kill himself, when was asked what made that change patient replied "safe environment". pt was superficially cooperative. patient was seen by medical team, consult appreciated. As per staff patient is compliant with the medications, no aggression or agitation, patient is still self isolating, not interacting with others. Patient tolerates medications well, no side effects observed or reported, aims 0 , no EPS. vital signs within normal limits, no signs of alcohol withdrawal symptoms. impression: DSM 5 Diagnosis: As per history schizoaffective disorderwhich Opioid use disorder in remission, on maintenance methadone program alcohol abuse Medication Change: Yes (methadone decreased, Ativan decreased) Medical Record Reviewed: Yes Consults ordered or reviewed: medical consult appreciated Mental Status Examination - Cognitive Function Orientation: Person, Place, Situation Memory: Impaired (chronic) Attention: Poor Concentration: Poor Association: Loose Fund of Knowledge: Poor - Mood Mood: Depressed (I feel safe here) - Affect Affect: Flat - Formal Thought Process Formal Thought Process: Hallucinations (last time was yesterday), Delusions ( denied), Paranoia (denied) - Suicidal Ideation Suicidal Ideation: No - Homicidal Ideation Homicidal Ideation: No Goal/Treatment Plan - Goal/Treatment Plan Need for Continued Stay: Remain at risks for inpatient hospitalization, Severe depression anxiety, Discharge may exacerbated symptoms, Severe functional impairment Progress Toward Problem(s) and Goals/Treatment Plan: Milieu/structure/supportive therapy Medical consult called and appreciated consultation for discharge plan and social issues Med management prolixin for psychosis depakote 500mg po bid trazodone for depression 50mg po sh ativan 2 mg 3 times a day scheduled for alcohol withdrawals, with a plan to taper that down MVI, thiamine and folic acid When necessary medications Methadone maintenance therapy patient was on 90 mg daily, dose was confirmed by methadone program [place], but patient appears to be high on medication, we'll decrease to 80 mg daily dose was confirmed by [facility] methadone clinic [phone] last dose was 05/03/18 Family involvement Follow up on labs Will monitor closely evaluation for d/c planning Pt was educated about risk/benefits and alternatives of medications, coping strategies (safety plan, suicide prevention), relapse prevention, importance of follow up with psychiatrist and therapist, stay away from drugs/alcohol/smoking Estimated Date of D/C: 05/11/18
[2018-05-06] MEDS: Multivitamin With Minerals Tab PO SCH (08:50)
[2018-05-06] MEDS: Divalproex 500 mg DR(BID formulation) PO SCH (08:51)
--- NOTE | 2018-05-06 10:18 | PCM.PYCHPN ---
Psychiatric Progress Note - Psychiatric Progress Note Patient seen today, length of contact: 30 min Problems Identified/Issues Discussed: I reviewed recent notes and met with patient at bedside. He is unkempt and disengaged during my introduction and questioning. Appears tired and mildly irritable. Patient's responses are coherent and relevant to questioning however they are brief without elaboration. He indicates that he isn't doing very well regarding his mood and withdrawals. Denies SI or HI at this time. Affect is flat , constricted and preoccupied. He doesn't appear to be responding to internal stimuli and denies AVH though has endorsed them at other times during this admission. Patient reports his sleep was restless. Denies side effects from medications. Patient has been visible on the unit however he isn't friendly or interactive with others. Diagnostic Results: As per history schizoaffective disorder Opioid use disorder in remission, on maintenance methadone program alcohol abuse Medication Change: Yes (Increased depakote and trazodone) Medical Record Reviewed: Yes Mental Status Examination - Cognitive Function Orientation: Person, Place, Situation Memory: Impaired (chronic) Attention: Poor Concentration: Poor Association: Loose Fund of Knowledge: Poor - Mood Mood: Depressed (I feel safe here) - Affect Affect: Flat - Formal Thought Process Formal Thought Process: Hallucinations (last time was yesterday), Delusions ( denied), Paranoia (denied) - Suicidal Ideation Suicidal Ideation: No - Homicidal Ideation Homicidal Ideation: No Goal/Treatment Plan - Goal/Treatment Plan Need for Continued Stay: Remain at risks for inpatient hospitalization, Severe depression anxiety, Discharge may exacerbated symptoms, Severe functional impairment Progress Toward Problem(s) and Goals/Treatment Plan: c/w current tx and plan Increased depakote to 500/750 to help with mood control and insomnia Increased trazodone to 100 mg HS to help with mood and off-label for insomnia Taper ativan to 2 mg po q12 tomorrow 05/07/18, monitor for sedation with methadone 80 mg daily No new weekend lab results thus far Vitals reviewed and noted below: Selected Entries 05/05/18 05/05/18 05/05/18 07:14 08:34 08:35 Temperature 99.0 F Pulse Rate 82 82 Blood Pressure 112/73 112/73 112/73 05/05/18 16:30 Temperature Pulse Rate 84 Blood Pressure 126/73 Estimated Date of D/C: 05/11/18
[2018-05-06] MEDS: Divalproex 250 mg DR (BID formulation) PO SCH (21:20)
[2018-05-07] MEDS: Multivitamin With Minerals Tab PO SCH (08:50)
[2018-05-07] MEDS: Divalproex 500 mg DR(BID formulation) PO SCH (09:08)
--- NOTE | 2018-05-07 10:13 | PCM.PYCHPN ---
Psychiatric Progress Note - Psychiatric Progress Note Patient seen today, length of contact: 30 min Problems Identified/Issues Discussed: I reviewed recent notes and met with patient at bedside. He remains unkempt and disengaged during my questioning. Appears tired, unhappy and withdrawn. Patient' s responses are coherent and relevant to questioning however they remain brief without elaboration. He indicates that his mood is "all right" and that he slept better last night. SI or HI at this time. Affect is flat, constricted and preoccupied. He doesn't appear to be responding to internal stimuli and denies AVH though has endorsed them to other staff members over the weekend. Denies side effects from medications. Patient has been visible on the unit however he isn't friendly or interactive with others. There have been no behavioral issues thus far this weekend Diagnostic Results: As per history schizoaffective disorder Opioid use disorder in remission, on maintenance methadone program alcohol abuse Medication Change: Yes (Increased depakote and trazodone) Medical Record Reviewed: Yes Mental Status Examination - Cognitive Function Orientation: Person, Place, Situation Memory: Impaired (chronic) Attention: Poor Concentration: Poor Association: Loose Fund of Knowledge: Poor - Mood Mood: Depressed (I feel safe here) - Affect Affect: Flat - Formal Thought Process Formal Thought Process: Hallucinations (last time was yesterday), Delusions ( denied), Paranoia (denied) - Suicidal Ideation Suicidal Ideation: No - Homicidal Ideation Homicidal Ideation: No Goal/Treatment Plan - Goal/Treatment Plan Need for Continued Stay: Remain at risks for inpatient hospitalization, Severe depression anxiety, Discharge may exacerbated symptoms, Severe functional impairment Progress Toward Problem(s) and Goals/Treatment Plan: c/w current tx and plan Increased depakote to 500/750 to help with mood control and insomnia on Increased trazodone to 100 mg HS to help with mood and off-label for insomnia on 05/06/18 Tapered ativan to 2 mg po q12 on 05/07/18, monitor for sedation with methadone 80 mg daily No new weekend lab results Vitals reviewed and noted below: Selected Entries 05/06/18 05/06/18 05/06/18 07:14 08:50 15:00 Temperature 97.7 F Pulse Rate 67 67 91 H Respiratory 20 Rate Blood Pressure 122/64 122/64 130/87 Estimated Date of D/C: 05/11/18
[2018-05-07] MEDS: Divalproex 250 mg DR (BID formulation) PO SCH (21:12)
[2018-05-08] MEDS: Multivitamin With Minerals Tab PO SCH (08:33)
[2018-05-08] MEDS: Divalproex 500 mg DR(BID formulation) PO SCH (10:30)
--- NOTE | 2018-05-08 16:26 | PCM.PYCHPN ---
Psychiatric Progress Note - Psychiatric Progress Note Patient seen today, length of contact: 30 min Patient Chief Complaint: "I have thoughts of suicide, no plan though" Problems Identified/Issues Discussed: Suicide/ homicide prevention, past psychiatric h/o, current psychiatric symptoms , medical problems, risk/benefits and alternatives of medications, medications compliance, coping strategies, substance abuse h/o, relapse prevention, importance of follow up with psychiatrist and therapist, discharge plan. Medical Problems: HTN DM Asthma Elevated lipid panel Diagnostic Results: 05/03/18 13:30 05/03/18 13:30 Lab Results 05/05/18 11:24: POC Glucose (mg/dL) 194 H 05/05/18 07:07: POC Glucose (mg/dL) 206 H 05/04/18 20:55: POC Glucose (mg/dL) 173 H 05/04/18 16:07: POC Glucose (mg/dL) 148 H 05/04/18 11:39: POC Glucose (mg/dL) 163 H 05/04/18 07:32: POC Glucose (mg/dL) 173 H 05/04/18 06:30: Triglycerides 262 H, Cholesterol 219 H, LDL Cholesterol Direct 130 H, HDL Cholesterol 49 05/04/18 06:30: RPR Nonreactive 05/04/18 06:30: Free T4 0.78, TSH 3rd Generation 2.33 05/03/18 21:29: POC Glucose (mg/dL) 286 H 05/03/18 19:25: POC Glucose (mg/dL) 307 H 05/03/18 13:30: Alcohol, Quantitative < 10 05/03/18 13:30: Salicylates < 1 L, Acetaminophen < 10.0 L 05/03/18 13:30: Sodium 139, Potassium 4.3, Chloride 99, Carbon Dioxide 31, Anion Gap 13, BUN 12, Creatinine 0.7 L, Est GFR ( Amer) > 60, Est GFR ( Non-Af Amer) > 60, Random Glucose 160 H, Calcium 9.7, Magnesium 1.8, Total Bilirubin 0.2, AST 54, ALT 62 H, Alkaline Phosphatase 94, Total Protein 7.8, Albumin 4.4, Globulin 3.5, Albumin/Globulin Ratio 1.3 05/03/18 13:30: WBC 6.3 D, RBC 4.42, Hgb 12.5 L, Hct 36.5 L, MCV 82.6, MCH 28.3 , MCHC 34.2, RDW 13.2, Plt Count 285, MPV 11.4 H, Gran % 55.7, Lymph % (Auto) 35.5 H, [place] % (Auto) 5.3, Eos % (Auto) 2.9, Baso % (Auto) 0.6, Gran # 3.50, Lymph # (Auto) 2.2, [place] # (Auto) 0.3, Eos # (Auto) 0.2, Baso # (Auto) 0.04 05/03/18 13:20: Urine Opiates Screen Negative, Urine Methadone Screen Positive H , Ur Barbiturates Screen Negative, Ur Phencyclidine Scrn Negative, Ur Amphetamines Screen Negative, U Benzodiazepines Scrn Positive H, U Oth Cocaine Metabols Negative, U Cannabinoids Screen Negative 05/03/18 13:20: Urine Color Yellow, Urine Appearance Sl cloudy, Urine pH 7.5, Ur Specific [place] 1.015, Urine Protein Trace H, Urine Glucose (UA) 100 H, Urine Ketones Negative, Urine Blood Negative, Urine Nitrate Negative, Urine Bilirubin Negative, Urine Urobilinogen 0.2, Ur Leukocyte Esterase Trace H, Urine RBC 0 - 2, Urine WBC 5 - 10, Urine Bacteria Trace, Urine Other Usperm 05/03/18 12:52: POC Glucose (mg/dL) 130 H Vital Signs Temp Pulse Resp BP Pulse Ox 05/05/18 08:35 82 112/73 05/05/18 08:34 112/73 05/05/18 07:14 99.0 F 82 20 112/73 05/04/18 15:00 81 120/74 05/04/18 09:39 79 125/81 05/04/18 09:35 125/81 05/04/18 07:27 97.6 F 73 20 125/81 05/03/18 18:00 97.9 F 82 18 144/97 H 96 05/03/18 16:36 98 05/03/18 16:35 78 17 135/82 98 05/03/18 15:30 85 18 132/87 99 05/03/18 13:01 97.9 F 88 17 136/94 H 98 05/03/18 12:10 99.2 F 92 H 17 150/105 H 95 DSM 5 Symptoms Update: shortly patient is 48 year old -Romanian male, with reported history of schizoaffective disorder, patient also has history of opioid use disorder, reported to be sober for the past 3 years, alcoholic, drinks daily about 2pints of vodka, patient also has multiple psychiatric admissions (more than 10), most recent was less than a month ago, patient currently unemployed, reportedly lives in [place], brought himself to the hospital looking for help for possible suicidal ideations as well as plan to jump in front of the train, possible depressive symptoms, possible psychotic symptoms. in the ED pt made statements like "it's like the train is pulling me toward it". patient was seen at the treatment team meeting, patient presented with unsteady gait, presented like he is high on medications, methadone was decreased to 80 mg a day, Ativan is on tapering dose, today will be 1mg po tid. pt presented to be disorganized, smirking, pt said that last time he was hearing voices last time was two days ago. as per staff pt was self isolating, no participation in groups, not interacting with others. Patient tolerates medications well, no side effects observed or reported, aims 0 , no EPS. vital signs within normal limits, no signs of alcohol withdrawal symptoms. impression: DSM 5 Diagnosis: As per history schizoaffective disorderwhich Opioid use disorder in remission, on maintenance methadone program alcohol abuse Medication Change: Yes (Increased depakote and trazodone, ativan decreased) Medical Record Reviewed: Yes Consults ordered or reviewed: medical consult appreciated Mental Status Examination - Cognitive Function Orientation: Person, Place, Situation Memory: Impaired (chronic) Attention: Poor Concentration: Poor Association: Loose Fund of Knowledge: Poor - Mood Mood: Depressed (I feel safe here) - Affect Affect: Flat - Formal Thought Process Formal Thought Process: Hallucinations (last time was yesterday), Delusions ( denied), Paranoia (denied) - Suicidal Ideation Suicidal Ideation: No - Homicidal Ideation Homicidal Ideation: No Goal/Treatment Plan - Goal/Treatment Plan Need for Continued Stay: Remain at risks for inpatient hospitalization, Severe depression anxiety, Discharge may exacerbated symptoms, Severe functional impairment Progress Toward Problem(s) and Goals/Treatment Plan: Milieu/structure/supportive therapy Medical consult called and appreciated consultation for discharge plan and social issues Med management prolixin will be increased to 5 mg twice a day for psychosis depakote 500mg poDaily as well as 750 mg at the nighttime for mood stabilization trazodone for depression 100mg po sh ativan 1mg 3 times a day scheduled for alcohol withdrawals, with a plan to taper that down MVI, thiamine and folic acid When necessary medications Methadone maintenance therapy patient was on 90 mg daily, dose was confirmed by methadone program [place], but patient appears to be high on medication, decreased to 80 mg daily Family involvement Follow up on labs Will monitor closely SW evaluation for d/c planning Pt was educated about risk/benefits and alternatives of medications, coping strategies (safety plan, suicide prevention), relapse prevention, importance of follow up with psychiatrist and therapist, stay away from drugs/alcohol/smoking Estimated Date of D/C: 05/11/18
[2018-05-08] MEDS: Divalproex 250 mg DR (BID formulation) PO SCH (21:01)
[2018-05-08] MEDS: Alum-Mag Hydrox-Simethicone Susp (30 mL) PO PRN (21:50)
[2018-05-09] MEDS: Multivitamin With Minerals Tab PO SCH (09:21)
[2018-05-09] MEDS: Divalproex 500 mg DR(BID formulation) PO SCH (09:21)
--- NOTE | 2018-05-09 15:59 | PCM.PYCHPN ---
Psychiatric Progress Note - Psychiatric Progress Note Patient seen today, length of contact: 30 min Patient Chief Complaint: "...." pt was falling asleep Problems Identified/Issues Discussed: Suicide/ homicide prevention, past psychiatric h/o, current psychiatric symptoms , medical problems, risk/benefits and alternatives of medications, medications compliance, coping strategies, substance abuse h/o, relapse prevention, importance of follow up with psychiatrist and therapist, discharge plan. Medical Problems: HTN DM Asthma Elevated lipid panel Diagnostic Results: 05/03/18 13:30 05/03/18 13:30 Lab Results 05/05/18 11:24: POC Glucose (mg/dL) 194 H 05/05/18 07:07: POC Glucose (mg/dL) 206 H 05/04/18 20:55: POC Glucose (mg/dL) 173 H 05/04/18 16:07: POC Glucose (mg/dL) 148 H 05/04/18 11:39: POC Glucose (mg/dL) 163 H 05/04/18 07:32: POC Glucose (mg/dL) 173 H 05/04/18 06:30: Triglycerides 262 H, Cholesterol 219 H, LDL Cholesterol Direct 130 H, HDL Cholesterol 49 05/04/18 06:30: RPR Nonreactive 05/04/18 06:30: Free T4 0.78, TSH 3rd Generation 2.33 05/03/18 21:29: POC Glucose (mg/dL) 286 H 05/03/18 19:25: POC Glucose (mg/dL) 307 H 05/03/18 13:30: Alcohol, Quantitative < 10 05/03/18 13:30: Salicylates < 1 L, Acetaminophen < 10.0 L 05/03/18 13:30: Sodium 139, Potassium 4.3, Chloride 99, Carbon Dioxide 31, Anion Gap 13, BUN 12, Creatinine 0.7 L, Est GFR ( Amer) > 60, Est GFR ( Non-Af Amer) > 60, Random Glucose 160 H, Calcium 9.7, Magnesium 1.8, Total Bilirubin 0.2, AST 54, ALT 62 H, Alkaline Phosphatase 94, Total Protein 7.8, Albumin 4.4, Globulin 3.5, Albumin/Globulin Ratio 1.3 05/03/18 13:30: WBC 6.3 D, RBC 4.42, Hgb 12.5 L, Hct 36.5 L, MCV 82.6, MCH 28.3 , MCHC 34.2, RDW 13.2, Plt Count 285, MPV 11.4 H, Gran % 55.7, Lymph % (Auto) 35.5 H, [place] % (Auto) 5.3, Eos % (Auto) 2.9, Baso % (Auto) 0.6, Gran # 3.50, Lymph # (Auto) 2.2, [place] # (Auto) 0.3, Eos # (Auto) 0.2, Baso # (Auto) 0.04 05/03/18 13:20: Urine Opiates Screen Negative, Urine Methadone Screen Positive H , Ur Barbiturates Screen Negative, Ur Phencyclidine Scrn Negative, Ur Amphetamines Screen Negative, U Benzodiazepines Scrn Positive H, U Oth Cocaine Metabols Negative, U Cannabinoids Screen Negative 05/03/18 13:20: Urine Color Yellow, Urine Appearance Sl cloudy, Urine pH 7.5, Ur Specific [place] 1.015, Urine Protein Trace H, Urine Glucose (UA) 100 H, Urine Ketones Negative, Urine Blood Negative, Urine Nitrate Negative, Urine Bilirubin Negative, Urine Urobilinogen 0.2, Ur Leukocyte Esterase Trace H, Urine RBC 0 - 2, Urine WBC 5 - 10, Urine Bacteria Trace, Urine Other Usperm 05/03/18 12:52: POC Glucose (mg/dL) 130 H Vital Signs Temp Pulse Resp BP Pulse Ox 05/05/18 08:35 82 112/73 05/05/18 08:34 112/73 05/05/18 07:14 99.0 F 82 20 112/73 05/04/18 15:00 81 120/74 05/04/18 09:39 79 125/81 05/04/18 09:35 125/81 05/04/18 07:27 97.6 F 73 20 125/81 05/03/18 18:00 97.9 F 82 18 144/97 H 96 05/03/18 16:36 98 05/03/18 16:35 78 17 135/82 98 05/03/18 15:30 85 18 132/87 99 05/03/18 13:01 97.9 F 88 17 136/94 H 98 05/03/18 12:10 99.2 F 92 H 17 150/105 H 95 DSM 5 Symptoms Update: shortly patient is 48 year old -Burmese male, with reported history of schizoaffective disorder, patient also has history of opioid use disorder, reported to be sober for the past 3 years, alcoholic, drinks daily about 2pints of vodka, patient also has multiple psychiatric admissions (more than 10), most recent was less than a month ago, patient currently unemployed, reportedly lives in [place], brought himself to the hospital looking for help for possible suicidal ideations as well as plan to jump in front of the train, possible depressive symptoms, possible psychotic symptoms. in the ED pt made statements like "it's like the train is pulling me toward it". patient was seen at the treatment team meeting, patient presented sleepy, presented like he is high on medications, methadone was decreased to 70 mg a day , Ativan is on tapering dose, today will be 1mg po bid. pt presented to be disorganized, smirking, pt said that last time he was hearing voices last time was two days ago. as per staff pt does not present this way at the lunch time, express his wishes clearly and loudly. Patient tolerates medications well, no side effects observed or reported, aims 0 , no EPS. vital signs within normal limits, no signs of alcohol withdrawal symptoms. impression: DSM 5 Diagnosis: As per history schizoaffective disorderwhich Opioid use disorder in remission, on maintenance methadone program alcohol abuse Medication Change: Yes (methadone decreased,ativan decreased) Medical Record Reviewed: Yes Mental Status Examination - Cognitive Function Orientation: Person, Place, Situation Memory: Impaired (chronic) Attention: Poor Concentration: Poor Association: Loose Fund of Knowledge: Poor - Mood Mood: Depressed (I feel safe here) - Affect Affect: Flat - Formal Thought Process Formal Thought Process: Hallucinations (last time was yesterday), Delusions ( denied), Paranoia (denied) - Suicidal Ideation Suicidal Ideation: No - Homicidal Ideation Homicidal Ideation: No Goal/Treatment Plan - Goal/Treatment Plan Need for Continued Stay: Remain at risks for inpatient hospitalization, Severe depression anxiety, Discharge may exacerbated symptoms, Severe functional impairment Progress Toward Problem(s) and Goals/Treatment Plan: Milieu/structure/supportive therapy Medical consult called and appreciated SW consultation for discharge plan and social issues Med management prolixin 5 mg twice a day for psychosis depakote 500mg poDaily as well as 750 mg at the nighttime for mood stabilization trazodone for depression 100mg po sh ativan 1mg 2 times a day scheduled for alcohol withdrawals, with a plan to taper that down MVI, thiamine and folic acid When necessary medications Methadone maintenance therapy patient was on 90 mg daily, dose was confirmed by methadone program [place], but patient appears to be high on medication, decreased to 70 mg daily 05/09/18 Family involvement Follow up on labs Will monitor closely SW evaluation for d/c planning Pt was educated about risk/benefits and alternatives of medications, coping strategies (safety plan, suicide prevention), relapse prevention, importance of follow up with psychiatrist and therapist, stay away from drugs/alcohol/smoking Estimated Date of D/C: 05/11/18
[2018-05-09] MEDS: Divalproex 250 mg DR (BID formulation) PO SCH (21:34)
[2018-05-10 07:18] VITALS: RESP 20
[2018-05-10] MEDS: Divalproex 500 mg DR(BID formulation) PO SCH (09:08)
[2018-05-10] MEDS: Multivitamin With Minerals Tab PO SCH (09:09)
--- NOTE | 2018-05-10 10:55 | PCM.PYCHPN ---
Psychiatric Progress Note - Psychiatric Progress Note Patient seen today, length of contact: 30 min Problems Identified/Issues Discussed: I reviewed recent notes and met with patient at bedside. I am familiar with patient from prior interviews during this admission. He remains a little unkempt but seems more interested in responding to my questions today. His focus varies though and he seems sedated. Most of his responses are coherent and relevant to questioning but as noted, his focus is inconsistent and I need to repeat some questions to get his attention. I agree with Dr. Lang's observation yesterday, patient seems a little high. Patient reports his mood is "all right, happy" and indicates that he sleeps well when he isn't interrupted by staff. He denies AVH. Affect is odd and mostly constricted but there is some reactivity. He isn't responding to internal stimuli. Denies side effects from medications. Patient has been visible on the unit however he isn't interactive with others. He is also refusing to attend groups. He has been calm and quiet with a low profile. There were no behavioral issues overnight. Diagnostic Results: As per history schizoaffective disorder Opioid use disorder in remission, on maintenance methadone program alcohol abuse Medication Change: Yes (methadone decreased,ativan decreased) Medical Record Reviewed: Yes Mental Status Examination - Cognitive Function Orientation: Person, Place, Situation Memory: Impaired (chronic) Attention: Poor Concentration: Poor Association: Loose Fund of Knowledge: Poor - Mood Mood: Depressed (I feel safe here) - Affect Affect: Flat - Formal Thought Process Formal Thought Process: Hallucinations (last time was yesterday), Delusions ( denied), Paranoia (denied) - Suicidal Ideation Suicidal Ideation: No - Homicidal Ideation Homicidal Ideation: No Goal/Treatment Plan - Goal/Treatment Plan Need for Continued Stay: Remain at risks for inpatient hospitalization, Severe depression anxiety, Discharge may exacerbated symptoms, Severe functional impairment Progress Toward Problem(s) and Goals/Treatment Plan: c/w current tx and plan Tapered ativan to 0.5 mg po daily on 05/10/18, monitor for sedation with methadone 60 mg daily No new lab results Vitals reviewed and noted below: Selected Entries 05/09/18 05/09/18 05/09/18 06:57 09:20 16:30 Temperature 97.3 F L Pulse Rate 102 H 108 H 94 H Respiratory 18 Rate Blood Pressure 133/90 133/90 129/90 Estimated Date of D/C: 05/11/18
[2018-05-10] MEDS: Divalproex 250 mg DR (BID formulation) PO SCH (21:22)
[2018-05-11] MEDS: Multivitamin With Minerals Tab PO SCH (08:24)
[2018-05-11] MEDS: Divalproex 500 mg DR(BID formulation) PO SCH (09:47)
--- NOTE | 2018-05-11 09:55 | PCM.PYCHPN ---
Psychiatric Progress Note - Psychiatric Progress Note Patient seen today, length of contact: 30 min Problems Identified/Issues Discussed: I reviewed recent notes and met with patient at bedside. I am familiar with patient from prior interviews during this admission. He appears more alert and focused today. Also seems to be paying more attention to his grooming. His responses are coherent and relevant to questioning. He reports that he is ready to go home however this provider has some concerns about his sedation on the unit. He is receptive to my concerns and does not escalate, argue or demand to be discharged. Patient still reports his mood is "all right, happy" and indicates that he sleeps well when he isn't interrupted by staff. He denies AVH. Affect is more related and reactive. He can joke appropriately and he isn't responding to internal stimuli. Denies side effects from medications. Patient has been visible, walking and smiling on the unit however he isn't interactive with others. He is also refusing to attend groups. He has been calm and quiet with a low profile. There were no behavioral issues overnight. Diagnostic Results: As per history schizoaffective disorder Opioid use disorder in remission, on maintenance methadone program alcohol abuse Medication Change: Yes (d/c'ed ativan) Medical Record Reviewed: Yes Mental Status Examination - Cognitive Function Orientation: Person, Place, Situation Memory: Impaired (chronic) Attention: Poor Concentration: Poor Association: Loose Fund of Knowledge: Poor - Mood Mood: Depressed (I feel safe here) - Affect Affect: Flat - Formal Thought Process Formal Thought Process: Hallucinations (last time was yesterday), Delusions ( denied), Paranoia (denied) - Suicidal Ideation Suicidal Ideation: No - Homicidal Ideation Homicidal Ideation: No Goal/Treatment Plan - Goal/Treatment Plan Need for Continued Stay: Remain at risks for inpatient hospitalization, Severe depression anxiety, Discharge may exacerbated symptoms, Severe functional impairment Progress Toward Problem(s) and Goals/Treatment Plan: c/w current tx and plan Pt signed 48 hour notice at 9:03am on 05/10/18. At this time, patient doesn't meet criteria for [facility] screening. Likely discharge on 05/11/18 if patient doesn' t retract 48 hour letter. Changed prns for agitation from geodon + ativan to geodon + cogentin to improve patient's alertness on the unit. Tapered ativan to 0.5 mg po daily on 05/10/18. D/C'ed medication on 05/11/18. No new lab results Vitals reviewed and noted below: 05/10/18 05/10/18 05/10/18 07:17 09:07 09:10 Temperature 97.3 F L Pulse Rate 92 H 92 H Respiratory 20 Rate Blood Pressure 132/84 132/84 132/84 05/10/18 16:02 Temperature Pulse Rate 93 H Respiratory Rate Blood Pressure 144/82 Estimated Date of D/C: 05/11/18
[2018-05-11] MEDS: Divalproex 250 mg DR (BID formulation) PO SCH (21:00)
[2018-05-11] MEDS: Alum-Mag Hydrox-Simethicone Susp (30 mL) PO PRN (21:53)
[2018-05-12 07:12] VITALS: BP 150/92; PULSE 91; TEMP 97.9
[2018-05-12] MEDS: Multivitamin With Minerals Tab PO SCH (08:40)
[2018-05-12] MEDS: Divalproex 500 mg DR(BID formulation) PO SCH (09:29)
--- NOTE | 2018-05-12 10:59 | PCM.PYCHDC ---
Mental Status Examination - Mental Status Examination Orientation: Person, Place, Situation Memory: Intact Mood: Neutral Affect: Broad Speech: Appropriate Attention: WNL Concentration: WNL Association: WNL Fund of Knowledge: WNL Formal Thought Process: No Impairment Description of patient's judgement and insight: Improved and fair I/J Psychotic Thoughts and Behaviors: Patient denies hallucinations or paranoia. No delusions elicited Suicidal Ideation: No Current Homicidal Ideation?: No Discharge Summary - Discharge Note Reason for Hospitalization: Patient is 48 year old -[place] male, with reported history of schizoaffective disorder, patient also has history of opioid use disorder, reported to be sober for the past 3 years, alcoholic, drinks daily about 2pints of vodka, patient also has multiple psychiatric admissions (more than 10), most recent was less than a month ago, patient currently unemployed, reportedly lives in [place], brought himself to the hospital looking for help for possible suicidal ideations as well as plan to jump in front of the train, possible depressive symptoms, possible psychotic symptoms. in the ED pt made statements like "it's like the train is pulling me toward it". Psychiatric History (includes Medical, Family, Personal Hx): see HPI Laboratory Data: Laboratory Tests 05/03/18 05/03/18 05/03/18 12:52 13:20 13:20 WBC RBC Hgb Hct MCV MCH MCHC RDW Plt Count MPV Gran % Lymph % (Auto) Porter % (Auto) Eos % (Auto) Baso % (Auto) Gran # Lymph # (Auto) Porter # (Auto) Eos # (Auto) Baso # (Auto) Sodium Potassium Chloride Carbon Dioxide Anion Gap BUN Creatinine Est GFR ( Amer) Est GFR (Non-Af Amer) POC Glucose (mg/dL) 130 H Random Glucose Calcium Magnesium Total Bilirubin AST ALT Alkaline Phosphatase Total Protein Albumin Globulin Albumin/Globulin Ratio Triglycerides Cholesterol LDL Cholesterol Direct HDL Cholesterol Free T4 TSH 3rd Generation Urine Color Yellow Urine Appearance Sl cloudy Urine pH 7.5 Ur Specific Malcom 1.015 Urine Protein Trace H Urine Glucose (UA) 100 H Urine Ketones Negative Urine Blood Negative Urine Nitrate Negative Urine Bilirubin Negative Urine Urobilinogen 0.2 Ur Leukocyte Esterase Trace H Urine RBC 0 - 2 Urine WBC 5 - 10 Urine Bacteria Trace Urine Other Usperm Salicylates Urine Opiates Screen Negative Urine Methadone Screen Positive H Acetaminophen Ur Barbiturates Screen Negative Ur Phencyclidine Scrn Negative Ur Amphetamines Screen Negative U Benzodiazepines Scrn Positive H U Oth Cocaine Metabols Negative U Cannabinoids Screen Negative Alcohol, Quantitative RPR 05/03/18 05/03/18 05/03/18 13:30 13:30 13:30 WBC 6.3 D RBC 4.42 Hgb 12.5 L Hct 36.5 L MCV 82.6 MCH 28.3 MCHC 34.2 RDW 13.2 Plt Count 285 MPV 11.4 H Gran % 55.7 Lymph % (Auto) 35.5 H Porter % (Auto) 5.3 Eos % (Auto) 2.9 Baso % (Auto) 0.6 Gran # 3.50 Lymph # (Auto) 2.2 Porter # (Auto) 0.3 Eos # (Auto) 0.2 Baso # (Auto) 0.04 Sodium 139 Potassium 4.3 Chloride 99 Carbon Dioxide 31 Anion Gap 13 BUN 12 Creatinine 0.7 L Est GFR ( Amer) > 60 Est GFR (Non-Af Amer) > 60 POC Glucose (mg/dL) Random Glucose 160 H Calcium 9.7 Magnesium 1.8 Total Bilirubin 0.2 AST 54 ALT 62 H Alkaline Phosphatase 94 Total Protein 7.8 Albumin 4.4 Globulin 3.5 Albumin/Globulin Ratio 1.3 Triglycerides Cholesterol LDL Cholesterol Direct HDL Cholesterol Free T4 TSH 3rd Generation Urine Color Urine Appearance Urine pH Ur Specific Malcom Urine Protein Urine Glucose (UA) Urine Ketones Urine Blood Urine Nitrate Urine Bilirubin Urine Urobilinogen Ur Leukocyte Esterase Urine RBC Urine WBC Urine Bacteria Urine Other Salicylates < 1 L Urine Opiates Screen Urine Methadone Screen Acetaminophen < 10.0 L Ur Barbiturates Screen Ur Phencyclidine Scrn Ur Amphetamines Screen U Benzodiazepines Scrn U Oth Cocaine Metabols U Cannabinoids Screen Alcohol, Quantitative RPR 05/03/18 05/03/18 05/03/18 13:30 19:25 21:29 WBC RBC Hgb Hct MCV MCH MCHC RDW Plt Count MPV Gran % Lymph % (Auto) Porter % (Auto) Eos % (Auto) Baso % (Auto) Gran # Lymph # (Auto) Porter # (Auto) Eos # (Auto) Baso # (Auto) Sodium Potassium Chloride Carbon Dioxide Anion Gap BUN Creatinine Est GFR ( Amer) Est GFR (Non-Af Amer) POC Glucose (mg/dL) 307 H 286 H Random Glucose Calcium Magnesium Total Bilirubin AST ALT Alkaline Phosphatase Total Protein Albumin Globulin Albumin/Globulin Ratio Triglycerides Cholesterol LDL Cholesterol Direct HDL Cholesterol Free T4 TSH 3rd Generation Urine Color Urine Appearance Urine pH Ur Specific Malcom Urine Protein Urine Glucose (UA) Urine Ketones Urine Blood Urine Nitrate Urine Bilirubin Urine Urobilinogen Ur Leukocyte Esterase Urine RBC Urine WBC Urine Bacteria Urine Other Salicylates Urine Opiates Screen Urine Methadone Screen Acetaminophen Ur Barbiturates Screen Ur Phencyclidine Scrn Ur Amphetamines Screen U Benzodiazepines Scrn U Oth Cocaine Metabols U Cannabinoids Screen Alcohol, Quantitative < 10 RPR 05/04/18 05/04/18 05/04/18 06:30 06:30 06:30 WBC RBC Hgb Hct MCV MCH MCHC RDW Plt Count MPV Gran % Lymph % (Auto) Porter % (Auto) Eos % (Auto) Baso % (Auto) Gran # Lymph # (Auto) Porter # (Auto) Eos # (Auto) Baso # (Auto) Sodium Potassium Chloride Carbon Dioxide Anion Gap BUN Creatinine Est GFR ( Amer) Est GFR (Non-Af Amer) POC Glucose (mg/dL) Random Glucose Calcium Magnesium Total Bilirubin AST ALT Alkaline Phosphatase Total Protein Albumin Globulin Albumin/Globulin Ratio Triglycerides 262 H Cholesterol 219 H LDL Cholesterol Direct 130 H HDL Cholesterol 49 Free T4 0.78 TSH 3rd Generation 2.33 Urine Color Urine Appearance Urine pH Ur Specific Malcom Urine Protein Urine Glucose (UA) Urine Ketones Urine Blood Urine Nitrate Urine Bilirubin Urine Urobilinogen Ur Leukocyte Esterase Urine RBC Urine WBC Urine Bacteria Urine Other Salicylates Urine Opiates Screen Urine Methadone Screen Acetaminophen Ur Barbiturates Screen Ur Phencyclidine Scrn Ur Amphetamines Screen U Benzodiazepines Scrn U Oth Cocaine Metabols U Cannabinoids Screen Alcohol, Quantitative RPR Nonreactive 05/04/18 05/04/18 05/04/18 07:32 11:39 16:07 WBC RBC Hgb Hct MCV MCH MCHC RDW Plt Count MPV Gran % Lymph % (Auto) Porter % (Auto) Eos % (Auto) Baso % (Auto) Gran # Lymph # (Auto) Porter # (Auto) Eos # (Auto) Baso # (Auto) Sodium Potassium Chloride Carbon Dioxide Anion Gap BUN Creatinine Est GFR ( Amer) Est GFR (Non-Af Amer) POC Glucose (mg/dL) 173 H 163 H 148 H Random Glucose Calcium Magnesium Total Bilirubin AST ALT Alkaline Phosphatase Total Protein Albumin Globulin Albumin/Globulin Ratio Triglycerides Cholesterol LDL Cholesterol Direct HDL Cholesterol Free T4 TSH 3rd Generation Urine Color Urine Appearance Urine pH Ur Specific Malcom Urine Protein Urine Glucose (UA) Urine Ketones Urine Blood Urine Nitrate Urine Bilirubin Urine Urobilinogen Ur Leukocyte Esterase Urine RBC Urine WBC Urine Bacteria Urine Other Salicylates Urine Opiates Screen Urine Methadone Screen Acetaminophen Ur Barbiturates Screen Ur Phencyclidine Scrn Ur Amphetamines Screen U Benzodiazepines Scrn U Oth Cocaine Metabols U Cannabinoids Screen Alcohol, Quantitative RPR 05/04/18 05/05/18 05/05/18 20:55 07:07 11:24 WBC RBC Hgb Hct MCV MCH MCHC RDW Plt Count MPV Gran % Lymph % (Auto) Porter % (Auto) Eos % (Auto) Baso % (Auto) Gran # Lymph # (Auto) Porter # (Auto) Eos # (Auto) Baso # (Auto) Sodium Potassium Chloride Carbon Dioxide Anion Gap BUN Creatinine Est GFR ( Amer) Est GFR (Non-Af Amer) POC Glucose (mg/dL) 173 H 206 H 194 H Random Glucose Calcium Magnesium Total Bilirubin AST ALT Alkaline Phosphatase Total Protein Albumin Globulin Albumin/Globulin Ratio Triglycerides Cholesterol LDL Cholesterol Direct HDL Cholesterol Free T4 TSH 3rd Generation Urine Color Urine Appearance Urine pH Ur Specific Malcom Urine Protein Urine Glucose (UA) Urine Ketones Urine Blood Urine Nitrate Urine Bilirubin Urine Urobilinogen Ur Leukocyte Esterase Urine RBC Urine WBC Urine Bacteria Urine Other Salicylates Urine Opiates Screen Urine Methadone Screen Acetaminophen Ur Barbiturates Screen Ur Phencyclidine Scrn Ur Amphetamines Screen U Benzodiazepines Scrn U Oth Cocaine Metabols U Cannabinoids Screen Alcohol, Quantitative RPR 05/05/18 05/05/18 05/06/18 16:43 21:03 07:27 WBC RBC Hgb Hct MCV MCH MCHC RDW Plt Count MPV Gran % Lymph % (Auto) Porter % (Auto) Eos % (Auto) Baso % (Auto) Gran # Lymph # (Auto) Porter # (Auto) Eos # (Auto) Baso # (Auto) Sodium Potassium Chloride Carbon Dioxide Anion Gap BUN Creatinine Est GFR ( Amer) Est GFR (Non-Af Amer) POC Glucose (mg/dL) 252 H 186 H 154 H Random Glucose Calcium Magnesium Total Bilirubin AST ALT Alkaline Phosphatase Total Protein Albumin Globulin Albumin/Globulin Ratio Triglycerides Cholesterol LDL Cholesterol Direct HDL Cholesterol Free T4 TSH 3rd Generation Urine Color Urine Appearance Urine pH Ur Specific Malcom Urine Protein Urine Glucose (UA) Urine Ketones Urine Blood Urine Nitrate Urine Bilirubin Urine Urobilinogen Ur Leukocyte Esterase Urine RBC Urine WBC Urine Bacteria Urine Other Salicylates Urine Opiates Screen Urine Methadone Screen Acetaminophen Ur Barbiturates Screen Ur Phencyclidine Scrn Ur Amphetamines Screen U Benzodiazepines Scrn U Oth Cocaine Metabols U Cannabinoids Screen Alcohol, Quantitative RPR 05/06/18 05/06/18 05/06/18 11:13 16:04 21:01 WBC RBC Hgb Hct MCV MCH MCHC RDW Plt Count MPV Gran % Lymph % (Auto) Porter % (Auto) Eos % (Auto) Baso % (Auto) Gran # Lymph # (Auto) Porter # (Auto) Eos # (Auto) Baso # (Auto) Sodium Potassium Chloride Carbon Dioxide Anion Gap BUN Creatinine Est GFR ( Amer) Est GFR (Non-Af Amer) POC Glucose (mg/dL) 154 H 150 H 120 H Random Glucose Calcium Magnesium Total Bilirubin AST ALT Alkaline Phosphatase Total Protein Albumin Globulin Albumin/Globulin Ratio Triglycerides Cholesterol LDL Cholesterol Direct HDL Cholesterol Free T4 TSH 3rd Generation Urine Color Urine Appearance Urine pH Ur Specific Malcom Urine Protein Urine Glucose (UA) Urine Ketones Urine Blood Urine Nitrate Urine Bilirubin Urine Urobilinogen Ur Leukocyte Esterase Urine RBC Urine WBC Urine Bacteria Urine Other Salicylates Urine Opiates Screen Urine Methadone Screen Acetaminophen Ur Barbiturates Screen Ur Phencyclidine Scrn Ur Amphetamines Screen U Benzodiazepines Scrn U Oth Cocaine Metabols U Cannabinoids Screen Alcohol, Quantitative RPR 05/07/18 05/07/18 05/07/18 07:18 11:24 16:05 WBC RBC Hgb Hct MCV MCH MCHC RDW Plt Count MPV Gran % Lymph % (Auto) Porter % (Auto) Eos % (Auto) Baso % (Auto) Gran # Lymph # (Auto) Porter # (Auto) Eos # (Auto) Baso # (Auto) Sodium Potassium Chloride Carbon Dioxide Anion Gap BUN Creatinine Est GFR ( Amer) Est GFR (Non-Af Amer) POC Glucose (mg/dL) 130 H 118 H 146 H Random Glucose Calcium Magnesium Total Bilirubin AST ALT Alkaline Phosphatase Total Protein Albumin Globulin Albumin/Globulin Ratio Triglycerides Cholesterol LDL Cholesterol Direct HDL Cholesterol Free T4 TSH 3rd Generation Urine Color Urine Appearance Urine pH Ur Specific Malcom Urine Protein Urine Glucose (UA) Urine Ketones Urine Blood Urine Nitrate Urine Bilirubin Urine Urobilinogen Ur Leukocyte Esterase Urine RBC Urine WBC Urine Bacteria Urine Other Salicylates Urine Opiates Screen Urine Methadone Screen Acetaminophen Ur Barbiturates Screen Ur Phencyclidine Scrn Ur Amphetamines Screen U Benzodiazepines Scrn U Oth Cocaine Metabols U Cannabinoids Screen Alcohol, Quantitative RPR 05/07/18 05/07/18 05/08/18 20:35 22:14 07:12 WBC RBC Hgb Hct MCV MCH MCHC RDW Plt Count MPV Gran % Lymph % (Auto) Porter % (Auto) Eos % (Auto) Baso % (Auto) Gran # Lymph # (Auto) Porter # (Auto) Eos # (Auto) Baso # (Auto) Sodium Potassium Chloride Carbon Dioxide Anion Gap BUN Creatinine Est GFR ( Amer) Est GFR (Non-Af Amer) POC Glucose (mg/dL) 140 H 131 H 108 Random Glucose Calcium Magnesium Total Bilirubin AST ALT Alkaline Phosphatase Total Protein Albumin Globulin Albumin/Globulin Ratio Triglycerides Cholesterol LDL Cholesterol Direct HDL Cholesterol Free T4 TSH 3rd Generation Urine Color Urine Appearance Urine pH Ur Specific Malcom Urine Protein Urine Glucose (UA) Urine Ketones Urine Blood Urine Nitrate Urine Bilirubin Urine Urobilinogen Ur Leukocyte Esterase Urine RBC Urine WBC Urine Bacteria Urine Other Salicylates Urine Opiates Screen Urine Methadone Screen Acetaminophen Ur Barbiturates Screen Ur Phencyclidine Scrn Ur Amphetamines Screen U Benzodiazepines Scrn U Oth Cocaine Metabols U Cannabinoids Screen Alcohol, Quantitative RPR 05/08/18 05/08/18 05/08/18 11:28 16:22 21:29 WBC RBC Hgb Hct MCV MCH MCHC RDW Plt Count MPV Gran % Lymph % (Auto) Porter % (Auto) Eos % (Auto) Baso % (Auto) Gran # Lymph # (Auto) Porter # (Auto) Eos # (Auto) Baso # (Auto) Sodium Potassium Chloride Carbon Dioxide Anion Gap BUN Creatinine Est GFR ( Amer) Est GFR (Non-Af Amer) POC Glucose (mg/dL) 129 H 124 H 142 H Random Glucose Calcium Magnesium Total Bilirubin AST ALT Alkaline Phosphatase Total Protein Albumin Globulin Albumin/Globulin Ratio Triglycerides Cholesterol LDL Cholesterol Direct HDL Cholesterol Free T4 TSH 3rd Generation Urine Color Urine Appearance Urine pH Ur Specific Malcom Urine Protein Urine Glucose (UA) Urine Ketones Urine Blood Urine Nitrate Urine Bilirubin Urine Urobilinogen Ur Leukocyte Esterase Urine RBC Urine WBC Urine Bacteria Urine Other Salicylates Urine Opiates Screen Urine Methadone Screen Acetaminophen Ur Barbiturates Screen Ur Phencyclidine Scrn Ur Amphetamines Screen U Benzodiazepines Scrn U Oth Cocaine Metabols U Cannabinoids Screen Alcohol, Quantitative RPR 05/09/18 05/09/18 05/09/18 07:13 12:00 21:32 WBC RBC Hgb Hct MCV MCH MCHC RDW Plt Count MPV Gran % Lymph % (Auto) Porter % (Auto) Eos % (Auto) Baso % (Auto) Gran # Lymph # (Auto) Porter # (Auto) Eos # (Auto) Baso # (Auto) Sodium Potassium Chloride Carbon Dioxide Anion Gap BUN Creatinine Est GFR ( Amer) Est GFR (Non-Af Amer) POC Glucose (mg/dL) 119 H 84 268 H Random Glucose Calcium Magnesium Total Bilirubin AST ALT Alkaline Phosphatase Total Protein Albumin Globulin Albumin/Globulin Ratio Triglycerides Cholesterol LDL Cholesterol Direct HDL Cholesterol Free T4 TSH 3rd Generation Urine Color Urine Appearance Urine pH Ur Specific Malcom Urine Protein Urine Glucose (UA) Urine Ketones Urine Blood Urine Nitrate Urine Bilirubin Urine Urobilinogen Ur Leukocyte Esterase Urine RBC Urine WBC Urine Bacteria Urine Other Salicylates Urine Opiates Screen Urine Methadone Screen Acetaminophen Ur Barbiturates Screen Ur Phencyclidine Scrn Ur Amphetamines Screen U Benzodiazepines Scrn U Oth Cocaine Metabols U Cannabinoids Screen Alcohol, Quantitative RPR 05/10/18 05/10/18 05/10/18 07:24 11:24 16:23 WBC RBC Hgb Hct MCV MCH MCHC RDW Plt Count MPV Gran % Lymph % (Auto) Porter % (Auto) Eos % (Auto) Baso % (Auto) Gran # Lymph # (Auto) Porter # (Auto) Eos # (Auto) Baso # (Auto) Sodium Potassium Chloride Carbon Dioxide Anion Gap BUN Creatinine Est GFR ( Amer) Est GFR (Non-Af Amer) POC Glucose (mg/dL) 110 121 H 131 H Random Glucose Calcium Magnesium Total Bilirubin AST ALT Alkaline Phosphatase Total Protein Albumin Globulin Albumin/Globulin Ratio Triglycerides Cholesterol LDL Cholesterol Direct HDL Cholesterol Free T4 TSH 3rd Generation Urine Color Urine Appearance Urine pH Ur Specific Malcom Urine Protein Urine Glucose (UA) Urine Ketones Urine Blood Urine Nitrate Urine Bilirubin Urine Urobilinogen Ur Leukocyte Esterase Urine RBC Urine WBC Urine Bacteria Urine Other Salicylates Urine Opiates Screen Urine Methadone Screen Acetaminophen Ur Barbiturates Screen Ur Phencyclidine Scrn Ur Amphetamines Screen U Benzodiazepines Scrn U Oth Cocaine Metabols U Cannabinoids Screen Alcohol, Quantitative RPR 05/10/18 05/11/18 05/11/18 20:56 07:19 11:27 WBC RBC Hgb Hct MCV MCH MCHC RDW Plt Count MPV Gran % Lymph % (Auto) Porter % (Auto) Eos % (Auto) Baso % (Auto) Gran # Lymph # (Auto) Porter # (Auto) Eos # (Auto) Baso # (Auto) Sodium Potassium Chloride Carbon Dioxide Anion Gap BUN Creatinine Est GFR ( Amer) Est GFR (Non-Af Amer) POC Glucose (mg/dL) 144 H 95 110 Random Glucose Calcium Magnesium Total Bilirubin AST ALT Alkaline Phosphatase Total Protein Albumin Globulin Albumin/Globulin Ratio Triglycerides Cholesterol LDL Cholesterol Direct HDL Cholesterol Free T4 TSH 3rd Generation Urine Color Urine Appearance Urine pH Ur Specific Malcom Urine Protein Urine Glucose (UA) Urine Ketones Urine Blood Urine Nitrate Urine Bilirubin Urine Urobilinogen Ur Leukocyte Esterase Urine RBC Urine WBC Urine Bacteria Urine Other Salicylates Urine Opiates Screen Urine Methadone Screen Acetaminophen Ur Barbiturates Screen Ur Phencyclidine Scrn Ur Amphetamines Screen U Benzodiazepines Scrn U Oth Cocaine Metabols U Cannabinoids Screen Alcohol, Quantitative RPR 05/11/18 05/11/18 16:18 21:05 WBC RBC Hgb Hct MCV MCH MCHC RDW Plt Count MPV Gran % Lymph % (Auto) Porter % (Auto) Eos % (Auto) Baso % (Auto) Gran # Lymph # (Auto) Porter # (Auto) Eos # (Auto) Baso # (Auto) Sodium Potassium Chloride Carbon Dioxide Anion Gap BUN Creatinine Est GFR ( Amer) Est GFR (Non-Af Amer) POC Glucose (mg/dL) 108 176 H Random Glucose Calcium Magnesium Total Bilirubin AST ALT Alkaline Phosphatase Total Protein Albumin Globulin Albumin/Globulin Ratio Triglycerides Cholesterol LDL Cholesterol Direct HDL Cholesterol Free T4 TSH 3rd Generation Urine Color Urine Appearance Urine pH Ur Specific Malcom Urine Protein Urine Glucose (UA) Urine Ketones Urine Blood Urine Nitrate Urine Bilirubin Urine Urobilinogen Ur Leukocyte Esterase Urine RBC Urine WBC Urine Bacteria Urine Other Salicylates Urine Opiates Screen Urine Methadone Screen Acetaminophen Ur Barbiturates Screen Ur Phencyclidine Scrn Ur Amphetamines Screen U Benzodiazepines Scrn U Oth Cocaine Metabols U Cannabinoids Screen Alcohol, Quantitative RPR Abnormal Lab Results 05/10/18 05/10/18 05/11/18 07:24 11:24 11:27 POC Glucose (mg/dL) 110 121 H 110 05/11/18 05/11/18 16:18 21:05 POC Glucose (mg/dL) 108 176 H Consultations:: List each consultation separately and include: 1. Reason for request. 2. Findings. 3. Follow-up Consultations: Consultation by Dr. Sánchez on 05/04/18 Summary of Hospital Course include:: 1. Description of specific treatment plan utilized for patients during their course of treatmen. 2. Summarize the time- course for resolution of acute symptoms and/or regressed behaviors. 3. Describe issues identified and worked on during hospitalization. 4. Describe medication utilized. 5. Describe medical problems identified and treated. 6. Reassessment of suicide risk Summary of Hospital Course: DSM 5 Symptoms Update: shortly patient is 48 year old -[place] male, with reported history of schizoaffective disorder, patient also has history of opioid use disorder, reported to be sober for the past 3 years, alcoholic, drinks daily about 2pints of vodka, patient also has multiple psychiatric admissions (more than 10), most recent was less than a month ago, patient currently unemployed, reportedly lives in [place], brought himself to the hospital looking for help for possible suicidal ideations as well as plan to jump in front of the train, possible depressive symptoms, possible psychotic symptoms. in the ED pt made statements like "it's like the train is pulling me toward it". patient was seen at the treatment team meeting, patient presented sleepy, presented like he is high on medications, methadone was decreased to 70 mg a day , Ativan is on tapering dose, today will be 1mg po bid. pt presented to be disorganized, smirking, pt said that last time he was hearing voices last time was two days ago. as per staff pt does not present this way at the lunch time, express his wishes clearly and loudly. Patient tolerates medications well, no side effects observed or reported, aims 0 , no EPS. vital signs within normal limits, no signs of alcohol withdrawal symptoms. DISCHARGE NOTE BY DR. SANTA 05/12/18 Changed prns for agitation from geodon + ativan to geodon + cogentin to improve patient's alertness on the unit. Tapered ativan and d/c'ed medication on 05/11/18 Methadone was also decreased to final value of 60 mg daily due to sedation ( Methadone clinic was informed). Pt signed 48 hour notice at 9:03am on 05/10/18 and retracted on 05/11/18 at 6:30 pm. He indicated that he wanted to be discharged on 05/12/18. I interviewed patient at bedside that day and determined that patient was stable for discharge. Patient was alert and well-oriented to month, year and circumstances. Eye contact is good. Patient indicated that he felt improved and denied any suicidal thoughts or thoughts to harm others. Affect was calm and appropriately reactive though subdued (which is his baseline). Patient denied hallucinations and was not responding to internal stimuli. Thought process was clear and coherent. Patient feels comfortable with discharge today and denied any new concerns. Denies acute discomfort or pain. Tolerating medications and denied any issues with them. Delusions and paranoia were not elicited on day of discharge. Patient attends a methadone clinic so he is not a candidate for naltrexone to address is alcohol dependency. Patient was strongly urged to attend AA and comply with his aftercare recommendations. - Final Diagnosis (DSM 5) Condition upon Discharge: STABLE DSM 5: As per history schizoaffective disorder Opioid use disorder in remission, on maintenance methadone program alcohol abuse Disposition: HOME/ ROUTINE Follow-up Treatment Plan: Please refer to SW discharge note for aftercare plans I called [facility] at 10:50 am [phone] and authorized a 14 day supply with 1 RF of the following medications: Cogentin 0.5 mg po bid Depakote 500 mg AM and 750 mg HS Prolixin 5 mg AM and 5 mg HS Trazodone 100 mg HS Nicoderm CQ 21 mg patch, replaced daily. Prescriptions/Medication Reconciliation: Benztropine [Cogentin] 0.5 mg PO BID 14 Days #28 tab Divalproex [Depakote DR (*BID*)] 750 mg PO HS 14 Days #14 tcp fluPHENAZine [Prolixin] 5 mg PO AMHS 14 Days #28 tab Nicotine 21 mg/24 hr [Nicoderm Cq] 1 patch TD DAILY 14 Days #1 patch traZODone [Desyrel] 100 mg PO HS 14 Days #14 tab - Smoking Cessation Smoking Cessation Medication prescribed: Yes
== END 2018-05-12 12:45 | disposition home or self-care (01) | DRG 430 ==
LOC: ED 11:58 → ERH 15:48 → PSYC 17:01
PROVIDERS: ADMIT Psychiatry & Neurology Psychiatry; ATTEND Psychiatry & Neurology Psychiatry
DX: F25.9 Schizoaffective disorder, unspecified (principal); J43.9 Emphysema, unspecified; F11.20 Opioid dependence, uncomplicated; F10.20 Alcohol dependence, uncomplicated; E11.9 Type 2 diabetes mellitus without complications; F17.200 Nicotine dependence, unspecified, uncomplicated; I10 Essential (primary) hypertension; F32.9 Major depressive disorder, single episode, unspecified; G47.00 Insomnia, unspecified; J45.909 Unspecified asthma, uncomplicated; E78.5 Hyperlipidemia, unspecified; Z71.3 Dietary counseling and surveillance; Z79.84 Long term (current) use of oral hypoglycemic drugs; Z91.14 Patient's other noncompliance with medication regimen; Z91.19 Patient's noncompliance with other medical treatment and regimen

== ENCOUNTER 2018-08-02 12:21 | Inpatient (IN) | payer MEDICAID, OTHER ==
[2018-08-02 12:21] VITALS: BMI 32.1
--- NOTE | 2018-08-02 13:17 | RAD ---
Date of service: 08/02/2018 HISTORY: hallucinations COMPARISON: 05/03/2018 FINDINGS: LUNGS: No active pulmonary disease. PLEURA: No significant pleural effusion identified, no pneumothorax apparent. CARDIOVASCULAR: No aortic atherosclerotic calcification present. Normal cardiac size. No pulmonary vascular congestion. OSSEOUS STRUCTURES: No significant abnormalities. VISUALIZED UPPER ABDOMEN: Normal. OTHER FINDINGS: None. IMPRESSION: No active disease.
--- NOTE | 2018-08-02 13:31 | ED PDOC ---
Arrival/HPI - General Chief Complaint: Psychiatric Evaluation Time Seen by Provider: 08/02/18 12:38 Historian: Patient - History of Present Illness Narrative History of Present Illness (Text): 08/02/18 13:25 A 48 year old male, whose past medical history includes depression, schizophrenia, HTN, DM, and presents to the emergency department expressing suicidal ideation. The patient notes that he has a plan to jump in front of a train/ jump off of a bridge/ buy a gun to shoot himself. The patient notes that he has also been experiencing auditory and visual hallucinations. He states that he sees " people and things moving". The patient denies homicidal ideation. He states that he takes medication for his schizophrenia, but forgets to take it at times. The patient denies fevers, chills, weakness, headache, dizziness, c ough, sore throat, chest pain, shortness of breath, dyspena on exertion, abdominal pain, nausea, vomiting, diarrhea, neck/ back pain, urinary/ bowel symptoms, trauma/ injury, or any other complaints. Time/Duration: Other (3-4 Days) Symptom Onset: Sudden Symptom Course: Unchanged Context: Home Past Medical History - Provider Review Nursing Documentation Reviewed: Yes - Infectious Disease Hx of Infectious Diseases: None - Tetanus Immunization Tetanus Immunization: Unknown - Cardiac Hx Cardiac Arrhythmia: Yes Hx Hypertension: Yes - Pulmonary Hx Asthma: Yes Hx Chronic Obstructive Pulmonary Disease (COPD): No - Neurological Hx Seizures: No - HEENT Hx HEENT Disorder: Yes Hx Cataracts: Yes (R) - Renal Hx Renal Disorder: No - Endocrine/Metabolic Hx Endocrine Disorders: Yes Hx Diabetes Mellitus Type 2: Yes - Hematological/Oncological Hx Cancer: No - Integumentary Hx Dermatological Disorder: No - Musculoskeletal/Rheumatological Hx Arthritis: No - Gastrointestinal Hx Gastrointestinal Disorders: No - Genitourinary/Gynecological Hx Sexually Transmitted Diseases: No - Psychiatric Hx Anxiety: Yes Hx Bipolar Disorder: Yes Hx Depression: Yes Hx Schizophrenia: Yes Hx Substance Use: No - Surgical History Hx Cataract Extraction: Yes - Anesthesia Hx Anesthesia: Yes Hx Anesthesia Reactions: No Family/Social History - Physician Review Nursing Documentation Reviewed: Yes Family/Social History: No Known Family HX Smoking Status: Light Smoker < 10 Cigarettes Daily Hx Alcohol Use: No Hx Substance Use: No Substance used: heroin Allergies/Home Meds Allergies/Adverse Reactions: Allergies No Known Allergies Allergy (Verified 06/02/18 16:18) PER PATIENT Review of Systems - Physician Review All systems were reviewed & negative as marked: Yes - Review of Systems Constitutional: absent: Fevers ENT: absent: Sore Throat Respiratory: absent: SOB, Cough Cardiovascular: absent: Chest Pain, VENEGAS Gastrointestinal: absent: Abdominal Pain, Stool Changes, Diarrhea, Nausea, Vomiting Genitourinary Male: absent: Urinary Output Changes Musculoskeletal: absent: Back Pain, Neck Pain Neurological: absent: Headache, Dizziness Psychiatric: Suicidal Ideation Physical Exam - Physical Exam Narrative Physical Exam (Text): 08/02/18 13:31 Constitutional: No acute distress. Head: Normocephalic. Atraumatic. Eyes: PERRL. ENT: Moist mucous membranes. Neck: Supple. Cardiovascular: Regular rate. Chest: No tenderness. Respiratory: Clear to auscultation bilaterally. GI: Soft. Nontender. Nondistended. Back: No CVA tenderness. Musculoskeletal: No tenderness or swelling of extremities. Skin: No rash. Neurologic: Alert, no focal deficit Vital Signs Reviewed: Yes Vital Signs Temp Pulse Resp BP Pulse Ox 08/02/18 13:12 98.3 F 92 H 18 167/99 H 96 08/02/18 12:33 99 F 90 18 179/101 H 98 Temperature: Afebrile Blood Pressure: Normal Pulse: Regular Respiratory Rate: Normal Appearance: Positive for: Well-Appearing, Non-Toxic, Comfortable Pain Distress: None Mental Status: Positive for: Alert and Oriented X 3 Medical Decision Making ED Course and Treatment: 08/02/18 13:32 Impression: A 48 year old male presents to the emergency department expressing suicidal ideation. Plan: -- EKG -- Chest X- Ray -- Labs -- Urinalysis -- Reassess and disposition Prior Visits: Notes and results from previous visits were reviewed. Progress Notes: Chest X- Ray Dictator : Mook Turcios MD Report Date : 08/02/2018 13:13:19 IMPRESSION: No active disease. - RAD Interpretation Radiology Orders: 08/02/18 12:39 CHEST PORTABLE [RAD] Stat Disposition/Present on Arrival - Present on Arrival Any Indicators Present on Arrival: No History of DVT/PE: No History of Uncontrolled Diabetes: No Urinary Catheter: No History of Decub. Ulcer: No History Surgical Site Infection Following: None - Disposition Have Diagnosis and Disposition been Completed?: Yes Diagnosis: Schizophrenia Disposition Time: 14:14 Patient Plan: Admission Condition: GUARDED Referrals: FAMILY PROVIDER,NO [Primary Care Provider] - Follow up with primary Forms: [employer] ([place])
[2018-08-02 13:33] LABS: URINE BILIRUBIN NEGATIVE (NEGATIVE); URINE BLOOD NEGATIVE (NEGATIVE); URINE GLUCOSE (UA) NEGATIVE (NEGATIVE); URINE LEUKOCYTE ESTERASE NEGATIVE Leu/uL (NEGATIVE); URINE PROTEIN TRACE mg/dL (<30 mg/dL); URINE UROBILINOGEN 0.2 E.U./dL (<1 E.U./dL)
[2018-08-02 13:34] LABS: URINE APPEARANCE SL CLOUDY (CLEAR); URINE COLOR YELLOW (YELLOW)
[2018-08-02 13:42] LABS: URINE CALCIUM OXALATE CRYSTALS FEW /hpf; URINE RBC NEGATIVE /hpf (0-2); URINE WBC 0 - 2 /hpf (0-6)
[2018-08-02 13:42] LABS: BASO # 0.03 K/mm3 (0.0-2.0); BASO % 0.3 % (0.0-3.0); EOS % 0.2 % (1.5-5.0); GRAN # 6.6 (1.4-6.5); GRAN % 75.2 % (50.0-68.0); HEMOGLOBIN 13.1 g/dL (14.0-18.0); LYMPH # 1.8 (1.2-3.4); LYMPH % 20.8 % (22.0-35.0); MEAN CELL VOLUME 84.5 fl (80.0-105.0); MEAN CORPUSCULAR HEMOGLOBIN 28.2 pg (25.0-35.0); MEAN CORPUSCULAR HGB CONC 33.4 g/dl (31.0-37.0); MEAN PLATELET VOLUME 10.5 fl (7.0-11.0); MONO # 0.3 (0.1-0.6); MONO % 3.5 % (1.0-6.0); RBC 4.64 10^6/uL (3.5-6.1); RED CELL DISTRIBUTION WIDTH 14.5 % (11.5-14.5); WHITE BLOOD COUNT 8.8 10^3/uL (4.5-11.0)
[2018-08-02 13:48] LABS: BARBITURATES, UR NEGATIVE (NEGATIVE); PHENCYCLIDINE, UR NEGATIVE (NEGATIVE)
[2018-08-02 13:51] LABS: BENZODIAZEPINES, UR POSITIVE (NEGATIVE); OPIATES, UR NEGATIVE (NEGATIVE)
[2018-08-02 13:57] LABS: ACETAMINOPHEN < 10.0 ug/ml (10.0-20.0); SALICYLATE < 1 mg/dL (2.0-20.0)
[2018-08-02 13:59] LABS: ALB/GLOB RATIO 1.3 (1.1-1.8); ALBUMIN 4.6 g/dL (3.0-4.8); ALT/SGPT 32 U/L (7-56); AST/SGOT 27 U/L (17-59); BLOOD UREA NITROGEN 11 mg/dL (7-21); CALCIUM 9.7 mg/dL (8.4-10.5); GFR NON-AFRICAN AMERICAN > 60
--- NOTE | 2018-08-02 16:47 | CARD ---
APPROVED REPORT Date of service: 08/02/2018 EKG Measurement Heart [id number] <Conclusion> Normal sinus rhythm Normal ECG
[2018-08-02 18:25] VITALS: O2SAT 95
--- NOTE | 2018-08-02 18:30 | PCM.BM ---
<DewayneyoletteKieran - Last Filed: 08/02/18 18:27> Treatment Plan Problems - Problems identified on initial assessmt Auditory Hallucinations Date Initiated: 08/02/18 Time Initiated: 18:28 Assessment reference: HP, NA, Other Status: Active MEDS NONADHERENCE Date Initiated: 08/02/18 Time Initiated: 18:28 Assessment reference: HP, Other Status: Active VISUAL HALLUCINATIONS Date Initiated: 08/02/18 Time Initiated: 18:28 Assessment reference: HP, NA, Other Status: Active Treatment assets and liabiliti Patient Assests: cooperative, self-reliant, ADL independent, physically healthy, cognitively intact Patient Liabilities: live alone, financial problems, poor support system, relationship conflicts, substance abuse, medical problems - Milieu Protocol Maintain good personal hygiene: daily Encourage regular showers, daily Remind patient to perform daily oral care, daily Assist patient to perform ADL's Maintain personal safety: daily Educate patient to report safety concerns to staff, daily Monitor environment for contraband/sharps Medication safety: Monitor for expected outcome, potential side effects: daily, Assess barriers to learning: daily, Assess readiness for medication education: daily Discharge/Continuing Care - Education Needs Education Needs: Patient Medication, Patient Diagnosis/Disease Process, Patient Coping Skills, Patient Placement options, Patient Community resources, Patient Activities of Daily Living, Patient Health Practices/Safety, Patient Personal Hygiene/Grooming, Patient Aftercare Safety Plan - Discharge Discharge Criteria: Free of Suicidal thoughts, Free of Homicidal thoughts, Free of paranoid thoughts, Free of agitation, Normal sleep pattern, Ability to care for self <Ayana Felix - Last Filed: 08/03/18 10:01> - Diagnosis (1) Schizophrenia Status: Acute Interventions: 08/03/18 10:01 group, milieu and supportive tx * Depakote 500 mg AM and 750 mg HS for mood control * Prolixin 5 mg po AM and HS to help with mood control and cogentin 0.5 mg po bid for EPS prophylaxis * Trazodone 50 mg po HS * Ativan 1 mg q8 with plan to taper for alcohol use * Patient attends a methadone clinic so he is not a candidate for naltrexone to address is alcohol dependency. * ER clinician confirmed patient's methadone 90 mg dose with Izabel Josue RN to be 90 mg at [facility] methadone clinic on 08/02/18. Patient also received a take-home dose which needs to be returned to the methadone clinic as patient was hospitalized today (2) Alcohol use disorder, severe, dependence Status: Acute Interventions: 08/03/18 10:01 group, milieu and supportive tx * Depakote 500 mg AM and 750 mg HS for mood control * Prolixin 5 mg po AM and HS to help with mood control and cogentin 0.5 mg po bid for EPS prophylaxis * Trazodone 50 mg po HS * Ativan 1 mg q8 with plan to taper for alcohol use * Patient attends a methadone clinic so he is not a candidate for naltrexone to address is alcohol dependency. * ER clinician confirmed patient's methadone 90 mg dose with Izabel Josue RN to be 90 mg at [facility] methadone clinic on 08/02/18. Patient also received a take-home dose which needs to be returned to the methadone clinic as patient was hospitalized today (3) Opioid dependence Status: Acute Interventions: 08/03/18 10:01 group, milieu and supportive tx * Depakote 500 mg AM and 750 mg HS for mood control * Prolixin 5 mg po AM and HS to help with mood control and cogentin 0.5 mg po bid for EPS prophylaxis * Trazodone 50 mg po HS * Ativan 1 mg q8 with plan to taper for alcohol use * Patient attends a methadone clinic so he is not a candidate for naltrexone to address is alcohol dependency. * ER clinician confirmed patient's methadone 90 mg dose with Izabel Josue RN to be 90 mg at [facility] methadone clinic on 08/02/18. Patient also received a take-home dose which needs to be returned to the methadone clinic as patient was hospitalized today <Jessica Crane - Last Filed: 08/04/18 16:37> Family Contact Family involvement: Famliy/SO not involved <Naina Alfredo - Last Filed: 08/08/18 16:37>
[2018-08-02] MEDS ORDERED: Albuterol HFA 90 mcg/actuation (8 g) IH PRN (19:17)
[2018-08-02] MEDS: Insulin Reg-LOW-Coverage SC SCH (21:33)
[2018-08-02] MEDS: Divalproex 250 mg DR (BID formulation) PO SCH (21:35)
[2018-08-03] MEDS: Insulin Reg-LOW-Coverage SC SCH ×4 (08:00→21:44)
[2018-08-03 08:02] LABS: GLUCOSE,FASTING 94 mg/dL (65-110); HDL CHOLESTEROL 65 mg/dL (29-60)
[2018-08-03 08:13] LABS: LDL CHOLESTEROL 109 mg/dL (0-129)
[2018-08-03 08:18] LABS: FREE T4 1.08 ng/dL (0.78-2.19)
[2018-08-03] MEDS ORDERED: Albuterol-Ipratrop 3 mg / 0.5 (3 ml) UD IH PRN (08:26)
[2018-08-03] MEDS: Divalproex 500 mg DR(BID formulation) PO SCH (09:19)
--- NOTE | 2018-08-03 10:01 | PCM.PSYCH ---
Initial Psychiatric Evaluation - Initial Psychiatric Evaluation Type of Admission: Voluntary Legal Status: Capacity History of Present Illness and Precipitating Events: Patient is a single 48 year old -[place] male, self reported history of schizoaffective disorder, opioid use disorder on methadone maintenance, numerous psychiatric admissions (>10) most recently discharged from this unit on 05/03/18- 05/12/18, historically poorly compliant with medications and aftercare recommendations who brought himself to the hospital looking for help with depression, suicidal ideation (with plan to jump in front of train/jump off of a bridge/ buy a gun to shoot himself as well as visual hallucinations " people and things moving". Patient had been in fair control on the unit though reluctant to fully engage in an interview. This is very similar to prior presentations. Eye contact is poor and responses are brief without much elaboration. He appears guarded and p reoccupied. Denies hallucinations and doesnt appear to be responding to internal stimuli. He indicates that he has not been compliant with medications and has been drinking 1-2 pints of vodka daily. Patient continues to attend a methadone clinic and denies relapse on heroin. Presently he denies any discomfort or pain and doesn't appear to be in any physical distress. PSYCHIATRIC HISTORY ~05/03/18-05/12/18 hospitalized at [facility]. He was discharged on :Cogentin 0.5 mg po bid, Depakote 500 mg AM and 750 mg HS, Prolixin 5 mg AM and 5 mg HS, Trazodone 100 mg HS, Nicoderm CQ 21 mg patch, replaced daily. --Methadone was also decreased to final value of 60 mg daily due to sedation (Methadone clinic was informed). --Changed prns for agitation from geodon + ativan to geodon + cogentin to improve patient's alertness on the unit. Patient has a history of placing and retracting 48 hour letters. He also has a history of code greys on the unit. ~08/09/17-08/17/17 hospitalized at [facility]. Diagnosed with Schizoaffective disorder, Opioid use disorder, moderate, in sustained remission, on maintenance therapy. Patient was discharged on Abilify 20 mg po daily, Neurontin 300 mg po TID, Zoloft 100 mg po daily and Sonata 5 mg HS prn. ~During patients 07/2017 hospitalization at [facility], he was not forthcoming about his recent discharge from [facility] on August 01. Dr. Baxter documentation indicated "Patient has had multiple psychiatric admissions at [facility] the most recent in April. Patient admits he has not been compliant with his medication. After discharge he went back to [facility] , his methadone clinic that he has been going to for 3 years. Patient using heroin on top of methadone 10 bags/day. Patient drinks 1 pint of vodka/day and beer on top of that. Patient admits to xanax use 2 sticks/day. Patient denies barbiturate use even though his urine was positive. Patient denies any other drug use" ~Nursing note indicates that patient admitted to a past suicidal attempt 15 years ago by overdosing on Excedrin PM. SOCIAL Born and raised in [place]. Single. Denies having any children. Lives in an apartment. Patient reports history of opioid use disorder. He reportedly attends [facility] methadone clinic ([phone]) and receives 90 mg daily of methadone. This was confirmed by ER clinician. As per collaterals, patient has history of hospital shopping, admitted himself into the hospital looking for food and fpc. Patient reported smoking about one pack a day, nicotine patch offered and morbidity/mortality risks of continued tobacco use were reviewed with patient. The patient failed the outpatient lower level of care: Yes Current Medications: Active Medications Generic Name Dose Route Start Last Admin Trade Name Freq PRN Reason Stop Dose Admin Albuterol 2 puff 08/02/18 19:17 Ventolin Hfa 90 Mcg/Actuation (8 G) IH [id number] PRN Wheezing Benztropine Mesylate 0.5 mg 08/03/18 08:00 Cogentin PO BID KEYANNA Divalproex Sodium 500 mg 08/03/18 08:00 Hailey Schumacher(*Bid*) PO DAILY KEYANNA Divalproex Sodium 750 mg 08/02/18 22:00 08/02/18 21:35 Hailey Schumacher (*Bid*) PO 750 mg HS KEYANNA Administration Protocol Fluphenazine HCl 5 mg 08/02/18 22:00 08/02/18 21:35 Prolixin PO 5 mg [facility] Administration Protocol Insulin Human Regular 0 units 08/02/18 22:00 08/02/18 21:33 Humulin R Low SC Not Given ACHS KEYANNA Protocol Lorazepam 1 mg 08/02/18 19:15 08/03/18 02:29 Ativan PO 1 mg Q8H KEYANNA Administration Protocol Nicotine 1 patch 08/03/18 08:00 Nicoderm Cq TD DAILY KEYANNA Trazodone HCl 50 mg 08/02/18 22:00 08/02/18 21:35 Desyrel PO 50 mg HS KEYANNA Administration Present on Admission - Present on Admission Any Indicators Present on Admission: No - Notes: Notes:: Please refer to findings from physical exams and ROS from 08/02/18 ER records at [facility] Review of Systems - Review of Systems Review of Systems: Please refer to findings from physical exams and ROS from 08/02/18 ER records at [facility] - Constitutional Constitutional: As Per HPI - EENT Eyes: As Per HPI Ears: As Per HPI Nose/Mouth/Throat: As Per HPI - Cardiovascular Cardiovascular: As Per HPI - Respiratory Respiratory: As Per HPI - Gastrointestinal Gastrointestinal: As Per HPI - Genitourinary Genitourinary: As Per HPI - Reproductive: Male Reproductive:Male: As Per HPI - Musculoskeletal Musculoskeletal: As Per HPI - Integumentary Integumentary: As Per HPI - Neurological Neurological: As Per HPI - Psychiatric Psychiatric: As Per HPI - Endocrine Endocrine: As Per HPI - Hematologic/Lymphatic Hematologic: As Per HPI Past Patient History - Past Psychiatric History Previous Treatment History: Inpatient Prior Professional Help: Refer to HPI - PSYCHIATRIC Hx Anxiety: Yes Hx Bipolar Disorder: Yes Hx Depression: Yes Hx Hallucinations: Yes Hx Panic Symptoms: Yes Hx Paranoia: Yes Hx Psychosis: Yes Hx Schizophrenia: Yes Hx Substance Use: No - Infectious Disease Hx of Infectious Diseases: None - Tetanus Immunizations Tetanus Immunization: Unknown - Past Medical History & Family History Past Medical History?: Yes - CARDIAC Hx Cardiac Disorders: No Hx Hypertension: Yes - PULMONARY Hx Tuberculosis: No - NEUROLOGICAL HX Cerebrovascular Accident: No Hx Seizures: No - HEENT Hx HEENT Problems: Yes Hx Cataracts: Yes (R) - RENAL Hx Chronic Kidney Disease: No - ENDOCRINE/METABOLIC Hx Endocrine Disorders: Yes Hx Diabetes Mellitus Type 2: Yes - HEMATOLOGICAL/ONCOLOGICAL Hx Cancer: No Hx Human Immunodeficiency Virus (HIV): No - INTEGUMENTARY Hx Dermatological Problems: No - MUSCULOSKELETAL/RHEUMATOLOGICAL Hx Arthritis: No - GASTROINTESTINAL Hx Gastrointestinal Disorders: No - GENITOURINARY/GYNECOLOGICAL Hx Sexually Transmitted Disorders: No - SURGICAL HISTORY Hx Cataract Extraction: Yes - ANESTHESIA Hx Anesthesia: Yes Hx Anesthesia Reactions: No - Medical/Surgical History Reviewed & confirmed: by me (Please refer to findings from physical exams and ROS from 08/02/18 ER records at [facility] as well as HPI) Meds Allergies/Adverse Reactions: Allergies Allergy/AdvReac Type Severity Reaction Status Date / Time No Known Allergies Allergy Verified 08/02/18 18:35 Mental Status Examination - Personal Presentation Personal Presentation: Looks stated age - Affect Affect: Constricted - Motor Activity Motor Activity: Calm - Reliability in Providing Information Reliability in Providing Information: Fair - Speech Speech: Tangential - Mood Mood: Depressed - Formal Thought Process Formal Thought Process: Hallucinations, Delusions, Paranoia, Loosening of associations - Obsessions/Compulsions Obsessions: No Compulsions: No - Cognitive Functions Orientation: Person, Place Sensorium: Drowsy Attention/Concentration: Easily distracted Abstract Thinking: Dilliner Estimate of Intelligence: Average Judgement: Imparied, as evidence by: Poor judgement, Imparied, as evidence by: Lack of insight into illness - Risk Risk: Suicidal, Diminished functioning Psychiatric Physical Exam - Physical Exam Reviewed and confirmed: Emergency Department Physical Exam (Please refer to findings from physical exams and ROS from 08/02/18 ER records at [facility]) Results - Vital Signs Recent Vital Signs: Last Vital Signs Temp 98.4 F 08/02/18 18:24 Pulse 90 08/02/18 18:24 Resp 18 08/02/18 18:24 BP 147/107 H 08/02/18 18:24 Pulse Ox 95 08/02/18 18:24 - Labs Result Diagrams: 08/02/18 13:30 08/02/18 13:30 Labs: Laboratory Results - last 24 hr 08/02/18 08/02/18 08/02/18 13:20 13:20 13:30 WBC 8.8 RBC 4.64 Hgb 13.1 L Hct 39.2 L MCV 84.5 MCH 28.2 MCHC 33.4 RDW 14.5 Plt Count 275 MPV 10.5 Gran % 75.2 H Lymph % (Auto) 20.8 L Gray % (Auto) 3.5 Eos % (Auto) 0.2 L Baso % (Auto) 0.3 Gran # 6.60 H Lymph # (Auto) 1.8 Gray # (Auto) 0.3 Eos # (Auto) 0.0 Baso # (Auto) 0.03 Sodium Potassium Chloride Carbon Dioxide Anion Gap BUN Creatinine Est GFR ( Amer) Est GFR (Non-Af Amer) POC Glucose (mg/dL) Random Glucose Calcium Total Bilirubin AST ALT Alkaline Phosphatase Total Protein Albumin Globulin Albumin/Globulin Ratio Urine Color Yellow Urine Appearance Sl cloudy Urine pH 6.0 Ur Specific Mccloud >= 1.030 Urine Protein Trace H Urine Glucose (UA) Negative Urine Ketones Negative Urine Blood Negative Urine Nitrate Negative Urine Bilirubin Negative Urine Urobilinogen 0.2 Ur Leukocyte Esterase Negative Urine RBC Negative Urine WBC 0 - 2 Calcium Oxalate Crystal Few Salicylates Urine Opiates Screen Negative Urine Methadone Screen Positive H Acetaminophen Ur Barbiturates Screen Negative Ur Phencyclidine Scrn Negative Ur Amphetamines Screen Negative U Benzodiazepines Scrn Positive H U Oth Cocaine Metabols Negative U Cannabinoids Screen Negative Alcohol, Quantitative 08/02/18 08/02/18 08/02/18 13:30 13:30 13:30 WBC RBC Hgb Hct MCV MCH MCHC RDW Plt Count MPV Gran % Lymph % (Auto) Gray % (Auto) Eos % (Auto) Baso % (Auto) Gran # Lymph # (Auto) Gray # (Auto) Eos # (Auto) Baso # (Auto) Sodium 140 Potassium 4.3 Chloride 105 Carbon Dioxide 27 Anion Gap 12 BUN 11 Creatinine 0.8 Est GFR ( Amer) > 60 Est GFR (Non-Af Amer) > 60 POC Glucose (mg/dL) Random Glucose 108 Calcium 9.7 Total Bilirubin 0.2 AST 27 ALT 32 Alkaline Phosphatase 82 Total Protein 8.1 Albumin 4.6 Globulin 3.5 Albumin/Globulin Ratio 1.3 Urine Color Urine Appearance Urine pH Ur Specific Mccloud Urine Protein Urine Glucose (UA) Urine Ketones Urine Blood Urine Nitrate Urine Bilirubin Urine Urobilinogen Ur Leukocyte Esterase Urine RBC Urine WBC Calcium Oxalate Crystal Salicylates < 1 L Urine Opiates Screen Urine Methadone Screen Acetaminophen < 10.0 L Ur Barbiturates Screen Ur Phencyclidine Scrn Ur Amphetamines Screen U Benzodiazepines Scrn U Oth Cocaine Metabols U Cannabinoids Screen Alcohol, Quantitative < 10 08/02/18 21:21 WBC RBC Hgb Hct MCV MCH MCHC RDW Plt Count MPV Gran % Lymph % (Auto) Gray % (Auto) Eos % (Auto) Baso % (Auto) Gran # Lymph # (Auto) Gray # (Auto) Eos # (Auto) Baso # (Auto) Sodium Potassium Chloride Carbon Dioxide Anion Gap BUN Creatinine Est GFR ( Amer) Est GFR (Non-Af Amer) POC Glucose (mg/dL) 101 Random Glucose Calcium Total Bilirubin AST ALT Alkaline Phosphatase Total Protein Albumin Globulin Albumin/Globulin Ratio Urine Color Urine Appearance Urine pH Ur Specific Mccloud Urine Protein Urine Glucose (UA) Urine Ketones Urine Blood Urine Nitrate Urine Bilirubin Urine Urobilinogen Ur Leukocyte Esterase Urine RBC Urine WBC Calcium Oxalate Crystal Salicylates Urine Opiates Screen Urine Methadone Screen Acetaminophen Ur Barbiturates Screen Ur Phencyclidine Scrn Ur Amphetamines Screen U Benzodiazepines Scrn U Oth Cocaine Metabols U Cannabinoids Screen Alcohol, Quantitative - Impressions Impression: Please refer to findings from physical exams and ROS from 08/02/18 ER records at [facility] DSM Plan - DSM 5 DSM 5 Diagnosis: As per history schizoaffective disorder Opioid use disorder in remission, on maintenance methadone program alcohol abuse - Recommended/Plan of Treatment Treatment Recommendations and Plan of Treatment: * group, milieu and supportive tx * Depakote 500 mg AM and 750 mg HS for mood control. Check VPA * Prolixin 5 mg po AM and HS to help with mood control and cogentin 0.5 mg po bid for EPS prophylaxis * Trazodone 50 mg po HS * Ativan 1 mg q8 with plan to taper for alcohol use * Patient attends a methadone clinic so he is not a candidate for naltrexone to address is alcohol dependency. * ER clinician confirmed patient's methadone 90 mg dose with Izabel Josue RN to be 90 mg at [facility] methadone clinic on 08/02/18. Patient also received a take-home dose which needs to be returned to the methadone clinic as patient was hospitalized today. Will provide dose of 70 mg to avoid sedation/respiratory depression on the unit. * Awaiting medical f/u * Nicoderm CQ 21 mg patch, replaced daily for nicotine cravings * Vitals reviewed and noted below: 08/02/18 08/02/18 16:49 18:24 Temperature 98.2 F 98.4 F Pulse Rate 88 90 Respiratory 19 18 Rate Blood Pressure 149/80 147/107 H O2 Sat by Pulse 96 95 Oximetry Please refer to findings from physical exams and ROS from 08/02/18 ER records at [facility] PER ER REPORT Chest X- Ray Dictator : Mook Turcios MD Report Date : 08/02/2018 13:13:19 IMPRESSION: No active disease. Admission labs Laboratory Tests 08/02/18 08/02/18 08/02/18 13:20 13:20 13:30 WBC 8.8 RBC 4.64 Hgb 13.1 L Hct 39.2 L MCV 84.5 MCH 28.2 MCHC 33.4 RDW 14.5 Plt Count 275 MPV 10.5 Gran % 75.2 H Lymph % (Auto) 20.8 L Gray % (Auto) 3.5 Eos % (Auto) 0.2 L Baso % (Auto) 0.3 Gran # 6.60 H Lymph # (Auto) 1.8 Gray # (Auto) 0.3 Eos # (Auto) 0.0 Baso # (Auto) 0.03 Sodium Potassium Chloride Carbon Dioxide Anion Gap BUN Creatinine Est GFR ( Amer) Est GFR (Non-Af Amer) POC Glucose (mg/dL) Random Glucose Fasting Glucose Calcium Total Bilirubin AST ALT Alkaline Phosphatase Total Protein Albumin Globulin Albumin/Globulin Ratio Triglycerides Cholesterol LDL Cholesterol Direct HDL Cholesterol Free T4 TSH 3rd Generation Urine Color Yellow Urine Appearance Sl cloudy Urine pH 6.0 Ur Specific Mccloud >= 1.030 Urine Protein Trace H Urine Glucose (UA) Negative Urine Ketones Negative Urine Blood Negative Urine Nitrate Negative Urine Bilirubin Negative Urine Urobilinogen 0.2 Ur Leukocyte Esterase Negative Urine RBC Negative Urine WBC 0 - 2 Calcium Oxalate Crystal Few Salicylates Urine Opiates Screen Negative Urine Methadone Screen Positive H Acetaminophen Ur Barbiturates Screen Negative Ur Phencyclidine Scrn Negative Ur Amphetamines Screen Negative U Benzodiazepines Scrn Positive H U Oth Cocaine Metabols Negative U Cannabinoids Screen Negative Alcohol, Quantitative 08/02/18 08/02/18 08/02/18 13:30 13:30 13:30 WBC RBC Hgb Hct MCV MCH MCHC RDW Plt Count MPV Gran % Lymph % (Auto) Gray % (Auto) Eos % (Auto) Baso % (Auto) Gran # Lymph # (Auto) Gray # (Auto) Eos # (Auto) Baso # (Auto) Sodium 140 Potassium 4.3 Chloride 105 Carbon Dioxide 27 Anion Gap 12 BUN 11 Creatinine 0.8 Est GFR ( Amer) > 60 Est GFR (Non-Af Amer) > 60 POC Glucose (mg/dL) Random Glucose 108 Fasting Glucose Calcium 9.7 Total Bilirubin 0.2 AST 27 ALT 32 Alkaline Phosphatase 82 Total Protein 8.1 Albumin 4.6 Globulin 3.5 Albumin/Globulin Ratio 1.3 Triglycerides Cholesterol LDL Cholesterol Direct HDL Cholesterol Free T4 TSH 3rd Generation Urine Color Urine Appearance Urine pH Ur Specific Mccloud Urine Protein Urine Glucose (UA) Urine Ketones Urine Blood Urine Nitrate Urine Bilirubin Urine Urobilinogen Ur Leukocyte Esterase Urine RBC Urine WBC Calcium Oxalate Crystal Salicylates < 1 L Urine Opiates Screen Urine Methadone Screen Acetaminophen < 10.0 L Ur Barbiturates Screen Ur Phencyclidine Scrn Ur Amphetamines Screen U Benzodiazepines Scrn U Oth Cocaine Metabols U Cannabinoids Screen Alcohol, Quantitative < 10 08/02/18 08/03/18 08/03/18 21:21 07:20 07:20 WBC RBC Hgb Hct MCV MCH MCHC RDW Plt Count MPV Gran % Lymph % (Auto) Gray % (Auto) Eos % (Auto) Baso % (Auto) Gran # Lymph # (Auto) Gray # (Auto) Eos # (Auto) Baso # (Auto) Sodium Potassium Chloride Carbon Dioxide Anion Gap BUN Creatinine Est GFR ( Amer) Est GFR (Non-Af Amer) POC Glucose (mg/dL) 101 Random Glucose Fasting Glucose 94 Calcium Total Bilirubin AST ALT Alkaline Phosphatase Total Protein Albumin Globulin Albumin/Globulin Ratio Triglycerides 126 Cholesterol 185 LDL Cholesterol Direct 109 HDL Cholesterol 65 H Free T4 1.08 TSH 3rd Generation 1.23 Urine Color Urine Appearance Urine pH Ur Specific Mccloud Urine Protein Urine Glucose (UA) Urine Ketones Urine Blood Urine Nitrate Urine Bilirubin Urine Urobilinogen Ur Leukocyte Esterase Urine RBC Urine WBC Calcium Oxalate Crystal Salicylates Urine Opiates Screen Urine Methadone Screen Acetaminophen Ur Barbiturates Screen Ur Phencyclidine Scrn Ur Amphetamines Screen U Benzodiazepines Scrn U Oth Cocaine Metabols U Cannabinoids Screen Alcohol, Quantitative - Tobacco Cessation Tobacco Use Status for the last 30 days: Heavy User(>=5 cigs &/or cigars/pipes daily) Tobacco Use Treatment Practical Counseling Provided: Yes Tobacco Use Treatment FDA-Approved Cessation Medication Provided: Yes Type of Medication Provided: Karla MENDEZ Initial Psych Certification - Initial Certification I certify that the inpatient psychiatric facility admission was medically necessary for either: Treatment which could reasonbly be expected to improve pt's condition, Diagnostic study I estimate of hospitalization is necessary for proper treatment of the patient: 7 Unit of Time: Days
--- NOTE | 2018-08-03 12:22 | CP.PCM.CON ---
<Baldemar Berger - Last Filed: 08/03/18 12:36> History of Present Illness - History of Present Illness History of Present Illness: Medical Consult note for Dr. Joseph Patient is a 48 yo male with a history of schizoaffective disorder, opioid abuse on methadone, hypertension, DM II, and asthma who present with complaints of visual and auditory hallucinations which were telling him to commit suicide. Patient states he has not been taking his medications for his current conditions within the last two weeks. Admits to shortness of breath. Denies fevers, chills, abdominal pain, chest pain, nausea, vomiting, diarrhea, dysuria, cough. PMD: denies Surgical Hx: denies Social history: homeless stays in [place], denies alcohol abuse, admits to tobacco abuse Review of Systems - Constitutional Constitutional: absent: Chills, Fever - EENT Eyes: absent: Change in Vision - Cardiovascular Cardiovascular: absent: Chest Pain, Dyspnea - Respiratory Respiratory: absent: Cough, Dyspnea - Gastrointestinal Gastrointestinal: absent: Diarrhea, Nausea, Vomiting - Genitourinary Genitourinary: absent: Dysuria - Musculoskeletal Musculoskeletal: absent: Back Pain - Neurological Neurological: absent: Dizziness, Numbness - Psychiatric Psychiatric: Depression, Hallucinations, Suicidal Ideation - Endocrine Endocrine: absent: Fatigue Past Patient History - Infectious Disease Hx of Infectious Diseases: None - Tetanus Immunizations Tetanus Immunization: Unknown - Past Medical History & Family History Past Medical History?: Yes - Past Social History Smoking Status: Light Smoker < 10 Cigarettes Daily - CARDIAC Hx Cardiac Disorders: No Hx Hypertension: Yes - PULMONARY Hx Tuberculosis: No - NEUROLOGICAL HX Cerebrovascular Accident: No Hx Seizures: No - HEENT Hx HEENT Problems: Yes Hx Cataracts: Yes (R) - RENAL Hx Chronic Kidney Disease: No - ENDOCRINE/METABOLIC Hx Endocrine Disorders: Yes Hx Diabetes Mellitus Type 2: Yes - HEMATOLOGICAL/ONCOLOGICAL Hx Cancer: No Hx Human Immunodeficiency Virus (HIV): No - INTEGUMENTARY Hx Dermatological Problems: No - MUSCULOSKELETAL/RHEUMATOLOGICAL Hx Arthritis: No - GASTROINTESTINAL Hx Gastrointestinal Disorders: No - GENITOURINARY/GYNECOLOGICAL Hx Sexually Transmitted Disorders: No - PSYCHIATRIC Hx Anxiety: Yes Hx Bipolar Disorder: Yes Hx Depression: Yes Hx Hallucinations: Yes Hx Panic Symptoms: Yes Hx Paranoia: Yes Hx Psychosis: Yes Hx Schizophrenia: Yes Hx Substance Use: No - SURGICAL HISTORY Hx Cataract Extraction: Yes - ANESTHESIA Hx Anesthesia: Yes Hx Anesthesia Reactions: No Meds Allergies/Adverse Reactions: Allergies Allergy/AdvReac Type Severity Reaction Status Date / Time No Known Allergies Allergy Verified 08/02/18 18:35 - Medications Medications: Current Medications Albuterol (Ventolin Hfa 90 Mcg/Actuation (8 G)) 2 puff IH [id number] PRN PRN Reason: Wheezing Amlodipine Besylate (Norvasc) 5 mg PO DAILY [facility] Last Admin: 08/03/18 09:28 Dose: 5 mg Benztropine Mesylate (Cogentin) 0.5 mg PO BID [facility] Last Admin: 08/03/18 09:19 Dose: 0.5 mg Divalproex Sodium (Depakote Dr(*Bid*)) 500 mg PO DAILY [facility] Last Admin: 08/03/18 09:19 Dose: 500 mg Divalproex Sodium (Depakote Dr (*Bid*)) 750 mg PO HS [facility]; Protocol Last Admin: 08/02/18 21:35 Dose: 750 mg Fluphenazine HCl (Prolixin) 5 mg PO [facility]; Protocol Last Admin: 08/03/18 09:19 Dose: 5 mg Insulin Human Regular (Humulin R Low) 0 units SC [facility]; Protocol Last Admin: 08/03/18 08:00 Dose: Not Given Lorazepam (Ativan) 1 mg PO Q8H [facility]; Protocol Last Admin: 08/03/18 12:12 Dose: 1 mg Metformin HCl (Glucophage) 500 mg PO BID [facility] Methadone HCl (Methadone) 70 mg PO DAILY [facility] Last Admin: 08/03/18 09:17 Dose: 70 mg Nicotine (Nicoderm Cq) 1 patch TD DAILY [facility] Last Admin: 08/03/18 09:20 Dose: Not Given Trazodone HCl (Desyrel) 50 mg PO HS [facility] Last Admin: 08/02/18 21:35 Dose: 50 mg Physical Exam - Head Exam Head Exam: ATRAUMATIC, NORMAL INSPECTION, NORMOCEPHALIC - Eye Exam Eye Exam: EOMI, Normal appearance - ENT Exam ENT Exam: Mucous Membranes Moist - Neck Exam Neck exam: Positive for: Normal Inspection - Respiratory Exam Respiratory Exam: Clear to Auscultation Bilateral, NORMAL BREATHING PATTERN. absent: Wheezes - Cardiovascular Exam Cardiovascular Exam: REGULAR RHYTHM, +S1, +S2 - GI/Abdominal Exam GI & Abdominal Exam: Normal Bowel Sounds, Soft - Neurological Exam Neurological exam: Alert, CN II-XII Intact, Oriented x3 - Psychiatric Exam Psychiatric exam: Normal Affect, Normal Mood - Skin Skin Exam: Normal Color, Warm Results - Vital Signs Recent Vital Signs: Last Vital Signs Temp 98.4 F 08/02/18 18:24 Pulse 99 H 08/03/18 09:28 Resp 18 08/02/18 18:24 BP 130/87 08/03/18 09:28 Pulse Ox 95 08/02/18 18:24 - Labs Result Diagrams: 08/02/18 13:30 08/02/18 13:30 Labs: Laboratory Results - last 24 hr 08/02/18 08/02/18 08/02/18 13:20 13:20 13:30 WBC 8.8 RBC 4.64 Hgb 13.1 L Hct 39.2 L MCV 84.5 MCH 28.2 MCHC 33.4 RDW 14.5 Plt Count 275 MPV 10.5 Gran % 75.2 H Lymph % (Auto) 20.8 L [place] % (Auto) 3.5 Eos % (Auto) 0.2 L Baso % (Auto) 0.3 Gran # 6.60 H Lymph # (Auto) 1.8 [place] # (Auto) 0.3 Eos # (Auto) 0.0 Baso # (Auto) 0.03 Sodium Potassium Chloride Carbon Dioxide Anion Gap BUN Creatinine Est GFR ( Amer) Est GFR (Non-Af Amer) POC Glucose (mg/dL) Random Glucose Fasting Glucose Hemoglobin A1c Calcium Total Bilirubin AST ALT Alkaline Phosphatase Total Protein Albumin Globulin Albumin/Globulin Ratio Triglycerides Cholesterol LDL Cholesterol Direct HDL Cholesterol Free T4 TSH 3rd Generation Urine Color Yellow Urine Appearance Sl cloudy Urine pH 6.0 Ur Specific [place] >= 1.030 Urine Protein Trace H Urine Glucose (UA) Negative Urine Ketones Negative Urine Blood Negative Urine Nitrate Negative Urine Bilirubin Negative Urine Urobilinogen 0.2 Ur Leukocyte Esterase Negative Urine RBC Negative Urine WBC 0 - 2 Calcium Oxalate Crystal Few Salicylates Urine Opiates Screen Negative Urine Methadone Screen Positive H Acetaminophen Ur Barbiturates Screen Negative Valproic Acid Ur Phencyclidine Scrn Negative Ur Amphetamines Screen Negative U Benzodiazepines Scrn Positive H U Oth Cocaine Metabols Negative U Cannabinoids Screen Negative Alcohol, Quantitative 08/02/18 08/02/18 08/02/18 13:30 13:30 13:30 WBC RBC Hgb Hct MCV MCH MCHC RDW Plt Count MPV Gran % Lymph % (Auto) [place] % (Auto) Eos % (Auto) Baso % (Auto) Gran # Lymph # (Auto) [place] # (Auto) Eos # (Auto) Baso # (Auto) Sodium 140 Potassium 4.3 Chloride 105 Carbon Dioxide 27 Anion Gap 12 BUN 11 Creatinine 0.8 Est GFR ( Amer) > 60 Est GFR (Non-Af Amer) > 60 POC Glucose (mg/dL) Random Glucose 108 Fasting Glucose Hemoglobin A1c Calcium 9.7 Total Bilirubin 0.2 AST 27 ALT 32 Alkaline Phosphatase 82 Total Protein 8.1 Albumin 4.6 Globulin 3.5 Albumin/Globulin Ratio 1.3 Triglycerides Cholesterol LDL Cholesterol Direct HDL Cholesterol Free T4 TSH 3rd Generation Urine Color Urine Appearance Urine pH Ur Specific [place] Urine Protein Urine Glucose (UA) Urine Ketones Urine Blood Urine Nitrate Urine Bilirubin Urine Urobilinogen Ur Leukocyte Esterase Urine RBC Urine WBC Calcium Oxalate Crystal Salicylates < 1 L Urine Opiates Screen Urine Methadone Screen Acetaminophen < 10.0 L Ur Barbiturates Screen Valproic Acid Ur Phencyclidine Scrn Ur Amphetamines Screen U Benzodiazepines Scrn U Oth Cocaine Metabols U Cannabinoids Screen Alcohol, Quantitative < 10 08/02/18 08/03/18 08/03/18 21:21 07:15 07:20 WBC RBC Hgb Hct MCV MCH MCHC RDW Plt Count MPV Gran % Lymph % (Auto) [place] % (Auto) Eos % (Auto) Baso % (Auto) Gran # Lymph # (Auto) [place] # (Auto) Eos # (Auto) Baso # (Auto) Sodium Potassium Chloride Carbon Dioxide Anion Gap BUN Creatinine Est GFR ( Amer) Est GFR (Non-Af Amer) POC Glucose (mg/dL) 101 89 Random Glucose Fasting Glucose 94 Hemoglobin A1c Calcium Total Bilirubin AST ALT Alkaline Phosphatase Total Protein Albumin Globulin Albumin/Globulin Ratio Triglycerides 126 Cholesterol 185 LDL Cholesterol Direct 109 HDL Cholesterol 65 H Free T4 TSH 3rd Generation Urine Color Urine Appearance Urine pH Ur Specific [place] Urine Protein Urine Glucose (UA) Urine Ketones Urine Blood Urine Nitrate Urine Bilirubin Urine Urobilinogen Ur Leukocyte Esterase Urine RBC Urine WBC Calcium Oxalate Crystal Salicylates Urine Opiates Screen Urine Methadone Screen Acetaminophen Ur Barbiturates Screen Valproic Acid Ur Phencyclidine Scrn Ur Amphetamines Screen U Benzodiazepines Scrn U Oth Cocaine Metabols U Cannabinoids Screen Alcohol, Quantitative 08/03/18 08/03/18 08/03/18 07:20 07:52 10:00 WBC RBC Hgb Hct MCV MCH MCHC RDW Plt Count MPV Gran % Lymph % (Auto) [place] % (Auto) Eos % (Auto) Baso % (Auto) Gran # Lymph # (Auto) [place] # (Auto) Eos # (Auto) Baso # (Auto) Sodium Potassium Chloride Carbon Dioxide Anion Gap BUN Creatinine Est GFR ( Amer) Est GFR (Non-Af Amer) POC Glucose (mg/dL) Random Glucose Fasting Glucose Hemoglobin A1c 7.6 H D Calcium Total Bilirubin AST ALT Alkaline Phosphatase Total Protein Albumin Globulin Albumin/Globulin Ratio Triglycerides Cholesterol LDL Cholesterol Direct HDL Cholesterol Free T4 1.08 TSH 3rd Generation 1.23 Urine Color Urine Appearance Urine pH Ur Specific [place] Urine Protein Urine Glucose (UA) Urine Ketones Urine Blood Urine Nitrate Urine Bilirubin Urine Urobilinogen Ur Leukocyte Esterase Urine RBC Urine WBC Calcium Oxalate Crystal Salicylates Urine Opiates Screen Urine Methadone Screen Acetaminophen Ur Barbiturates Screen Valproic Acid 53 Ur Phencyclidine Scrn Ur Amphetamines Screen U Benzodiazepines Scrn U Oth Cocaine Metabols U Cannabinoids Screen Alcohol, Quantitative Assessment & Plan - Assessment and Plan (Free Text) Assessment: Patient is a 48 yo male with a history of schizoaffective disorder, opioid abuse on methadone, hypertension, DM II, and asthma who present with complaints of visual and auditory hallucinations which were telling him to commit suicide. Plan: Psychiatric hx -Continue medications as per Psych Hypertension -Continue with amlodipine IDDM -Continue with metformin -Insulin sliding scale low -HgA1C ordered Asthma -Ventolin PRN Tobacco abuse -Cessation discussed with patient -Nicotine patch Case discussed and seen with attending Dr. Joseph <Venkata Joseph - Last Filed: 08/03/18 13:47> Meds - Medications Medications: Current Medications Albuterol (Ventolin Hfa 90 Mcg/Actuation (8 G)) 2 puff IH [id number] PRN PRN Reason: Wheezing Amlodipine Besylate (Norvasc) 5 mg PO DAILY [facility] Last Admin: 08/03/18 09:28 Dose: 5 mg Benztropine Mesylate (Cogentin) 0.5 mg PO BID [facility] Last Admin: 08/03/18 09:19 Dose: 0.5 mg Divalproex Sodium (Depakote Dr(*Bid*)) 500 mg PO DAILY [facility] Last Admin: 08/03/18 09:19 Dose: 500 mg Divalproex Sodium (Depakote Dr (*Bid*)) 750 mg PO HS [facility]; Protocol Last Admin: 08/02/18 21:35 Dose: 750 mg Fluphenazine HCl (Prolixin) 5 mg PO [facility]; Protocol Last Admin: 08/03/18 09:19 Dose: 5 mg Insulin Human Regular (Humulin R Low) 0 units SC [facility]; Protocol Last Admin: 08/03/18 12:30 Dose: 1 unit Lorazepam (Ativan) 1 mg PO Q8H [facility]; Protocol Last Admin: 08/03/18 12:12 Dose: 1 mg Metformin HCl (Glucophage) 500 mg PO BID [facility] Methadone HCl (Methadone) 70 mg PO DAILY [facility] Last Admin: 08/03/18 09:17 Dose: 70 mg Nicotine (Nicoderm Cq) 1 patch TD DAILY [facility] Last Admin: 08/03/18 09:20 Dose: Not Given Trazodone HCl (Desyrel) 50 mg PO HS [facility] Last Admin: 08/02/18 21:35 Dose: 50 mg Results - Vital Signs Recent Vital Signs: Last Vital Signs Temp 98.4 F 08/02/18 18:24 Pulse 99 H 08/03/18 09:28 Resp 18 08/02/18 18:24 BP 130/87 08/03/18 09:28 Pulse Ox 95 08/02/18 18:24 - Labs Result Diagrams: 08/02/18 13:30 08/02/18 13:30 Labs: Laboratory Results - last 24 hr 08/02/18 08/02/18 08/02/18 13:20 13:20 13:30 WBC 8.8 RBC 4.64 Hgb 13.1 L Hct 39.2 L MCV 84.5 MCH 28.2 MCHC 33.4 RDW 14.5 Plt Count 275 MPV 10.5 Gran % 75.2 H Lymph % (Auto) 20.8 L [place] % (Auto) 3.5 Eos % (Auto) 0.2 L Baso % (Auto) 0.3 Gran # 6.60 H Lymph # (Auto) 1.8 [place] # (Auto) 0.3 Eos # (Auto) 0.0 Baso # (Auto) 0.03 Sodium Potassium Chloride Carbon Dioxide Anion Gap BUN Creatinine Est GFR ( Amer) Est GFR (Non-Af Amer) POC Glucose (mg/dL) Random Glucose Fasting Glucose Hemoglobin A1c Calcium Total Bilirubin AST ALT Alkaline Phosphatase Total Protein Albumin Globulin Albumin/Globulin Ratio Triglycerides Cholesterol LDL Cholesterol Direct HDL Cholesterol Free T4 TSH 3rd Generation Urine RBC Negative Urine WBC 0 - 2 Calcium Oxalate Crystal Few Salicylates Urine Opiates Screen Negative Urine Methadone Screen Positive H Acetaminophen Ur Barbiturates Screen Negative Valproic Acid Ur Phencyclidine Scrn Negative Ur Amphetamines Screen Negative U Benzodiazepines Scrn Positive H U Oth Cocaine Metabols Negative U Cannabinoids Screen Negative Alcohol, Quantitative 08/02/18 08/02/18 08/02/18 13:30 13:30 13:30 WBC RBC Hgb Hct MCV MCH MCHC RDW Plt Count MPV Gran % Lymph % (Auto) [place] % (Auto) Eos % (Auto) Baso % (Auto) Gran # Lymph # (Auto) [place] # (Auto) Eos # (Auto) Baso # (Auto) Sodium 140 Potassium 4.3 Chloride 105 Carbon Dioxide 27 Anion Gap 12 BUN 11 Creatinine 0.8 Est GFR ( Amer) > 60 Est GFR (Non-Af Amer) > 60 POC Glucose (mg/dL) Random Glucose 108 Fasting Glucose Hemoglobin A1c Calcium 9.7 Total Bilirubin 0.2 AST 27 ALT 32 Alkaline Phosphatase 82 Total Protein 8.1 Albumin 4.6 Globulin 3.5 Albumin/Globulin Ratio 1.3 Triglycerides Cholesterol LDL Cholesterol Direct HDL Cholesterol Free T4 TSH 3rd Generation Urine RBC Urine WBC Calcium Oxalate Crystal Salicylates < 1 L Urine Opiates Screen Urine Methadone Screen Acetaminophen < 10.0 L Ur Barbiturates Screen Valproic Acid Ur Phencyclidine Scrn Ur Amphetamines Screen U Benzodiazepines Scrn U Oth Cocaine Metabols U Cannabinoids Screen Alcohol, Quantitative < 10 08/02/18 08/03/18 08/03/18 21:21 07:15 07:20 WBC RBC Hgb Hct MCV MCH MCHC RDW Plt Count MPV Gran % Lymph % (Auto) [place] % (Auto) Eos % (Auto) Baso % (Auto) Gran # Lymph # (Auto) [place] # (Auto) Eos # (Auto) Baso # (Auto) Sodium Potassium Chloride Carbon Dioxide Anion Gap BUN Creatinine Est GFR ( Amer) Est GFR (Non-Af Amer) POC Glucose (mg/dL) 101 89 Random Glucose Fasting Glucose 94 Hemoglobin A1c Calcium Total Bilirubin AST ALT Alkaline Phosphatase Total Protein Albumin Globulin Albumin/Globulin Ratio Triglycerides 126 Cholesterol 185 LDL Cholesterol Direct 109 HDL Cholesterol 65 H Free T4 TSH 3rd Generation Urine RBC Urine WBC Calcium Oxalate Crystal Salicylates Urine Opiates Screen Urine Methadone Screen Acetaminophen Ur Barbiturates Screen Valproic Acid Ur Phencyclidine Scrn Ur Amphetamines Screen U Benzodiazepines Scrn U Oth Cocaine Metabols U Cannabinoids Screen Alcohol, Quantitative 08/03/18 08/03/18 08/03/18 07:20 07:52 10:00 WBC RBC Hgb Hct MCV MCH MCHC RDW Plt Count MPV Gran % Lymph % (Auto) [place] % (Auto) Eos % (Auto) Baso % (Auto) Gran # Lymph # (Auto) [place] # (Auto) Eos # (Auto) Baso # (Auto) Sodium Potassium Chloride Carbon Dioxide Anion Gap BUN Creatinine Est GFR ( Amer) Est GFR (Non-Af Amer) POC Glucose (mg/dL) Random Glucose Fasting Glucose Hemoglobin A1c 7.6 H D Calcium Total Bilirubin AST ALT Alkaline Phosphatase Total Protein Albumin Globulin Albumin/Globulin Ratio Triglycerides Cholesterol LDL Cholesterol Direct HDL Cholesterol Free T4 1.08 TSH 3rd Generation 1.23 Urine RBC Urine WBC Calcium Oxalate Crystal Salicylates Urine Opiates Screen Urine Methadone Screen Acetaminophen Ur Barbiturates Screen Valproic Acid 53 Ur Phencyclidine Scrn Ur Amphetamines Screen U Benzodiazepines Scrn U Oth Cocaine Metabols U Cannabinoids Screen Alcohol, Quantitative Attending/Attestation - Attestation I have personally seen and examined this patient.: Yes I have fully participated in the care of the patient.: Yes I have reviewed all pertinent clinical information: Yes Notes (Text): 08/03/18 13:43 48 year old male with past medical history of schizoaffective disorder, hypertension, diabetes and asthma who presented with complaints of hallucinations and suicidal ideation. Medical consultation was requested for medical management. Can resume home medication, norvasc, for hypertension. Continue with metformin and insulin ss for diabetes. A1c is 7.6. Continue with albuterol prn for asthma. He was counselled on smoking cessation. Thank you Dr. Felix for allowing us to participate in the care of this patient. Please re-consult as needed. Venkata Joseph MD Hospitalist.
[2018-08-03] MEDS: Divalproex 250 mg DR (BID formulation) PO SCH (21:38)
[2018-08-04] MEDS: Insulin Reg-LOW-Coverage SC SCH ×4 (08:39→21:34)
[2018-08-04] MEDS: Divalproex 500 mg DR(BID formulation) PO SCH (09:45)
--- NOTE | 2018-08-04 10:31 | PCM.PYCHPN ---
Psychiatric Progress Note - Psychiatric Progress Note Patient seen today, length of contact: 25 min Problems Identified/Issues Discussed: History of Present Illness and Precipitating Events: Patient is a single 48 year old -Lebanese male, self reported history of schizoaffective disorder, opioid use disorder on methadone maintenance, numerous psychiatric admissions (>10) most recently discharged from this unit on 05/03/18- 05/12/18, historically poorly compliant with medications and aftercare recommendations who brought himself to the hospital looking for help with depression, suicidal ideation (with plan to jump in front of train/jump off of a bridge/ buy a gun to shoot himself as well as visual hallucinations " people and things moving". Patient had been in fair control on the unit though reluctant to fully engage in an interview. This is very similar to prior presentations. Eye contact is poor and responses are brief without much elaboration. He appears guarded and preoccupied. Denies hallucinations and doesnt appear to be responding to internal stimuli. He indicates that he has not been compliant with medications and has been drinking 1-2 pints of vodka daily. Patient continues to attend a methadone clinic and denies relapse on heroin. Presently he denies any discomfort or pain and doesn't appear to be in any physical distress. PSYCHIATRIC HISTORY ~05/03/18-05/12/18 hospitalized at [facility]. He was discharged on:C ogentin 0.5 mg po bid, Depakote 500 mg AM and 750 mg HS, Prolixin 5 mg AM and 5 mg HS, Trazodone 100 mg HS, Nicoderm CQ 21 mg patch, replaced daily. --Methadone was also decreased to final value of 60 mg daily due to sedation (Methadone clinic was informed). --Changed prns for agitation from geodon + ativan to geodon + cogentin to improve patient's alertness on the unit. Patient has a history of placing and retracting 48 hour letters. He also has a history of code greys on the unit. ~08/09/17-08/17/17 hospitalized at [facility]. Diagnosed with Schizoaffective disorder, Opioid use disorder, moderate, in sustained remission, on maintenance therapy. Patient was discharged on Abilify 20 mg po daily, Neurontin 300 mg po TID, Zoloft 100 mg po daily and Sonata 5 mg HS prn. ~During patients 07/2017 hospitalization at [place], he was not forthcoming about his recent discharge from [facility] on August 01. Dr. Baxter documentation indicated "Patient has had multiple psychiatric admissions at [facility] the most recent in April. Patient admits he has not been compliant with his medication. After discharge he went back to [facility] , his methadone clinic that he has been going to for 3 years. Patient using heroin on top of methadone 10 bags/day. Patient drinks 1 pint of vodka/day and beer on top of that. Patient admits to xanax use 2 sticks/day. Patient denies barbiturate use even though his urine was positive. Patient denies any other drug use" ~Nursing note indicates that patient admitted to a past suicidal attempt 15 years ago by overdosing on Excedrin PM. SOCIAL Born and raised in [place]. Single. Denies having any children. Lives in an apartment. Patient reports history of opioid use disorder. He reportedly attends [facility] methadone clinic ([phone]) and receives 90 mg daily of methadone. This was confirmed by ER clinician. As per collaterals, patient has history of hospital shopping, admitted himself into the hospital looking for food and longterm. Patient reported smoking about one pack a day, nicotine patch offered and morbidity/mortality risks of continued tobacco use were reviewed with patient. PROGRESS NOTE 08/04/18 I reviewed recent notes, patient had been in fair control on the unit though reluctant to fully engage in an interview at bedside or during treatment team meeting. This is very similar to prior presentations. Eye contact is poor and responses are brief without much elaboration. He appears guarded and preoccupied. Denies hallucinations and doesnt appear to be responding to internal stimuli. Patient has been taking medications as prescribed and denies any side effects. Reports that he still feels achey and sick from withdrawals. He does appear fatigued and depressed. Sleep was restless last night. Staff notes indicate that patient has been quiet and withdrawn on the unit. He generally keeps to himself and doesn't appear very motivated to engage in groups or the milieu. He is in better behavioral control (code cardona called) than his prior admission on this unit and there have been no major issues in this regard thus far. Diagnostic Results: As per history schizoaffective disorder Alcohol abuse Opioid use disorder in remission, on maintenance methadone program Medication Change: Yes (trazodone increased, ativan freq increased) Medical Record Reviewed: Yes Mental Status Examination - Cognitive Function Orientation: Person, Place Attention: WNL Concentration: WNL Association: Loose Fund of Knowledge: Poor - Mood Mood: Depressed - Affect Affect: Constricted - Speech Speech: Appropriate - Formal Thought Process Formal Thought Process: Hallucinations, Delusions, Paranoia, Loosening of associations - Suicidal Ideation Suicidal Ideation: No - Homicidal Ideation Homicidal Ideation: No Goal/Treatment Plan - Goal/Treatment Plan Progress Toward Problem(s) and Goals/Treatment Plan: * group, milieu and supportive tx * Depakote 500 mg AM and 750 mg HS for mood control. Check VPA * Prolixin 5 mg po AM and HS to help with mood control and cogentin 0.5 mg po bid for EPS prophylaxis * Trazodone 50 mg po HS increased to 100 mg HS for restless sleep, (off label use) * Ativan 1 mg q8 increased to q6 as vitals elevated. Plan to taper for alcohol use as vitals improve * Patient attends a methadone clinic so he is not a candidate for naltrexone to address is alcohol dependency. * ER clinician confirmed patient's methadone 90 mg dose with Izabel Josue RN to be 90 mg at [facility] methadone clinic on 08/02/18. Patient also received a take-home dose which needs to be returned to the methadone clinic as patient was hospitalized on 08/03/18. * Will provide lower dose of 70 mg to avoid sedation/respiratory depression on the unit, dose needed to be decreased from standing dose of 90 mg during his last admission. . * Appreciate f/u by Dr. Joseph on 08/03/18~signed off as patient was considered medically stable * Nicoderm CQ 21 mg patch, replaced daily for nicotine cravings * Vitals reviewed and noted below: 08/02/18 08/02/18 16:49 18:24 Temperature 98.2 F 98.4 F Pulse Rate 88 90 Respiratory 19 18 Rate Blood Pressure 149/80 147/107 H O2 Sat by Pulse 96 95 Oximetry Please refer to findings from physical exams and ROS from 08/02/18 ER records at [facility] PER ER REPORT Chest X- Ray Dictator : Mook Turcios MD Report Date : 08/02/2018 13:13:19 IMPRESSION: No active disease. Admission labs 08/03/18 08/03/18 08/03/18 07:15 07:20 07:20 POC Glucose (mg/dL) 89 Fasting Glucose 94 Hemoglobin A1c Triglycerides 126 Cholesterol 185 LDL Cholesterol Direct 109 HDL Cholesterol 65 H Free T4 TSH 3rd Generation Valproic Acid RPR Nonreactive 08/03/18 08/03/18 08/03/18 07:20 07:52 10:00 POC Glucose (mg/dL) Fasting Glucose Hemoglobin A1c 7.6 H D Triglycerides Cholesterol LDL Cholesterol Direct HDL Cholesterol Free T4 1.08 TSH 3rd Generation 1.23 Valproic Acid 53 RPR Laboratory Tests 08/02/18 08/02/18 08/02/18 13:20 13:20 13:30 WBC 8.8 RBC 4.64 Hgb 13.1 L Hct 39.2 L MCV 84.5 MCH 28.2 MCHC 33.4 RDW 14.5 Plt Count 275 MPV 10.5 Gran % 75.2 H Lymph % (Auto) 20.8 L [place] % (Auto) 3.5 Eos % (Auto) 0.2 L Baso % (Auto) 0.3 Gran # 6.60 H Lymph # (Auto) 1.8 [place] # (Auto) 0.3 Eos # (Auto) 0.0 Baso # (Auto) 0.03 Sodium Potassium Chloride Carbon Dioxide Anion Gap BUN Creatinine Est GFR ( Amer) Est GFR (Non-Af Amer) POC Glucose (mg/dL) Random Glucose Fasting Glucose Calcium Total Bilirubin AST ALT Alkaline Phosphatase Total Protein Albumin Globulin Albumin/Globulin Ratio Triglycerides Cholesterol LDL Cholesterol Direct HDL Cholesterol Free T4 TSH 3rd Generation Urine Color Yellow Urine Appearance Sl cloudy Urine pH 6.0 Ur Specific [place] >= 1.030 Urine Protein Trace H Urine Glucose (UA) Negative Urine Ketones Negative Urine Blood Negative Urine Nitrate Negative Urine Bilirubin Negative Urine Urobilinogen 0.2 Ur Leukocyte Esterase Negative Urine RBC Negative Urine WBC 0 - 2 Calcium Oxalate Crystal Few Salicylates Urine Opiates Screen Negative Urine Methadone Screen Positive H Acetaminophen Ur Barbiturates Screen Negative Ur Phencyclidine Scrn Negative Ur Amphetamines Screen Negative U Benzodiazepines Scrn Positive H U Oth Cocaine Metabols Negative U Cannabinoids Screen Negative Alcohol, Quantitative 08/02/18 08/02/18 08/02/18 13:30 13:30 13:30 WBC RBC Hgb Hct MCV MCH MCHC RDW Plt Count MPV Gran % Lymph % (Auto) [place] % (Auto) Eos % (Auto) Baso % (Auto) Gran # Lymph # (Auto) [place] # (Auto) Eos # (Auto) Baso # (Auto) Sodium 140 Potassium 4.3 Chloride 105 Carbon Dioxide 27 Anion Gap 12 BUN 11 Creatinine 0.8 Est GFR ( Amer) > 60 Est GFR (Non-Af Amer) > 60 POC Glucose (mg/dL) Random Glucose 108 Fasting Glucose Calcium 9.7 Total Bilirubin 0.2 AST 27 ALT 32 Alkaline Phosphatase 82 Total Protein 8.1 Albumin 4.6 Globulin 3.5 Albumin/Globulin Ratio 1.3 Triglycerides Cholesterol LDL Cholesterol Direct HDL Cholesterol Free T4 TSH 3rd Generation Urine Color Urine Appearance Urine pH Ur Specific [place] Urine Protein Urine Glucose (UA) Urine Ketones Urine Blood Urine Nitrate Urine Bilirubin Urine Urobilinogen Ur Leukocyte Esterase Urine RBC Urine WBC Calcium Oxalate Crystal Salicylates < 1 L Urine Opiates Screen Urine Methadone Screen Acetaminophen < 10.0 L Ur Barbiturates Screen Ur Phencyclidine Scrn Ur Amphetamines Screen U Benzodiazepines Scrn U Oth Cocaine Metabols U Cannabinoids Screen Alcohol, Quantitative < 10 08/02/18 08/03/18 08/03/18 21:21 07:20 07:20 WBC RBC Hgb Hct MCV MCH MCHC RDW Plt Count MPV Gran % Lymph % (Auto) [place] % (Auto) Eos % (Auto) Baso % (Auto) Gran # Lymph # (Auto) [place] # (Auto) Eos # (Auto) Baso # (Auto) Sodium Potassium Chloride Carbon Dioxide Anion Gap BUN Creatinine Est GFR ( Amer) Est GFR (Non-Af Amer) POC Glucose (mg/dL) 101 Random Glucose Fasting Glucose 94 Calcium Total Bilirubin AST ALT Alkaline Phosphatase Total Protein Albumin Globulin Albumin/Globulin Ratio Triglycerides 126 Cholesterol 185 LDL Cholesterol Direct 109 HDL Cholesterol 65 H Free T4 1.08 TSH 3rd Generation 1.23 Urine Color Urine Appearance Urine pH Ur Specific [place] Urine Protein Urine Glucose (UA) Urine Ketones Urine Blood Urine Nitrate Urine Bilirubin Urine Urobilinogen Ur Leukocyte Esterase Urine RBC Urine WBC Calcium Oxalate Crystal Salicylates Urine Opiates Screen Urine Methadone Screen Acetaminophen Ur Barbiturates Screen Ur Phencyclidine Scrn Ur Amphetamines Screen U Benzodiazepines Scrn U Oth Cocaine Metabols U Cannabinoids Screen Alcohol, Quantitative
[2018-08-04] MEDS: Divalproex 250 mg DR (BID formulation) PO SCH (21:24)
[2018-08-05] MEDS: Insulin Reg-LOW-Coverage SC SCH ×4 (08:00→21:48)
--- NOTE | 2018-08-05 09:51 | PCM.PYCHPN ---
Psychiatric Progress Note - Psychiatric Progress Note Patient seen today, length of contact: 25 min Problems Identified/Issues Discussed: History of Present Illness and Precipitating Events: Patient is a single 48 year old -Slovenian male, self reported history of schizoaffective disorder, opioid use disorder on methadone maintenance, numerous psychiatric admissions (>10) most recently discharged from this unit on 05/03/18- 05/12/18, historically poorly compliant with medications and aftercare recommendations who brought himself to the hospital looking for help with depression, suicidal ideation (with plan to jump in front of train/jump off of a bridge/ buy a gun to shoot himself as well as visual hallucinations " people and things moving". Patient had been in fair control on the unit though reluctant to fully engage in an interview. This is very similar to prior presentations. Eye contact is poor and responses are brief without much elaboration. He appears guarded and preoccupied. Denies hallucinations and doesnt appear to be responding to internal stimuli. He indicates that he has not been compliant with medications and has been drinking 1-2 pints of vodka daily. Patient continues to attend a methadone clinic and denies relapse on heroin. Presently he denies any discomfort or pain and doesn't appear to be in any physical distress. PSYCHIATRIC HISTORY ~05/03/18-05/12/18 hospitalized at [facility]. He was discharged on:C ogentin 0.5 mg po bid, Depakote 500 mg AM and 750 mg HS, Prolixin 5 mg AM and 5 mg HS, Trazodone 100 mg HS, Nicoderm CQ 21 mg patch, replaced daily. --Methadone was also decreased to final value of 60 mg daily due to sedation (Methadone clinic was informed). --Changed prns for agitation from geodon + ativan to geodon + cogentin to improve patient's alertness on the unit. Patient has a history of placing and retracting 48 hour letters. He also has a history of code greys on the unit. ~08/09/17-08/17/17 hospitalized at [facility]. Diagnosed with Schizoaffective disorder, Opioid use disorder, moderate, in sustained remission, on maintenance therapy. Patient was discharged on Abilify 20 mg po daily, Neurontin 300 mg po TID, Zoloft 100 mg po daily and Sonata 5 mg HS prn. ~During patients 07/2017 hospitalization at [place], he was not forthcoming about his recent discharge from [facility] on August 01. Dr. Baxter documentation indicated "Patient has had multiple psychiatric admissions at [facility] the most recent in April. Patient admits he has not been compliant with his medication. After discharge he went back to [facility] , his methadone clinic that he has been going to for 3 years. Patient using heroin on top of methadone 10 bags/day. Patient drinks 1 pint of vodka/day and beer on top of that. Patient admits to xanax use 2 sticks/day. Patient denies barbiturate use even though his urine was positive. Patient denies any other drug use" ~Nursing note indicates that patient admitted to a past suicidal attempt 15 years ago by overdosing on Excedrin PM. SOCIAL Born and raised in [place]. Single. Denies having any children. Lives in an apartment. Patient reports history of opioid use disorder. He reportedly attends [facility] methadone clinic ([phone]) and receives 90 mg daily of methadone. This was confirmed by ER clinician. As per collaterals, patient has history of hospital shopping, admitted himself into the hospital looking for food and long term. Patient reported smoking about one pack a day, nicotine patch offered and morbidity/mortality risks of continued tobacco use were reviewed with patient. PROGRESS NOTE 08/05/18 I reviewed recent notes, patient had been in fair control on the unit without any behavioral issues. He is responsive during my questioning but not motivated to engage in the interview. This is very similar to prior presentations. Eye contact and focus are improving and responses are logical, relevant and consistent. Patient denies hallucinations and doesn't appear to be responding to internal stimuli. However patient told staff that he was experiencing hallucinations yesterday (Tuesday). Thought process is coherent and he doesn't present as bizarre or overtly disorganized. Patient has been taking medications as prescribed and denies any side effects. Reports that he still feels achy and sick from withdrawals. Indicates the increased frequency of ativan was beneficial yesterday. Slept well last night. He still appears fatigued and depressed. Staff notes indicate that patient has been quiet on the unit. He generally keeps to himself but did attend wrap up group yesterday. He doesn't seem very motivated to engage with the milieu yet. He is in better behavioral control than his prior admission (code cardona was called) on this unit and there have been no major issues in this regard thus far. Diagnostic Results: As per history schizoaffective disorder Alcohol abuse Opioid use disorder in remission, on maintenance methadone program Medication Change: Yes (trazodone increased, ativan freq increased) Medical Record Reviewed: Yes Mental Status Examination - Cognitive Function Orientation: Person, Place Attention: WNL Concentration: WNL Association: Loose Fund of Knowledge: Poor - Mood Mood: Depressed - Affect Affect: Constricted - Speech Speech: Appropriate - Formal Thought Process Formal Thought Process: Hallucinations, Delusions, Paranoia, Loosening of associations - Suicidal Ideation Suicidal Ideation: No - Homicidal Ideation Homicidal Ideation: No Goal/Treatment Plan - Goal/Treatment Plan Progress Toward Problem(s) and Goals/Treatment Plan: * group, milieu and supportive tx * Depakote 500 mg AM and 750 mg HS for mood control. Check VPA * Prolixin 5 mg po AM and HS to help with mood control and cogentin 0.5 mg po bid for EPS prophylaxis * Trazodone 50 mg po HS increased to 100 mg HS for restless sleep, (off label use) * Ativan 1 mg q8 increased to q6 as vitals elevated. Plan to taper for alcohol use as vitals improve * Patient attends a methadone clinic so he is not a candidate for naltrexone to address is alcohol dependency. * ER clinician confirmed patient's methadone 90 mg dose with Izabel Josue RN to be 90 mg at [facility] methadone clinic on 08/02/18. Patient also received a take-home dose which needs to be returned to the methadone clinic as patient was hospitalized on 08/03/18. * Will provide lower dose of 70 mg to avoid sedation/respiratory depression on the unit, dose needed to be decreased from standing dose of 90 mg during his last admission... * Appreciate f/u by Dr. Joseph on 08/03/18~signed off as patient was considered medically stable * Nicoderm CQ 21 mg patch, replaced daily for nicotine cravings * Vitals reviewed and noted below: Selected Entries 08/04/18 07:32 Temperature 98.6 F Pulse Rate 88 Respiratory 20 Rate Blood Pressure 129/80 Please refer to findings from physical exams and ROS from 08/02/18 ER records at [facility] PER ER REPORT Chest X- Ray Dictator : Mook Turcios MD Report Date : 08/02/2018 13:13:19 IMPRESSION: No active disease. Admission labs 08/03/18 08/03/18 08/03/18 07:15 07:20 07:20 POC Glucose (mg/dL) 89 Fasting Glucose 94 Hemoglobin A1c Triglycerides 126 Cholesterol 185 LDL Cholesterol Direct 109 HDL Cholesterol 65 H Free T4 TSH 3rd Generation Valproic Acid RPR Nonreactive 08/03/18 08/03/18 08/03/18 07:20 07:52 10:00 POC Glucose (mg/dL) Fasting Glucose Hemoglobin A1c 7.6 H D Triglycerides Cholesterol LDL Cholesterol Direct HDL Cholesterol Free T4 1.08 TSH 3rd Generation 1.23 Valproic Acid 53 RPR Laboratory Tests 08/02/18 08/02/18 08/02/18 13:20 13:20 13:30 WBC 8.8 RBC 4.64 Hgb 13.1 L Hct 39.2 L MCV 84.5 MCH 28.2 MCHC 33.4 RDW 14.5 Plt Count 275 MPV 10.5 Gran % 75.2 H Lymph % (Auto) 20.8 L [place] % (Auto) 3.5 Eos % (Auto) 0.2 L Baso % (Auto) 0.3 Gran # 6.60 H Lymph # (Auto) 1.8 [place] # (Auto) 0.3 Eos # (Auto) 0.0 Baso # (Auto) 0.03 Sodium Potassium Chloride Carbon Dioxide Anion Gap BUN Creatinine Est GFR ( Amer) Est GFR (Non-Af Amer) POC Glucose (mg/dL) Random Glucose Fasting Glucose Calcium Total Bilirubin AST ALT Alkaline Phosphatase Total Protein Albumin Globulin Albumin/Globulin Ratio Triglycerides Cholesterol LDL Cholesterol Direct HDL Cholesterol Free T4 TSH 3rd Generation Urine Color Yellow Urine Appearance Sl cloudy Urine pH 6.0 Ur Specific [place] >= 1.030 Urine Protein Trace H Urine Glucose (UA) Negative Urine Ketones Negative Urine Blood Negative Urine Nitrate Negative Urine Bilirubin Negative Urine Urobilinogen 0.2 Ur Leukocyte Esterase Negative Urine RBC Negative Urine WBC 0 - 2 Calcium Oxalate Crystal Few Salicylates Urine Opiates Screen Negative Urine Methadone Screen Positive H Acetaminophen Ur Barbiturates Screen Negative Ur Phencyclidine Scrn Negative Ur Amphetamines Screen Negative U Benzodiazepines Scrn Positive H U Oth Cocaine Metabols Negative U Cannabinoids Screen Negative Alcohol, Quantitative 08/02/18 08/02/18 08/02/18 13:30 13:30 13:30 WBC RBC Hgb Hct MCV MCH MCHC RDW Plt Count MPV Gran % Lymph % (Auto) [place] % (Auto) Eos % (Auto) Baso % (Auto) Gran # Lymph # (Auto) [place] # (Auto) Eos # (Auto) Baso # (Auto) Sodium 140 Potassium 4.3 Chloride 105 Carbon Dioxide 27 Anion Gap 12 BUN 11 Creatinine 0.8 Est GFR ( Amer) > 60 Est GFR (Non-Af Amer) > 60 POC Glucose (mg/dL) Random Glucose 108 Fasting Glucose Calcium 9.7 Total Bilirubin 0.2 AST 27 ALT 32 Alkaline Phosphatase 82 Total Protein 8.1 Albumin 4.6 Globulin 3.5 Albumin/Globulin Ratio 1.3 Triglycerides Cholesterol LDL Cholesterol Direct HDL Cholesterol Free T4 TSH 3rd Generation Urine Color Urine Appearance Urine pH Ur Specific [place] Urine Protein Urine Glucose (UA) Urine Ketones Urine Blood Urine Nitrate Urine Bilirubin Urine Urobilinogen Ur Leukocyte Esterase Urine RBC Urine WBC Calcium Oxalate Crystal Salicylates < 1 L Urine Opiates Screen Urine Methadone Screen Acetaminophen < 10.0 L Ur Barbiturates Screen Ur Phencyclidine Scrn Ur Amphetamines Screen U Benzodiazepines Scrn U Oth Cocaine Metabols U Cannabinoids Screen Alcohol, Quantitative < 10 08/02/18 08/03/18 08/03/18 21:21 07:20 07:20 WBC RBC Hgb Hct MCV MCH MCHC RDW Plt Count MPV Gran % Lymph % (Auto) [place] % (Auto) Eos % (Auto) Baso % (Auto) Gran # Lymph # (Auto) [place] # (Auto) Eos # (Auto) Baso # (Auto) Sodium Potassium Chloride Carbon Dioxide Anion Gap BUN Creatinine Est GFR ( Amer) Est GFR (Non-Af Amer) POC Glucose (mg/dL) 101 Random Glucose Fasting Glucose 94 Calcium Total Bilirubin AST ALT Alkaline Phosphatase Total Protein Albumin Globulin Albumin/Globulin Ratio Triglycerides 126 Cholesterol 185 LDL Cholesterol Direct 109 HDL Cholesterol 65 H Free T4 1.08 TSH 3rd Generation 1.23 Urine Color Urine Appearance Urine pH Ur Specific [place] Urine Protein Urine Glucose (UA) Urine Ketones Urine Blood Urine Nitrate Urine Bilirubin Urine Urobilinogen Ur Leukocyte Esterase Urine RBC Urine WBC Calcium Oxalate Crystal Salicylates Urine Opiates Screen Urine Methadone Screen Acetaminophen Ur Barbiturates Screen Ur Phencyclidine Scrn Ur Amphetamines Screen U Benzodiazepines Scrn U Oth Cocaine Metabols U Cannabinoids Screen Alcohol, Quantitative
[2018-08-05] MEDS: Divalproex 500 mg DR(BID formulation) PO SCH (10:36)
[2018-08-05] MEDS ORDERED: Alum-Mag Hydrox-Simethicone Susp (30 mL) PO PRN (16:12)
[2018-08-05] MEDS ORDERED: Magnesium Hydroxide Susp 30 ml UD PO PRN (16:13)
[2018-08-05] MEDS: Divalproex 250 mg DR (BID formulation) PO SCH (22:10)
[2018-08-06] MEDS: Insulin Reg-LOW-Coverage SC SCH ×4 (08:32→21:13)
[2018-08-06] MEDS: Divalproex 500 mg DR(BID formulation) PO SCH (09:43)
--- NOTE | 2018-08-06 11:46 | PCM.PYCHPN ---
Psychiatric Progress Note - Psychiatric Progress Note Patient seen today, length of contact: 30min Patient Chief Complaint: "I still want to , but I have no plan" Problems Identified/Issues Discussed: Suicide/ homicide prevention, past psychiatric h/o, current psychiatric symptoms, medical problems, risk/benefits and alternatives of medications, medications compliance, coping strategies, substance abuse h/o, relapse prevention, importance of follow up with psychiatrist and therapist, discharge plan. Medical Problems: patient was seen by medical team, please see notes for more detailed information Diagnostic Results: 08/02/18 13:30 08/02/18 13:30 Lab Results 08/05/18 21:21: POC Glucose (mg/dL) 127 H 08/05/18 19:24: POC Glucose (mg/dL) 108 08/05/18 16:14: POC Glucose (mg/dL) 98 08/05/18 11:40: POC Glucose (mg/dL) 138 H 08/05/18 07:44: POC Glucose (mg/dL) 100 08/04/18 21:13: POC Glucose (mg/dL) 117 H 08/04/18 16:21: POC Glucose (mg/dL) 130 H 08/04/18 11:16: POC Glucose (mg/dL) 98 08/03/18 21:42: POC Glucose (mg/dL) 111 H 08/03/18 16:21: POC Glucose (mg/dL) 101 08/03/18 11:08: POC Glucose (mg/dL) 166 H 08/03/18 10:00: Valproic Acid 53 08/03/18 07:52: Hemoglobin A1c 7.6 H D 08/03/18 07:20: Free T4 1.08, TSH 3rd Generation 1.23 08/03/18 07:20: Fasting Glucose 94, Triglycerides 126, Cholesterol 185, LDL Cholesterol Direct 109, HDL Cholesterol 65 H 08/03/18 07:20: RPR Nonreactive 08/03/18 07:15: POC Glucose (mg/dL) 89 08/02/18 21:21: POC Glucose (mg/dL) 101 08/02/18 13:30: Alcohol, Quantitative < 10 08/02/18 13:30: Salicylates < 1 L, Acetaminophen < 10.0 L 08/02/18 13:30: Sodium 140, Potassium 4.3, Chloride 105, Carbon Dioxide 27, Anion Gap 12, BUN 11, Creatinine 0.8, Est GFR ( Amer) > 60, Est GFR (Non- Af Amer) > 60, Random Glucose 108, Calcium 9.7, Total Bilirubin 0.2, AST 27, ALT 32, Alkaline Phosphatase 82, Total Protein 8.1, Albumin 4.6, Globulin 3.5, Albumin/Globulin Ratio 1.3 08/02/18 13:30: WBC 8.8, RBC 4.64, Hgb 13.1 L, Hct 39.2 L, MCV 84.5, MCH 28.2, MCHC 33.4, RDW 14.5, Plt Count 275, MPV 10.5, Gran % 75.2 H, Lymph % (Auto) 20.8 L, [place] % (Auto) 3.5, Eos % (Auto) 0.2 L, Baso % (Auto) 0.3, Gran # 6.60 H, Lymph # (Auto) 1.8, [place] # (Auto) 0.3, Eos # (Auto) 0.0, Baso # (Auto) 0.03 08/02/18 13:20: Urine Opiates Screen Negative, Urine Methadone Screen Positive H , Ur Barbiturates Screen Negative, Ur Phencyclidine Scrn Negative, Ur Amphetamines Screen Negative, U Benzodiazepines Scrn Positive H, U Oth Cocaine Metabols Negative, U Cannabinoids Screen Negative 08/02/18 13:20: Urine Color Yellow, Urine Appearance Sl cloudy, Urine pH 6.0, Ur Specific [place] >= 1.030, Urine Protein Trace H, Urine Glucose (UA) Negative, Urine Ketones Negative, Urine Blood Negative, Urine Nitrate Negative, Urine Bilirubin Negative, Urine Urobilinogen 0.2, Ur Leukocyte Esterase Negative, Urine RBC Negative, Urine WBC 0 - 2, Calcium Oxalate Crystal Few Vital Signs Temp Pulse Resp BP Pulse Ox 08/06/18 09:44 79 120/77 08/06/18 07:08 98.7 F 79 18 120/77 08/05/18 16:30 81 127/90 08/05/18 10:35 81 129/82 08/05/18 07:00 98.5 F 81 18 129/82 08/04/18 07:32 98.6 F 88 20 129/80 08/03/18 16:30 89 150/89 08/03/18 09:28 99 H 130/87 08/02/18 18:24 98.4 F 90 18 147/107 H 95 08/02/18 16:49 98.2 F 88 19 149/80 96 08/02/18 15:00 85 16 122/78 96 08/02/18 13:12 98.3 F 92 H 18 167/99 H 96 08/02/18 12:33 99 F 90 18 179/101 H 98 DSM 5 Symptoms Update: As per initial assessment: Patient is a single 48 year old -[place] male, self reported history of schizoaffective disorder, opioid use disorder on methadone maintenance, numerous psychiatric admissions (>10) most recently discharged from this unit on 05/03/18- 05/12/18, historically poorly compliant with medications and aftercare recomm endations who brought himself to the hospital looking for help with depression, suicidal ideation (with plan to jump in front of train/jump off of a bridge/ buy a gun to shoot himself as well as visual hallucinations " people and things moving"). Patient requires medications adjustment, observation and stabilization. pt was seen in his room, pt is disengaged, withdrawn, reluctant to have an i nterview. pt was giving only "yes-no" answers, laying with his eyes closed. pt said that he came to the hospital because "I did not feel well, I wanted to ", denied any intent or plan to kill himself during the interview but as per ED report pt was verbalizing thoughts of jumping in front of the train. pt appears fatigued and depressed during the interview. pt is alcoholic and heroin addict, but denied any discomfort or pain, does not present to be in any discomfort, pt is able to eat, no vomiting, no nausea. pt tolerates medications well, no side effects observed or reported, aims 0, no EPS. As per staff patient is disengaged, self isolating, not participating in unit activities. Diagnostic Results: As per history schizoaffective disorder Alcohol abuse Opioid use disorder in remission, on maintenance methadone program Medication Change: No (trazodone increased, ativan freq increased by 08/05/18) Medical Record Reviewed: Yes Consults ordered or reviewed: medical consult appreciated, see notes for more detailed information Please refer to findings from physical exams and ROS from 08/02/18 ER records at [facility] PER ER REPORT Chest X- Ray Dictator : Mook Turcios MD Report Date : 08/02/2018 13:13:19 IMPRESSION: No active disease. Mental Status Examination - Cognitive Function Orientation: Person, Place Attention: WNL Concentration: WNL Association: Loose Fund of Knowledge: Poor - Mood Mood: Depressed - Affect Affect: Constricted - Speech Speech: Appropriate - Formal Thought Process Formal Thought Process: Hallucinations, Delusions, Paranoia, Loosening of associations - Suicidal Ideation Suicidal Ideation: No - Homicidal Ideation Homicidal Ideation: No Goal/Treatment Plan - Goal/Treatment Plan Need for Continued Stay: Remain at risks for inpatient hospitalization, Severe depression anxiety, Discharge may exacerbated symptoms, Severe functional impairment Progress Toward Problem(s) and Goals/Treatment Plan: group, milieu and supportive tx Depakote 500 mg AM and 750 mg HS for mood control. depakote level was 53 08/03/18 Prolixin 5 mg po AM and HS to help with mood control Cogentin 0.5 mg po bid for EPS prophylaxis Trazodone 100 mg HS for restless sleep, (off label use) Ativan 1 mg q6 as vitals elevated. Plan to taper for alcohol use as vitals improve Patient attends a methadone clinic so he is not a candidate for naltrexone to address is alcohol dependency ER clinician confirmed patient's methadone 90 mg dose with Izabel Josue RN to be 90 mg at [facility] methadone clinic on 08/02/18. Patient also received a take-home dose which needs to be returned to the methadone clinic as patient was hospitalized on 08/03/18. lowered the dose of 70 mg to avoid sedation/respiratory depression on the unit, dose needed to be decreased from standing dose of 90 mg during his last admission... Appreciate f/u by Dr. Joseph on 08/03/18~signed off as patient was considered medically stable Nicoderm CQ 21 mg patch, replaced daily for nicotine cravings Estimated Date of D/C: 08/18/18
[2018-08-06] MEDS: Divalproex 250 mg DR (BID formulation) PO SCH (21:12)
[2018-08-07] MEDS: Insulin Reg-LOW-Coverage SC SCH ×4 (09:45→21:09)
[2018-08-07] MEDS: Divalproex 500 mg DR(BID formulation) PO SCH (09:50)
--- NOTE | 2018-08-07 17:00 | PCM.PYCHPN ---
Psychiatric Progress Note - Psychiatric Progress Note Patient seen today, length of contact: 30min Patient Chief Complaint: "I still want to , I also hear voices" Problems Identified/Issues Discussed: Suicide/ homicide prevention, past psychiatric h/o, current psychiatric symptoms, medical problems, risk/benefits and alternatives of medications, medications compliance, coping strategies, substance abuse h/o, relapse prevention, importance of follow up with psychiatrist and therapist, discharge plan. Medical Problems: patient was seen by medical team, please see notes for more detailed information Diagnostic Results: 08/02/18 13:30 08/02/18 13:30 Lab Results 08/05/18 21:21: POC Glucose (mg/dL) 127 H 08/05/18 19:24: POC Glucose (mg/dL) 108 08/05/18 16:14: POC Glucose (mg/dL) 98 08/05/18 11:40: POC Glucose (mg/dL) 138 H 08/05/18 07:44: POC Glucose (mg/dL) 100 08/04/18 21:13: POC Glucose (mg/dL) 117 H 08/04/18 16:21: POC Glucose (mg/dL) 130 H 08/04/18 11:16: POC Glucose (mg/dL) 98 08/03/18 21:42: POC Glucose (mg/dL) 111 H 08/03/18 16:21: POC Glucose (mg/dL) 101 08/03/18 11:08: POC Glucose (mg/dL) 166 H 08/03/18 10:00: Valproic Acid 53 08/03/18 07:52: Hemoglobin A1c 7.6 H D 08/03/18 07:20: Free T4 1.08, TSH 3rd Generation 1.23 08/03/18 07:20: Fasting Glucose 94, Triglycerides 126, Cholesterol 185, LDL Cholesterol Direct 109, HDL Cholesterol 65 H 08/03/18 07:20: RPR Nonreactive 08/03/18 07:15: POC Glucose (mg/dL) 89 08/02/18 21:21: POC Glucose (mg/dL) 101 08/02/18 13:30: Alcohol, Quantitative < 10 08/02/18 13:30: Salicylates < 1 L, Acetaminophen < 10.0 L 08/02/18 13:30: Sodium 140, Potassium 4.3, Chloride 105, Carbon Dioxide 27, Anion Gap 12, BUN 11, Creatinine 0.8, Est GFR ( Amer) > 60, Est GFR (Non- Af Amer) > 60, Random Glucose 108, Calcium 9.7, Total Bilirubin 0.2, AST 27, ALT 32, Alkaline Phosphatase 82, Total Protein 8.1, Albumin 4.6, Globulin 3.5, Albumin/Globulin Ratio 1.3 08/02/18 13:30: WBC 8.8, RBC 4.64, Hgb 13.1 L, Hct 39.2 L, MCV 84.5, MCH 28.2, MCHC 33.4, RDW 14.5, Plt Count 275, MPV 10.5, Gran % 75.2 H, Lymph % (Auto) 20.8 L, [place] % (Auto) 3.5, Eos % (Auto) 0.2 L, Baso % (Auto) 0.3, Gran # 6.60 H, Lymph # (Auto) 1.8, [place] # (Auto) 0.3, Eos # (Auto) 0.0, Baso # (Auto) 0.03 08/02/18 13:20: Urine Opiates Screen Negative, Urine Methadone Screen Positive H , Ur Barbiturates Screen Negative, Ur Phencyclidine Scrn Negative, Ur Amphetamines Screen Negative, U Benzodiazepines Scrn Positive H, U Oth Cocaine Metabols Negative, U Cannabinoids Screen Negative 08/02/18 13:20: Urine Color Yellow, Urine Appearance Sl cloudy, Urine pH 6.0, Ur Specific [place] >= 1.030, Urine Protein Trace H, Urine Glucose (UA) Negative, Urine Ketones Negative, Urine Blood Negative, Urine Nitrate Negative, Urine Bilirubin Negative, Urine Urobilinogen 0.2, Ur Leukocyte Esterase Negative, Urine RBC Negative, Urine WBC 0 - 2, Calcium Oxalate Crystal Few Vital Signs Temp Pulse Resp BP Pulse Ox 08/06/18 09:44 79 120/77 08/06/18 07:08 98.7 F 79 18 120/77 08/05/18 16:30 81 127/90 08/05/18 10:35 81 129/82 08/05/18 07:00 98.5 F 81 18 129/82 08/04/18 07:32 98.6 F 88 20 129/80 08/03/18 16:30 89 150/89 08/03/18 09:28 99 H 130/87 08/02/18 18:24 98.4 F 90 18 147/107 H 95 08/02/18 16:49 98.2 F 88 19 149/80 96 08/02/18 15:00 85 16 122/78 96 08/02/18 13:12 98.3 F 92 H 18 167/99 H 96 08/02/18 12:33 99 F 90 18 179/101 H 98 DSM 5 Symptoms Update: Patient is a single 48 year old -[place]ian male, self reported history of schizoaffective disorder, opioid use disorder on methadone maintenance, numerous psychiatric admissions (>10) most recently discharged from this unit on 05/03/18-05/12/18, historically poorly compliant with medications and aftercare recommendations who brought himself to the hospital looking for help with depression, suicidal ideation (with plan to jump in front of train/jump off of a bridge/ buy a gun to shoot himself as well as visual hallucinations " people and things moving"). Patient requires medications adjustment, observation and stabilization. pt was seen at the hallway, pt is disengaged, withdrawn, reluctant to have an interview, pt said that he is hearing voices, said he wants to end up his life, said that he has a plan to jump in front of the train, pt denied intent of doing it, pt contracted for safety. pt then said that he has problems to fall and stay asleep and "I hear voices...", but had difficulties to describe the voices, then pt approached this clinical writer again said that "I think ECT is good choice for me", this clinical writer explained to the pt that he might not benefit from the procedure. pt is alcoholic and heroin addict, but denied any discomfort or pain, does not present to be in any discomfort, pt is able to eat, no vomiting, no nausea. pt tolerates medications well, no side effects observed or reported, aims 0, no EPS. As per staff patient is disengaged, self isolating, not participating in unit activities. Diagnostic Results: As per history schizoaffective disorder Alcohol abuse Opioid use disorder in remission, on maintenance methadone program Medication Change: Yes (prolixin increased) Medical Record Reviewed: Yes Mental Status Examination - Cognitive Function Orientation: Person, Place Attention: WNL Concentration: WNL Association: Loose Fund of Knowledge: Poor - Mood Mood: Depressed - Affect Affect: Constricted - Speech Speech: Appropriate - Formal Thought Process Formal Thought Process: Hallucinations, Delusions, Paranoia, Loosening of associations - Suicidal Ideation Suicidal Ideation: No - Homicidal Ideation Homicidal Ideation: No Goal/Treatment Plan - Goal/Treatment Plan Need for Continued Stay: Remain at risks for inpatient hospitalization, Severe depression anxiety, Discharge may exacerbated symptoms, Severe functional impairment Progress Toward Problem(s) and Goals/Treatment Plan: group, milieu and supportive tx Depakote 500 mg AM and 750 mg HS for mood control. depakote level was 53 08/03/18 Prolixin 5 mg po bid and HS to help with mood control Cogentin 0.5 mg po bid for EPS prophylaxis Trazodone 100 mg HS for restless sleep, (off label use) Ativan 1 mg q6 as vitals elevated. Plan to taper for alcohol use as vitals improve Patient attends a methadone clinic so he is not a candidate for naltrexone to address is alcohol dependency ER clinician confirmed patient's methadone 90 mg dose with Izabel Josue RN to be 90 mg at [facility] methadone clinic on 08/02/18. Patient also received a take-home dose which needs to be returned to the methadone clinic as patient was hospitalized on 08/03/18. lowered the dose of 70 mg to avoid sedation/respiratory depression on the unit, dose needed to be decreased from standing dose of 90 mg during his last admission... Appreciate f/u by Dr. Joseph on 08/03/18~signed off as patient was considered medically stable Nicoderm CQ 21 mg patch, replaced daily for nicotine cravings Estimated Date of D/C: 08/18/18
[2018-08-07] MEDS: Divalproex 250 mg DR (BID formulation) PO SCH (21:05)
[2018-08-08 07:22] VITALS: RESP 20
[2018-08-08] MEDS: Insulin Reg-LOW-Coverage SC SCH ×4 (08:27→21:01)
[2018-08-08] MEDS: Divalproex 500 mg DR(BID formulation) PO SCH (09:02)
--- NOTE | 2018-08-08 16:11 | PCM.PYCHPN ---
Psychiatric Progress Note - Psychiatric Progress Note Patient seen today, length of contact: 30min Patient Chief Complaint: "I still want to , I also hear voices, I saw little people over night, I was hallucinating" Problems Identified/Issues Discussed: Suicide/ homicide prevention, past psychiatric h/o, current psychiatric symptoms, medical problems, risk/benefits and alternatives of medications, medications compliance, coping strategies, substance abuse h/o, relapse prevention, importance of follow up with psychiatrist and therapist, discharge plan. Medical Problems: patient was seen by medical team, please see notes for more detailed information Diagnostic Results: 08/02/18 13:30 08/02/18 13:30 Lab Results 08/05/18 21:21: POC Glucose (mg/dL) 127 H 08/05/18 19:24: POC Glucose (mg/dL) 108 08/05/18 16:14: POC Glucose (mg/dL) 98 08/05/18 11:40: POC Glucose (mg/dL) 138 H 08/05/18 07:44: POC Glucose (mg/dL) 100 08/04/18 21:13: POC Glucose (mg/dL) 117 H 08/04/18 16:21: POC Glucose (mg/dL) 130 H 08/04/18 11:16: POC Glucose (mg/dL) 98 08/03/18 21:42: POC Glucose (mg/dL) 111 H 08/03/18 16:21: POC Glucose (mg/dL) 101 08/03/18 11:08: POC Glucose (mg/dL) 166 H 08/03/18 10:00: Valproic Acid 53 08/03/18 07:52: Hemoglobin A1c 7.6 H D 08/03/18 07:20: Free T4 1.08, TSH 3rd Generation 1.23 08/03/18 07:20: Fasting Glucose 94, Triglycerides 126, Cholesterol 185, LDL Cholesterol Direct 109, HDL Cholesterol 65 H 08/03/18 07:20: RPR Nonreactive 08/03/18 07:15: POC Glucose (mg/dL) 89 08/02/18 21:21: POC Glucose (mg/dL) 101 08/02/18 13:30: Alcohol, Quantitative < 10 08/02/18 13:30: Salicylates < 1 L, Acetaminophen < 10.0 L 08/02/18 13:30: Sodium 140, Potassium 4.3, Chloride 105, Carbon Dioxide 27, Anion Gap 12, BUN 11, Creatinine 0.8, Est GFR ( Amer) > 60, Est GFR (Non- Af Amer) > 60, Random Glucose 108, Calcium 9.7, Total Bilirubin 0.2, AST 27, ALT 32, Alkaline Phosphatase 82, Total Protein 8.1, Albumin 4.6, Globulin 3.5, Albumin/Globulin Ratio 1.3 08/02/18 13:30: WBC 8.8, RBC 4.64, Hgb 13.1 L, Hct 39.2 L, MCV 84.5, MCH 28.2, MCHC 33.4, RDW 14.5, Plt Count 275, MPV 10.5, Gran % 75.2 H, Lymph % (Auto) 20.8 L, [place] % (Auto) 3.5, Eos % (Auto) 0.2 L, Baso % (Auto) 0.3, Gran # 6.60 H, Lymph # (Auto) 1.8, [place] # (Auto) 0.3, Eos # (Auto) 0.0, Baso # (Auto) 0.03 08/02/18 13:20: Urine Opiates Screen Negative, Urine Methadone Screen Positive H , Ur Barbiturates Screen Negative, Ur Phencyclidine Scrn Negative, Ur Amphetamines Screen Negative, U Benzodiazepines Scrn Positive H, U Oth Cocaine Metabols Negative, U Cannabinoids Screen Negative 08/02/18 13:20: Urine Color Yellow, Urine Appearance Sl cloudy, Urine pH 6.0, Ur Specific [place] >= 1.030, Urine Protein Trace H, Urine Glucose (UA) Negative, Urine Ketones Negative, Urine Blood Negative, Urine Nitrate Negative, Urine Bilirubin Negative, Urine Urobilinogen 0.2, Ur Leukocyte Esterase Negative, Urine RBC Negative, Urine WBC 0 - 2, Calcium Oxalate Crystal Few Vital Signs Temp Pulse Resp BP Pulse Ox 08/06/18 09:44 79 120/77 08/06/18 07:08 98.7 F 79 18 120/77 08/05/18 16:30 81 127/90 08/05/18 10:35 81 129/82 08/05/18 07:00 98.5 F 81 18 129/82 08/04/18 07:32 98.6 F 88 20 129/80 08/03/18 16:30 89 150/89 08/03/18 09:28 99 H 130/87 08/02/18 18:24 98.4 F 90 18 147/107 H 95 08/02/18 16:49 98.2 F 88 19 149/80 96 08/02/18 15:00 85 16 122/78 96 08/02/18 13:12 98.3 F 92 H 18 167/99 H 96 08/02/18 12:33 99 F 90 18 179/101 H 98 DSM 5 Symptoms Update: Patient is a single 48 year old -[place] male, self reported history of schizoaffective disorder, opioid use disorder on methadone maintenance, numerous psychiatric admissions (>10) most recently discharged from this unit on 05/03/18- 05/12/18, historically poorly compliant with medications and aftercare recommendations who brought himself to the hospital looking for help with depres ancelmo, suicidal ideation (with plan to jump in front of train/jump off of a bridge/ buy a gun to shoot himself as well as visual hallucinations " people and things moving"). Patient requires medications adjustment, observation and stabilization. pt was seen at the treatment team meeting room, pt is disengaged, withdrawn, reluctant to have an interview, pt said that he is hearing voices "I don't know what voices are saying, I also saw little people, they are intimidating", said he wants to end up his life, said that he has a plan to jump in front of the train, pt denied intent of doing it, pt contracted for safety. pt is alcoholic and heroin addict, but denied any discomfort or pain, does not present to be in any discomfort, pt is able to eat, no vomiting, no nausea. pt tolerates medications well, no side effects observed or reported, aims 0, no EPS. As per staff patient is disengaged, self isolating, not participating in unit activities. Diagnostic Results: As per history schizoaffective disorder Alcohol abuse Opioid use disorder in remission, on maintenance methadone program Medication Change: Yes (prolixin increased yesterday) Medical Record Reviewed: Yes Consults ordered or reviewed: medical consult appreciated, see notes for more detailed information Please refer to findings from physical exams and ROS from 08/02/18 ER records at [facility] PER ER REPORT Chest X- Ray Dictator : Mook Turcios MD Report Date : 08/02/2018 13:13:19 IMPRESSION: No active disease. Mental Status Examination - Cognitive Function Orientation: Person, Place Attention: WNL Concentration: WNL Association: Loose Fund of Knowledge: Poor - Mood Mood: Depressed - Affect Affect: Constricted - Speech Speech: Appropriate - Formal Thought Process Formal Thought Process: Hallucinations, Delusions, Paranoia, Loosening of associations - Suicidal Ideation Suicidal Ideation: No - Homicidal Ideation Homicidal Ideation: No Goal/Treatment Plan - Goal/Treatment Plan Need for Continued Stay: Remain at risks for inpatient hospitalization, Severe depression anxiety, Discharge may exacerbated symptoms, Severe functional impairment Progress Toward Problem(s) and Goals/Treatment Plan: group, milieu and supportive tx Depakote 500 mg AM and 750 mg HS for mood control. depakote level was 53 08/03/18 Prolixin 5 mg po bid and HS to help with mood control Cogentin 0.5 mg po bid for EPS prophylaxis Trazodone 100 mg HS for restless sleep, (off label use) Ativan 1 mg q6 as vitals elevated. Plan to taper for alcohol use as vitals improve Patient attends a methadone clinic so he is not a candidate for naltrexone to address is alcohol dependency ER clinician confirmed patient's methadone 90 mg dose with Izabel Josue RN to be 90 mg at [facility] methadone clinic on 08/02/18. Patient also received a take-home dose which needs to be returned to the methadone clinic as patient was hospitalized on 08/03/18. lowered the dose of 70 mg to avoid sedation/respiratory depression on the unit, dose needed to be decreased from standing dose of 90 mg during his last admission... Appreciate f/u by Dr. Joseph on 08/03/18~signed off as patient was considered medically stable Nicoderm CQ 21 mg patch, replaced daily for nicotine cravings Estimated Date of D/C: 08/18/18
[2018-08-08] MEDS: Divalproex 250 mg DR (BID formulation) PO SCH (21:01)
[2018-08-09] MEDS: Divalproex 500 mg DR(BID formulation) PO SCH (08:55)
[2018-08-09] MEDS: Insulin Reg-LOW-Coverage SC SCH ×4 (09:43→22:00)
--- NOTE | 2018-08-09 16:19 | PCM.PYCHPN ---
Psychiatric Progress Note - Psychiatric Progress Note Patient seen today, length of contact: 30min Patient Chief Complaint: "I saw little people over night, I was hallucinating" Problems Identified/Issues Discussed: Suicide/ homicide prevention, past psychiatric h/o, current psychiatric symptoms, medical problems, risk/benefits and alternatives of medications, medications compliance, coping strategies, substance abuse h/o, relapse prevention, importance of follow up with psychiatrist and therapist, discharge plan. Medical Problems: patient was seen by medical team, please see notes for more detailed information Diagnostic Results: 08/02/18 13:30 08/02/18 13:30 Lab Results 08/05/18 21:21: POC Glucose (mg/dL) 127 H 08/05/18 19:24: POC Glucose (mg/dL) 108 08/05/18 16:14: POC Glucose (mg/dL) 98 08/05/18 11:40: POC Glucose (mg/dL) 138 H 08/05/18 07:44: POC Glucose (mg/dL) 100 08/04/18 21:13: POC Glucose (mg/dL) 117 H 08/04/18 16:21: POC Glucose (mg/dL) 130 H 08/04/18 11:16: POC Glucose (mg/dL) 98 08/03/18 21:42: POC Glucose (mg/dL) 111 H 08/03/18 16:21: POC Glucose (mg/dL) 101 08/03/18 11:08: POC Glucose (mg/dL) 166 H 08/03/18 10:00: Valproic Acid 53 08/03/18 07:52: Hemoglobin A1c 7.6 H D 08/03/18 07:20: Free T4 1.08, TSH 3rd Generation 1.23 08/03/18 07:20: Fasting Glucose 94, Triglycerides 126, Cholesterol 185, LDL Cholesterol Direct 109, HDL Cholesterol 65 H 08/03/18 07:20: RPR Nonreactive 08/03/18 07:15: POC Glucose (mg/dL) 89 08/02/18 21:21: POC Glucose (mg/dL) 101 08/02/18 13:30: Alcohol, Quantitative < 10 08/02/18 13:30: Salicylates < 1 L, Acetaminophen < 10.0 L 08/02/18 13:30: Sodium 140, Potassium 4.3, Chloride 105, Carbon Dioxide 27, Anion Gap 12, BUN 11, Creatinine 0.8, Est GFR ( Amer) > 60, Est GFR (Non- Af Amer) > 60, Random Glucose 108, Calcium 9.7, Total Bilirubin 0.2, AST 27, ALT 32, Alkaline Phosphatase 82, Total Protein 8.1, Albumin 4.6, Globulin 3.5, Albumin/Globulin Ratio 1.3 08/02/18 13:30: WBC 8.8, RBC 4.64, Hgb 13.1 L, Hct 39.2 L, MCV 84.5, MCH 28.2, MCHC 33.4, RDW 14.5, Plt Count 275, MPV 10.5, Gran % 75.2 H, Lymph % (Auto) 20.8 L, [place] % (Auto) 3.5, Eos % (Auto) 0.2 L, Baso % (Auto) 0.3, Gran # 6.60 H, Lymph # (Auto) 1.8, [place] # (Auto) 0.3, Eos # (Auto) 0.0, Baso # (Auto) 0.03 08/02/18 13:20: Urine Opiates Screen Negative, Urine Methadone Screen Positive H , Ur Barbiturates Screen Negative, Ur Phencyclidine Scrn Negative, Ur Amphetamines Screen Negative, U Benzodiazepines Scrn Positive H, U Oth Cocaine Metabols Negative, U Cannabinoids Screen Negative 08/02/18 13:20: Urine Color Yellow, Urine Appearance Sl cloudy, Urine pH 6.0, Ur Specific [place] >= 1.030, Urine Protein Trace H, Urine Glucose (UA) Negative, Urine Ketones Negative, Urine Blood Negative, Urine Nitrate Negative, Urine Bilirubin Negative, Urine Urobilinogen 0.2, Ur Leukocyte Esterase Negative, Urine RBC Negative, Urine WBC 0 - 2, Calcium Oxalate Crystal Few Vital Signs Temp Pulse Resp BP Pulse Ox 08/06/18 09:44 79 120/77 08/06/18 07:08 98.7 F 79 18 120/77 08/05/18 16:30 81 127/90 08/05/18 10:35 81 129/82 08/05/18 07:00 98.5 F 81 18 129/82 08/04/18 07:32 98.6 F 88 20 129/80 08/03/18 16:30 89 150/89 08/03/18 09:28 99 H 130/87 08/02/18 18:24 98.4 F 90 18 147/107 H 95 08/02/18 16:49 98.2 F 88 19 149/80 96 08/02/18 15:00 85 16 122/78 96 08/02/18 13:12 98.3 F 92 H 18 167/99 H 96 08/02/18 12:33 99 F 90 18 179/101 H 98 DSM 5 Symptoms Update: Patient is a single 48 year old -[place] male, self reported history of schizoaffective disorder, opioid use disorder on methadone maintenance, numerous psychiatric admissions (>10) most recently discharged from this unit on 05/03/18- 05/12/18, historically poorly compliant with medications and aftercare recommendations who brought himself to the hospital looking for help with depression, suicidal ideation (with plan to jump in front of train/jump off of a bridge/ buy a gun to shoot himself as well as visual hallucinations " people and things moving"). Patient requires medications adjustment, observation and stabilization. pt was seen iin his room together with medical students, patient reported that he wasn't Prolixin to be discontinued and started Seroquel what he is supposed to be on. Patient complain of visual hallucinations majority of the time it is overnight, patient reported feeling unsafe and this visual hallucinations are affecting his sleep. said he wants to end up his life, said that he has a plan to jump in front of the train, pt denied intent of doing it, pt contracted for safety. pt is alcoholic and heroin addict, but denied any discomfort or pain, does not present to be in any discomfort, pt is able to eat, no vomiting, no nausea. pt tolerates medications well, no side effects observed or reported, aims 0, no EPS. As per staff patient is disengaged, self isolating, not participating in unit activities. patient was evaluated by owner [employer] of the boarding home Mr. Mukherjee, unfortunately patient will be not accepted due to substance abuseand high risk of relapse Diagnostic Results: As per history schizoaffective disorder Alcohol abuse Opioid use disorder in remission, on maintenance methadone program Medication Change: Yes (Prolixin discontinued, Seroquel started) Medical Record Reviewed: Yes Mental Status Examination - Cognitive Function Orientation: Person, Place Attention: WNL Concentration: WNL Association: Loose Fund of Knowledge: Poor - Mood Mood: Depressed - Affect Affect: Constricted - Speech Speech: Appropriate - Formal Thought Process Formal Thought Process: Hallucinations, Delusions, Paranoia, Loosening of associations - Suicidal Ideation Suicidal Ideation: No - Homicidal Ideation Homicidal Ideation: No Goal/Treatment Plan - Goal/Treatment Plan Need for Continued Stay: Remain at risks for inpatient hospitalization, Severe depression anxiety, Discharge may exacerbated symptoms, Severe functional impairment Progress Toward Problem(s) and Goals/Treatment Plan: group, milieu and supportive tx Depakote 500 mg AM and 750 mg HS for mood control. depakote level was 53 08/03/18 Prolixin discontinued Seroquel 100 mg at the nighttime for psychosis and mood stabilization Cogentin 0.5 mg po bid for EPS prophylaxis Trazodone 100 mg HS for restless sleep, (off label use) Ativan 1 mg q8 as vitals elevated. Plan to taper for alcohol use as vitals improve Patient attends a methadone clinic so he is not a candidate for naltrexone to address is alcohol dependency ER clinician confirmed patient's methadone 90 mg dose with Izabel Josue RN to be 90 mg at [facility] methadone clinic on 08/02/18. Patient also received a take-home dose which needs to be returned to the methadone clinic as patient was hospitalized on 08/03/18. lowered the dose of 70 mg to avoid sedation/respiratory depression on the unit, dose needed to be decreased from standing dose of 90 mg during his last admission... Appreciate f/u by Dr. Joseph on 08/03/18~signed off as patient was considered medically stable Nicoderm CQ 21 mg patch, replaced daily for nicotine cravings Estimated Date of D/C: 08/18/18
[2018-08-09] MEDS: Divalproex 250 mg DR (BID formulation) PO SCH (21:00)
[2018-08-10] MEDS: Insulin Reg-LOW-Coverage SC SCH ×4 (08:29→21:10)
[2018-08-10] MEDS: Divalproex 500 mg DR(BID formulation) PO SCH (09:18)
--- NOTE | 2018-08-10 15:15 | PCM.PYCHPN ---
Psychiatric Progress Note - Psychiatric Progress Note Patient seen today, length of contact: 30min Patient Chief Complaint: "I am perfectly fine, he needs to let go" Problems Identified/Issues Discussed: Suicide/ homicide prevention, past psychiatric h/o, current psychiatric symptoms, medical problems, risk/benefits and alternatives of medications, medications compliance, coping strategies, substance abuse h/o, relapse prevention, importance of follow up with psychiatrist and therapist, discharge plan. Medical Problems: patient was seen by medical team, please see notes for more detailed information Diagnostic Results: 08/02/18 13:30 08/02/18 13:30 Lab Results 08/05/18 21:21: POC Glucose (mg/dL) 127 H 08/05/18 19:24: POC Glucose (mg/dL) 108 08/05/18 16:14: POC Glucose (mg/dL) 98 08/05/18 11:40: POC Glucose (mg/dL) 138 H 08/05/18 07:44: POC Glucose (mg/dL) 100 08/04/18 21:13: POC Glucose (mg/dL) 117 H 08/04/18 16:21: POC Glucose (mg/dL) 130 H 08/04/18 11:16: POC Glucose (mg/dL) 98 08/03/18 21:42: POC Glucose (mg/dL) 111 H 08/03/18 16:21: POC Glucose (mg/dL) 101 08/03/18 11:08: POC Glucose (mg/dL) 166 H 08/03/18 10:00: Valproic Acid 53 08/03/18 07:52: Hemoglobin A1c 7.6 H D 08/03/18 07:20: Free T4 1.08, TSH 3rd Generation 1.23 08/03/18 07:20: Fasting Glucose 94, Triglycerides 126, Cholesterol 185, LDL Cholesterol Direct 109, HDL Cholesterol 65 H 08/03/18 07:20: RPR Nonreactive 08/03/18 07:15: POC Glucose (mg/dL) 89 08/02/18 21:21: POC Glucose (mg/dL) 101 08/02/18 13:30: Alcohol, Quantitative < 10 08/02/18 13:30: Salicylates < 1 L, Acetaminophen < 10.0 L 08/02/18 13:30: Sodium 140, Potassium 4.3, Chloride 105, Carbon Dioxide 27, Anion Gap 12, BUN 11, Creatinine 0.8, Est GFR ( Amer) > 60, Est GFR (Non- Af Amer) > 60, Random Glucose 108, Calcium 9.7, Total Bilirubin 0.2, AST 27, ALT 32, Alkaline Phosphatase 82, Total Protein 8.1, Albumin 4.6, Globulin 3.5, Albumin/Globulin Ratio 1.3 08/02/18 13:30: WBC 8.8, RBC 4.64, Hgb 13.1 L, Hct 39.2 L, MCV 84.5, MCH 28.2, MCHC 33.4, RDW 14.5, Plt Count 275, MPV 10.5, Gran % 75.2 H, Lymph % (Auto) 20.8 L, [place] % (Auto) 3.5, Eos % (Auto) 0.2 L, Baso % (Auto) 0.3, Gran # 6.60 H, Lymph # (Auto) 1.8, [place] # (Auto) 0.3, Eos # (Auto) 0.0, Baso # (Auto) 0.03 08/02/18 13:20: Urine Opiates Screen Negative, Urine Methadone Screen Positive H , Ur Barbiturates Screen Negative, Ur Phencyclidine Scrn Negative, Ur Amphetamines Screen Negative, U Benzodiazepines Scrn Positive H, U Oth Cocaine Metabols Negative, U Cannabinoids Screen Negative 08/02/18 13:20: Urine Color Yellow, Urine Appearance Sl cloudy, Urine pH 6.0, Ur Specific [place] >= 1.030, Urine Protein Trace H, Urine Glucose (UA) Negative, Urine Ketones Negative, Urine Blood Negative, Urine Nitrate Negative, Urine Bilirubin Negative, Urine Urobilinogen 0.2, Ur Leukocyte Esterase Negative, Urine RBC Negative, Urine WBC 0 - 2, Calcium Oxalate Crystal Few Vital Signs Temp Pulse Resp BP Pulse Ox 08/06/18 09:44 79 120/77 08/06/18 07:08 98.7 F 79 18 120/77 08/05/18 16:30 81 127/90 08/05/18 10:35 81 129/82 08/05/18 07:00 98.5 F 81 18 129/82 08/04/18 07:32 98.6 F 88 20 129/80 08/03/18 16:30 89 150/89 08/03/18 09:28 99 H 130/87 08/02/18 18:24 98.4 F 90 18 147/107 H 95 08/02/18 16:49 98.2 F 88 19 149/80 96 08/02/18 15:00 85 16 122/78 96 08/02/18 13:12 98.3 F 92 H 18 167/99 H 96 08/02/18 12:33 99 F 90 18 179/101 H 98 DSM 5 Symptoms Update: Patient is a single 48 year old -[place] male, self reported history of schizoaffective disorder, opioid use disorder on methadone maintenance, numerous psychiatric admissions (>10) most recently discharged from this unit on 05/03/18-05/12/18, historically poorly compliant with medications and aftercare recommendations who brought himself to the hospital looking for help with depression, suicidal ideation (with plan to jump in front of train/jump off of a bridge/ buy a gun to shoot himself as well as visual hallucinations " people and things moving"). Patient requires medications adjustment, observation and stabilization. pt was seen in in the treatment team meeting room, patient presented to be irritable, 1 to presented better than he actually is, patient reported that he is not psychotic or any longer, "I don't see things, I cannot hear anything, I am perfectly fine, you need to et me go". pt presented to be irritable, annoyed. patient said that he was suicidal yesterday, complained of hallucinations, to the patient said that he feels much better if is very questionable. pt is alcoholic and heroin addict, but denied any discomfort or pain, does not present to be in any discomfort, pt is able to eat, no vomiting, no nausea. pt tolerates medications well, no side effects observed or reported, aims 0, no EPS. As per staff patient is disengaged, self isolating, not participating in unit activities. as per pt has home to go to, [facility], [facility] a residential program but pt refused to go there, wants to stay with his cousin. Diagnostic Results: As per history schizoaffective disorder Alcohol abuse Opioid use disorder in remission, on maintenance methadone program Medication Change: Yes (Seroquel started yesterday) Medical Record Reviewed: Yes Mental Status Examination - Cognitive Function Orientation: Person, Place Attention: WNL Concentration: WNL Association: Loose Fund of Knowledge: Poor - Mood Mood: Depressed - Affect Affect: Constricted - Speech Speech: Appropriate - Formal Thought Process Formal Thought Process: Hallucinations (ddenied), Delusions (denied), Paranoia (patient is guarded), Loosening of associations - Suicidal Ideation Suicidal Ideation: No - Homicidal Ideation Homicidal Ideation: No Goal/Treatment Plan - Goal/Treatment Plan Need for Continued Stay: Remain at risks for inpatient hospitalization, Severe depression anxiety, Discharge may exacerbated symptoms, Severe functional impairment Progress Toward Problem(s) and Goals/Treatment Plan: group, milieu and supportive tx Depakote 500 mg AM and 750 mg HS for mood control. depakote level was 53 08/03/18 Prolixin discontinued Seroquel 100 mg at the nighttime for psychosis and mood stabilization Cogentin 0.5 mg po bid for EPS prophylaxis Trazodone 100 mg HS for restless sleep, (off label use) Ativan 1 mg q8 as vitals elevated. Plan to taper for alcohol use as vitals improve Patient attends a methadone clinic so he is not a candidate for naltrexone to address is alcohol dependency ER clinician confirmed patient's methadone 90 mg dose with Izabel Josue RN to be 90 mg at [facility] methadone clinic on 08/02/18. Patient also received a take-home dose which needs to be returned to the methadone clinic as patient was hospitalized on 08/03/18. lowered the dose of 70 mg to avoid sedation/respiratory depression on the unit, dose needed to be decreased from standing dose of 90 mg during his last admission... Appreciate f/u by Dr. Joseph on 08/03/18~signed off as patient was considered medically stable Nicoderm CQ 21 mg patch, replaced daily for nicotine cravings Estimated Date of D/C: 08/11/18
[2018-08-10] MEDS: Divalproex 250 mg DR (BID formulation) PO SCH (21:06)
[2018-08-11 07:23] VITALS: BP 133/89; PULSE 72; TEMP 98.6
[2018-08-11] MEDS: Insulin Reg-LOW-Coverage SC SCH ×2 (08:23→11:30)
[2018-08-11] MEDS: Divalproex 500 mg DR(BID formulation) PO SCH (09:00)
--- NOTE | 2018-08-11 16:03 | PCM.PYCHDC ---
Mental Status Examination - Mental Status Examination Orientation: Person, Place, Situation, Time Memory: Intact Mood: Neutral Affect: Constricted (but more reactive and mood congruent) Speech: Slurred ( seems to be a chronic) Attention: Poor (chronic, but with improvement) Concentration: Poor (chronic but with improvement) Association: WNL Fund of Knowledge: Poor (bbaseline) Formal Thought Process: Circumstantial Description of patient's judgement and insight: Pt has improved insight into mental and medical illness, pt was compliant with medications and unit rules and regulations, pt was going to groups, was calm, cooperative, socially appropriate, no behavioral incidents, no agitation, no aggression. Psychotic Thoughts and Behaviors: Pt denied v/a/t hallucinations, denied paranoid ideations, pt does not appear to be psychotic, and thought process is goal directed. Suicidal Ideation: No Current Homicidal Ideation?: No Plan: pt adamantly denied thoughts of harming self or others denied intent or plan. Discharge Summary - Discharge Note Reason for Hospitalization: disorganized thoughts and disorganized behavior as well as suicidal ideation with a plan please see Dr. Felix's initial evaluation for more detailed information Psychiatric History (includes Medical, Family, Personal Hx): cchronic history of schizophrenia versus schizoaffective Laboratory Data: Abnormal Lab Results 08/10/18 08/10/18 08/10/18 11:16 16:30 20:59 POC Glucose (mg/dL) 123 H 135 H 111 H 08/11/18 07:19 POC Glucose (mg/dL) 105 Consultations:: List each consultation separately and include: 1. Reason for request. 2. Findings. 3. Follow-up Consultations: medical consult appreciated, see notes for more detailed information Please refer to findings from physical exams and ROS from 08/02/18 ER records at [facility] PER ER REPORT Chest X- Ray Dictator : Mook Turcios MD Report Date : 08/02/2018 13:13:19 IMPRESSION: No active disease. Summary of Hospital Course include:: 1. Description of specific treatment plan utilized for patients during their course of treatmen. 2. Summarize the time- course for resolution of acute symptoms and/or regressed behaviors. 3. Describe issues identified and worked on during hospitalization. 4. Describe medication utilized. 5. Describe medical problems identified and treated. 6. Reassessment of suicide risk Summary of Hospital Course: Patient is a single 48 year old -[place] male, self reported history of schizoaffective disorder, opioid use disorder on methadone maintenance, numerous psychiatric admissions (>10) most recently discharged from this unit on 05/03/18- 05/12/18, historically poorly compliant with medications and aftercare recommendations who brought himself to the hospital looking for help with d epression, suicidal ideation (with plan to jump in front of train/jump off of a bridge/ buy a gun to shoot himself as well as visual hallucinations " people and things moving"). Patient requires medications adjustment, observation and stabilization. patient denied any access to guns. Please see initial evaluation note for more detailed information. patient was stabilized on the following medications: Depakote 500 mg AM and 750 mg HS for mood control. depakote level was 53 08/03/18 Prolixin discontinued due to ineffectiveness Seroquel 100 mg at the nighttime for psychosis and mood stabilization Cogentin 0.5 mg po bid for EPS prophylaxis Trazodone 100 mg HS for restless sleep, (off label use) Ativan was tapered off for alcohol use as vitals improve Patient attends a methadone clinic so he is not a candidate for naltrexone to address is alcohol dependency ER clinician confirmed patient's methadone 90 mg dose with Izabel Josue RN to be 90 mg at [facility] methadone clinic on 08/02/18. Patient also received a take-home dose which needs to be returned to the methadone clinic as patient was hospitalized on 08/03/18. lowered the dose of 70 mg to avoid sedation/respiratory depression on the unit prior to discharge are andCalled to the methadone clinic advised to continue 70 mg daily, pt will be followed up on Tuesday Appreciate f/u by Dr. Joseph on 08/03/18~signed off as patient was considered medically stable Nicoderm CQ 21 mg patch, replaced daily for nicotine cravings As per history schizoaffective disorder Alcohol abuse Opioid use disorder in remission, on maintenance methadone program During this hospitalization patient was evaluated by Mr. Mukherjee from the [facility] [place], but was not accepted due to questionable compliance and history of substance abuse. Please see health care social worker notes for more detailed information. Over the course of this hospitalization pt was attending groups, pt also had medication management, had therapeutic milieu. Overall pt improved, denied being depressed, has realistic future oriented plans, pt also does not appear to be psychotic, or anxious, pt was socially appropriate, no behavioral issues, pts insight improved as well and soon pt deemed to be ready for discharge. At the time of the discharge pt denied been depressed, denied thoughts of harming self or others, denied psychotic symptoms, and pt does not appeared to be psychotic, denied been anxious, pt is not in imminent danger to self or others, pt was referred to dual diagnosis program and [facility], information about follow up appointment, time and address provided to the pt, it is patient responsibility to follow up with outpatient clinic, PMD as well as specialists (see note for more detailed information). In case pt will need to obtain results of studies pending at discharge pt was provided with contact information of Psychiatric Inpatient unit [phone] as well as Medical Record Department [phone]. Naltrexone treatment not indicated at this time. Counseling about smoking and alcohol cessation provided AA meetings as well as smoking cessation treatment program information was provided by the pt was provided with prescriptions for all of medications (please see medication reconciliation form) Pt was educated about safety plan in case of worsening of symptoms or in case of suicidal or homicidal ideation call 911 or go to the nearest ER, also was educated to take meds as prescribed and stay away from drugs, pt verbalized understanding. - Diagnosis (1) Opioid use disorder, mild, on maintenance therapy Status: Acute (2) Schizoaffective disorder Status: Acute (3) Alcohol use disorder, severe, dependence Status: Acute - Final Diagnosis (DSM 5) Condition upon Discharge: STABLE Disposition: HOME/ ROUTINE Follow-up Treatment Plan: At the time of the discharge pt denied been depressed, denied thoughts of harming self or others, denied psychotic symptoms, and pt does not appeared to be psychotic, denied been anxious, pt is not in imminent danger to self or others, pt was referred to dual diagnosis program and [facility], information about follow up appointment, time and address provided to the pt, it is patient responsibility to follow up with outpatient clinic, PMD as well as specialists (see SW note for more detailed information). In case pt will need to obtain results of studies pending at discharge pt was provided with contact information of Psychiatric Inpatient unit [phone] as well as Medical Record Department [phone]. Naltrexone treatment not indicated at this time. Counseling about smoking and alcohol cessation provided AA meetings as well as smoking cessation treatment program information was provided by the pt was provided with prescriptions for all of medications (please see medication reconciliation form) Pt was educated about safety plan in case of worsening of symptoms or in case of suicidal or homicidal ideation call 911 or go to the nearest ER, also was educated to take meds as prescribed and stay away from drugs, pt verbalized understanding. Prescriptions/Medication Reconciliation: amLODIPine [Norvasc] 5 mg PO DAILY #7 tab Benztropine [Cogentin] 0.5 mg PO BID #30 tab Divalproex [Depakote DR (*BID*)] 250 mg PO HS #14 tcp metFORMIN [glucOPHAGE] 500 mg PO BID #14 tab Nicotine 21 mg/24 hr [Nicoderm Cq] 1 patch TD DAILY #14 patch QUEtiapine [Seroquel] 100 mg PO HS #14 tab traZODone [Desyrel] 100 mg PO HS #14 tab - Smoking Cessation Smoking Cessation Medication prescribed: Yes - Antipsychotic Medications Pt discharged on 2 or more routine antipsychotic medications: No
== END 2018-08-11 13:09 | disposition home or self-care (01) | DRG 430 ==
LOC: ED 12:21 → ERH 15:06 → PSYC 16:57
PROVIDERS: ADMIT Psychiatry & Neurology Psychiatry; ATTEND Psychiatry & Neurology Psychiatry
PROC: GZ3ZZZZ Medication Management (ICD-10-PCS; principal; 2018-08-02)
DX: F25.9 Schizoaffective disorder, unspecified (principal); F10.20 Alcohol dependence, uncomplicated; R45.851 Suicidal ideations; E11.9 Type 2 diabetes mellitus without complications; I10 Essential (primary) hypertension; J45.909 Unspecified asthma, uncomplicated; F11.21 Opioid dependence, in remission; Z91.14 Patient's other noncompliance with medication regimen; Z59.0 Homelessness

== ENCOUNTER 2018-10-14 10:42 | Inpatient (IN) | payer MEDICAID ==
[2018-10-14 10:51] VITALS: BMI 30.2
--- NOTE | 2018-10-14 11:04 | ED PDOC ---
Arrival/HPI - General Chief Complaint: Psychiatric Evaluation Time Seen by Provider: 10/14/18 10:55 Historian: Patient - History of Present Illness Narrative History of Present Illness (Text): 10/14/18 10:57 48 year old male, pmh including htn/dm, psychiatric history including of drug abuse/shizophrenia, nkda, c/o feeling suicidal and hearing voices x 1 day. Pt. stated that he is non compliance with his psychiatric medication, been hearing voices, feeling suicidal today, here to the ER for psychiatric help, no medical complaints. Pt. has no nausea/vomiting/chest pain or shortness of breath, no palpitation, no numbness or tingling, no other medical or psychological complaints. Past Medical History - Provider Review Nursing Documentation Reviewed: Yes - Infectious Disease Hx of Infectious Diseases: None - Tetanus Immunization Tetanus Immunization: Unknown - Cardiac Hx Cardiac Disorders: No Hx Hypertension: Yes - Pulmonary Hx Tuberculosis: No - Neurological HX Cerebrovascular Accident: No Hx Seizures: No - HEENT Hx HEENT Disorder: Yes Hx Cataracts: Yes (R) - Renal Hx Renal Disorder: No - Endocrine/Metabolic Hx Endocrine Disorders: Yes Hx Diabetes Mellitus Type 2: Yes - Hematological/Oncological Hx Cancer: No - Integumentary Hx Dermatological Disorder: No - Musculoskeletal/Rheumatological Hx Arthritis: No - Gastrointestinal Hx Gastrointestinal Disorders: No - Genitourinary/Gynecological Hx Sexually Transmitted Diseases: No - Psychiatric Hx Anxiety: Yes Hx Bipolar Disorder: Yes Hx Depression: Yes Hx Hallucinations: Yes Hx Panic Disorder: Yes Hx Psychosis: Yes Hx Schizophrenia: Yes Hx Substance Use: No - Surgical History Hx Cataract Extraction: Yes - Anesthesia Hx Anesthesia: Yes Hx Anesthesia Reactions: No Family/Social History - Physician Review Nursing Documentation Reviewed: Yes Family/Social History: Unknown Family HX Smoking Status: Light Smoker < 10 Cigarettes Daily Hx Alcohol Use: Yes Hx Substance Use: No Substance used: heroin Allergies/Home Meds Allergies/Adverse Reactions: Allergies No Known Allergies Allergy (Verified 08/02/18 18:35) PER PATIENT Review of Systems - Review of Systems Constitutional: absent: Fatigue, Fevers Eyes: absent: Vision Changes ENT: absent: Hearing Changes Respiratory: absent: SOB, Cough Cardiovascular: absent: Chest Pain Gastrointestinal: absent: Abdominal Pain, Diarrhea, Nausea, Vomiting Skin: absent: Rash, Pruritis Neurological: absent: Headache, Dizziness Psychiatric: Suicidal Ideation, Other (auditory hallucination). absent: Anxiety, Depression Physical Exam - Systems Exam Head: Present: Atraumatic, Normocephalic Pupils: Present: PERRL Extroacular Muscles: Present: EOMI Conjunctiva: Present: Normal Mouth: Present: Moist Mucous Membranes Neck: Present: Normal Range of Motion Respiratory/Chest: Present: Clear to Auscultation, Good Air Exchange. No: Respiratory Distress, Accessory Muscle Use Cardiovascular: Present: Regular Rate and Rhythm, Normal S1, S2. No: Murmurs Abdomen: No: Tenderness, Distention, Peritoneal Signs Back: Present: Normal Inspection Upper Extremity: Present: Normal Inspection. No: Cyanosis, Edema Lower Extremity: Present: Normal Inspection. No: Edema Neurological: Present: GCS=15, CN II-XII Intact, Speech Normal Skin: Present: Warm, Dry, Normal Color. No: Rashes Psychiatric: Present: Alert, Oriented x 3, Normal Insight, Normal Concentration Medical Decision Making ED Course and Treatment: 10/14/18 11:04 -labs -ekg -cxr -PES contacted -Observe and reassess 10/14/18 12:23 -EKG: NSR @ 98 BPM with PVC noted, no ST elevation or depression, no T wave inversion. -Chest xray ER wet read: no active disease -Labs are non-significant -Urinalysis show no UTI -UDS show +methadone and +benzo -Pt. is medically clear and stable for psychiatric evaluation. 10/14/18 13:49 -Pt. evaluated by the PES, request to be admitted under Dr. Felix for admission for schizoaffective. - EKG Interpretation EKG Interpretation (Text): 10/14/18 11:10 NSR @ 98 BPM with PVC noted, no ST elevation or depression, no T wave inversion. Interpreted by ED Physician: Yes Type: 12 lead EKG - PA / ACTUARY CLERK / Resident Statement MD/DO has reviewed & agrees with the documentation as recorded. Disposition/Present on Arrival - Present on Arrival Any Indicators Present on Arrival: No History of DVT/PE: No History of Uncontrolled Diabetes: No Urinary Catheter: No History of Decub. Ulcer: No History Surgical Site Infection Following: None - Disposition Have Diagnosis and Disposition been Completed?: Yes Diagnosis: Schizoaffective disorder Disposition: HOSPITALIZED Disposition Time: 12:24 Patient Plan: Admission, Observation Patient Problems: Current Active Problems Problem Status Onset Schizoaffective disorder Chronic Condition: STABLE
[2018-10-14 11:55] LABS: BASO # 0.04 K/mm3 (0.0-2.0); BASO % 0.6 % (0.0-3.0); EOS # 0.2 (0.0-0.7); EOS % 2.5 % (1.5-5.0); HEMOGLOBIN 12.6 g/dL (14.0-18.0); LYMPH # 2.6 (1.2-3.4); LYMPH % 37.5 % (22.0-35.0); MEAN CELL VOLUME 84.9 fl (80.0-105.0); MEAN CORPUSCULAR HEMOGLOBIN 27.9 pg (25.0-35.0); MEAN CORPUSCULAR HGB CONC 32.9 g/dl (31.0-37.0); MONO # 0.4 (0.1-0.6); MONO % 6.1 % (1.0-6.0); RBC 4.51 10^6/uL (3.5-6.1); RED CELL DISTRIBUTION WIDTH 14.2 % (11.5-14.5); WHITE BLOOD COUNT 6.8 10^3/uL (4.5-11.0)
[2018-10-14 12:02] LABS: ALB/GLOB RATIO 1.4 (1.1-1.8); ALBUMIN 4.7 g/dL (3.0-4.8); ALT/SGPT 29 U/L (7-56); AST/SGOT 30 U/L (17-59); BLOOD UREA NITROGEN 11 mg/dL (7-21); CALCIUM 9.3 mg/dL (8.4-10.5); GFR NON-AFRICAN AMERICAN > 60
[2018-10-14 12:03] LABS: ACETAMINOPHEN < 10.0 ug/ml (10.0-20.0); SALICYLATE < 1 mg/dL (2.0-20.0)
[2018-10-14 13:38] LABS: URINE BILIRUBIN NEGATIVE (NEGATIVE); URINE BLOOD NEGATIVE (NEGATIVE); URINE GLUCOSE (UA) NEGATIVE (NEGATIVE); URINE LEUKOCYTE ESTERASE NEGATIVE Leu/uL (NEGATIVE); URINE PROTEIN NEGATIVE mg/dL (<30 mg/dL); URINE UROBILINOGEN 0.2 E.U./dL (<1 E.U./dL)
--- NOTE | 2018-10-14 13:38 | RAD ---
Date of service: 10/14/2018 HISTORY: medical clearance COMPARISON: No comparison chest 08/02/2018 FINDINGS: LUNGS: Mild bibasilar atelectasis. PLEURA: No significant pleural effusion identified, no pneumothorax apparent. CARDIOVASCULAR: No aortic atherosclerotic calcification present. Normal cardiac size. No pulmonary vascular congestion. OSSEOUS STRUCTURES: No significant abnormalities. VISUALIZED UPPER ABDOMEN: Normal. OTHER FINDINGS: None. IMPRESSION: Mild bibasilar atelectasis.
[2018-10-14 13:39] LABS: URINE APPEARANCE CLEAR (CLEAR); URINE COLOR YELLOW (YELLOW)
[2018-10-14 13:58] LABS: PHENCYCLIDINE, UR NEGATIVE (NEGATIVE)
[2018-10-14 14:04] LABS: BARBITURATES, UR NEGATIVE (NEGATIVE); BENZODIAZEPINES, UR POSITIVE (NEGATIVE); OPIATES, UR NEGATIVE (NEGATIVE)
[2018-10-14 15:10] VITALS: O2SAT 97
[2018-10-14] MEDS ORDERED: Alum-Mag Hydrox-Simethicone Susp (30 mL) PO PRN (15:50)
[2018-10-14] MEDS ORDERED: Albuterol HFA 90 mcg/actuation (8 g) IH PRN (16:42)
--- NOTE | 2018-10-14 18:05 | PCM.BM ---
<Kieran Johnson - Last Filed: 10/14/18 18:02> Treatment Plan Problems - Problems identified on initial assessmt ALTERED THOUGHT PROCESS Date Initiated: 10/14/18 Time Initiated: 18:02 Assessment reference: HP, NA Status: Active AUDITORY HALLUCINATIONS Date Initiated: 10/14/18 Time Initiated: 18:03 Assessment reference: HP, NA Status: Active MEDS NONCOMPLIANCE Date Initiated: 10/14/18 Time Initiated: 18:04 Assessment reference: HP, NA, Other Status: Active Treatment assets and liabiliti Patient Assests: cooperative, self-reliant, ADL independent, physically healthy, cognitively intact Patient Liabilities: live alone, poor support system, relationship conflicts, substance abuse, imparied memory, other - Milieu Protocol Maintain good personal hygiene: daily Encourage regular showers, daily Remind patient to perform daily oral care, daily Assist patient to perform ADL's Maintain personal safety: daily Educate patient to report safety concerns to staff, daily Monitor environment for contraband/sharps Medication safety: Monitor for expected outcome, potential side effects: daily, Assess barriers to learning: daily, Assess readiness for medication education: daily Discharge/Continuing Care - Education Needs Education Needs: Patient Medication, Patient Diagnosis/Disease Process, Patient Coping Skills, Patient Anger Management skills, Patient Placement options, Patient Community resources, Patient Activities of Daily Living, Patient Uses of Medical Equipment, Patient Health Practices/Safety, Patient Personal Hygiene/Grooming, Patient Aftercare Safety Plan - Discharge Discharge Criteria: Tolerates medication w/o severe side effects, Free of Suicidal thoughts, Free of Homicidal thoughts, Free of paranoid thoughts, Free of agitation, Normal sleep pattern, Ability to care for self <Ayana Felix - Last Filed: 10/15/18 09:41> - Diagnosis (1) Schizoaffective disorder Status: Chronic Interventions: 10/15/18 09:41 * group, milieu and supportive tx * Will continue medications from 07/2018 admission. * Depakote 250 mg po bid for mood control. Check VPA * Seroquel 100 mg po HS to help with with mood control * Trazodone 100 mg po HS * Ativan 1 mg q6 with plan to taper for alcohol and benzo use * Patient attends a methadone clinic so he is not a candidate for naltrexone to address is alcohol dependency. * Patient reports that methadone dose is 90 mg daily, this was confirmed by nursing who noted recent methadone bottle in his possession. Patient attends [facility] methadone clinic ([phone]). Will provide dose of 70 mg to avoid sedation/respiratory depression on the unit. (2) Alcohol use disorder, severe, dependence Status: Acute Interventions: 10/15/18 09:42 * group, milieu and supportive tx * Will continue medications from 07/2018 admission. * Depakote 250 mg po bid for mood control. Check VPA * Seroquel 100 mg po HS to help with with mood control * Trazodone 100 mg po HS * Ativan 1 mg q6 with plan to taper for alcohol and benzo use * Patient attends a methadone clinic so he is not a candidate for naltrexone to address is alcohol dependency. * Patient reports that methadone dose is 90 mg daily, this was confirmed by nursing who noted recent methadone bottle in his possession. Patient attends [facility] methadone clinic ([phone]). Will provide dose of 70 mg to avoid sedation/respiratory depression on the unit. (3) Drug abuse Status: Acute Interventions: 10/15/18 09:42 * group, milieu and supportive tx * Will continue medications from 07/2018 admission. * Depakote 250 mg po bid for mood control. Check VPA * Seroquel 100 mg po HS to help with with mood control * Trazodone 100 mg po HS * Ativan 1 mg q6 with plan to taper for alcohol and benzo use * Patient attends a methadone clinic so he is not a candidate for naltrexone to address is alcohol dependency. * Patient reports that methadone dose is 90 mg daily, this was confirmed by nursing who noted recent methadone bottle in his possession. Patient attends [facility] methadone clinic ([phone]). Will provide dose of 70 mg to avoid sedation/respiratory depression on the unit. (4) Opioid use disorder, moderate, in sustained remission, on maintenance therapy Status: Chronic Interventions: 10/15/18 09:42 * group, milieu and supportive tx * Will continue medications from 07/2018 admission. * Depakote 250 mg po bid for mood control. Check VPA * Seroquel 100 mg po HS to help with with mood control * Trazodone 100 mg po HS * Ativan 1 mg q6 with plan to taper for alcohol and benzo use * Patient attends a methadone clinic so he is not a candidate for naltrexone to address is alcohol dependency. * Patient reports that methadone dose is 90 mg daily, this was confirmed by nursing who noted recent methadone bottle in his possession. Patient attends [facility] methadone clinic ([phone]). Will provide dose of 70 mg to avoid sedation/respiratory depression on the unit. <Jessica Crane - Last Filed: 10/16/18 15:42> Family Contact Family involvement: Famliy/SO not involved - Outside Agency [facility] Care involvment: Information-sharing <Naina Alfredo - Last Filed: 10/17/18 11:30> Family Contact - Outside Agency [facility] Care involvment: Information-sharing [facility]) Care involvment: Information-sharing Agency contact name: [facility]
--- NOTE | 2018-10-14 21:24 | CARD ---
APPROVED REPORT Date of service: 10/14/2018 EKG Measurement Heart [id number] <Conclusion> Normal sinus rhythm Normal ECG
[2018-10-14] MEDS: Insulin Reg-LOW-Coverage SC SCH (21:59)
[2018-10-14] MEDS ORDERED: Divalproex 500 mg DR(BID formulation) PO SCH (22:00)
[2018-10-15 08:58] LABS: GLUCOSE,FASTING 95 mg/dL (65-110); HDL CHOLESTEROL 73 mg/dL (29-60)
[2018-10-15 09:08] LABS: LDL CHOLESTEROL 100 mg/dL (0-129)
[2018-10-15] MEDS: Insulin Reg-LOW-Coverage SC SCH ×3 (09:16→17:02)
--- NOTE | 2018-10-15 09:40 | PCM.PSYCH ---
Initial Psychiatric Evaluation - Initial Psychiatric Evaluation Type of Admission: Voluntary Legal Status: Capacity History of Present Illness and Precipitating Events: Patient is a single 48 year old -[place] male, self reported history of schizoaffective disorder, opioid use disorder on methadone maintenance, numerous psychiatric admissions (>10) most recently discharged from this unit on 08/02- 08/10/18, , historically poorly compliant with medications and aftercare recommendations who brought himself to the hospital looking for help with depression, suicidal ideation (with plan to jump in front of bus as well as well hearing voices 'I hear voices telling me to do bad things and I don't want to hurt anyone" Per ER records patient presented as tearful and physically distressed. He was observed placing paper towels to his ears to block the voices. Pt expressed "I am a good person I don't want to hurt anyone but the voices are telling me to do bad things". Pt presented tearful and weepy. He also reported experiencing visual hallucinations " people and things moving". Patient had been in fair control on the unit though reluctant to fully engage in an interview. This is very similar to prior presentations. Eye contact is poor and responses are brief without much elaboration. He appears guarded and preoccupied. Denies hallucinations and doesn't appear to be responding to internal stimuli. He indicates that he has not been compliant with medications and has been drinking a lot of alcohol daily however he cannot quantify. Patient continues to attend a methadone clinic and denies relapse on heroin. Presently he denies any discomfort or pain and doesn't appear to be in any physical distress. PSYCHIATRIC HISTORY ~[facility] [place] Admission 08/02/19-08/11/19. Patient was discharged on: Cogentin 0.5 mg PO BID Hailey ORTIZ (*BID*)] 250 mg PO HS Norvasc 5 mg PO DAILY metFORMIN 500 mg PO BID Nicotine 21 mg/24 hr 1 patch TD DAILY Seroquel 100 mg PO HS trazodone 100 mg PO HS ~05/03/18-05/12/18 hospitalized at [facility]. He was discharged on:Cogentin 0.5 mg po bid, Depakote 500 mg AM and 750 mg HS, Prolixin 5 mg AM and 5 mg HS, Trazodone 100 mg HS, Nicoderm CQ 21 mg patch, replaced daily. --Methadone was also decreased to final value of 60 mg daily due to sedation (Methadone clinic was informed). --Changed prns for agitation from geodon + ativan to geodon + cogentin to improve patient's alertness on the unit. Patient has a history of placing and retracting 48 hour letters. He also has a history of code greys on the unit. ~08/09/17-08/17/17 hospitalized at [facility]. Diagnosed with Schizoaffective disorder, Opioid use disorder, moderate, in sustained remission, on maintenance therapy. Patient was discharged on Abilify 20 mg po daily, Neurontin 300 mg po TID, Zoloft 100 mg po daily and Sonata 5 mg HS prn. ~During patients 07/2017 hospitalization at [facility], he was not forthcoming about his recent discharge from [facility] on August 01. Dr. Baxter documentation indicated "Patient has had multiple psychiatric admissions at [facility] the most recent in April. Patient admits he has not been compliant with his medication. After discharge he went back to [facility] , his methadone clinic that he has been going to for 3 years. Patient using heroin on top of methadone 10 bags/day. Patient drinks 1 pint of vodka/day and beer on top of that. Patient admits to xanax use 2 sticks/day. Patient denies barbiturate use even though his urine was positive. Patient denies any other drug use" ~Nursing note indicates that patient admitted to a past suicidal attempt 15 years ago by overdosing on Excedrin PM. SOCIAL Born and raised in [place]. Single. Denies having any children. Lives in an apartment. Patient reports history of opioid use disorder. He reportedly attends [facility] methadone clinic ([phone]) and receives 90 mg daily of methadone. Has been drinking vodka daily but unable to quantify. Patient also reports he has been taking xanax daily but unable to quantify As per collaterals, patient has history of hospital shopping, admitted himself into the hospital looking for food and alf. Patient reported smoking about one half to one pack a day, nicotine patch offered and morbidity/mortality risks of continued tobacco use were reviewed with patient. The patient failed the outpatient lower level of care: Yes Current Medications: Active Medications Generic Name Dose Route Start Last Admin Trade Name Willisq PRN Reason Stop Dose Admin Acetaminophen 650 mg 10/14/18 15:51 Tylenol 325mg Tab PO Q6H PRN Pain, moderate (4-7) Al Hydrox/Mg Hydrox/Simethicone 30 ml 10/14/18 15:50 Maalox Plus 30 Ml PO DAILY PRN Indigestion / Heartburn Albuterol 2 puff 10/14/18 16:42 10/14/18 17:34 Ventolin Hfa 90 Mcg/Actuation (8 G) IH 2 puff [id number] PRN Administration Shortness of Breath Aripiprazole 10 mg 10/15/18 08:00 Abilify PO DAILY KEYANNA Protocol Benztropine Mesylate 0.5 mg 10/15/18 08:00 Cogentin PO BID KEYANNA Divalproex Sodium 500 mg 10/14/18 22:00 10/14/18 21:[address](*Bid*) PO 500 mg HS KEYANNA Administration Insulin Human Regular 0 units 10/14/18 22:00 10/14/18 21:59 Humulin R Low SC Not Given ACHS [facility] Protocol Lorazepam 1 mg 10/14/18 16:30 10/14/18 17:00 Ativan PO 1 mg Q6 PRN Administration Symptoms of alcohol withdrawl Protocol Magnesium Hydroxide 30 ml 10/14/18 15:50 Milk Of Magnesia PO DAILY PRN Constipation Methadone HCl 70 mg 10/15/18 08:00 Methadone PO DAILY [facility] Nicotine 1 patch 10/15/18 08:00 Nicoderm Cq TD DAILY [facility] Sertraline HCl 50 mg 10/15/18 08:00 Zoloft PO DAILY [facility] Zaleplon 10 mg 10/14/18 22:00 10/14/18 21:53 Sonata PO 10 mg HS PRN Administration Insomnia Present on Admission - Present on Admission Any Indicators Present on Admission: No - Notes: Notes:: Please refer to 10/14/18 ER records for ROS and physical exam findings Review of Systems - Review of Systems Review of Systems: Please refer to 10/14/18 ER records for ROS and physical exam findings - Constitutional Constitutional: As Per HPI - EENT Eyes: As Per HPI Ears: As Per HPI Nose/Mouth/Throat: As Per HPI - Cardiovascular Cardiovascular: As Per HPI - Respiratory Respiratory: As Per HPI - Gastrointestinal Gastrointestinal: As Per HPI - Genitourinary Genitourinary: As Per HPI - Reproductive: Male Reproductive:Male: As Per HPI - Musculoskeletal Musculoskeletal: As Per HPI - Integumentary Integumentary: As Per HPI - Neurological Neurological: As Per HPI - Psychiatric Psychiatric: As Per HPI - Endocrine Endocrine: As Per HPI - Hematologic/Lymphatic Hematologic: As Per HPI Past Patient History - Past Psychiatric History Previous Treatment History: Inpatient Prior Professional Help: See HPI - PSYCHIATRIC Hx Bipolar Disorder: Yes Hx Depression: Yes Hx Schizophrenia: Yes Hx Substance Use: Yes - Infectious Disease Hx of Infectious Diseases: None - Tetanus Immunizations Tetanus Immunization: Unknown - Past Medical History & Family History Past Medical History?: Yes - CARDIAC Hx Cardiac Disorders: No Hx Hypertension: Yes - PULMONARY Hx Tuberculosis: No - NEUROLOGICAL HX Cerebrovascular Accident: No Hx Seizures: No - HEENT Hx HEENT Problems: Yes Hx Cataracts: Yes (R) - RENAL Hx Chronic Kidney Disease: No - ENDOCRINE/METABOLIC Hx Endocrine Disorders: Yes Hx Diabetes Mellitus Type 2: Yes - HEMATOLOGICAL/ONCOLOGICAL Hx Cancer: No - INTEGUMENTARY Hx Dermatological Problems: No - MUSCULOSKELETAL/RHEUMATOLOGICAL Hx Arthritis: No - GASTROINTESTINAL Hx Gastrointestinal Disorders: No - GENITOURINARY/GYNECOLOGICAL Hx Sexually Transmitted Disorders: No - SURGICAL HISTORY Hx Cataract Extraction: Yes - ANESTHESIA Hx Anesthesia: Yes Hx Anesthesia Reactions: No - Medical/Surgical History Reviewed & confirmed: by al Meds Allergies/Adverse Reactions: Allergies Allergy/AdvReac Type Severity Reaction Status Date / Time No Known Allergies Allergy Verified 08/02/18 18:35 Mental Status Examination - Personal Presentation Personal Presentation: Looks stated age - Affect Affect: Constricted, Flat - Motor Activity Motor Activity: Calm - Reliability in Providing Information Reliability in Providing Information: Fair - Speech Speech: Organized - Mood Mood: Depressed - Formal Thought Process Formal Thought Process: No Impairment, Hallucinations (Reported AH and VH in ER, denies at present) - Obsessions/Compulsions Obsessions: No Compulsions: No - Cognitive Functions Orientation: Person, Place, Situation Sensorium: Drowsy Attention/Concentration: Easily distracted Abstract Thinking: Marcella Estimate of Intelligence: Average Judgement: Imparied, as evidence by: Poor judgement, Imparied, as evidence by: Lack of insight into illness Memory: Recent impaired, as evidence by: Inability to recall events of the day Psychiatric Physical Exam - Physical Exam Reviewed and confirmed: Emergency Department Physical Exam (Please refer to 10/14/18 ER records for ROS and physical exam findings) Results - Vital Signs Recent Vital Signs: Last Vital Signs Temp 98.0 F 10/14/18 15:37 Pulse 93 H 10/14/18 15:37 Resp 18 10/14/18 15:40 BP 146/97 H 10/14/18 15:37 Pulse Ox 97 10/14/18 15:37 - Labs Result Diagrams: 10/14/18 11:00 10/14/18 11:00 Labs: Laboratory Results - last 24 hr 10/14/18 10/14/18 10/14/18 11:00 11:00 11:00 WBC 6.8 D RBC 4.51 Hgb 12.6 L Hct 38.3 L MCV 84.9 MCH 27.9 MCHC 32.9 RDW 14.2 Plt Count 277 MPV 11.0 Neut % (Auto) 53.3 Lymph % (Auto) 37.5 H [place] % (Auto) 6.1 H Eos % (Auto) 2.5 Baso % (Auto) 0.6 Lymph # (Auto) 2.6 [place] # (Auto) 0.4 Eos # (Auto) 0.2 Baso # (Auto) 0.04 Absolute Neuts (auto) 3.64 Sodium 138 Potassium 3.9 Chloride 103 Carbon Dioxide 24 Anion Gap 15 BUN 11 Creatinine 0.8 Est GFR ( Amer) > 60 Est GFR (Non-Af Amer) > 60 POC Glucose (mg/dL) Random Glucose 116 H Calcium 9.3 Total Bilirubin 0.3 AST 30 ALT 29 Alkaline Phosphatase 82 Total Protein 8.1 Albumin 4.7 Globulin 3.4 Albumin/Globulin Ratio 1.4 Urine Color Urine Appearance Urine pH Ur Specific [place] Urine Protein Urine Glucose (UA) Urine Ketones Urine Blood Urine Nitrate Urine Bilirubin Urine Urobilinogen Ur Leukocyte Esterase Salicylates < 1 L Urine Opiates Screen Urine Methadone Screen Acetaminophen < 10.0 L Ur Barbiturates Screen Ur Phencyclidine Scrn Ur Amphetamines Screen U Benzodiazepines Scrn U Oth Cocaine Metabols U Cannabinoids Screen Alcohol, Quantitative 10/14/18 10/14/18 10/14/18 11:00 13:22 13:22 WBC RBC Hgb Hct MCV MCH MCHC RDW Plt Count MPV Neut % (Auto) Lymph % (Auto) [place] % (Auto) Eos % (Auto) Baso % (Auto) Lymph # (Auto) [place] # (Auto) Eos # (Auto) Baso # (Auto) Absolute Neuts (auto) Sodium Potassium Chloride Carbon Dioxide Anion Gap BUN Creatinine Est GFR ( Amer) Est GFR (Non-Af Amer) POC Glucose (mg/dL) Random Glucose Calcium Total Bilirubin AST ALT Alkaline Phosphatase Total Protein Albumin Globulin Albumin/Globulin Ratio Urine Color Yellow Urine Appearance Clear Urine pH 6.0 Ur Specific [place] 1.020 Urine Protein Negative Urine Glucose (UA) Negative Urine Ketones Negative Urine Blood Negative Urine Nitrate Negative Urine Bilirubin Negative Urine Urobilinogen 0.2 Ur Leukocyte Esterase Negative Salicylates Urine Opiates Screen Negative Urine Methadone Screen Positive H Acetaminophen Ur Barbiturates Screen Negative Ur Phencyclidine Scrn Negative Ur Amphetamines Screen Negative U Benzodiazepines Scrn Positive H U Oth Cocaine Metabols Negative U Cannabinoids Screen Negative Alcohol, Quantitative < 10 10/14/18 10/14/18 15:40 21:37 WBC RBC Hgb Hct MCV MCH MCHC RDW Plt Count MPV Neut % (Auto) Lymph % (Auto) [place] % (Auto) Eos % (Auto) Baso % (Auto) Lymph # (Auto) [place] # (Auto) Eos # (Auto) Baso # (Auto) Absolute Neuts (auto) Sodium Potassium Chloride Carbon Dioxide Anion Gap BUN Creatinine Est GFR ( Amer) Est GFR (Non-Af Amer) POC Glucose (mg/dL) 153 H 142 H Random Glucose Calcium Total Bilirubin AST ALT Alkaline Phosphatase Total Protein Albumin Globulin Albumin/Globulin Ratio Urine Color Urine Appearance Urine pH Ur Specific [place] Urine Protein Urine Glucose (UA) Urine Ketones Urine Blood Urine Nitrate Urine Bilirubin Urine Urobilinogen Ur Leukocyte Esterase Salicylates Urine Opiates Screen Urine Methadone Screen Acetaminophen Ur Barbiturates Screen Ur Phencyclidine Scrn Ur Amphetamines Screen U Benzodiazepines Scrn U Oth Cocaine Metabols U Cannabinoids Screen Alcohol, Quantitative - Impressions Impression: Please refer to 10/14/18 ER records for ROS and physical exam findings DSM Plan - DSM 5 DSM 5 Diagnosis: As per history schizoaffective disorder Opioid use disorder in remission, on maintenance methadone program alcohol and xanax abuse SIMD, SIPD - Recommended/Plan of Treatment Treatment Recommendations and Plan of Treatment: * group, milieu and supportive tx * Will continue medications from 07/2018 admission. * Depakote 250 mg po bid for mood control. Check VPA * Seroquel 100 mg po HS to help with with mood control * Trazodone 100 mg po HS * Ativan 1 mg q6 with plan to taper for alcohol and benzo use * Patient attends a methadone clinic so he is not a candidate for naltrexone to address is alcohol dependency. * Patient reports that methadone dose is 90 mg daily, this was confirmed by nursing who noted recent methadone bottle in his possession. Patient attends [facility] methadone clinic ([phone]). Will provide dose of 70 mg to avoid sedation/respiratory depression on the unit. * Awaiting medical f/u * Nicoderm CQ 21 mg patch, replaced daily for nicotine cravings * Vitals reviewed and noted below: Selected Entries 10/15/18 07:00 Temperature 98.4 F Pulse Rate 76 Respiratory 20 Rate Blood Pressure 124/82 Please refer to 10/14/18 ER records for ROS and physical exam findings ADMISSION LABS NOTED BELOW Laboratory Tests 10/14/18 10/14/18 10/14/18 11:00 11:00 11:00 WBC 6.8 D RBC 4.51 Hgb 12.6 L Hct 38.3 L MCV 84.9 MCH 27.9 MCHC 32.9 RDW 14.2 Plt Count 277 MPV 11.0 Neut % (Auto) 53.3 Lymph % (Auto) 37.5 H [place] % (Auto) 6.1 H Eos % (Auto) 2.5 Baso % (Auto) 0.6 Lymph # (Auto) 2.6 [place] # (Auto) 0.4 Eos # (Auto) 0.2 Baso # (Auto) 0.04 Absolute Neuts (auto) 3.64 Sodium 138 Potassium 3.9 Chloride 103 Carbon Dioxide 24 Anion Gap 15 BUN 11 Creatinine 0.8 Est GFR ( Amer) > 60 Est GFR (Non-Af Amer) > 60 POC Glucose (mg/dL) Random Glucose 116 H Fasting Glucose Calcium 9.3 Total Bilirubin 0.3 AST 30 ALT 29 Alkaline Phosphatase 82 Total Protein 8.1 Albumin 4.7 Globulin 3.4 Albumin/Globulin Ratio 1.4 Triglycerides Cholesterol LDL Cholesterol Direct HDL Cholesterol Urine Color Urine Appearance Urine pH Ur Specific [place] Urine Protein Urine Glucose (UA) Urine Ketones Urine Blood Urine Nitrate Urine Bilirubin Urine Urobilinogen Ur Leukocyte Esterase Salicylates < 1 L Urine Opiates Screen Urine Methadone Screen Acetaminophen < 10.0 L Ur Barbiturates Screen Ur Phencyclidine Scrn Ur Amphetamines Screen U Benzodiazepines Scrn U Oth Cocaine Metabols U Cannabinoids Screen Alcohol, Quantitative 10/14/18 10/14/18 10/14/18 11:00 13:22 13:22 WBC RBC Hgb Hct MCV MCH MCHC RDW Plt Count MPV Neut % (Auto) Lymph % (Auto) [place] % (Auto) Eos % (Auto) Baso % (Auto) Lymph # (Auto) [place] # (Auto) Eos # (Auto) Baso # (Auto) Absolute Neuts (auto) Sodium Potassium Chloride Carbon Dioxide Anion Gap BUN Creatinine Est GFR ( Amer) Est GFR (Non-Af Amer) POC Glucose (mg/dL) Random Glucose Fasting Glucose Calcium Total Bilirubin AST ALT Alkaline Phosphatase Total Protein Albumin Globulin Albumin/Globulin Ratio Triglycerides Cholesterol LDL Cholesterol Direct HDL Cholesterol Urine Color Yellow Urine Appearance Clear Urine pH 6.0 Ur Specific [place] 1.020 Urine Protein Negative Urine Glucose (UA) Negative Urine Ketones Negative Urine Blood Negative Urine Nitrate Negative Urine Bilirubin Negative Urine Urobilinogen 0.2 Ur Leukocyte Esterase Negative Salicylates Urine Opiates Screen Negative Urine Methadone Screen Positive H Acetaminophen Ur Barbiturates Screen Negative Ur Phencyclidine Scrn Negative Ur Amphetamines Screen Negative U Benzodiazepines Scrn Positive H U Oth Cocaine Metabols Negative U Cannabinoids Screen Negative Alcohol, Quantitative < 10 10/14/18 10/14/18 10/15/18 15:40 21:37 08:30 WBC RBC Hgb Hct MCV MCH MCHC RDW Plt Count MPV Neut % (Auto) Lymph % (Auto) [place] % (Auto) Eos % (Auto) Baso % (Auto) Lymph # (Auto) [place] # (Auto) Eos # (Auto) Baso # (Auto) Absolute Neuts (auto) Sodium Potassium Chloride Carbon Dioxide Anion Gap BUN Creatinine Est GFR ( Amer) Est GFR (Non-Af Amer) POC Glucose (mg/dL) 153 H 142 H Random Glucose Fasting Glucose 95 Calcium Total Bilirubin AST ALT Alkaline Phosphatase Total Protein Albumin Globulin Albumin/Globulin Ratio Triglycerides 104 Cholesterol 192 LDL Cholesterol Direct 100 HDL Cholesterol 73 H Urine Color Urine Appearance Urine pH Ur Specific [place] Urine Protein Urine Glucose (UA) Urine Ketones Urine Blood Urine Nitrate Urine Bilirubin Urine Urobilinogen Ur Leukocyte Esterase Salicylates Urine Opiates Screen Urine Methadone Screen Acetaminophen Ur Barbiturates Screen Ur Phencyclidine Scrn Ur Amphetamines Screen U Benzodiazepines Scrn U Oth Cocaine Metabols U Cannabinoids Screen Alcohol, Quantitative Projected ELOS: 7 days Prognosis: Guarded Discharge Plan and Discharge Criteria: Dual diagnosis program if patient doesnt go to inpatient rehab - Tobacco Cessation Tobacco Use Status for the last 30 days: Heavy User(>=5 cigs &/or cigars/pipes daily) Tobacco Use Treatment Practical Counseling Provided: Yes Type of Medication Provided: Nicoderm CQ - Alcohol or Substance Abuse Does the patient have an Alcohol or Substance Abuse Disorder: Yes Initial Psych Certification - Initial Certification I certify that the inpatient psychiatric facility admission was medically necessary for either: Treatment which could reasonbly be expected to improve pt's condition, Diagnostic study I estimate of hospitalization is necessary for proper treatment of the patient: 7 Unit of Time: Days
[2018-10-15 09:50] LABS: FREE T4 0.98 ng/dL (0.78-2.19)
--- NOTE | 2018-10-15 11:29 | CP.PCM.CON ---
<Baldemar Berger - Last Filed: 10/15/18 15:29> History of Present Illness - History of Present Illness History of Present Illness: Medicine Consult note for Dr. Cheryl Berger PGY2 Reason for consult: History of asthma, NIDDM, hypertension Patient is a 48 M with a history of schizophrenia, depression, asthma, NIDDM, and hypertension who was admitted to the psychiatric unit due to hearing voices which were telling him to kill himself. Patient states he had a plan to run in front of cars in order to commit suicide. Patient states he no longer hears vo ices telling him to hurt himself. ROS: denies chest pain, abdominal pain, nausea, vomiting, diarrhea, fevers, chills, cough, dysuria Social history: 1/2 ppd for 20 years tobacco, 2 pints alcohol daily, denies illicit drug use (however positive for benzos and methadone) Family history: Father ( from cancer-patient can't recall which type), Mother ( from emphysema) Allergies:NKDA Surgical history: denies Review of Systems - Review of Systems All systems: reviewed and no additional remarkable complaints except (as mentioned in HPI) Past Patient History - Infectious Disease Hx of Infectious Diseases: None - Tetanus Immunizations Tetanus Immunization: Unknown - Past Medical History & Family History Past Medical History?: Yes - Past Social History Smoking Status: Light Smoker < 10 Cigarettes Daily - CARDIAC Hx Cardiac Disorders: No Hx Hypertension: Yes - PULMONARY Hx Tuberculosis: No - NEUROLOGICAL HX Cerebrovascular Accident: No Hx Seizures: No - HEENT Hx HEENT Problems: Yes Hx Cataracts: Yes (R) - RENAL Hx Chronic Kidney Disease: No - ENDOCRINE/METABOLIC Hx Endocrine Disorders: Yes Hx Diabetes Mellitus Type 2: Yes - HEMATOLOGICAL/ONCOLOGICAL Hx Cancer: No - INTEGUMENTARY Hx Dermatological Problems: No - MUSCULOSKELETAL/RHEUMATOLOGICAL Hx Arthritis: No - GASTROINTESTINAL Hx Gastrointestinal Disorders: No - GENITOURINARY/GYNECOLOGICAL Hx Sexually Transmitted Disorders: No - PSYCHIATRIC Hx Bipolar Disorder: Yes Hx Depression: Yes Hx Schizophrenia: Yes Hx Substance Use: Yes - SURGICAL HISTORY Hx Cataract Extraction: Yes - ANESTHESIA Hx Anesthesia: Yes Hx Anesthesia Reactions: No Meds Allergies/Adverse Reactions: Allergies Allergy/AdvReac Type Severity Reaction Status Date / Time No Known Allergies Allergy Verified 08/02/18 18:35 - Medications Medications: Current Medications Acetaminophen (Tylenol 325mg Tab) 650 mg PO Q6H PRN PRN Reason: Pain, moderate (4-7) Albuterol (Ventolin Hfa 90 Mcg/Actuation (8 G)) 2 puff IH [id number] PRN PRN Reason: Shortness of Breath Last Admin: 10/14/18 17:34 Dose: 2 puff Divalproex Sodium (Depakote Dr(*Bid*)) 250 mg PO BID [facility] Insulin Human Regular (Humulin R Low) 0 units SC ACHS [facility]; Protocol Last Admin: 10/15/18 09:16 Dose: Not Given Lorazepam (Ativan) 1 mg PO Q6 [facility]; Protocol Magnesium Hydroxide (Milk Of Magnesia) 30 ml PO DAILY PRN PRN Reason: Constipation Methadone HCl (Methadone) 70 mg PO DAILY [facility] Last Admin: 10/15/18 10:01 Dose: 70 mg Nicotine (Nicoderm Cq) 1 patch TD DAILY [facility] Last Admin: 10/15/18 09:57 Dose: 1 patch Trazodone HCl (Desyrel) 100 mg PO [facility] Physical Exam - Constitutional Appears: Non-toxic, No Acute Distress - Head Exam Head Exam: ATRAUMATIC, NORMAL INSPECTION, NORMOCEPHALIC - Eye Exam Eye Exam: EOMI - ENT Exam ENT Exam: Mucous Membranes Moist - Respiratory Exam Respiratory Exam: Clear to Auscultation Bilateral, NORMAL BREATHING PATTERN - Cardiovascular Exam Cardiovascular Exam: REGULAR RHYTHM, +S1, +S2 - GI/Abdominal Exam GI & Abdominal Exam: Normal Bowel Sounds, Soft - Extremities Exam Extremities exam: Positive for: normal inspection - Back Exam Back exam: NORMAL INSPECTION - Neurological Exam Neurological exam: Alert, CN II-XII Intact, Oriented x3 - Psychiatric Exam Psychiatric exam: Depressed, Flat Affect - Skin Skin Exam: Normal Color, Warm Results - Vital Signs Recent Vital Signs: Last Vital Signs Temp 98.4 F 10/15/18 07:00 Pulse 76 10/15/18 07:00 Resp 20 10/15/18 07:00 BP 124/82 10/15/18 07:00 Pulse Ox 97 10/14/18 15:37 - Labs Result Diagrams: 10/14/18 11:00 10/14/18 11:00 Labs: Laboratory Results - last 24 hr 10/14/18 10/14/18 10/14/18 11:00 11:00 11:00 WBC 6.8 D RBC 4.51 Hgb 12.6 L Hct 38.3 L MCV 84.9 MCH 27.9 MCHC 32.9 RDW 14.2 Plt Count 277 MPV 11.0 Neut % (Auto) 53.3 Lymph % (Auto) 37.5 H [place] % (Auto) 6.1 H Eos % (Auto) 2.5 Baso % (Auto) 0.6 Lymph # (Auto) 2.6 [place] # (Auto) 0.4 Eos # (Auto) 0.2 Baso # (Auto) 0.04 Absolute Neuts (auto) 3.64 Sodium 138 Potassium 3.9 Chloride 103 Carbon Dioxide 24 Anion Gap 15 BUN 11 Creatinine 0.8 Est GFR ( Amer) > 60 Est GFR (Non-Af Amer) > 60 POC Glucose (mg/dL) Random Glucose 116 H Fasting Glucose Calcium 9.3 Total Bilirubin 0.3 AST 30 ALT 29 Alkaline Phosphatase 82 Total Protein 8.1 Albumin 4.7 Globulin 3.4 Albumin/Globulin Ratio 1.4 Triglycerides Cholesterol LDL Cholesterol Direct HDL Cholesterol Free T4 TSH 3rd Generation Urine Color Urine Appearance Urine pH Ur Specific [place] Urine Protein Urine Glucose (UA) Urine Ketones Urine Blood Urine Nitrate Urine Bilirubin Urine Urobilinogen Ur Leukocyte Esterase Salicylates < 1 L Urine Opiates Screen Urine Methadone Screen Acetaminophen < 10.0 L Ur Barbiturates Screen Valproic Acid Ur Phencyclidine Scrn Ur Amphetamines Screen U Benzodiazepines Scrn U Oth Cocaine Metabols U Cannabinoids Screen Alcohol, Quantitative 10/14/18 10/14/18 10/14/18 11:00 13:22 13:22 WBC RBC Hgb Hct MCV MCH MCHC RDW Plt Count MPV Neut % (Auto) Lymph % (Auto) Maury % (Auto) Eos % (Auto) Baso % (Auto) Lymph # (Auto) [place] # (Auto) Eos # (Auto) Baso # (Auto) Absolute Neuts (auto) Sodium Potassium Chloride Carbon Dioxide Anion Gap BUN Creatinine Est GFR ( Amer) Est GFR (Non-Af Amer) POC Glucose (mg/dL) Random Glucose Fasting Glucose Calcium Total Bilirubin AST ALT Alkaline Phosphatase Total Protein Albumin Globulin Albumin/Globulin Ratio Triglycerides Cholesterol LDL Cholesterol Direct HDL Cholesterol Free T4 TSH 3rd Generation Urine Color Yellow Urine Appearance Clear Urine pH 6.0 Ur Specific [place] 1.020 Urine Protein Negative Urine Glucose (UA) Negative Urine Ketones Negative Urine Blood Negative Urine Nitrate Negative Urine Bilirubin Negative Urine Urobilinogen 0.2 Ur Leukocyte Esterase Negative Salicylates Urine Opiates Screen Negative Urine Methadone Screen Positive H Acetaminophen Ur Barbiturates Screen Negative Valproic Acid Ur Phencyclidine Scrn Negative Ur Amphetamines Screen Negative U Benzodiazepines Scrn Positive H U Oth Cocaine Metabols Negative U Cannabinoids Screen Negative Alcohol, Quantitative < 10 10/14/18 10/14/18 10/15/18 15:40 21:37 08:30 WBC RBC Hgb Hct MCV MCH MCHC RDW Plt Count MPV Neut % (Auto) Lymph % (Auto) [place] % (Auto) Eos % (Auto) Baso % (Auto) Lymph # (Auto) [place] # (Auto) Eos # (Auto) Baso # (Auto) Absolute Neuts (auto) Sodium Potassium Chloride Carbon Dioxide Anion Gap BUN Creatinine Est GFR ( Amer) Est GFR (Non-Af Amer) POC Glucose (mg/dL) 153 H 142 H Random Glucose Fasting Glucose 95 Calcium Total Bilirubin AST ALT Alkaline Phosphatase Total Protein Albumin Globulin Albumin/Globulin Ratio Triglycerides 104 Cholesterol 192 LDL Cholesterol Direct 100 HDL Cholesterol 73 H Free T4 TSH 3rd Generation Urine Color Urine Appearance Urine pH Ur Specific [place] Urine Protein Urine Glucose (UA) Urine Ketones Urine Blood Urine Nitrate Urine Bilirubin Urine Urobilinogen Ur Leukocyte Esterase Salicylates Urine Opiates Screen Urine Methadone Screen Acetaminophen Ur Barbiturates Screen Valproic Acid Ur Phencyclidine Scrn Ur Amphetamines Screen U Benzodiazepines Scrn U Oth Cocaine Metabols U Cannabinoids Screen Alcohol, Quantitative 10/15/18 10/15/18 08:30 08:30 WBC RBC Hgb Hct MCV MCH MCHC RDW Plt Count MPV Neut % (Auto) Lymph % (Auto) [place] % (Auto) Eos % (Auto) Baso % (Auto) Lymph # (Auto) [place] # (Auto) Eos # (Auto) Baso # (Auto) Absolute Neuts (auto) Sodium Potassium Chloride Carbon Dioxide Anion Gap BUN Creatinine Est GFR ( Amer) Est GFR (Non-Af Amer) POC Glucose (mg/dL) Random Glucose Fasting Glucose Calcium Total Bilirubin AST ALT Alkaline Phosphatase Total Protein Albumin Globulin Albumin/Globulin Ratio Triglycerides Cholesterol LDL Cholesterol Direct HDL Cholesterol Free T4 0.98 TSH 3rd Generation 1.57 Urine Color Urine Appearance Urine pH Ur Specific [place] Urine Protein Urine Glucose (UA) Urine Ketones Urine Blood Urine Nitrate Urine Bilirubin Urine Urobilinogen Ur Leukocyte Esterase Salicylates Urine Opiates Screen Urine Methadone Screen Acetaminophen Ur Barbiturates Screen Valproic Acid 31 L Ur Phencyclidine Scrn Ur Amphetamines Screen U Benzodiazepines Scrn U Oth Cocaine Metabols U Cannabinoids Screen Alcohol, Quantitative Assessment & Plan - Assessment and Plan (Free Text) Assessment: Patient is a 48 M with a history of schizophrenia, depression, asthma, NIDDM, and hypertension who was admitted to the psychiatric unit due to hearing voices which were telling him to kill himself. Plan: Asthma -Duonebs q6h PRN Hypertension -Home norvasc resumed (don't give with SBP <100) NIDDM -Resumed home metformin Schizophrenia -Continue recommendations as per psych Medical evaluation: Consulted to restart home medications, home meds restarted and patient's blood glucose levels are controlled and as patient is not hypertensive we will sign off, please re-consult if needed. <Debra Farah R - Last Filed: 10/15/18 16:35> Meds - Medications Medications: Current Medications Acetaminophen (Tylenol 325mg Tab) 650 mg PO Q6H PRN PRN Reason: Pain, moderate (4-7) Albuterol (Ventolin Hfa 90 Mcg/Actuation (8 G)) 2 puff IH [id number] PRN PRN Reason: Shortness of Breath Last Admin: 10/14/18 17:34 Dose: 2 puff Albuterol/Ipratropium (Duoneb 3 Mg/0.5 Mg (3 Ml) Ud) 3 ml IH [id number] PRN PRN Reason: Shortness of Breath Amlodipine Besylate (Norvasc) 5 mg PO DAILY [facility] Divalproex Sodium (Depakote Dr(*Bid*)) 250 mg PO BID [facility] Insulin Human Regular (Humulin R Low) 0 units SC ACHS [facility]; Protocol Last Admin: 10/15/18 09:16 Dose: Not Given Lorazepam (Ativan) 1 mg PO Q6 [facility]; Protocol Magnesium Hydroxide (Milk Of Magnesia) 30 ml PO DAILY PRN PRN Reason: Constipation Metformin HCl (Glucophage) 500 mg PO BID [facility] Methadone HCl (Methadone) 70 mg PO DAILY [facility] Last Admin: 10/15/18 10:01 Dose: 70 mg Nicotine (Nicoderm Cq) 1 patch TD DAILY [facility] Last Admin: 10/15/18 09:57 Dose: 1 patch Trazodone HCl (Desyrel) 100 mg PO HS [facility] Results - Vital Signs Recent Vital Signs: Last Vital Signs Temp 98.4 F 10/15/18 07:00 Pulse 93 H 10/15/18 16:00 Resp 20 10/15/18 07:00 BP 138/89 10/15/18 16:00 Pulse Ox 97 10/14/18 15:37 - Labs Result Diagrams: 10/14/18 11:00 10/14/18 11:00 Labs: Laboratory Results - last 24 hr 10/14/18 10/15/18 10/15/18 21:37 07:38 08:30 POC Glucose (mg/dL) 142 H 104 Fasting Glucose 95 Triglycerides 104 Cholesterol 192 LDL Cholesterol Direct 100 HDL Cholesterol 73 H Free T4 TSH 3rd Generation Valproic Acid 10/15/18 10/15/18 10/15/18 08:30 08:30 11:47 POC Glucose (mg/dL) 109 Fasting Glucose Triglycerides Cholesterol LDL Cholesterol Direct HDL Cholesterol Free T4 0.98 TSH 3rd Generation 1.57 Valproic Acid 31 L 10/15/18 12:30 POC Glucose (mg/dL) Fasting Glucose Triglycerides Cholesterol LDL Cholesterol Direct HDL Cholesterol Free T4 TSH 3rd Generation Valproic Acid 28 L Attending/Attestation - Attestation I have personally seen and examined this patient.: Yes I have fully participated in the care of the patient.: Yes I have reviewed all pertinent clinical information: Yes Notes (Text): Patient seen and examined by me with resident at 11AM on 10/15/18 in the emergency room. Case including HPI, physical exam, and assessment and plan discussed with resident. Agree with above with following additions/corrections. Patient is a 48-year-old male with a history schizophrenia, depression, asthma, rqv-xatfbtw-vtheytisy type 2 diabetes, and hypertension is under to the emergency room for hearing voices. We are consulted to restart patient's home medications. Patient states that the voices were telling him to hurt himself. States he had a plan of jumping in front of traffic. He denies any current suicidal ideations. Patient states that he does take his home medications regularly. Denies any headaches or dizziness. No lightheadedness. No fevers or chills. No chest pain or palpitations. No nausea, vomiting, or abdominal pain. No dysuria. No diarrhea or constipation. No head or neck pain. 12 point review of systems reviewed by me. Please see above HPI. All other systems negative. Physical exam: General: Awake and alert lying in bed in no acute distress HEENT: Normocephalic, atraumatic. Extraocular muscles intact, pupils equal and reactive, no scleral icterus. Oropharynx is pink and moist. No pharyngeal erythema or exudate apreciated. Neck is supple. Hearing grossly intact. Ears and nose externally unremarkable. Cardiovascular: Regular rhythm. Normal S1 and S2. No murmurs, rubs, or gallops appreciated Pulmonary: Normal respiratory effort. No rhonchi, rales, or wheezing appreciated. Gastrointestinal: Soft, nondistended. Nontender. Positive bowel sounds all 4 quadrants. No guarding. Musculoskeletal: Moves all extremities. No calf tenderness. No edema. Central nervous system: AAOx3, CN 2-12 grossly intact. 5/5 muscle strength all extremities. Dermatologic: Skin warm and dry. Assessment and plan: Patient is a 48-year-old male with a history schizophrenia, depression, asthma, wue-zqkltuw-rhubcywpz type 2 diabetes, and hypertension presented to the emergency room for hearing voices. We are consulted to restart patient's home medications. 1. Xfb-Xnrxudf-ecfmjiccn type 2 diabetes. Continue home metformin. Continue insulin sliding scale. Monitor Accu-Cheks. 2. Essential hypertension. Continue home Norvasc 3. History of mild intermittent asthma. Not in acute exacerbation. Placed on nebulizer treatments as needed. 4. Schizophrenia. Depression. Suicidal ideations. Care as per primary team. Case was discussed in detail with the patient regarding diagnosis and treatment plan. All questions answered. Home medications added. Blood sugars controlled. Hypertension controlled. We will sign off. Please re-consult at any time if needed Thank you for allowing us to participate in the care of your patient.
[2018-10-15] MEDS ORDERED: Albuterol-Ipratrop 3 mg / 0.5 (3 ml) UD IH PRN (11:40)
[2018-10-15] MEDS: Divalproex 500 mg DR(BID formulation) PO SCH (17:02)
[2018-10-16] MEDS: Insulin Reg-LOW-Coverage SC SCH ×5 (00:19→21:07)
[2018-10-16] MEDS: Divalproex 500 mg DR(BID formulation) PO SCH (08:38)
--- NOTE | 2018-10-16 16:24 | PCM.PYCHPN ---
Psychiatric Progress Note - Psychiatric Progress Note Patient seen today, length of contact: 30 minutes Patient Chief Complaint: "I was hearing voices, voices were telling me to jump in front of the train or in front of the traffic, I came here for help." Problems Identified/Issues Discussed: Risk/benefits and alternatives of medications discussed, suicide/ homicide preve ntion, past psychiatric h/o, current psychiatric symptoms, medical problems, risk/benefits and alternatives of medications, medications compliance, coping strategies, substance abuse h/o, relapse prevention, importance of follow up with psychiatrist and therapist, discharge plan. Medical Problems: asthma, HTN, NIDDM Diagnostic Results: 10/14/18 11:00 10/14/18 11:00 Lab Results 10/16/18 16:01: POC Glucose (mg/dL) 117 H 10/16/18 11:30: POC Glucose (mg/dL) 156 H 10/16/18 07:44: POC Glucose (mg/dL) 125 H 10/15/18 21:13: POC Glucose (mg/dL) 123 H 10/15/18 15:56: POC Glucose (mg/dL) 82 10/15/18 12:30: Valproic Acid 28 L 10/15/18 11:47: POC Glucose (mg/dL) 109 10/15/18 08:30: Valproic Acid 31 L 10/15/18 08:30: RPR Nonreactive 10/15/18 08:30: Free T4 0.98, TSH 3rd Generation 1.57 10/15/18 08:30: Fasting Glucose 95, Triglycerides 104, Cholesterol 192, LDL Cholesterol Direct 100, HDL Cholesterol 73 H 10/15/18 07:38: POC Glucose (mg/dL) 104 10/14/18 21:37: POC Glucose (mg/dL) 142 H 10/14/18 15:40: POC Glucose (mg/dL) 153 H 10/14/18 13:22: Urine Opiates Screen Negative, Urine Methadone Screen Positive H , Ur Barbiturates Screen Negative, Ur Phencyclidine Scrn Negative, Ur Amphetamines Screen Negative, U Benzodiazepines Scrn Positive H, U Oth Cocaine Metabols Negative, U Cannabinoids Screen Negative 10/14/18 13:22: Urine Color Yellow, Urine Appearance Clear, Urine pH 6.0, Ur Specific [place] 1.020, Urine Protein Negative, Urine Glucose (UA) Negative, Urine Ketones Negative, Urine Blood Negative, Urine Nitrate Negative, Urine Bilirubin Negative, Urine Urobilinogen 0.2, Ur Leukocyte Esterase Negative 10/14/18 11:00: Alcohol, Quantitative < 10 10/14/18 11:00: Salicylates < 1 L, Acetaminophen < 10.0 L 10/14/18 11:00: Sodium 138, Potassium 3.9, Chloride 103, Carbon Dioxide 24, Anion Gap 15, BUN 11, Creatinine 0.8, Est GFR ( Amer) > 60, Est GFR (Non- Af Amer) > 60, Random Glucose 116 H, Calcium 9.3, Total Bilirubin 0.3, AST 30, ALT 29, Alkaline Phosphatase 82, Total Protein 8.1, Albumin 4.7, Globulin 3.4, Albumin/Globulin Ratio 1.4 10/14/18 11:00: WBC 6.8 D, RBC 4.51, Hgb 12.6 L, Hct 38.3 L, MCV 84.9, MCH 27.9, MCHC 32.9, RDW 14.2, Plt Count 277, MPV 11.0, Neut % (Auto) 53.3, Lymph % (Auto) 37.5 H, [place] % (Auto) 6.1 H, Eos % (Auto) 2.5, Baso % (Auto) 0.6, Lymph # (Auto) 2.6, [place] # (Auto) 0.4, Eos # (Auto) 0.2, Baso # (Auto) 0.04, Absolute Neuts (auto) 3.64 Vital Signs Temp Pulse Resp BP Pulse Ox 10/16/18 08:32 76 122/76 10/16/18 07:00 98.4 F 76 20 122/76 10/15/18 16:00 93 H 138/89 10/15/18 07:00 98.4 F 76 20 124/82 10/14/18 15:40 18 10/14/18 15:37 98.0 F 93 H 18 146/97 H 97 10/14/18 15:09 98 F 75 19 125/73 97 10/14/18 13:51 95 10/14/18 13:44 97.8 F 88 16 145/87 93 L 10/14/18 11:10 98.7 F 99 H 16 140/93 H 95 DSM 5 Symptoms Update: as per 's assessment patient is a single 48 year old -[place] chau ro[place], self reported history of schizoaffective disorder, opioid use disorder on methadone maintenance, numerous psychiatric admissions (>10) most recently discharged from this unit on 08/02-08/10/18, historically poorly compliant with medications and aftercare recommendations who brought himself to the hospital looking for help with depression, suicidal ideation (with plan to jump in front of bus as well as well hearing voices 'I hear voices telling me to do bad things and I don't want to hurt anyone." Patient required further evaluation and stabilization and medication adjustment. Per ER records patient presented as tearful and physically distressed. He was observed placing paper towels to his ears to block the voices. Pt expressed "I am a good person I don't want to hurt anyone but the voices are telling me to do bad things". Pt presented tearful and weepy. He also reported experiencing visual hallucinations " people and things moving". Patient was seen and examined, discussed with staff, medications resumed, notes reviewed, patient presented with acceptable personal hygiene, some psychomotor retardation, fair ADLs. This sports book writer is very familiar with this patient from previous admissions to the psychiatric inpatient unit, patient presented to be depressed, patient reported that he was hearing voices "it is male voice, telling me to jump in front of the traffic or jump in front of the train." patient reported that he came to the hospital looking for help. Patient reported that he was compliant with her medications and follow-up appointments, continues to attend a methadone clinic and denies relapse on heroin. Presently he denies any discomfort or pain and doesn't appear to be in any physical distress. Med list confirmed from [facility] [id number] Seroquel 400 mg at bedtime filled that August 18, 2018 Insulin 20 units once at night Amlodipine 10 mg daily Metformin 1000 mg twice a day Gabapentin 300 mg 3 times a day Lisinopril 10 mg daily all of the medications were filled in August 2018 with most likely patient was noncompliant with her medications As per staff report patient is compliant with her medications, no behavioral issues, but pt appears to be disorganized. So far patient tolerates medications well, no side effects observed or reported, aims 0, no EPS. Impression: History of schizoaffective disorder Opioid use disorder on maintenance methadone program History of alcohol use disorder Medication Change: Yes (Seroquel increased) Medical Record Reviewed: Yes Consults ordered or reviewed: Patient was seen by medical team, consult appreciated Mental Status Examination - Cognitive Function Orientation: Person, Place, Situation Memory: Intact Attention: Poor Concentration: Poor Association: Loose Fund of Knowledge: Poor - Mood Mood: Depressed - Affect Affect: Constricted, Flat - Formal Thought Process Formal Thought Process: No Impairment, Hallucinations (Reported AH and VH in ER, denies at present) - Suicidal Ideation Suicidal Ideation: Yes Plan: Suicidal ideation with a plan to jump in front of the train or in front of the traffic, denied any intent or plan to kill himself. - Homicidal Ideation Homicidal Ideation: No Goal/Treatment Plan - Goal/Treatment Plan Need for Continued Stay: Remain at risks for inpatient hospitalization, Severe depression anxiety, Discharge may exacerbated symptoms, Severe functional impairment Progress Toward Problem(s) and Goals/Treatment Plan: group, milieu and supportive tx * Depakote 250 mg po bid for mood control was resumed by Dr. Felix * Seroquel 400 mg po HS to help with with mood control , as per patient patient was on 12 mg at the nighttime * Trazodone 100 mg po HS * Ativan 1 mg q6 with plan to taper for alcohol and benzo use * Patient attends a methadone clinic so he is not a candidate for naltrexone to address is alcohol dependency. * Patient reports that methadone dose is 90 mg daily, this was confirmed by nursing who noted recent methadone bottle in his possession. Patient attends [facility] methadone clinic ([phone]). Will provide dose of 70 mg to avoid sedation/respiratory depression on the unit. * Awaiting medical f/u * Nicoderm CQ 21 mg patch, replaced daily for nicotine cravings * Follow up on labs Will monitor closely Pt was educated about risk/benefits and alternatives of medications, coping strategies (safety plan, suicide prevention), relapse prevention, importance of follow up with psychiatrist and therapist, stay away from drugs/alcohol/smoking Estimated Date of D/C: 10/23/18 - Smoking Cessation Smoking Cessation Initiated: Yes
[2018-10-16] MEDS: Divalproex 250 mg DR (BID formulation) PO SCH (17:24)
[2018-10-17] MEDS: Divalproex 250 mg DR (BID formulation) PO SCH ×2 (09:13→17:46)
[2018-10-17] MEDS: Insulin Reg-LOW-Coverage SC SCH ×4 (09:14→21:29)
--- NOTE | 2018-10-17 15:16 | PCM.PYCHPN ---
Psychiatric Progress Note - Psychiatric Progress Note Patient seen today, length of contact: 30 minutes Patient Chief Complaint: "I am feeling depressed, overwhelmed, but voices are not that prominent." Problems Identified/Issues Discussed: Risk/benefits and alternatives of medications discussed, suicide/ homicide prevention, past psychiatric h/o, current psychiatric symptoms, medical problems, risk/benefits and alternatives of medications, medications compliance, coping strategies, substance abuse h/o, relapse prevention, importance of follow up with psychiatrist and therapist, discharge plan. Medical Problems: asthma, HTN, NIDDM Diagnostic Results: 10/14/18 11:00 10/14/18 11:00 Lab Results 10/16/18 16:01: POC Glucose (mg/dL) 117 H 10/16/18 11:30: POC Glucose (mg/dL) 156 H 10/16/18 07:44: POC Glucose (mg/dL) 125 H 10/15/18 21:13: POC Glucose (mg/dL) 123 H 10/15/18 15:56: POC Glucose (mg/dL) 82 10/15/18 12:30: Valproic Acid 28 L 10/15/18 11:47: POC Glucose (mg/dL) 109 10/15/18 08:30: Valproic Acid 31 L 10/15/18 08:30: RPR Nonreactive 10/15/18 08:30: Free T4 0.98, TSH 3rd Generation 1.57 10/15/18 08:30: Fasting Glucose 95, Triglycerides 104, Cholesterol 192, LDL Cholesterol Direct 100, HDL Cholesterol 73 H 10/15/18 07:38: POC Glucose (mg/dL) 104 10/14/18 21:37: POC Glucose (mg/dL) 142 H 10/14/18 15:40: POC Glucose (mg/dL) 153 H 10/14/18 13:22: Urine Opiates Screen Negative, Urine Methadone Screen Positive H , Ur Barbiturates Screen Negative, Ur Phencyclidine Scrn Negative, Ur Amphetamines Screen Negative, U Benzodiazepines Scrn Positive H, U Oth Cocaine Metabols Negative, U Cannabinoids Screen Negative 10/14/18 13:22: Urine Color Yellow, Urine Appearance Clear, Urine pH 6.0, Ur Specific [place] 1.020, Urine Protein Negative, Urine Glucose (UA) Negative, Urine Ketones Negative, Urine Blood Negative, Urine Nitrate Negative, Urine Bilirubin Negative, Urine Urobilinogen 0.2, Ur Leukocyte Esterase Negative 10/14/18 11:00: Alcohol, Quantitative < 10 10/14/18 11:00: Salicylates < 1 L, Acetaminophen < 10.0 L 10/14/18 11:00: Sodium 138, Potassium 3.9, Chloride 103, Carbon Dioxide 24, Ani on Gap 15, BUN 11, Creatinine 0.8, Est GFR ( Amer) > 60, Est GFR (Non-Af Amer) > 60, Random Glucose 116 H, Calcium 9.3, Total Bilirubin 0.3, AST 30, ALT 29, Alkaline Phosphatase 82, Total Protein 8.1, Albumin 4.7, Globulin 3.4, Albumin/Globulin Ratio 1.4 10/14/18 11:00: WBC 6.8 D, RBC 4.51, Hgb 12.6 L, Hct 38.3 L, MCV 84.9, MCH 27.9, MCHC 32.9, RDW 14.2, Plt Count 277, MPV 11.0, Neut % (Auto) 53.3, Lymph % (Auto) 37.5 H, [place] % (Auto) 6.1 H, Eos % (Auto) 2.5, Baso % (Auto) 0.6, Lymph # (Auto) 2.6, [place] # (Auto) 0.4, Eos # (Auto) 0.2, Baso # (Auto) 0.04, Absolute Neuts (auto) 3.64 Vital Signs Temp Pulse Resp BP Pulse Ox 10/16/18 08:32 76 122/76 10/16/18 07:00 98.4 F 76 20 122/76 10/15/18 16:00 93 H 138/89 10/15/18 07:00 98.4 F 76 20 124/82 10/14/18 15:40 18 10/14/18 15:37 98.0 F 93 H 18 146/97 H 97 10/14/18 15:09 98 F 75 19 125/73 97 10/14/18 13:51 95 10/14/18 13:44 97.8 F 88 16 145/87 93 L 10/14/18 11:10 98.7 F 99 H 16 140/93 H 95 DSM 5 Symptoms Update: as per 's assessment patient is a single 48 year old -[place] male, self reported history of schizoaffective disorder, opioid use disorder on methadone maintenance, numerous psychiatric admissions (>10) most recently discharged from this unit on 08/02-08/10/18, historically poorly compliant with medications and aftercare recommendations who brought himself to the hospital looking for help with depression, suicidal ideation (with plan to jump in front of bus as well as well hearing voices 'I hear voices telling me to do bad things and I don't want to hurt anyone." Patient required further evaluation and stabilization and medication adjustment. Per ER records patient presented as tearful and physically distressed. He was observed placing paper towels to his ears to block the voices. Pt expressed "I am a good person I don't want to hurt anyone but the voices are telling me to do bad things". Pt presented tearful and weepy. He also reported experiencing visual hallucinations " people and things moving". Patient was seen and examined, discussed with staff, medications reviewed, patient presented with acceptable personal hygiene, some psychomotor retardation, fair ADLs. Patient reported after medications resumed, "voices are not that prominent", patient reported that he was not able to fall asleep and to stay asleep, patient reported that he felt depressed, anxious and "overwhelmed". As per staff report patient is compliant with his medications, has periods of irritability, impulses are unpredictable, pt appears to be disorganized. So far patient tolerates medications well, no side effects observed or reported, aims 0, no EPS. methadone dose was confirmed and resumed 90mg, pt is aware if he would present overly medicated methadone would be decreased. Impression: History of schizoaffective disorder Opioid use disorder on maintenance methadone program History of alcohol use disorder Medication Change: Yes (Seroquel increased October 16, 2018) Medical Record Reviewed: Yes Mental Status Examination - Cognitive Function Orientation: Person, Place, Situation Memory: Intact Attention: Poor Concentration: Poor Association: Loose Fund of Knowledge: Poor - Mood Mood: Depressed - Affect Affect: Constricted, Flat - Formal Thought Process Formal Thought Process: No Impairment, Hallucinations (Reported AH and VH in ER, denies at present) - Suicidal Ideation Suicidal Ideation: Yes - Homicidal Ideation Homicidal Ideation: No Goal/Treatment Plan - Goal/Treatment Plan Need for Continued Stay: Remain at risks for inpatient hospitalization, Severe depression anxiety, Discharge may exacerbated symptoms, Severe functional impairment Progress Toward Problem(s) and Goals/Treatment Plan: group, milieu and supportive tx * Depakote 250 mg po bid for mood control was resumed by Dr. Felix * Seroquel 400 mg po HS to help with with mood control , as per patient patient was on 12 mg at the nighttime * Trazodone 100 mg po HS * Ativan 1 mg q6 with plan to taper for alcohol and benzo use * Patient attends a methadone clinic so he is not a candidate for naltrexone to address is alcohol dependency. * Patient reports that methadone dose is 90 mg daily, this was confirmed by nursing who noted recent methadone bottle in his possession. Patient attends [facility] methadone clinic ([phone]). * Medical consult appreciated * Nicoderm CQ 21 mg patch, replaced daily for nicotine cravings * Follow up on labs Will monitor closely Pt was educated about risk/benefits and alternatives of medications, coping strategies (safety plan, suicide prevention), relapse prevention, importance of follow up with psychiatrist and therapist, stay away from drugs/alcohol/smoking Estimated Date of D/C: 10/23/18
[2018-10-18] MEDS: Divalproex 250 mg DR (BID formulation) PO SCH ×2 (08:44→17:39)
[2018-10-18] MEDS: Insulin Reg-LOW-Coverage SC SCH ×4 (08:47→22:15)
[2018-10-18 15:06] LABS: HEMOGLOBIN 13.4 g/dL (14.0-18.0); MEAN CELL VOLUME 85.4 fl (80.0-105.0); MEAN CORPUSCULAR HGB CONC 32.8 g/dl (31.0-37.0); MEAN PLATELET VOLUME 10.6 fl (7.0-11.0); RBC 4.78 10^6/uL (3.5-6.1); RED CELL DISTRIBUTION WIDTH 14.1 % (11.5-14.5); WHITE BLOOD COUNT 5.7 10^3/uL (4.5-11.0)
[2018-10-18 15:41] LABS: URINE BILIRUBIN NEGATIVE (NEGATIVE); URINE BLOOD NEGATIVE (NEGATIVE); URINE GLUCOSE (UA) NEGATIVE (NEGATIVE); URINE LEUKOCYTE ESTERASE TRACE Leu/uL (NEGATIVE); URINE PROTEIN NEGATIVE mg/dL (<30 mg/dL); URINE UROBILINOGEN 0.2 E.U./dL (<1 E.U./dL)
[2018-10-18 15:44] LABS: URINE APPEARANCE CLEAR (CLEAR); URINE COLOR YELLOW (YELLOW)
--- NOTE | 2018-10-18 15:45 | PCM.PYCHPN ---
Psychiatric Progress Note - Psychiatric Progress Note Patient seen today, length of contact: 30 minutes Patient Chief Complaint: "I am feeling depressed, overwhelmed, but voices are not that prominent." Problems Identified/Issues Discussed: Risk/benefits and alternatives of medications discussed, suicide/ homicide prevention, past psychiatric h/o, current psychiatric symptoms, medical problems, risk/benefits and alternatives of medications, medications compliance, coping strategies, substance abuse h/o, relapse prevention, importance of follow up with psychiatrist and therapist, discharge plan. Medical Problems: asthma, HTN, NIDDM Diagnostic Results: 10/14/18 11:00 10/14/18 11:00 Lab Results 10/16/18 16:01: POC Glucose (mg/dL) 117 H 10/16/18 11:30: POC Glucose (mg/dL) 156 H 10/16/18 07:44: POC Glucose (mg/dL) 125 H 10/15/18 21:13: POC Glucose (mg/dL) 123 H 10/15/18 15:56: POC Glucose (mg/dL) 82 10/15/18 12:30: Valproic Acid 28 L 10/15/18 11:47: POC Glucose (mg/dL) 109 10/15/18 08:30: Valproic Acid 31 L 10/15/18 08:30: RPR Nonreactive 10/15/18 08:30: Free T4 0.98, TSH 3rd Generation 1.57 10/15/18 08:30: Fasting Glucose 95, Triglycerides 104, Cholesterol 192, LDL Cholesterol Direct 100, HDL Cholesterol 73 H 10/15/18 07:38: POC Glucose (mg/dL) 104 10/14/18 21:37: POC Glucose (mg/dL) 142 H 10/14/18 15:40: POC Glucose (mg/dL) 153 H 10/14/18 13:22: Urine Opiates Screen Negative, Urine Methadone Screen Positive H , Ur Barbiturates Screen Negative, Ur Phencyclidine Scrn Negative, Ur Amphetamines Screen Negative, U Benzodiazepines Scrn Positive H, U Oth Cocaine Metabols Negative, U Cannabinoids Screen Negative 10/14/18 13:22: Urine Color Yellow, Urine Appearance Clear, Urine pH 6.0, Ur Specific [place] 1.020, Urine Protein Negative, Urine Glucose (UA) Negative, Urine Ketones Negative, Urine Blood Negative, Urine Nitrate Negative, Urine Bilirubin Negative, Urine Urobilinogen 0.2, Ur Leukocyte Esterase Negative 10/14/18 11:00: Alcohol, Quantitative < 10 10/14/18 11:00: Salicylates < 1 L, Acetaminophen < 10.0 L 10/14/18 11:00: Sodium 138, Potassium 3.9, Chloride 103, Carbon Dioxide 24, Ani [place] 15, BUN 11, Creatinine 0.8, Est GFR ( Amer) > 60, Est GFR (Non-Af Amer) > 60, Random Glucose 116 H, Calcium 9.3, Total Bilirubin 0.3, AST 30, ALT 29, Alkaline Phosphatase 82, Total Protein 8.1, Albumin 4.7, Globulin 3.4, Albumin/Globulin Ratio 1.4 10/14/18 11:00: WBC 6.8 D, RBC 4.51, Hgb 12.6 L, Hct 38.3 L, MCV 84.9, MCH 27.9, MCHC 32.9, RDW 14.2, Plt Count 277, MPV 11.0, Neut % (Auto) 53.3, Lymph % (Auto) 37.5 H, [place] % (Auto) 6.1 H, Eos % (Auto) 2.5, Baso % (Auto) 0.6, Lymph # (Auto) 2.6, [place] # (Auto) 0.4, Eos # (Auto) 0.2, Baso # (Auto) 0.04, Absolute Neuts (auto) 3.64 Vital Signs Temp Pulse Resp BP Pulse Ox 10/16/18 08:32 76 122/76 10/16/18 07:00 98.4 F 76 20 122/76 10/15/18 16:00 93 H 138/89 10/15/18 07:00 98.4 F 76 20 124/82 10/14/18 15:40 18 10/14/18 15:37 98.0 F 93 H 18 146/97 H 97 10/14/18 15:09 98 F 75 19 125/73 97 10/14/18 13:51 95 10/14/18 13:44 97.8 F 88 16 145/87 93 L 10/14/18 11:10 98.7 F 99 H 16 140/93 H 95 Abnormal Lab Results 10/17/18 10/17/18 10/17/18 07:17 11:11 16:30 WBC RBC Hgb Hct MCV MCH MCHC RDW Plt Count MPV POC Glucose (mg/dL) 100 189 H 138 H 10/17/18 10/18/18 10/18/18 21:10 07:13 11:03 WBC RBC Hgb Hct MCV MCH MCHC RDW Plt Count MPV POC Glucose (mg/dL) 225 H 138 H 150 H 10/18/18 14:55 WBC 5.7 RBC 4.78 Hgb 13.4 L Hct 40.8 L MCV 85.4 MCH 28.0 MCHC 32.8 RDW 14.1 Plt Count 204 MPV 10.6 POC Glucose (mg/dL) Temp Pulse Resp BP Pulse Ox 98.3 F 84 20 129/86 97 10/18/18 07:17 10/18/18 08:45 10/18/18 07:17 10/18/18 08:45 10/14/18 15:37 DSM 5 Symptoms Update: as per 's assessment patient is a single 48 year old -[place] male, self reported history of schizoaffective disorder, opioid use disorder on methadone maintenance, numerous psychiatric admissions (>10) most recently discharged from this unit on 08/02-08/10/18, historically poorly compliant with medications and aftercare recommendations who brought himself to the hospital looking for help with depression, suicidal ideation (with plan to jump in front of bus as well as well hearing voices 'I hear voices telling me to do bad things and I don't want to hurt anyone." Patient required further evaluation and stabilization and medication adjustment. Per ER records patient presented as tearful and physically distressed. He was observed placing paper towels to his ears to block the voices. Pt expressed "I am a good person I don't want to hurt anyone but the voices are telling me to do bad things". Pt presented tearful and weepy. He also reported experiencing visual hallucinations " people and things moving". Patient was seen and examined in his room, patient appears to be more confused, as per staff patient was more restless, acting bizarre during the treatment groups, patient was keeps asking about medications and have episodes of for getfulness and disorganized behavior, pt also spilled beads on the floor, appeared to be psychotic. This typewriter operator automatic ordered CBC, CMP, urine analysis, urine culture and sensitivity because patient appears to be confused, disorganized, r/o delirium. As per staff report patient is compliant with his medications, has periods of irritability, impulses are unpredictable, pt appears to be disorganized. So far patient tolerates medications well, no side effects observed or reported, aims 0, no EPS. methadone dose was confirmed and resumed 90mg, but will decrease the dose of methadone to 70 mg because patient appears to be high on this medication. Impression: History of schizoaffective disorder Opioid use disorder on maintenance methadone program History of alcohol use disorder Medication Change: Yes (Ativan increased, methadone decreased) Medical Record Reviewed: Yes Consults ordered or reviewed: Patient was seen by medical team, consult appreciated Mental Status Examination - Cognitive Function Orientation: Person, Place, Situation Memory: Intact Attention: Poor Concentration: Poor Association: Loose Fund of Knowledge: Poor - Mood Mood: Depressed - Affect Affect: Constricted, Flat - Formal Thought Process Formal Thought Process: No Impairment, Hallucinations (Reported AH and VH in ER, denies at present) - Suicidal Ideation Suicidal Ideation: No - Homicidal Ideation Homicidal Ideation: No Goal/Treatment Plan - Goal/Treatment Plan Need for Continued Stay: Remain at risks for inpatient hospitalization, Severe depression anxiety, Discharge may exacerbated symptoms, Severe functional impairment Progress Toward Problem(s) and Goals/Treatment Plan: group, milieu and supportive tx * Depakote 250 mg po bid for mood control was resumed by Dr. Felix * Seroquel 400 mg po HS to help with with mood control , as per patient patient was on 12 mg at the nighttime * Trazodone 100 mg po HS * Ativan 2 mg q6 with plan to taper for alcohol and benzo use * Patient attends a methadone clinic so he is not a candidate for naltrexone to address is alcohol dependency. * Patient reports that methadone dose is 90 mg daily, will decrease to 70mg daily, dose was confirmed by nursing who noted recent methadone bottle in his possession. Patient attends [facility] methadone clinic ([phone]). * Medical consult appreciated * Nicoderm CQ 21 mg patch, replaced daily for nicotine cravings * Follow up on labs Will monitor closely Pt was educated about risk/benefits and alternatives of medications, coping strategies (safety plan, suicide prevention), relapse prevention, importance of follow up with psychiatrist and therapist, stay away from drugs/alcohol/smoking We will follow-up on CBC, CMP, urine analysis, urine culture and sensitivity. Estimated Date of D/C: 10/23/18
[2018-10-18 15:49] LABS: ALB/GLOB RATIO 1.4 (1.1-1.8); ALBUMIN 4.7 g/dL (3.0-4.8); ALT/SGPT 15 U/L (7-56); AST/SGOT 25 U/L (17-59); BLOOD UREA NITROGEN 19 mg/dL (7-21); CALCIUM 10.3 mg/dL (8.4-10.5); GFR NON-AFRICAN AMERICAN > 60
[2018-10-18 15:57] LABS: URINE BACTERIA MOD /hpf
[2018-10-19] MEDS: Insulin Reg-LOW-Coverage SC SCH ×4 (07:30→22:04)
[2018-10-19] MEDS: Divalproex 250 mg DR (BID formulation) PO SCH ×2 (08:13→17:25)
--- NOTE | 2018-10-19 14:24 | PCM.PYCHPN ---
Psychiatric Progress Note - Psychiatric Progress Note Patient seen today, length of contact: 30 minutes Patient Chief Complaint: "I am good..." Problems Identified/Issues Discussed: Risk/benefits and alternatives of medications discussed, suicide/ homicide prevention, past psychiatric h/o, current psychiatric symptoms, medical problems, risk/benefits and alternatives of medications, medications compliance, coping strategies, substance abuse h/o, relapse prevention, importance of follow up with psychiatrist and therapist, discharge plan. Medical Problems: asthma, HTN, NIDDM Diagnostic Results: 10/14/18 11:00 10/14/18 11:00 Lab Results 10/16/18 16:01: POC Glucose (mg/dL) 117 H 10/16/18 11:30: POC Glucose (mg/dL) 156 H 10/16/18 07:44: POC Glucose (mg/dL) 125 H 10/15/18 21:13: POC Glucose (mg/dL) 123 H 10/15/18 15:56: POC Glucose (mg/dL) 82 10/15/18 12:30: Valproic Acid 28 L 10/15/18 11:47: POC Glucose (mg/dL) 109 10/15/18 08:30: Valproic Acid 31 L 10/15/18 08:30: RPR Nonreactive 10/15/18 08:30: Free T4 0.98, TSH 3rd Generation 1.57 10/15/18 08:30: Fasting Glucose 95, Triglycerides 104, Cholesterol 192, LDL Cholesterol Direct 100, HDL Cholesterol 73 H 10/15/18 07:38: POC Glucose (mg/dL) 104 10/14/18 21:37: POC Glucose (mg/dL) 142 H 10/14/18 15:40: POC Glucose (mg/dL) 153 H 10/14/18 13:22: Urine Opiates Screen Negative, Urine Methadone Screen Positive H , Ur Barbiturates Screen Negative, Ur Phencyclidine Scrn Negative, Ur Amphetamines Screen Negative, U Benzodiazepines Scrn Positive H, U Oth Cocaine Metabols Negative, U Cannabinoids Screen Negative 10/14/18 13:22: Urine Color Yellow, Urine Appearance Clear, Urine pH 6.0, Ur Specific [place] 1.020, Urine Protein Negative, Urine Glucose (UA) Negative, Urine Ketones Negative, Urine Blood Negative, Urine Nitrate Negative, Urine Bilirubin Negative, Urine Urobilinogen 0.2, Ur Leukocyte Esterase Negative 10/14/18 11:00: Alcohol, Quantitative < 10 10/14/18 11:00: Salicylates < 1 L, Acetaminophen < 10.0 L 10/14/18 11:00: Sodium 138, Potassium 3.9, Chloride 103, Carbon Dioxide 24, Anion Gap 15, BUN 11, Creatinine 0.8, Est GFR ( Amer) > 60, Est GFR (Non- Af Amer) > 60, Random Glucose 116 H, Calcium 9.3, Total Bilirubin 0.3, AST 30, ALT 29, Alkaline Phosphatase 82, Total Protein 8.1, Albumin 4.7, Globulin 3.4, Albumin/Globulin Ratio 1.4 10/14/18 11:00: WBC 6.8 D, RBC 4.51, Hgb 12.6 L, Hct 38.3 L, MCV 84.9, MCH 27.9, MCHC 32.9, RDW 14.2, Plt Count 277, MPV 11.0, Neut % (Auto) 53.3, Lymph % (Auto) 37.5 H, [place] % (Auto) 6.1 H, Eos % (Auto) 2.5, Baso % (Auto) 0.6, Lymph # (Auto) 2.6, [place] # (Auto) 0.4, Eos # (Auto) 0.2, Baso # (Auto) 0.04, Absolute Neuts (auto) 3.64 Vital Signs Temp Pulse Resp BP Pulse Ox 10/16/18 08:32 76 122/76 10/16/18 07:00 98.4 F 76 20 122/76 10/15/18 16:00 93 H 138/89 10/15/18 07:00 98.4 F 76 20 124/82 10/14/18 15:40 18 10/14/18 15:37 98.0 F 93 H 18 146/97 H 97 10/14/18 15:09 98 F 75 19 125/73 97 10/14/18 13:51 95 10/14/18 13:44 97.8 F 88 16 145/87 93 L 10/14/18 11:10 98.7 F 99 H 16 140/93 H 95 Abnormal Lab Results 10/17/18 10/17/18 10/17/18 07:17 11:11 16:30 WBC RBC Hgb Hct MCV MCH MCHC RDW Plt Count MPV POC Glucose (mg/dL) 100 189 H 138 H 10/17/18 10/18/18 10/18/18 21:10 07:13 11:03 WBC RBC Hgb Hct MCV MCH MCHC RDW Plt Count MPV POC Glucose (mg/dL) 225 H 138 H 150 H 10/18/18 14:55 WBC 5.7 RBC 4.78 Hgb 13.4 L Hct 40.8 L MCV 85.4 MCH 28.0 MCHC 32.8 RDW 14.1 Plt Count 204 MPV 10.6 POC Glucose (mg/dL) Temp Pulse Resp BP Pulse Ox 98.3 F 84 20 129/86 97 10/18/18 07:17 10/18/18 08:45 10/18/18 07:17 10/18/18 08:45 10/14/18 15:37 Laboratory Results - last 24 hr 10/18/18 10/18/18 10/18/18 14:55 14:55 15:00 WBC 5.7 RBC 4.78 Hgb 13.4 L Hct 40.8 L MCV 85.4 MCH 28.0 MCHC 32.8 RDW 14.1 Plt Count 204 MPV 10.6 Sodium 138 Potassium 4.1 Chloride 102 Carbon Dioxide 28 Anion Gap 13 BUN 19 Creatinine 1.0 Est GFR ( Amer) > 60 Est GFR (Non-Af Amer) > 60 POC Glucose (mg/dL) Random Glucose 126 H Calcium 10.3 Total Bilirubin 0.2 AST 25 ALT 15 Alkaline Phosphatase 66 Total Protein 8.1 Albumin 4.7 Globulin 3.4 Albumin/Globulin Ratio 1.4 Urine Color Yellow Urine Appearance Clear Urine pH 6.0 Ur Specific [place] >= 1.030 Urine Protein Negative Urine Glucose (UA) Negative Urine Ketones Negative Urine Blood Negative Urine Nitrate Negative Urine Bilirubin Negative Urine Urobilinogen 0.2 Ur Leukocyte Esterase Trace H Urine RBC None Urine WBC 5 - 10 H Ur Epithelial Cells 4 - 5 Urine Bacteria Mod Urine Other Trichomonas 10/18/18 10/18/18 16:40 20:39 WBC RBC Hgb Hct MCV MCH MCHC RDW Plt Count MPV Sodium Potassium Chloride Carbon Dioxide Anion Gap BUN Creatinine Est GFR ( Amer) Est GFR (Non-Af Amer) POC Glucose (mg/dL) 116 H 131 H Random Glucose Calcium Total Bilirubin AST ALT Alkaline Phosphatase Total Protein Albumin Globulin Albumin/Globulin Ratio Urine Color Urine Appearance Urine pH Ur Specific [place] Urine Protein Urine Glucose (UA) Urine Ketones Urine Blood Urine Nitrate Urine Bilirubin Urine Urobilinogen Ur Leukocyte Esterase Urine RBC Urine WBC Ur Epithelial Cells Urine Bacteria Urine Other DSM 5 Symptoms Update: as per 's assessment patient is a single 48 year old -Nepalese male, self reported history of schizoaffective disorder, opioid use disorder on methadone maintenance, numerous psychiatric admissions (>10) most recently discharged from this unit on 08/02-08/10/18, historically poorly compliant with medications and aftercare recommendations who brought himself to the hospital looking for help with depression, suicidal ideation (with plan to jump in front of bus as well as well hearing voices 'I hear voices telling me to do bad things and I don't want to hurt anyone." Patient required further evaluation and stabilization and medication adjustment. Per ER records patient presented as tearful and physically distressed. He was observed placing paper towels to his ears to block the voices. Pt expressed "I am a good person I don't want to hurt anyone but the voices are telling me to do bad things". Pt presented tearful and weepy. He also reported experiencing visual hallucinations " people and things moving". Patient was seen and examined at the dinning area, pt has poor personal hygiene, there are food pieces on his de [place], pt had difficulties to pay and sustain attention. as per staff pt is asking the same question again and again, pt would ask about medication which he already took, then becomes angry/irritable but no agitation. this functional tester typewriters had concern about AMS yesterday, that is why UA/CBC/CMP ordered, UA was positive for trichomonas, medical team notified. As per staff report patient is compliant with his medications, has periods of irritability, impulses are unpredictable, pt appears to be disorganized/guarded. So far patient tolerates medications well, no side effects observed or reported, aims 0, no EPS. methadone dose was confirmed and resumed 90mg, but will decrease the dose of methadone to 70 mg because patient appears to be high on this medication. Impression: History of schizoaffective disorder Opioid use disorder on maintenance methadone program History of alcohol use disorder Medication Change: Yes (methadone decreased) Medical Record Reviewed: Yes Consults ordered or reviewed: Patient was seen by medical team, consult appreciated medical team reconsulted. Mental Status Examination - Cognitive Function Orientation: Person, Place, Situation Memory: Intact Attention: Poor Concentration: Poor Association: Loose Fund of Knowledge: Poor - Mood Mood: Depressed - Affect Affect: Constricted, Flat - Formal Thought Process Formal Thought Process: No Impairment, Hallucinations (Reported AH and VH in ER, denies at present) - Suicidal Ideation Suicidal Ideation: No - Homicidal Ideation Homicidal Ideation: No Goal/Treatment Plan - Goal/Treatment Plan Need for Continued Stay: Remain at risks for inpatient hospitalization, Severe depression anxiety, Discharge may exacerbated symptoms, Severe functional impairment Progress Toward Problem(s) and Goals/Treatment Plan: group, milieu and supportive tx * Depakote 250 mg po bid for mood control was resumed by Dr. Felix * Seroquel 400 mg po HS to help with with mood control , as per patient patient was on 12 mg at the nighttime * Trazodone 100 mg po HS * Ativan 2 mg q6 with plan to taper for alcohol and benzo use * Patient attends a methadone clinic so he is not a candidate for naltrexone to address is alcohol dependency. * Patient reports that methadone dose is 90 mg daily, dose was confirmed by nursing who noted recent methadone bottle in his possession. Patient attends [facility] methadone clinic ([phone]). now pt is on 70mg daily, * Medical consult appreciated * Nicoderm CQ 21 mg patch, replaced daily for nicotine cravings Follow up on labs Will monitor closely Pt was educated about risk/benefits and alternatives of medications, coping strategies (safety plan, suicide prevention), relapse prevention, importance of follow up with psychiatrist and therapist, stay away from drugs/alcohol/smoking medical follow up requested Estimated Date of D/C: 10/23/18
[2018-10-19] MEDS ORDERED: Magnesium Citrate Oral SOL (300 ml) PO ONE (18:13)
[2018-10-19] MEDS ORDERED: Simethicone 80 mg Chewtab PO ONE (18:14)
--- NOTE | 2018-10-19 18:58 | CP.PCM.PN ---
<KellyBret - Last Filed: 10/19/18 19:34> Subjective - Date & Time of Evaluation Date of Evaluation: 10/19/18 Time of Evaluation: 18:53 - Subjective Subjective: Medicine follow up note - Kelly, PGY-2 Patient seen and examined at bedside. We were called for positive trichomonas in urine. Patient was asked about any urinary symptoms including burning, frequency, foul odor. Patient further denies any suprapubic pain. He also states that he has not been sexually active with any other member of the psychiatry floor and that he has not been abused by anyone. Patient only complaint is mild abdominal fullness and constipation. Denies fevers, chills, chest pain. Objective - Vital Signs/Intake and Output Vital Signs (last 24 hours): Temp Pulse Resp BP Pulse Ox 97.6 F 85 20 124/83 97 10/19/18 07:00 10/19/18 16:00 10/19/18 07:00 10/19/18 16:00 10/14/18 15:37 - Medications Medications: Current Medications Acetaminophen (Tylenol 325mg Tab) 650 mg PO Q6H PRN PRN Reason: Pain, moderate (4-7) Albuterol (Ventolin Hfa 90 Mcg/Actuation (8 G)) 2 puff IH [id number] PRN PRN Reason: Shortness of Breath Last Admin: 10/14/18 17:34 Dose: 2 puff Albuterol/Ipratropium (Duoneb 3 Mg/0.5 Mg (3 Ml) Ud) 3 ml IH [id number] PRN PRN Reason: Shortness of Breath Amlodipine Besylate (Norvasc) 5 mg PO DAILY [facility] Last Admin: 10/19/18 08:14 Dose: 5 mg Divalproex Sodium (Depakote Dr (*Bid*)) 250 mg PO BID [facility] Last Admin: 10/19/18 17:25 Dose: 250 mg Docusate Sodium (Colace) 100 mg PO DAILY [facility] Insulin Human Regular (Humulin R Low) 0 units SC ACHS [facility]; Protocol Last Admin: 10/19/18 16:32 Dose: Not Given Lorazepam (Ativan) 2 mg PO Q6 [facility]; Protocol Last Admin: 10/19/18 17:26 Dose: 2 mg Magnesium Hydroxide (Milk Of Magnesia) 30 ml PO DAILY PRN PRN Reason: Constipation Metformin HCl (Glucophage) 500 mg PO BID [facility] Last Admin: 10/19/18 17:26 Dose: 500 mg Methadone HCl (Methadone) 70 mg PO DAILY [facility] Last Admin: 10/19/18 08:15 Dose: 70 mg Metronidazole (Flagyl) 500 mg PO Q8 [facility]; Protocol Stop: 10/26/18 23:00 Last Admin: 10/19/18 18:33 Dose: 500 mg Nicotine (Nicoderm Cq) 1 patch TD DAILY [facility] Last Admin: 10/19/18 08:14 Dose: 1 patch Polyethylene Glycol (Miralax) 17 gm PO DAILY [facility] Quetiapine Fumarate (Seroquel) 400 mg PO HS [facility]; Protocol Last Admin: 10/18/18 21:03 Dose: 400 mg Trazodone HCl (Desyrel) 100 mg PO HS [facility] Last Admin: 10/18/18 21:04 Dose: 100 mg - Labs Labs: 10/18/18 14:55 10/18/18 14:55 - Constitutional Appears: Well - Head Exam Head Exam: ATRAUMATIC, NORMAL INSPECTION, NORMOCEPHALIC - Eye Exam Eye Exam: EOMI, Normal appearance, PERRL Pupil Exam: NORMAL ACCOMODATION, PERRL - ENT Exam ENT Exam: Mucous Membranes Moist, Normal Exam - Neck Exam Neck Exam: Full ROM, Normal Inspection. absent: Lymphadenopathy - Respiratory Exam Respiratory Exam: Clear to Ausculation Bilateral, NORMAL BREATHING PATTERN - Cardiovascular Exam Cardiovascular Exam: REGULAR RHYTHM, +S1, +S2. absent: Murmur - GI/Abdominal Exam GI & Abdominal Exam: Soft, Normal Bowel Sounds. absent: Tenderness - Extremities Exam Extremities Exam: Full ROM, Normal Capillary Refill, Normal Inspection. absent: Joint Swelling, Pedal Edema - Back Exam Back Exam: NORMAL INSPECTION - Neurological Exam Neurological Exam: Alert, Awake, CN II-XII Intact, Normal Gait, Oriented x3 - Psychiatric Exam Psychiatric exam: Normal Affect, Normal Mood - Skin Skin Exam: Dry, Intact, Normal Color, Warm Assessment and Plan - Assessment and Plan (Free Text) Assessment: Patient is a 48 M with a history of schizophrenia, depression, asthma, NIDDM, and hypertension here for SI, medicine being consulted for trichomonas. Patient without SIRS criteria or symptoms of trichomonas. Plan Patient has trichomonas in urine and has abdominal fullness. We will start flagyl, colace, mg citrate, and simethicone. Continue with duonebs for asthma, Norvasc for HTN, Metformin for NIDDM, and psych recommendations for her schizophrenia. Thank you for your consultation. We will sign off for now. <Epifanio Sánchez - Last Filed: 10/21/18 17:50> Objective - Vital Signs/Intake and Output Vital Signs (last 24 hours): Temp Pulse Resp BP Pulse Ox 97.6 F 91 H 18 143/102 H 97 10/21/18 07:00 10/21/18 15:26 10/21/18 07:00 10/21/18 15:26 10/14/18 15:37 - Medications Medications: Current Medications Acetaminophen (Tylenol 325mg Tab) 650 mg PO Q6H PRN PRN Reason: Pain, moderate (4-7) Albuterol (Ventolin Hfa 90 Mcg/Actuation (8 G)) 2 puff IH [id number] PRN PRN Reason: Shortness of Breath Last Admin: 10/14/18 17:34 Dose: 2 puff Albuterol/Ipratropium (Duoneb 3 Mg/0.5 Mg (3 Ml) Ud) 3 ml IH [id number] PRN PRN Reason: Shortness of Breath Amlodipine Besylate (Norvasc) 5 mg PO DAILY [facility] Last Admin: 10/21/18 09:00 Dose: 5 mg Divalproex Sodium (Depakote Dr (*Bid*)) 250 mg PO BID [facility] Last Admin: 10/21/18 09:29 Dose: 250 mg Divalproex Sodium (Depakote Dr (*Bid*)) 250 mg PO HS [facility]; Protocol Docusate Sodium (Colace) 100 mg PO DAILY [facility] Last Admin: 10/21/18 09:29 Dose: 100 mg Gabapentin (Neurontin) 300 mg PO TID [facility]; Protocol Last Admin: 10/21/18 13:12 Dose: 300 mg Insulin Human Regular (Humulin R Low) 0 units SC ACHS [facility]; Protocol Last Admin: 10/21/18 12:39 Dose: Not Given Lorazepam (Ativan) 2 mg PO Q8H [facility]; Protocol Last Admin: 10/21/18 14:55 Dose: 2 mg Magnesium Hydroxide (Milk Of Magnesia) 30 ml PO DAILY PRN PRN Reason: Constipation Metformin HCl (Glucophage) 500 mg PO BID [facility] Last Admin: 10/21/18 09:29 Dose: 500 mg Methadone HCl (Methadone) 70 mg PO DAILY [facility] Last Admin: 10/21/18 09:30 Dose: 70 mg Metronidazole (Flagyl) 500 mg PO Q8 [facility]; Protocol Stop: 10/26/18 23:00 Last Admin: 10/21/18 13:11 Dose: 500 mg Nicotine (Nicoderm Cq) 1 patch TD DAILY [facility] Last Admin: 10/21/18 09:46 Dose: 1 patch Polyethylene Glycol (Miralax) 17 gm PO DAILY [facility] Last Admin: 10/21/18 09:29 Dose: 17 gm Quetiapine Fumarate (Seroquel) 400 mg PO HS [facility]; Protocol Last Admin: 10/20/18 22:24 Dose: 400 mg Trazodone HCl (Desyrel) 100 mg PO HS PRN PRN Reason: Insomnia - Labs Labs: 10/18/18 14:55 10/18/18 14:55 Attending/Attestation - Attestation I have personally seen and examined this patient.: Yes I have fully participated in the care of the patient.: Yes I have reviewed all pertinent clinical information, including history, physical exam and plan: Yes Notes (Text): 10/21/18 17:46 attending note; Patient seen and Examined with resident in psychiatric floor. Patient is alert and awake. Minimal physical examination. Not in any acute distress. Denied any fevers, chills. Denies any urinary symptoms. Patient is a 48-year-old male with a history schizophrenia, depression, asthma, [id number] type 2 diabetes, and hypertension presented to the emergency room for hearing voices. Currently patient's weight is positive for WBCs and Trichomonas. 1. Trichomonas infection; patient currently denies any complaints. Refused examination. denies any urinary discharge. started on po Flagyl. complete 7 days course of Flagyl. sexual partners needs to be treated. 2. Wel-[id number] type 2 diabetes. Continue home metformin. 3. Essential hypertension. Continue home Norvasc 4. History of mild intermittent asthma. Not in acute exacerbation. Placed on nebulizer treatments as needed. 5. Schizophrenia.continue medications by psychiatrist. Case discussed with psychiatrist in detail. patient is clinically stable. Please reconsult as needed.
[2018-10-20] MEDS: Divalproex 250 mg DR (BID formulation) PO SCH ×2 (07:55→15:07)
[2018-10-20] MEDS: POLYETHYLENE GLYCOL 3350 17 GM/Dose PACKET PO SCH (07:59)
[2018-10-20] MEDS: Insulin Reg-LOW-Coverage SC SCH ×4 (08:01→22:15)
--- NOTE | 2018-10-20 14:45 | PCM.PYCHPN ---
Psychiatric Progress Note - Psychiatric Progress Note Patient seen today, length of contact: 30 minutes Patient Chief Complaint: "Happy Halloween Doctor..." Problems Identified/Issues Discussed: Risk/benefits and alternatives of medications discussed, suicide/ homicide prev ention, past psychiatric h/o, current psychiatric symptoms, medical problems, risk/benefits and alternatives of medications, medications compliance, coping strategies, substance abuse h/o, relapse prevention, importance of follow up with psychiatrist and therapist, discharge plan. Medical Problems: asthma, HTN, NIDDM trichomonas in Urine Diagnostic Results: 10/14/18 11:00 10/14/18 11:00 Lab Results 10/16/18 16:01: POC Glucose (mg/dL) 117 H 10/16/18 11:30: POC Glucose (mg/dL) 156 H 10/16/18 07:44: POC Glucose (mg/dL) 125 H 10/15/18 21:13: POC Glucose (mg/dL) 123 H 10/15/18 15:56: POC Glucose (mg/dL) 82 10/15/18 12:30: Valproic Acid 28 L 10/15/18 11:47: POC Glucose (mg/dL) 109 10/15/18 08:30: Valproic Acid 31 L 10/15/18 08:30: RPR Nonreactive 10/15/18 08:30: Free T4 0.98, TSH 3rd Generation 1.57 10/15/18 08:30: Fasting Glucose 95, Triglycerides 104, Cholesterol 192, LDL Cholesterol Direct 100, HDL Cholesterol 73 H 10/15/18 07:38: POC Glucose (mg/dL) 104 10/14/18 21:37: POC Glucose (mg/dL) 142 H 10/14/18 15:40: POC Glucose (mg/dL) 153 H 10/14/18 13:22: Urine Opiates Screen Negative, Urine Methadone Screen Positive H , Ur Barbiturates Screen Negative, Ur Phencyclidine Scrn Negative, Ur Amphetamines Screen Negative, U Benzodiazepines Scrn Positive H, U Oth Cocaine Metabols Negative, U Cannabinoids Screen Negative 10/14/18 13:22: Urine Color Yellow, Urine Appearance Clear, Urine pH 6.0, Ur Specific [place] 1.020, Urine Protein Negative, Urine Glucose (UA) Negative, Urine Ketones Negative, Urine Blood Negative, Urine Nitrate Negative, Urine Bilirubin Negative, Urine Urobilinogen 0.2, Ur Leukocyte Esterase Negative 10/14/18 11:00: Alcohol, Quantitative < 10 10/14/18 11:00: Salicylates < 1 L, Acetaminophen < 10.0 L 10/14/18 11:00: Sodium 138, Potassium 3.9, Chloride 103, Carbon Dioxide 24, Anion Gap 15, BUN 11, Creatinine 0.8, Est GFR ( Amer) > 60, Est GFR (Non- Af Amer) > 60, Random Glucose 116 H, Calcium 9.3, Total Bilirubin 0.3, AST 30, ALT 29, Alkaline Phosphatase 82, Total Protein 8.1, Albumin 4.7, Globulin 3.4, Albumin/Globulin Ratio 1.4 10/14/18 11:00: WBC 6.8 D, RBC 4.51, Hgb 12.6 L, Hct 38.3 L, MCV 84.9, MCH 27.9, MCHC 32.9, RDW 14.2, Plt Count 277, MPV 11.0, Neut % (Auto) 53.3, Lymph % (Auto) 37.5 H, [place] % (Auto) 6.1 H, Eos % (Auto) 2.5, Baso % (Auto) 0.6, Lymph # (Auto) 2.6, [place] # (Auto) 0.4, Eos # (Auto) 0.2, Baso # (Auto) 0.04, Absolute Neuts (auto) 3.64 Vital Signs Temp Pulse Resp BP Pulse Ox 10/16/18 08:32 76 122/76 10/16/18 07:00 98.4 F 76 20 122/76 10/15/18 16:00 93 H 138/89 10/15/18 07:00 98.4 F 76 20 124/82 10/14/18 15:40 18 10/14/18 15:37 98.0 F 93 H 18 146/97 H 97 10/14/18 15:09 98 F 75 19 125/73 97 10/14/18 13:51 95 10/14/18 13:44 97.8 F 88 16 145/87 93 L 10/14/18 11:10 98.7 F 99 H 16 140/93 H 95 Abnormal Lab Results 10/17/18 10/17/18 10/17/18 07:17 11:11 16:30 WBC RBC Hgb Hct MCV MCH MCHC RDW Plt Count MPV POC Glucose (mg/dL) 100 189 H 138 H 10/17/18 10/18/18 10/18/18 21:10 07:13 11:03 WBC RBC Hgb Hct MCV MCH MCHC RDW Plt Count MPV POC Glucose (mg/dL) 225 H 138 H 150 H 10/18/18 14:55 WBC 5.7 RBC 4.78 Hgb 13.4 L Hct 40.8 L MCV 85.4 MCH 28.0 MCHC 32.8 RDW 14.1 Plt Count 204 MPV 10.6 POC Glucose (mg/dL) Temp Pulse Resp BP Pulse Ox 98.3 F 84 20 129/86 97 10/18/18 07:17 10/18/18 08:45 10/18/18 07:17 10/18/18 08:45 10/14/18 15:37 Laboratory Results - last 24 hr 10/18/18 10/18/18 10/18/18 14:55 14:55 15:00 WBC 5.7 RBC 4.78 Hgb 13.4 L Hct 40.8 L MCV 85.4 MCH 28.0 MCHC 32.8 RDW 14.1 Plt Count 204 MPV 10.6 Sodium 138 Potassium 4.1 Chloride 102 Carbon Dioxide 28 Anion Gap 13 BUN 19 Creatinine 1.0 Est GFR ( Amer) > 60 Est GFR (Non-Af Amer) > 60 POC Glucose (mg/dL) Random Glucose 126 H Calcium 10.3 Total Bilirubin 0.2 AST 25 ALT 15 Alkaline Phosphatase 66 Total Protein 8.1 Albumin 4.7 Globulin 3.4 Albumin/Globulin Ratio 1.4 Urine Color Yellow Urine Appearance Clear Urine pH 6.0 Ur Specific [place] >= 1.030 Urine Protein Negative Urine Glucose (UA) Negative Urine Ketones Negative Urine Blood Negative Urine Nitrate Negative Urine Bilirubin Negative Urine Urobilinogen 0.2 Ur Leukocyte Esterase Trace H Urine RBC None Urine WBC 5 - 10 H Ur Epithelial Cells 4 - 5 Urine Bacteria Mod Urine Other Trichomonas 10/18/18 10/18/18 16:40 20:39 WBC RBC Hgb Hct MCV MCH MCHC RDW Plt Count MPV Sodium Potassium Chloride Carbon Dioxide Anion Gap BUN Creatinine Est GFR ( Amer) Est GFR (Non-Af Amer) POC Glucose (mg/dL) 116 H 131 H Random Glucose Calcium Total Bilirubin AST ALT Alkaline Phosphatase Total Protein Albumin Globulin Albumin/Globulin Ratio Urine Color Urine Appearance Urine pH Ur Specific [place] Urine Protein Urine Glucose (UA) Urine Ketones Urine Blood Urine Nitrate Urine Bilirubin Urine Urobilinogen Ur Leukocyte Esterase Urine RBC Urine WBC Ur Epithelial Cells Urine Bacteria Urine Other Laboratory Results - last 24 hr 10/19/18 10/19/18 10/19/18 07:23 11:17 16:22 POC Glucose (mg/dL) 111 H 134 H 120 H 10/19/18 21:08 POC Glucose (mg/dL) 117 H Temp Pulse Resp BP Pulse Ox 98.2 F 80 20 109/69 97 10/20/18 07:10 10/20/18 07:10 10/20/18 07:10 10/20/18 07:10 10/14/18 15:37 DSM 5 Symptoms Update: Patient is a single 48 year old -[place] male, self reported history of schizoaffective disorder, opioid use disorder on methadone maintenance, numerous psychiatric admissions (>10) most recently discharged from this unit on 08/02- 08/10/18, historically poorly compliant with medications and aftercare recommendations who brought himself to the hospital looking for help with depression, suicidal ideation (with plan to jump in front of bus as well as well hearing voices 'I hear voices telling me to do bad things and I don't want to hurt anyone." Patient required further evaluation and stabilization and medication adjustment. Per ER records patient presented as tearful and physically distressed. He was observed placing paper towels to his ears to block the voices. Pt expressed "I am a good person I don't want to hurt anyone but the voices are telling me to do bad things". Pt presented tearful and weepy. He also reported experiencing visual hallucinations " people and things moving". Patient was seen and examined next to the nursing station, patient presented to be disorganized, patient said "I have been following " patient has episodes of confusion, keeps coming back to the nursing station asking for medications which he already took. this blurb writer had concern about AMS 10/18/18, that is why UA/CBC/CMP ordered, UA was positive for trichomonas, medical team notified, consulted, flagyl started. As per staff report patient is compliant with his medications, has periods of irritability, impulses are unpredictable, pt appears to be disorganized/guarded. So far patient tolerates medications well, no side effects observed or reported, aims 0, no EPS. methadone dose was confirmed and resumed 90mg, but will decrease the dose of methadone to 70 mg because patient appears to be high on this medication. Impression: History of schizoaffective disorder Opioid use disorder on maintenance methadone program History of alcohol use disorder Medication Change: Yes (Ativan decreased) Medical Record Reviewed: Yes Consults ordered or reviewed: Patient was seen by medical team, consult appreciated medical team reconsulted. Mental Status Examination - Cognitive Function Orientation: Person, Place, Situation Memory: Intact Attention: Poor Concentration: Poor Association: Loose Fund of Knowledge: Poor - Mood Mood: Depressed - Affect Affect: Constricted, Flat - Formal Thought Process Formal Thought Process: No Impairment, Hallucinations (Reported AH and VH in ER, denies at present) - Suicidal Ideation Suicidal Ideation: No - Homicidal Ideation Homicidal Ideation: No Goal/Treatment Plan - Goal/Treatment Plan Need for Continued Stay: Remain at risks for inpatient hospitalization, Severe depression anxiety, Discharge may exacerbated symptoms, Severe functional impairment Progress Toward Problem(s) and Goals/Treatment Plan: group, milieu and supportive tx * Depakote 250 mg po bid for mood control * Depakote level will be checked tomorrow * Seroquel 400 mg po HS to help with with mood control , as per patient patient was on 12 mg at the nighttime * Trazodone 100 mg po HS * Ativan 2 mg q8 with plan to taper for alcohol and benzo use * Patient attends a methadone clinic so he is not a candidate for naltrexone to address is alcohol dependency. * Patient reports that methadone dose is 90 mg daily, dose was confirmed by nursing who noted recent methadone bottle in his possession. Patient attends [facility] methadone clinic ([phone]). now pt is on 70mg daily, * Medical consult appreciated * Nicoderm CQ 21 mg patch, replaced daily for nicotine cravings Follow up on labs Will monitor closely Pt was educated about risk/benefits and alternatives of medications, coping strategies (safety plan, suicide prevention), relapse prevention, importance of follow up with psychiatrist and therapist, stay away from drugs/alcohol/smoking medical follow up appreciated Estimated Date of D/C: 10/23/18
[2018-10-21] MEDS: Insulin Reg-LOW-Coverage SC SCH ×4 (09:27→21:33)
[2018-10-21] MEDS: POLYETHYLENE GLYCOL 3350 17 GM/Dose PACKET PO SCH (09:29)
[2018-10-21] MEDS: Divalproex 250 mg DR (BID formulation) PO SCH ×3 (09:29→21:34)
--- NOTE | 2018-10-21 11:02 | PCM.PYCHPN ---
Psychiatric Progress Note - Psychiatric Progress Note Patient seen today, length of contact: 30 minutes Patient Chief Complaint: "I am fine now" Problems Identified/Issues Discussed: Risk/benefits and alternatives of medications discussed, suicide/ homicide prevention, past psychiatric h/o, current psychiatric symptoms, medical problems, risk/benefits and alternatives of medications, medications compliance, coping strategies, substance abuse h/o, relapse prevention, importance of follow up with psychiatrist and therapist, discharge plan. Medical Problems: asthma, HTN, NIDDM trichomonas in Urine Diagnostic Results: 10/14/18 11:00 10/14/18 11:00 Lab Results 10/16/18 16:01: POC Glucose (mg/dL) 117 H 10/16/18 11:30: POC Glucose (mg/dL) 156 H 10/16/18 07:44: POC Glucose (mg/dL) 125 H 10/15/18 21:13: POC Glucose (mg/dL) 123 H 10/15/18 15:56: POC Glucose (mg/dL) 82 10/15/18 12:30: Valproic Acid 28 L 10/15/18 11:47: POC Glucose (mg/dL) 109 10/15/18 08:30: Valproic Acid 31 L 10/15/18 08:30: RPR Nonreactive 10/15/18 08:30: Free T4 0.98, TSH 3rd Generation 1.57 10/15/18 08:30: Fasting Glucose 95, Triglycerides 104, Cholesterol 192, LDL Cholesterol Direct 100, HDL Cholesterol 73 H 10/15/18 07:38: POC Glucose (mg/dL) 104 10/14/18 21:37: POC Glucose (mg/dL) 142 H 10/14/18 15:40: POC Glucose (mg/dL) 153 H 10/14/18 13:22: Urine Opiates Screen Negative, Urine Methadone Screen Positive H , Ur Barbiturates Screen Negative, Ur Phencyclidine Scrn Negative, Ur Amphetamines Screen Negative, U Benzodiazepines Scrn Positive H, U Oth Cocaine Metabols Negative, U Cannabinoids Screen Negative 10/14/18 13:22: Urine Color Yellow, Urine Appearance Clear, Urine pH 6.0, Ur Specific [place] 1.020, Urine Protein Negative, Urine Glucose (UA) Negative, Urine Ketones Negative, Urine Blood Negative, Urine Nitrate Negative, Urine Bilirubin Negative, Urine Urobilinogen 0.2, Ur Leukocyte Esterase Negative 10/14/18 11:00: Alcohol, Quantitative < 10 10/14/18 11:00: Salicylates < 1 L, Acetaminophen < 10.0 L 10/14/18 11:00: Sodium 138, Potassium 3.9, Chloride 103, Carbon Dioxide 24, Anion Gap 15, BUN 11, Creatinine 0.8, Est GFR ( Amer) > 60, Est GFR (Non- Af Amer) > 60, Random Glucose 116 H, Calcium 9.3, Total Bilirubin 0.3, AST 30, ALT 29, Alkaline Phosphatase 82, Total Protein 8.1, Albumin 4.7, Globulin 3.4, Albumin/Globulin Ratio 1.4 10/14/18 11:00: WBC 6.8 D, RBC 4.51, Hgb 12.6 L, Hct 38.3 L, MCV 84.9, MCH 27.9, MCHC 32.9, RDW 14.2, Plt Count 277, MPV 11.0, Neut % (Auto) 53.3, Lymph % (Auto) 37.5 H, [place] % (Auto) 6.1 H, Eos % (Auto) 2.5, Baso % (Auto) 0.6, Lymph # (Auto) 2.6, [place] # (Auto) 0.4, Eos # (Auto) 0.2, Baso # (Auto) 0.04, Absolute Neuts (auto) 3.64 Vital Signs Temp Pulse Resp BP Pulse Ox 10/16/18 08:32 76 122/76 10/16/18 07:00 98.4 F 76 20 122/76 10/15/18 16:00 93 H 138/89 10/15/18 07:00 98.4 F 76 20 124/82 10/14/18 15:40 18 10/14/18 15:37 98.0 F 93 H 18 146/97 H 97 10/14/18 15:09 98 F 75 19 125/73 97 10/14/18 13:51 95 10/14/18 13:44 97.8 F 88 16 145/87 93 L 10/14/18 11:10 98.7 F 99 H 16 140/93 H 95 Abnormal Lab Results 10/17/18 10/17/18 10/17/18 07:17 11:11 16:30 WBC RBC Hgb Hct MCV MCH MCHC RDW Plt Count MPV POC Glucose (mg/dL) 100 189 H 138 H 10/17/18 10/18/18 10/18/18 21:10 07:13 11:03 WBC RBC Hgb Hct MCV MCH MCHC RDW Plt Count MPV POC Glucose (mg/dL) 225 H 138 H 150 H 10/18/18 14:55 WBC 5.7 RBC 4.78 Hgb 13.4 L Hct 40.8 L MCV 85.4 MCH 28.0 MCHC 32.8 RDW 14.1 Plt Count 204 MPV 10.6 POC Glucose (mg/dL) Temp Pulse Resp BP Pulse Ox 98.3 F 84 20 129/86 97 10/18/18 07:17 10/18/18 08:45 10/18/18 07:17 10/18/18 08:45 10/14/18 15:37 Laboratory Results - last 24 hr 10/18/18 10/18/18 10/18/18 14:55 14:55 15:00 WBC 5.7 RBC 4.78 Hgb 13.4 L Hct 40.8 L MCV 85.4 MCH 28.0 MCHC 32.8 RDW 14.1 Plt Count 204 MPV 10.6 Sodium 138 Potassium 4.1 Chloride 102 Carbon Dioxide 28 Anion Gap 13 BUN 19 Creatinine 1.0 Est GFR ( Amer) > 60 Est GFR (Non-Af Amer) > 60 POC Glucose (mg/dL) Random Glucose 126 H Calcium 10.3 Total Bilirubin 0.2 AST 25 ALT 15 Alkaline Phosphatase 66 Total Protein 8.1 Albumin 4.7 Globulin 3.4 Albumin/Globulin Ratio 1.4 Urine Color Yellow Urine Appearance Clear Urine pH 6.0 Ur Specific [place] >= 1.030 Urine Protein Negative Urine Glucose (UA) Negative Urine Ketones Negative Urine Blood Negative Urine Nitrate Negative Urine Bilirubin Negative Urine Urobilinogen 0.2 Ur Leukocyte Esterase Trace H Urine RBC None Urine WBC 5 - 10 H Ur Epithelial Cells 4 - 5 Urine Bacteria Mod Urine Other Trichomonas 10/18/18 10/18/18 16:40 20:39 WBC RBC Hgb Hct MCV MCH MCHC RDW Plt Count MPV Sodium Potassium Chloride Carbon Dioxide Anion Gap BUN Creatinine Est GFR ( Amer) Est GFR (Non-Af Amer) POC Glucose (mg/dL) 116 H 131 H Random Glucose Calcium Total Bilirubin AST ALT Alkaline Phosphatase Total Protein Albumin Globulin Albumin/Globulin Ratio Urine Color Urine Appearance Urine pH Ur Specific [place] Urine Protein Urine Glucose (UA) Urine Ketones Urine Blood Urine Nitrate Urine Bilirubin Urine Urobilinogen Ur Leukocyte Esterase Urine RBC Urine WBC Ur Epithelial Cells Urine Bacteria Urine Other Laboratory Results - last 24 hr 10/19/18 10/19/18 10/19/18 07:23 11:17 16:22 POC Glucose (mg/dL) 111 H 134 H 120 H 10/19/18 21:08 POC Glucose (mg/dL) 117 H Temp Pulse Resp BP Pulse Ox 98.2 F 80 20 109/69 97 10/20/18 07:10 10/20/18 07:10 10/20/18 07:10 10/20/18 07:10 10/14/18 15:37 Temp Pulse Resp BP Pulse Ox 98.2 F 81 20 134/94 H 97 10/20/18 07:10 10/21/18 09:00 10/20/18 07:10 10/21/18 09:00 10/14/18 15:37 Abnormal Lab Results 10/20/18 10/20/18 10/20/18 07:33 11:14 16:11 POC Glucose (mg/dL) 140 H 145 H Valproic Acid 48 L 10/20/18 10/20/18 10/21/18 16:27 21:20 07:00 POC Glucose (mg/dL) 96 136 H Valproic Acid 38 L 10/21/18 08:20 POC Glucose (mg/dL) 110 Valproic Acid DSM 5 Symptoms Update: Patient is a single 48 year old -[place] male, self reported history of schizoaffective disorder, opioid use disorder on methadone maintenance, numerous psychiatric admissions (>10) most recently discharged from this unit on 08/02- 08/10/18, historically poorly compliant with medications and aftercare recommendations who brought himself to the hospital looking for help with depression, suicidal ideation (with plan to jump in front of bus as well as well hearing voices 'I hear voices telling me to do bad things and I don't want to hurt anyone." Patient required further evaluation and stabilization and medication adjustment. Per ER records patient presented as tearful and physic ally distressed. He was observed placing paper towels to his ears to block the voices. Pt expressed "I am a good person I don't want to hurt anyone but the voices are telling me to do bad things". Pt presented tearful and weepy. He also reported experiencing visual hallucinations " people and things moving". Patient was seen and examined in his room, presented to be disheveled, pt still has episodes of confusions, yesterday pt said "happy Halloween doctor" (off note now is October), pt keeps coming back to the nursing station asking for medications which he already took. this brief writer had concern about AMS 10/18/18, that is why UA/CBC/CMP ordered, UA was positive for trichomonas, medical team notified, consulted, flagyl started. As per staff report patient is compliant with his medications, has periods of irritability, impulses are unpredictable, pt appears to be disorganized/guarded. So far patient tolerates medications well, no side effects observed or reported, aims 0, no EPS. methadone dose was confirmed and resumed 90mg, but will decrease the dose of methadone to 70 mg because patient appears to be high on this medication. Impression: History of schizoaffective disorder Opioid use disorder on maintenance methadone program History of alcohol use disorder Medication Change: Yes (depakote increased, trazodone PRN) Medical Record Reviewed: Yes Consults ordered or reviewed: Patient was seen by medical team, consult appreciated medical team reconsulted. Mental Status Examination - Cognitive Function Orientation: Person, Place, Situation Memory: Intact Attention: Poor Concentration: Poor Association: Loose Fund of Knowledge: Poor - Mood Mood: Depressed - Affect Affect: Constricted, Flat - Formal Thought Process Formal Thought Process: No Impairment, Hallucinations (Reported AH and VH in ER, denies at present) - Suicidal Ideation Suicidal Ideation: No - Homicidal Ideation Homicidal Ideation: No Goal/Treatment Plan - Goal/Treatment Plan Need for Continued Stay: Remain at risks for inpatient hospitalization, Severe depression anxiety, Discharge may exacerbated symptoms, Severe functional impairment Progress Toward Problem(s) and Goals/Treatment Plan: group, milieu and supportive tx * Depakote 250 mg po bid and hd for mood control * Depakote level 10/21/18 was 38 * Seroquel 400 mg po HS to help with with mood control , as per patient patient was on 12 mg at the nighttime * Trazodone 100 mg po HS PRN (changed) * Ativan 2 mg q8 with plan to taper for alcohol and benzo use, BP elevated, not decreased today 10/21/18 * Patient attends a methadone clinic so he is not a candidate for naltrexone to address is alcohol dependency. * Patient reports that methadone dose is 90 mg daily, dose was confirmed by nursing who noted recent methadone bottle in his possession. Patient attends [facility] methadone clinic ([phone]). now pt is on 70mg daily, * Medical consult appreciated * Nicoderm CQ 21 mg patch, replaced daily for nicotine cravings Follow up on labs Will monitor closely Pt was educated about risk/benefits and alternatives of medications, coping strategies (safety plan, suicide prevention), relapse prevention, importance of follow up with psychiatrist and therapist, stay away from drugs/alcohol/smoking medical follow up appreciated Estimated Date of D/C: 10/23/18
[2018-10-21] MEDS: Magnesium Hydroxide Susp 30 ml UD PO PRN (18:51)
--- NOTE | 2018-10-22 06:16 | CON ---
DATE: 10/21/2018 The patient is seen on the psychiatric floor this morning. I was called to see the patient because of positive urinalysis which has Trichomonas seen. The patient was seen in the psychiatric floor. CHIEF COMPLAINT Positive Trichomonas. HISTORY OF PRESENT ILLNESS: This is a 48-year-old male with past medical history significant for schizoaffective disorder, major depression, diabetes mellitus, depression, anxiety, panic disorder, paranoia who is admitted to the psychiatric floor with schizoaffective and Trichomonas seen in the urinalysis. Infectious Disease consultation requested. The patient denies any symptoms. No dysuria, no frequency. No chest pain, shortness of breath. REVIEW OF SYSTEM: Reveals 12-point review of systems. No urinary symptoms. No symptoms of sexually transmitted diseases. No rashes. No fevers. PAST MEDICAL HISTORY: Significant for schizoaffective, major depression, diabetes, anxiety, panic disorder. PAST SURGICAL HISTORY: Noncontributory. ALLERGIES: THE PATIENT IS NO KNOWN ALLERGIES. MEDICATIONS: At home includes the patient to be on metformin, Norvasc, Seroquel, Depakote, Cogentin. SEXUAL HISTORY: The patient states he has not had any sex for many years. PHYSICAL EXAMINATION: GENERAL: The patient is in bed, in no acute distress. VITAL SIGNS: Temperature of 98, blood pressure 130/90, respiratory rate of 20, heart rate of 91. HEENT: Unremarkable. NECK: Supple. LUNGS: Clear. HEART: Normal S1, S2. ABDOMEN: Soft. LABORATORY EXAMINATION: Reveals a white count of 6.8, hemoglobin of 12, platelets of 277, BUN of 19, creatinine of 1. Urinalysis is noted and RPR is negative. Microbiology reveals the urine cultures negative. The patient had an HIV test that was negative in 2017. ASSESSMENT AND PLAN: This is a 48-year-old male with obesity with a BMI of 31 with schizoaffective disorder, major depression, diabetes, and anxiety, now with Trichomonas Trichomonas, may treat with Flagyl 2 g p.o. x1 dose. We will repeat an human immunodeficiency virus test. We will also order and fourth generation human immunodeficiency virus and Chlamydia and GC NAAT testing. Should have Trichomonas NAAT testing in the urine also. We will order a Trichomonas NAAT testing. Although the patient states he has not had sexual contact in many years, if he does admit to sexual contact, his partner should be also treated. At this time, we will treat the patient with Flagyl p.o. 2 g x1 dose. We will follow with you. Misael Pappas MD
[2018-10-22] MEDS: Divalproex 250 mg DR (BID formulation) PO SCH ×3 (09:38→21:11)
[2018-10-22] MEDS: POLYETHYLENE GLYCOL 3350 17 GM/Dose PACKET PO SCH (09:39)
[2018-10-22] MEDS: Insulin Reg-LOW-Coverage SC SCH ×4 (11:44→21:13)
--- NOTE | 2018-10-22 12:12 | PCM.PYCHPN ---
Psychiatric Progress Note - Psychiatric Progress Note Patient seen today, length of contact: 30 minutes Patient Chief Complaint: "I am fine now" Problems Identified/Issues Discussed: Risk/benefits and alternatives of medications discussed, suicide/ homicide prevention, past psychiatric h/o, current psychiatric symptoms, medical problems, risk/benefits and alternatives of medications, medications compliance, coping strategies, substance abuse h/o, relapse prevention, importance of follow up with psychiatrist and therapist, discharge plan. Medical Problems: asthma, HTN, NIDDM trichomonas in Urine Diagnostic Results: 10/14/18 11:00 10/14/18 11:00 Lab Results 10/16/18 16:01: POC Glucose (mg/dL) 117 H 10/16/18 11:30: POC Glucose (mg/dL) 156 H 10/16/18 07:44: POC Glucose (mg/dL) 125 H 10/15/18 21:13: POC Glucose (mg/dL) 123 H 10/15/18 15:56: POC Glucose (mg/dL) 82 10/15/18 12:30: Valproic Acid 28 L 10/15/18 11:47: POC Glucose (mg/dL) 109 10/15/18 08:30: Valproic Acid 31 L 10/15/18 08:30: RPR Nonreactive 10/15/18 08:30: Free T4 0.98, TSH 3rd Generation 1.57 10/15/18 08:30: Fasting Glucose 95, Triglycerides 104, Cholesterol 192, LDL Cholesterol Direct 100, HDL Cholesterol 73 H 10/15/18 07:38: POC Glucose (mg/dL) 104 10/14/18 21:37: POC Glucose (mg/dL) 142 H 10/14/18 15:40: POC Glucose (mg/dL) 153 H 10/14/18 13:22: Urine Opiates Screen Negative, Urine Methadone Screen Positive H , Ur Barbiturates Screen Negative, Ur Phencyclidine Scrn Negative, Ur Amphetamines Screen Negative, U Benzodiazepines Scrn Positive H, U Oth Cocaine Metabols Negative, U Cannabinoids Screen Negative 10/14/18 13:22: Urine Color Yellow, Urine Appearance Clear, Urine pH 6.0, Ur Specific [place] 1.020, Urine Protein Negative, Urine Glucose (UA) Negative, Urine Ketones Negative, Urine Blood Negative, Urine Nitrate Negative, Urine Bilirubin Negative, Urine Urobilinogen 0.2, Ur Leukocyte Esterase Negative 10/14/18 11:00: Alcohol, Quantitative < 10 10/14/18 11:00: Salicylates < 1 L, Acetaminophen < 10.0 L 10/14/18 11:00: Sodium 138, Potassium 3.9, Chloride 103, Carbon Dioxide 24, Anion Gap 15, BUN 11, Creatinine 0.8, Est GFR ( Amer) > 60, Est GFR (Non- Af Amer) > 60, Random Glucose 116 H, Calcium 9.3, Total Bilirubin 0.3, AST 30, ALT 29, Alkaline Phosphatase 82, Total Protein 8.1, Albumin 4.7, Globulin 3.4, Albumin/Globulin Ratio 1.4 10/14/18 11:00: WBC 6.8 D, RBC 4.51, Hgb 12.6 L, Hct 38.3 L, MCV 84.9, MCH 27.9, MCHC 32.9, RDW 14.2, Plt Count 277, MPV 11.0, Neut % (Auto) 53.3, Lymph % (Auto) 37.5 H, [place] % (Auto) 6.1 H, Eos % (Auto) 2.5, Baso % (Auto) 0.6, Lymph # (Auto) 2.6, [place] # (Auto) 0.4, Eos # (Auto) 0.2, Baso # (Auto) 0.04, Absolute Neuts (auto) 3.64 Vital Signs Temp Pulse Resp BP Pulse Ox 10/16/18 08:32 76 122/76 10/16/18 07:00 98.4 F 76 20 122/76 10/15/18 16:00 93 H 138/89 10/15/18 07:00 98.4 F 76 20 124/82 10/14/18 15:40 18 10/14/18 15:37 98.0 F 93 H 18 146/97 H 97 10/14/18 15:09 98 F 75 19 125/73 97 10/14/18 13:51 95 10/14/18 13:44 97.8 F 88 16 145/87 93 L 10/14/18 11:10 98.7 F 99 H 16 140/93 H 95 Abnormal Lab Results 10/17/18 10/17/18 10/17/18 07:17 11:11 16:30 WBC RBC Hgb Hct MCV MCH MCHC RDW Plt Count MPV POC Glucose (mg/dL) 100 189 H 138 H 10/17/18 10/18/18 10/18/18 21:10 07:13 11:03 WBC RBC Hgb Hct MCV MCH MCHC RDW Plt Count MPV POC Glucose (mg/dL) 225 H 138 H 150 H 10/18/18 14:55 WBC 5.7 RBC 4.78 Hgb 13.4 L Hct 40.8 L MCV 85.4 MCH 28.0 MCHC 32.8 RDW 14.1 Plt Count 204 MPV 10.6 POC Glucose (mg/dL) Temp Pulse Resp BP Pulse Ox 98.3 F 84 20 129/86 97 10/18/18 07:17 10/18/18 08:45 10/18/18 07:17 10/18/18 08:45 10/14/18 15:37 Laboratory Results - last 24 hr 10/18/18 10/18/18 10/18/18 14:55 14:55 15:00 WBC 5.7 RBC 4.78 Hgb 13.4 L Hct 40.8 L MCV 85.4 MCH 28.0 MCHC 32.8 RDW 14.1 Plt Count 204 MPV 10.6 Sodium 138 Potassium 4.1 Chloride 102 Carbon Dioxide 28 Anion Gap 13 BUN 19 Creatinine 1.0 Est GFR ( Amer) > 60 Est GFR (Non-Af Amer) > 60 POC Glucose (mg/dL) Random Glucose 126 H Calcium 10.3 Total Bilirubin 0.2 AST 25 ALT 15 Alkaline Phosphatase 66 Total Protein 8.1 Albumin 4.7 Globulin 3.4 Albumin/Globulin Ratio 1.4 Urine Color Yellow Urine Appearance Clear Urine pH 6.0 Ur Specific [place] >= 1.030 Urine Protein Negative Urine Glucose (UA) Negative Urine Ketones Negative Urine Blood Negative Urine Nitrate Negative Urine Bilirubin Negative Urine Urobilinogen 0.2 Ur Leukocyte Esterase Trace H Urine RBC None Urine WBC 5 - 10 H Ur Epithelial Cells 4 - 5 Urine Bacteria Mod Urine Other Trichomonas 10/18/18 10/18/18 16:40 20:39 WBC RBC Hgb Hct MCV MCH MCHC RDW Plt Count MPV Sodium Potassium Chloride Carbon Dioxide Anion Gap BUN Creatinine Est GFR ( Amer) Est GFR (Non-Af Amer) POC Glucose (mg/dL) 116 H 131 H Random Glucose Calcium Total Bilirubin AST ALT Alkaline Phosphatase Total Protein Albumin Globulin Albumin/Globulin Ratio Urine Color Urine Appearance Urine pH Ur Specific [place] Urine Protein Urine Glucose (UA) Urine Ketones Urine Blood Urine Nitrate Urine Bilirubin Urine Urobilinogen Ur Leukocyte Esterase Urine RBC Urine WBC Ur Epithelial Cells Urine Bacteria Urine Other Laboratory Results - last 24 hr 10/19/18 10/19/18 10/19/18 07:23 11:17 16:22 POC Glucose (mg/dL) 111 H 134 H 120 H 10/19/18 21:08 POC Glucose (mg/dL) 117 H Temp Pulse Resp BP Pulse Ox 98.2 F 80 20 109/69 97 10/20/18 07:10 10/20/18 07:10 10/20/18 07:10 10/20/18 07:10 10/14/18 15:37 Temp Pulse Resp BP Pulse Ox 98.2 F 81 20 134/94 H 97 10/20/18 07:10 10/21/18 09:00 10/20/18 07:10 10/21/18 09:00 10/14/18 15:37 Abnormal Lab Results 10/20/18 10/20/18 10/20/18 07:33 11:14 16:11 POC Glucose (mg/dL) 140 H 145 H Valproic Acid 48 L 10/20/18 10/20/18 10/21/18 16:27 21:20 07:00 POC Glucose (mg/dL) 96 136 H Valproic Acid 38 L 10/21/18 08:20 POC Glucose (mg/dL) 110 Valproic Acid DSM 5 Symptoms Update: Patient is a single 48 year old -[place] male, self reported history of schizoaffective disorder, opioid use disorder on methadone maintenance, numerous psychiatric admissions (>10) most recently discharged from this unit on 08/02- 08/10/18, historically poorly compliant with medications and aftercare recommendations who brought himself to the hospital looking for help with depression, suicidal ideation (with plan to jump in front of bus as well as well hearing voices 'I hear voices telling me to do bad things and I don't want to hurt anyone." Patient required further evaluation and stabilization and medication adjustment. Per ER records patient presented as tearful and physic ally distressed. He was observed placing paper towels to his ears to block the voices. Pt expressed "I am a good person I don't want to hurt anyone but the voices are telling me to do bad things". Pt presented tearful and weepy. He also reported experiencing visual hallucinations " people and things moving". Patient was seen and examined in his room, presented to be disheveled, patient is less confused, but appears to be internally preoccupied, as per RN report, patient walks in his "deep thoughts", no agitation, no aggression. this typewriters functional tester had concern about AMS 10/18/18, that is why UA/CBC/CMP ordered, UA was positive for trichomonas, medical team notified, consulted, flagyl started. Obed martinez also was seen by infectious disease, consultation appreciated, will follow up on HIV chlamydia, gonorrhea results. As per staff report patient is compliant with his medications, has periods of irritability, impulses are better controlled. So far patient tolerates medications well, no side effects observed or reported, aims 0, no EPS. methadone dose was confirmed and resumed 90mg, but will decrease the dose of methadone to 70 mg because patient appears to be high on this medication. Impression: History of schizoaffective disorder Opioid use disorder on maintenance methadone program History of alcohol use disorder Medication Change: Yes (depakote increased, trazodone PRN) Medical Record Reviewed: Yes Consults ordered or reviewed: Patient was seen by medical team, consult appreciated medical team reconsulted. Mental Status Examination - Cognitive Function Orientation: Person, Place, Situation Memory: Intact Attention: Poor Concentration: Poor Association: Loose Fund of Knowledge: Poor - Mood Mood: Depressed - Affect Affect: Constricted, Flat - Formal Thought Process Formal Thought Process: No Impairment, Hallucinations (Reported AH and VH in ER, denies at present) - Suicidal Ideation Suicidal Ideation: No - Homicidal Ideation Homicidal Ideation: No Goal/Treatment Plan - Goal/Treatment Plan Need for Continued Stay: Remain at risks for inpatient hospitalization, Severe depression anxiety, Discharge may exacerbated symptoms, Severe functional impairment Progress Toward Problem(s) and Goals/Treatment Plan: group, milieu and supportive tx * Depakote 250 mg po bid and hd for mood control * Depakote level 10/21/18 was 38 * Seroquel 400 mg po HS to help with with mood control , as per patient patient was on 12 mg at the nighttime * Trazodone 100 mg po HS PRN (changed) * Ativan 2 mg q8 with plan to taper for alcohol and benzo use, BP elevated, not decreased today 10/21/18 * Patient attends a methadone clinic so he is not a candidate for naltrexone to address is alcohol dependency. * Patient reports that methadone dose is 90 mg daily, dose was confirmed by nursing who noted recent methadone bottle in his possession. Patient attends [facility] methadone clinic ([phone]). now pt is on 70mg daily, * Medical consult appreciated * Nicoderm CQ 21 mg patch, replaced daily for nicotine cravings Follow up on labs Will monitor closely Pt was educated about risk/benefits and alternatives of medications, coping strategies (safety plan, suicide prevention), relapse prevention, importance of follow up with psychiatrist and therapist, stay away from drugs/alcohol/smoking medical follow up appreciated Estimated Date of D/C: 10/26/18
--- NOTE | 2018-10-22 17:28 | CP.PCM.PN ---
Subjective - Date & Time of Evaluation Date of Evaluation: 10/22/18 Time of Evaluation: 10:50 - Subjective Subjective: Comfortable in bed, non-toxic. Objective - Vital Signs/Intake and Output Vital Signs (last 24 hours): Temp Pulse Resp BP Pulse Ox 99.4 F 94 H 20 115/81 97 10/22/18 07:14 10/22/18 09:35 10/22/18 07:14 10/22/18 09:35 10/14/18 15:37 - Medications Medications: Current Medications Acetaminophen (Tylenol 325mg Tab) 650 mg PO Q6H PRN PRN Reason: Pain, moderate (4-7) Albuterol (Ventolin Hfa 90 Mcg/Actuation (8 G)) 2 puff IH [id number] PRN PRN Reason: Shortness of Breath Last Admin: 10/14/18 17:34 Dose: 2 puff Albuterol/Ipratropium (Duoneb 3 Mg/0.5 Mg (3 Ml) Ud) 3 ml IH [id number] PRN PRN Reason: Shortness of Breath Amlodipine Besylate (Norvasc) 5 mg PO DAILY [facility] Last Admin: 10/22/18 09:35 Dose: 5 mg Divalproex Sodium (Depakote Dr (*Bid*)) 250 mg PO BID [facility] Last Admin: 10/22/18 09:38 Dose: 250 mg Divalproex Sodium (Depakote Dr (*Bid*)) 250 mg PO HS [facility]; Protocol Last Admin: 10/21/18 21:34 Dose: 250 mg Docusate Sodium (Colace) 100 mg PO DAILY [facility] Last Admin: 10/22/18 09:36 Dose: 100 mg Gabapentin (Neurontin) 300 mg PO TID [facility]; Protocol Last Admin: 10/22/18 14:52 Dose: 300 mg Insulin Human Regular (Humulin R Low) 0 units SC ACHS [facility]; Protocol Last Admin: 10/22/18 13:11 Dose: Not Given Lorazepam (Ativan) 2 mg PO Q8H [facility]; Protocol Last Admin: 10/22/18 14:53 Dose: 2 mg Magnesium Hydroxide (Milk Of Magnesia) 30 ml PO DAILY PRN PRN Reason: Constipation Last Admin: 10/21/18 18:51 Dose: 30 ml Metformin HCl (Glucophage) 500 mg PO BID [facility] Last Admin: 10/22/18 09:37 Dose: 500 mg Methadone HCl (Methadone) 70 mg PO DAILY [facility] Last Admin: 10/22/18 09:37 Dose: 70 mg Metronidazole (Flagyl) 500 mg PO Q8 [facility]; Protocol Stop: 10/26/18 23:00 Last Admin: 10/22/18 14:52 Dose: 500 mg Nicotine (Nicoderm Cq) 1 patch TD DAILY [facility] Last Admin: 10/22/18 11:50 Dose: Not Given Polyethylene Glycol (Miralax) 17 gm PO DAILY [facility] Last Admin: 10/22/18 09:39 Dose: 17 gm Quetiapine Fumarate (Seroquel) 400 mg PO HS [facility]; Protocol Last Admin: 10/21/18 21:34 Dose: 400 mg Trazodone HCl (Desyrel) 100 mg PO HS PRN PRN Reason: Insomnia - Labs Labs: 10/18/18 14:55 10/18/18 14:55 - Constitutional Appears: Chronically Ill - Head Exam Head Exam: NORMAL INSPECTION - Respiratory Exam Respiratory Exam: Decreased Breath Sounds - Cardiovascular Exam Cardiovascular Exam: +S1, +S2 - GI/Abdominal Exam GI & Abdominal Exam: Soft. absent: Tenderness Assessment and Plan - Assessment and Plan (Free Text) Plan: Assessment Trichomoniasis schizoaffective disorcer depression DM anxiety obesity with BMI 31 panic disorder Plan continue PO Flagyl day 3 of 7 days; follow up HIV test, urine GC and Trichomonas NAAT
[2018-10-22] MEDS: Magnesium Hydroxide Susp 30 ml UD PO PRN (17:45)
[2018-10-23] MEDS: Divalproex 250 mg DR (BID formulation) PO SCH ×3 (09:53→21:02)
[2018-10-23] MEDS: POLYETHYLENE GLYCOL 3350 17 GM/Dose PACKET PO SCH (09:55)
[2018-10-23] MEDS: Insulin Reg-LOW-Coverage SC SCH ×4 (09:55→21:08)
--- NOTE | 2018-10-23 14:37 | PCM.PYCHPN ---
Psychiatric Progress Note - Psychiatric Progress Note Patient seen today, length of contact: 30 minutes Patient Chief Complaint: "I still hear voices, the same voices telling me to jump in front of the car or bus...." Problems Identified/Issues Discussed: Risk/benefits and alternatives of medications discussed, suicide/ homicide prevention, past psychiatric h/o, current psychiatric symptoms, medical problems, risk/benefits and alternatives of medications, medications compliance, coping strategies, substance abuse h/o, relapse prevention, importance of follow up with psychiatrist and therapist, discharge plan. Medical Problems: asthma, HTN, NIDDM trichomonas in Urine Diagnostic Results: 10/14/18 11:00 10/14/18 11:00 Lab Results 10/16/18 16:01: POC Glucose (mg/dL) 117 H 10/16/18 11:30: POC Glucose (mg/dL) 156 H 10/16/18 07:44: POC Glucose (mg/dL) 125 H 10/15/18 21:13: POC Glucose (mg/dL) 123 H 10/15/18 15:56: POC Glucose (mg/dL) 82 10/15/18 12:30: Valproic Acid 28 L 10/15/18 11:47: POC Glucose (mg/dL) 109 10/15/18 08:30: Valproic Acid 31 L 10/15/18 08:30: RPR Nonreactive 10/15/18 08:30: Free T4 0.98, TSH 3rd Generation 1.57 10/15/18 08:30: Fasting Glucose 95, Triglycerides 104, Cholesterol 192, LDL Cholesterol Direct 100, HDL Cholesterol 73 H 10/15/18 07:38: POC Glucose (mg/dL) 104 10/14/18 21:37: POC Glucose (mg/dL) 142 H 10/14/18 15:40: POC Glucose (mg/dL) 153 H 10/14/18 13:22: Urine Opiates Screen Negative, Urine Methadone Screen Positive H , Ur Barbiturates Screen Negative, Ur Phencyclidine Scrn Negative, Ur Am phetamines Screen Negative, U Benzodiazepines Scrn Positive H, U Oth Cocaine Metabols Negative, U Cannabinoids Screen Negative 10/14/18 13:22: Urine Color Yellow, Urine Appearance Clear, Urine pH 6.0, Ur Specific [place] 1.020, Urine Protein Negative, Urine Glucose (UA) Negative, Urine Ketones Negative, Urine Blood Negative, Urine Nitrate Negative, Urine Bilirubin Negative, Urine Urobilinogen 0.2, Ur Leukocyte Esterase Negative 10/14/18 11:00: Alcohol, Quantitative < 10 10/14/18 11:00: Salicylates < 1 L, Acetaminophen < 10.0 L 10/14/18 11:00: Sodium 138, Potassium 3.9, Chloride 103, Carbon Dioxide 24, Anion Gap 15, BUN 11, Creatinine 0.8, Est GFR ( Amer) > 60, Est GFR (Non- Af Amer) > 60, Random Glucose 116 H, Calcium 9.3, Total Bilirubin 0.3, AST 30, ALT 29, Alkaline Phosphatase 82, Total Protein 8.1, Albumin 4.7, Globulin 3.4, Albumin/Globulin Ratio 1.4 10/14/18 11:00: WBC 6.8 D, RBC 4.51, Hgb 12.6 L, Hct 38.3 L, MCV 84.9, MCH 27.9, MCHC 32.9, RDW 14.2, Plt Count 277, MPV 11.0, Neut % (Auto) 53.3, Lymph % (Auto) 37.5 H, [place] % (Auto) 6.1 H, Eos % (Auto) 2.5, Baso % (Auto) 0.6, Lymph # (Auto) 2.6, [place] # (Auto) 0.4, Eos # (Auto) 0.2, Baso # (Auto) 0.04, Absolute Neuts (auto) 3.64 Vital Signs Temp Pulse Resp BP Pulse Ox 10/16/18 08:32 76 122/76 10/16/18 07:00 98.4 F 76 20 122/76 10/15/18 16:00 93 H 138/89 10/15/18 07:00 98.4 F 76 20 124/82 10/14/18 15:40 18 10/14/18 15:37 98.0 F 93 H 18 146/97 H 97 10/14/18 15:09 98 F 75 19 125/73 97 10/14/18 13:51 95 10/14/18 13:44 97.8 F 88 16 145/87 93 L 10/14/18 11:10 98.7 F 99 H 16 140/93 H 95 Abnormal Lab Results 10/17/18 10/17/18 10/17/18 07:17 11:11 16:30 WBC RBC Hgb Hct MCV MCH MCHC RDW Plt Count MPV POC Glucose (mg/dL) 100 189 H 138 H 10/17/18 10/18/18 10/18/18 21:10 07:13 11:03 WBC RBC Hgb Hct MCV MCH MCHC RDW Plt Count MPV POC Glucose (mg/dL) 225 H 138 H 150 H 10/18/18 14:55 WBC 5.7 RBC 4.78 Hgb 13.4 L Hct 40.8 L MCV 85.4 MCH 28.0 MCHC 32.8 RDW 14.1 Plt Count 204 MPV 10.6 POC Glucose (mg/dL) Temp Pulse Resp BP Pulse Ox 98.3 F 84 20 129/86 97 10/18/18 07:17 10/18/18 08:45 10/18/18 07:17 10/18/18 08:45 10/14/18 15:37 Laboratory Results - last 24 hr 10/18/18 10/18/18 10/18/18 14:55 14:55 15:00 WBC 5.7 RBC 4.78 Hgb 13.4 L Hct 40.8 L MCV 85.4 MCH 28.0 MCHC 32.8 RDW 14.1 Plt Count 204 MPV 10.6 Sodium 138 Potassium 4.1 Chloride 102 Carbon Dioxide 28 Anion Gap 13 BUN 19 Creatinine 1.0 Est GFR ( Amer) > 60 Est GFR (Non-Af Amer) > 60 POC Glucose (mg/dL) Random Glucose 126 H Calcium 10.3 Total Bilirubin 0.2 AST 25 ALT 15 Alkaline Phosphatase 66 Total Protein 8.1 Albumin 4.7 Globulin 3.4 Albumin/Globulin Ratio 1.4 Urine Color Yellow Urine Appearance Clear Urine pH 6.0 Ur Specific [place] >= 1.030 Urine Protein Negative Urine Glucose (UA) Negative Urine Ketones Negative Urine Blood Negative Urine Nitrate Negative Urine Bilirubin Negative Urine Urobilinogen 0.2 Ur Leukocyte Esterase Trace H Urine RBC None Urine WBC 5 - 10 H Ur Epithelial Cells 4 - 5 Urine Bacteria Mod Urine Other Trichomonas 10/18/18 10/18/18 16:40 20:39 WBC RBC Hgb Hct MCV MCH MCHC RDW Plt Count MPV Sodium Potassium Chloride Carbon Dioxide Anion Gap BUN Creatinine Est GFR ( Amer) Est GFR (Non-Af Amer) POC Glucose (mg/dL) 116 H 131 H Random Glucose Calcium Total Bilirubin AST ALT Alkaline Phosphatase Total Protein Albumin Globulin Albumin/Globulin Ratio Urine Color Urine Appearance Urine pH Ur Specific [place] Urine Protein Urine Glucose (UA) Urine Ketones Urine Blood Urine Nitrate Urine Bilirubin Urine Urobilinogen Ur Leukocyte Esterase Urine RBC Urine WBC Ur Epithelial Cells Urine Bacteria Urine Other Laboratory Results - last 24 hr 10/19/18 10/19/18 10/19/18 07:23 11:17 16:22 POC Glucose (mg/dL) 111 H 134 H 120 H 10/19/18 21:08 POC Glucose (mg/dL) 117 H Temp Pulse Resp BP Pulse Ox 98.2 F 80 20 109/69 97 10/20/18 07:10 10/20/18 07:10 10/20/18 07:10 10/20/18 07:10 10/14/18 15:37 Temp Pulse Resp BP Pulse Ox 98.2 F 81 20 134/94 H 97 10/20/18 07:10 10/21/18 09:00 10/20/18 07:10 10/21/18 09:00 10/14/18 15:37 Abnormal Lab Results 10/20/18 10/20/18 10/20/18 07:33 11:14 16:11 POC Glucose (mg/dL) 140 H 145 H Valproic Acid 48 L 10/20/18 10/20/18 10/21/18 16:27 21:20 07:00 POC Glucose (mg/dL) 96 136 H Valproic Acid 38 L 10/21/18 08:20 POC Glucose (mg/dL) 110 Valproic Acid DSM 5 Symptoms Update: Patient is a single 48 year old -Greek male, self reported history of schizoaffective disorder, opioid use disorder on methadone maintenance, numerous psychiatric admissions (>10) most recently discharged from this unit on 08/02- 08/10/18, historically poorly compliant with medications and aftercare recommendations who brought himself to the hospital looking for help with depression, suicidal ideation (with plan to jump in front of bus as well as well hearing voices 'I hear voices telling me to do bad things and I don't want to hurt anyone." Patient required further evaluation and stabilization and medi cation adjustment. Per ER records patient presented as tearful and physically distressed. He was observed placing paper towels to his ears to block the voices. Pt expressed "I am a good person I don't want to hurt anyone but the voices are telling me to do bad things". Pt presented tearful and weepy. He also reported experiencing visual hallucinations " people and things moving". Patient was seen and examined at the treatment team room meeting, presented to be disheveled, malodorous, patient reported that he still hears the same voices telling him to kill himself. This rewriter suggested to increase the dose of Seroquel, this rewriter gives extended release of Seroquel at the nighttime, patient is willing to do so. this rewriter had concern about AMS 10/18/18, that is why UA/CBC/CMP ordered, UA was positive for trichomonas, medical team notified, consulted, flagyl started. Patient also was seen by infectious disease, consultation appreciated, will follow up on HIV chlamydia, gonorrhea results. Patient was educated about safe sex, patient had no idea about what safe sex is, patient was educated about the importance to use condoms, patient reported that he is not sexually active. Patient has very poor insight. As per staff report patient is compliant with his medications, has periods of irritability, impulses are better controlled. So far patient tolerates medications well, no side effects observed or reported, aims 0, no EPS. methadone dose was confirmed and resumed 90mg, but will decrease the dose of methadone to 70 mg because patient appears to be high on this medication. Impression: History of schizoaffective disorder Opioid use disorder on maintenance methadone program History of alcohol use disorder Medication Change: Yes (Seroquel extended release, increase dose) Medical Record Reviewed: Yes Consults ordered or reviewed: Patient was seen by medical team, consult appreciated medical team reconsulted. Mental Status Examination - Cognitive Function Orientation: Person, Place, Situation Memory: Intact Attention: Poor Concentration: Poor Association: Loose Fund of Knowledge: Poor - Mood Mood: Depressed - Affect Affect: Constricted, Flat - Formal Thought Process Formal Thought Process: No Impairment, Hallucinations ("I hear the same voices, voices telling me to jump in front of the train or in front of the car") - Suicidal Ideation Suicidal Ideation: No - Homicidal Ideation Homicidal Ideation: No Goal/Treatment Plan - Goal/Treatment Plan Need for Continued Stay: Remain at risks for inpatient hospitalization, Severe depression anxiety, Discharge may exacerbated symptoms, Severe functional impairment Progress Toward Problem(s) and Goals/Treatment Plan: group, milieu and supportive tx * Depakote 250 mg po bid and hd for mood control * Depakote level 10/21/18 was 38 * Seroquel extended release 500 mg daily to help with with mood control * Trazodone 100 mg po HS PRN (changed) * Ativan 2 mg twice daily with plan to taper for alcohol and benzo withdrawals * Patient attends a methadone clinic so he is not a candidate for naltrexone to address is alcohol dependency. * Patient reports that methadone dose is 90 mg daily, dose was confirmed by nursing who noted recent methadone bottle in his possession. Patient attends [facility] methadone clinic ([phone]). now pt is on 70mg daily, * Medical consult appreciated * Nicoderm CQ 21 mg patch, replaced daily for nicotine cravings Follow up on labs Will monitor closely Pt was educated about risk/benefits and alternatives of medications, coping strategies (safety plan, suicide prevention), relapse prevention, importance of follow up with psychiatrist and therapist, stay away from drugs/alcohol/smoking medical follow up appreciated Estimated Date of D/C: 10/26/18
[2018-10-23] MEDS: QUEtiapine 200 mg XR Tab PO SCH (21:02)
[2018-10-23] MEDS: QUEtiapine 300 mg XR Tab PO SCH (21:02)
[2018-10-24] MEDS: Insulin Reg-LOW-Coverage SC SCH ×4 (09:10→21:21)
[2018-10-24] MEDS: Divalproex 250 mg DR (BID formulation) PO SCH ×3 (09:34→21:09)
[2018-10-24] MEDS: POLYETHYLENE GLYCOL 3350 17 GM/Dose PACKET PO SCH (09:35)
--- NOTE | 2018-10-24 13:30 | PCM.PYCHPN ---
Psychiatric Progress Note - Psychiatric Progress Note Patient seen today, length of contact: 30 minutes Patient Chief Complaint: "I feel better" Problems Identified/Issues Discussed: Risk/benefits and alternatives of medications discussed, suicide/ homicide prevention, past psychiatric h/o, current psychiatric symptoms, medical problems, risk/benefits and alternatives of medications, medications compliance, coping strategies, substance abuse h/o, relapse prevention, importance of follow up with psychiatrist and therapist, discharge plan. Medical Problems: asthma, HTN, NIDDM trichomonas in Urine Diagnostic Results: 10/14/18 11:00 10/14/18 11:00 Lab Results 10/16/18 16:01: POC Glucose (mg/dL) 117 H 10/16/18 11:30: POC Glucose (mg/dL) 156 H 10/16/18 07:44: POC Glucose (mg/dL) 125 H 10/15/18 21:13: POC Glucose (mg/dL) 123 H 10/15/18 15:56: POC Glucose (mg/dL) 82 10/15/18 12:30: Valproic Acid 28 L 10/15/18 11:47: POC Glucose (mg/dL) 109 10/15/18 08:30: Valproic Acid 31 L 10/15/18 08:30: RPR Nonreactive 10/15/18 08:30: Free T4 0.98, TSH 3rd Generation 1.57 10/15/18 08:30: Fasting Glucose 95, Triglycerides 104, Cholesterol 192, LDL Cholesterol Direct 100, HDL Cholesterol 73 H 10/15/18 07:38: POC Glucose (mg/dL) 104 10/14/18 21:37: POC Glucose (mg/dL) 142 H 10/14/18 15:40: POC Glucose (mg/dL) 153 H 10/14/18 13:22: Urine Opiates Screen Negative, Urine Methadone Screen Positive H , Ur Barbiturates Screen Negative, Ur Phencyclidine Scrn Negative, Ur Amphetamines Screen Negative, U Benzodiazepines Scrn Positive H, U Oth Cocaine Metabols Negative, U Cannabinoids Screen Negative 10/14/18 13:22: Urine Color Yellow, Urine Appearance Clear, Urine pH 6.0, Ur Specific [place] 1.020, Urine Protein Negative, Urine Glucose (UA) Negative, Urine Ketones Negative, Urine Blood Negative, Urine Nitrate Negative, Urine Bilirubin Negative, Urine Urobilinogen 0.2, Ur Leukocyte Esterase Negative 10/14/18 11:00: Alcohol, Quantitative < 10 10/14/18 11:00: Salicylates < 1 L, Acetaminophen < 10.0 L 10/14/18 11:00: Sodium 138, Potassium 3.9, Chloride 103, Carbon Dioxide 24, Anion Gap 15, BUN 11, Creatinine 0.8, Est GFR ( Amer) > 60, Est GFR (Non- Af Amer) > 60, Random Glucose 116 H, Calcium 9.3, Total Bilirubin 0.3, AST 30, ALT 29, Alkaline Phosphatase 82, Total Protein 8.1, Albumin 4.7, Globulin 3.4, Albumin/Globulin Ratio 1.4 10/14/18 11:00: WBC 6.8 D, RBC 4.51, Hgb 12.6 L, Hct 38.3 L, MCV 84.9, MCH 27.9, MCHC 32.9, RDW 14.2, Plt Count 277, MPV 11.0, Neut % (Auto) 53.3, Lymph % (Auto) 37.5 H, [place] % (Auto) 6.1 H, Eos % (Auto) 2.5, Baso % (Auto) 0.6, Lymph # (Auto) 2.6, [place] # (Auto) 0.4, Eos # (Auto) 0.2, Baso # (Auto) 0.04, Absolute Neuts (auto) 3.64 Vital Signs Temp Pulse Resp BP Pulse Ox 10/16/18 08:32 76 122/76 10/16/18 07:00 98.4 F 76 20 122/76 10/15/18 16:00 93 H 138/89 10/15/18 07:00 98.4 F 76 20 124/82 10/14/18 15:40 18 10/14/18 15:37 98.0 F 93 H 18 146/97 H 97 10/14/18 15:09 98 F 75 19 125/73 97 10/14/18 13:51 95 10/14/18 13:44 97.8 F 88 16 145/87 93 L 10/14/18 11:10 98.7 F 99 H 16 140/93 H 95 Abnormal Lab Results 10/17/18 10/17/18 10/17/18 07:17 11:11 16:30 WBC RBC Hgb Hct MCV MCH MCHC RDW Plt Count MPV POC Glucose (mg/dL) 100 189 H 138 H 10/17/18 10/18/18 10/18/18 21:10 07:13 11:03 WBC RBC Hgb Hct MCV MCH MCHC RDW Plt Count MPV POC Glucose (mg/dL) 225 H 138 H 150 H 10/18/18 14:55 WBC 5.7 RBC 4.78 Hgb 13.4 L Hct 40.8 L MCV 85.4 MCH 28.0 MCHC 32.8 RDW 14.1 Plt Count 204 MPV 10.6 POC Glucose (mg/dL) Temp Pulse Resp BP Pulse Ox 98.3 F 84 20 129/86 97 10/18/18 07:17 10/18/18 08:45 10/18/18 07:17 10/18/18 08:45 10/14/18 15:37 Laboratory Results - last 24 hr 10/18/18 10/18/18 10/18/18 14:55 14:55 15:00 WBC 5.7 RBC 4.78 Hgb 13.4 L Hct 40.8 L MCV 85.4 MCH 28.0 MCHC 32.8 RDW 14.1 Plt Count 204 MPV 10.6 Sodium 138 Potassium 4.1 Chloride 102 Carbon Dioxide 28 Anion Gap 13 BUN 19 Creatinine 1.0 Est GFR ( Amer) > 60 Est GFR (Non-Af Amer) > 60 POC Glucose (mg/dL) Random Glucose 126 H Calcium 10.3 Total Bilirubin 0.2 AST 25 ALT 15 Alkaline Phosphatase 66 Total Protein 8.1 Albumin 4.7 Globulin 3.4 Albumin/Globulin Ratio 1.4 Urine Color Yellow Urine Appearance Clear Urine pH 6.0 Ur Specific [place] >= 1.030 Urine Protein Negative Urine Glucose (UA) Negative Urine Ketones Negative Urine Blood Negative Urine Nitrate Negative Urine Bilirubin Negative Urine Urobilinogen 0.2 Ur Leukocyte Esterase Trace H Urine RBC None Urine WBC 5 - 10 H Ur Epithelial Cells 4 - 5 Urine Bacteria Mod Urine Other Trichomonas 10/18/18 10/18/18 16:40 20:39 WBC RBC Hgb Hct MCV MCH MCHC RDW Plt Count MPV Sodium Potassium Chloride Carbon Dioxide Anion Gap BUN Creatinine Est GFR ( Amer) Est GFR (Non-Af Amer) POC Glucose (mg/dL) 116 H 131 H Random Glucose Calcium Total Bilirubin AST ALT Alkaline Phosphatase Total Protein Albumin Globulin Albumin/Globulin Ratio Urine Color Urine Appearance Urine pH Ur Specific [place] Urine Protein Urine Glucose (UA) Urine Ketones Urine Blood Urine Nitrate Urine Bilirubin Urine Urobilinogen Ur Leukocyte Esterase Urine RBC Urine WBC Ur Epithelial Cells Urine Bacteria Urine Other Laboratory Results - last 24 hr 10/19/18 10/19/18 10/19/18 07:23 11:17 16:22 POC Glucose (mg/dL) 111 H 134 H 120 H 10/19/18 21:08 POC Glucose (mg/dL) 117 H Temp Pulse Resp BP Pulse Ox 98.2 F 80 20 109/69 97 10/20/18 07:10 10/20/18 07:10 10/20/18 07:10 10/20/18 07:10 10/14/18 15:37 Temp Pulse Resp BP Pulse Ox 98.2 F 81 20 134/94 H 97 10/20/18 07:10 10/21/18 09:00 10/20/18 07:10 10/21/18 09:00 10/14/18 15:37 Abnormal Lab Results 10/20/18 10/20/18 10/20/18 07:33 11:14 16:11 POC Glucose (mg/dL) 140 H 145 H Valproic Acid 48 L 10/20/18 10/20/18 10/21/18 16:27 21:20 07:00 POC Glucose (mg/dL) 96 136 H Valproic Acid 38 L 10/21/18 08:20 POC Glucose (mg/dL) 110 Valproic Acid DSM 5 Symptoms Update: Patient is a single 48 year old -[place] male, self reported history of schizoaffective disorder, opioid use disorder on methadone maintenance, numerous psychiatric admissions (>10) most recently discharged from this unit on 08/02- 08/10/18, historically poorly compliant with medications and aftercare recommendations who brought himself to the hospital looking for help with depression, suicidal ideation (with plan to jump in front of bus as well as well hearing voices 'I hear voices telling me to do bad things and I don't want to hurt anyone." Patient required further evaluation and stabilization and medication adjustment. Per ER records patient presented as tearful and physi madeline distressed. He was observed placing paper towels to his ears to block the voices. Pt expressed "I am a good person I don't want to hurt anyone but the voices are telling me to do bad things". Pt presented tearful and weepy. He also reported experiencing visual hallucinations " people and things moving". Patient was seen and examined next to the nursing station, hygiene is mildly better, patient presented to be less disorganized, more pleasant patient denied any psychotic symptoms today but complaint of insomnia. As per staff report patient is compliant with his medications, has periods of irritability, impulses are better controlled. this engineering technical writer had concern about AMS 10/18/18, that is why UA/CBC/CMP ordered, UA was positive for trichomonas, medical team notified, consulted, flagyl started. Patient also was seen by infectious disease, consultation appreciated, will follow up on HIV chlamydia, gonorrhea results. Patient was educated about safe sex, patient had no idea about what safe sex is, patient was educated about the importance to use condoms, patient reported that he is not sexually active. Patient has very poor insight. So far patient tolerates medications well, no side effects observed or reported, aims 0, no EPS. methadone was decreased to 70 mg daily, tolerated well. Impression: History of schizoaffective disorder Opioid use disorder on maintenance methadone program History of alcohol use disorder Medication Change: Yes (ativan decreased, trazodone increased) Medical Record Reviewed: Yes Consults ordered or reviewed: Patient was seen by medical team, consult appreciated medical team reconsulted. Mental Status Examination - Cognitive Function Orientation: Person, Place, Situation Memory: Intact Attention: Poor (Some improvement) Concentration: Poor Association: Loose (Baseline) Fund of Knowledge: Poor (Baseline) - Mood Mood: Depressed - Affect Affect: Constricted, Flat - Formal Thought Process Formal Thought Process: No Impairment, Hallucinations (Denied today) - Suicidal Ideation Suicidal Ideation: No - Homicidal Ideation Homicidal Ideation: No Goal/Treatment Plan - Goal/Treatment Plan Need for Continued Stay: Remain at risks for inpatient hospitalization, Severe depression anxiety, Discharge may exacerbated symptoms, Severe functional impairment Progress Toward Problem(s) and Goals/Treatment Plan: group, milieu and supportive tx * Depakote 250 mg po bid and hd for mood control * Depakote level 10/21/18 was 38 * Seroquel extended release 500 mg daily to help with with mood control * Trazodone 100 mg po HS PRN * Ativan 1 mg tid with plan to taper for alcohol and benzo withdrawals * Patient attends a methadone clinic so he is not a candidate for naltrexone to address is alcohol dependency. * Patient reports that methadone dose is 90 mg daily, dose was confirmed by nursing who noted recent methadone bottle in his possession. Patient attends [facility] methadone clinic ([phone]). now pt is on 70mg daily, * Medical consult appreciated * Nicoderm CQ 21 mg patch, replaced daily for nicotine cravings Follow up on labs Will monitor closely Pt was educated about risk/benefits and alternatives of medications, coping str ategies (safety plan, suicide prevention), relapse prevention, importance of follow up with psychiatrist and therapist, stay away from drugs/alcohol/smoking medical follow up appreciated Estimated Date of D/C: 10/26/18
[2018-10-24] MEDS: QUEtiapine 300 mg XR Tab PO SCH (21:10)
[2018-10-24] MEDS: QUEtiapine 200 mg XR Tab PO SCH (21:10)
[2018-10-25 07:19] VITALS: RESP 20
[2018-10-25] MEDS: Divalproex 250 mg DR (BID formulation) PO SCH ×3 (09:03→21:18)
[2018-10-25] MEDS: Insulin Reg-LOW-Coverage SC SCH ×4 (09:05→21:37)
[2018-10-25] MEDS: POLYETHYLENE GLYCOL 3350 17 GM/Dose PACKET PO SCH (09:05)
--- NOTE | 2018-10-25 15:12 | PCM.PYCHPN ---
Psychiatric Progress Note - Psychiatric Progress Note Patient seen today, length of contact: 30 minutes Patient Chief Complaint: "I feel depressed, I still hear voices..." Problems Identified/Issues Discussed: Risk/benefits and alternatives of medications discussed, suicide/ homicide prevention, past psychiatric h/o, current psychiatric symptoms, medical problems, risk/benefits and alternatives of medications, medications compliance, coping strategies, substance abuse h/o, relapse prevention, importance of follow up with psychiatrist and therapist, discharge plan. Medical Problems: asthma, HTN, NIDDM trichomonas in Urine Diagnostic Results: 10/14/18 11:00 10/14/18 11:00 Lab Results 10/16/18 16:01: POC Glucose (mg/dL) 117 H 10/16/18 11:30: POC Glucose (mg/dL) 156 H 10/16/18 07:44: POC Glucose (mg/dL) 125 H 10/15/18 21:13: POC Glucose (mg/dL) 123 H 10/15/18 15:56: POC Glucose (mg/dL) 82 10/15/18 12:30: Valproic Acid 28 L 10/15/18 11:47: POC Glucose (mg/dL) 109 10/15/18 08:30: Valproic Acid 31 L 10/15/18 08:30: RPR Nonreactive 10/15/18 08:30: Free T4 0.98, TSH 3rd Generation 1.57 10/15/18 08:30: Fasting Glucose 95, Triglycerides 104, Cholesterol 192, LDL Cholesterol Direct 100, HDL Cholesterol 73 H 10/15/18 07:38: POC Glucose (mg/dL) 104 10/14/18 21:37: POC Glucose (mg/dL) 142 H 10/14/18 15:40: POC Glucose (mg/dL) 153 H 10/14/18 13:22: Urine Opiates Screen Negative, Urine Methadone Screen Positive H , Ur Barbiturates Screen Negative, Ur Phencyclidine Scrn Negative, Ur Amphetamines Screen Negative, U Benzodiazepines Scrn Positive H, U Oth Cocaine Metabols Negative, U Cannabinoids Screen Negative 10/14/18 13:22: Urine Color Yellow, Urine Appearance Clear, Urine pH 6.0, Ur Specific [place] 1.020, Urine Protein Negative, Urine Glucose (UA) Negative, Urine Ketones Negative, Urine Blood Negative, Urine Nitrate Negative, Urine Bilirubin Negative, Urine Urobilinogen 0.2, Ur Leukocyte Esterase Negative 10/14/18 11:00: Alcohol, Quantitative < 10 10/14/18 11:00: Salicylates < 1 L, Acetaminophen < 10.0 L 10/14/18 11:00: Sodium 138, Potassium 3.9, Chloride 103, Carbon Dioxide 24, Anion Gap 15, BUN 11, Creatinine 0.8, Est GFR ( Amer) > 60, Est GFR (Non- Af Amer) > 60, Random Glucose 116 H, Calcium 9.3, Total Bilirubin 0.3, AST 30, ALT 29, Alkaline Phosphatase 82, Total Protein 8.1, Albumin 4.7, Globulin 3.4, Albumin/Globulin Ratio 1.4 10/14/18 11:00: WBC 6.8 D, RBC 4.51, Hgb 12.6 L, Hct 38.3 L, MCV 84.9, MCH 27.9, MCHC 32.9, RDW 14.2, Plt Count 277, MPV 11.0, Neut % (Auto) 53.3, Lymph % (Auto) 37.5 H, [place] % (Auto) 6.1 H, Eos % (Auto) 2.5, Baso % (Auto) 0.6, Lymph # (Auto) 2.6, [place] # (Auto) 0.4, Eos # (Auto) 0.2, Baso # (Auto) 0.04, Absolute Neuts (auto) 3.64 Vital Signs Temp Pulse Resp BP Pulse Ox 10/16/18 08:32 76 122/76 10/16/18 07:00 98.4 F 76 20 122/76 10/15/18 16:00 93 H 138/89 10/15/18 07:00 98.4 F 76 20 124/82 10/14/18 15:40 18 10/14/18 15:37 98.0 F 93 H 18 146/97 H 97 10/14/18 15:09 98 F 75 19 125/73 97 10/14/18 13:51 95 10/14/18 13:44 97.8 F 88 16 145/87 93 L 10/14/18 11:10 98.7 F 99 H 16 140/93 H 95 Abnormal Lab Results 10/17/18 10/17/18 10/17/18 07:17 11:11 16:30 WBC RBC Hgb Hct MCV MCH MCHC RDW Plt Count MPV POC Glucose (mg/dL) 100 189 H 138 H 10/17/18 10/18/18 10/18/18 21:10 07:13 11:03 WBC RBC Hgb Hct MCV MCH MCHC RDW Plt Count MPV POC Glucose (mg/dL) 225 H 138 H 150 H 10/18/18 14:55 WBC 5.7 RBC 4.78 Hgb 13.4 L Hct 40.8 L MCV 85.4 MCH 28.0 MCHC 32.8 RDW 14.1 Plt Count 204 MPV 10.6 POC Glucose (mg/dL) Temp Pulse Resp BP Pulse Ox 98.3 F 84 20 129/86 97 10/18/18 07:17 10/18/18 08:45 10/18/18 07:17 10/18/18 08:45 10/14/18 15:37 Laboratory Results - last 24 hr 10/18/18 10/18/18 10/18/18 14:55 14:55 15:00 WBC 5.7 RBC 4.78 Hgb 13.4 L Hct 40.8 L MCV 85.4 MCH 28.0 MCHC 32.8 RDW 14.1 Plt Count 204 MPV 10.6 Sodium 138 Potassium 4.1 Chloride 102 Carbon Dioxide 28 Anion Gap 13 BUN 19 Creatinine 1.0 Est GFR ( Amer) > 60 Est GFR (Non-Af Amer) > 60 POC Glucose (mg/dL) Random Glucose 126 H Calcium 10.3 Total Bilirubin 0.2 AST 25 ALT 15 Alkaline Phosphatase 66 Total Protein 8.1 Albumin 4.7 Globulin 3.4 Albumin/Globulin Ratio 1.4 Urine Color Yellow Urine Appearance Clear Urine pH 6.0 Ur Specific [place] >= 1.030 Urine Protein Negative Urine Glucose (UA) Negative Urine Ketones Negative Urine Blood Negative Urine Nitrate Negative Urine Bilirubin Negative Urine Urobilinogen 0.2 Ur Leukocyte Esterase Trace H Urine RBC None Urine WBC 5 - 10 H Ur Epithelial Cells 4 - 5 Urine Bacteria Mod Urine Other Trichomonas 10/18/18 10/18/18 16:40 20:39 WBC RBC Hgb Hct MCV MCH MCHC RDW Plt Count MPV Sodium Potassium Chloride Carbon Dioxide Anion Gap BUN Creatinine Est GFR ( Amer) Est GFR (Non-Af Amer) POC Glucose (mg/dL) 116 H 131 H Random Glucose Calcium Total Bilirubin AST ALT Alkaline Phosphatase Total Protein Albumin Globulin Albumin/Globulin Ratio Urine Color Urine Appearance Urine pH Ur Specific [place] Urine Protein Urine Glucose (UA) Urine Ketones Urine Blood Urine Nitrate Urine Bilirubin Urine Urobilinogen Ur Leukocyte Esterase Urine RBC Urine WBC Ur Epithelial Cells Urine Bacteria Urine Other Laboratory Results - last 24 hr 10/19/18 10/19/18 10/19/18 07:23 11:17 16:22 POC Glucose (mg/dL) 111 H 134 H 120 H 10/19/18 21:08 POC Glucose (mg/dL) 117 H Temp Pulse Resp BP Pulse Ox 98.2 F 80 20 109/69 97 10/20/18 07:10 10/20/18 07:10 10/20/18 07:10 10/20/18 07:10 10/14/18 15:37 Temp Pulse Resp BP Pulse Ox 98.2 F 81 20 134/94 H 97 10/20/18 07:10 10/21/18 09:00 10/20/18 07:10 10/21/18 09:00 10/14/18 15:37 Abnormal Lab Results 10/20/18 10/20/18 10/20/18 07:33 11:14 16:11 POC Glucose (mg/dL) 140 H 145 H Valproic Acid 48 L 10/20/18 10/20/18 10/21/18 16:27 21:20 07:00 POC Glucose (mg/dL) 96 136 H Valproic Acid 38 L 10/21/18 08:20 POC Glucose (mg/dL) 110 Valproic Acid DSM 5 Symptoms Update: Patient is a single 48 year old -[place] male, self reported history of schizoaffective disorder, opioid use disorder on methadone maintenance, numerous psychiatric admissions (>10) most recently discharged from this unit on 08/02- 08/10/18, historically poorly compliant with medications and aftercare recommendations who brought himself to the hospital looking for help with depression, suicidal ideation (with plan to jump in front of bus as well as well hearing voices 'I hear voices telling me to do bad things and I don't want to hurt anyone." Patient required further evaluation and stabilization and medication adjustment. Per ER records patient presented as tearful and physically distressed. He was observed placing paper towels to his ears to blo ck the voices. Pt expressed "I am a good person I don't want to hurt anyone but the voices are telling me to do bad things". Pt presented tearful and weepy. He also reported experiencing visual hallucinations " people and things moving". Patient was seen and examined in his room with medical student, hygiene is mildly better, patient presented to be less disorganized, more pleasant, complaint of insomnia. pt reported that he still feels depressed/hopeless, "I still hear voices", but pt denied any thoughts of harming self or others. As per staff report patient is compliant with his medications, has periods of irritability, impulses are better controlled. this science writer had concern about AMS 10/18/18, that is why UA/CBC/CMP ordered, UA was positive for trichomonas, medical team notified, consulted, flagyl started. Patient also was seen by infectious disease, consultation appreciated, will follow up on HIV chlamydia, gonorrhea results. Patient was educated about safe sex, patient had no idea about what safe sex is, patient was educated about the importance to use condoms, patient reported that he is not sexually active. Patient has very poor insight. So far patient tolerates medications well, no side effects observed or reported, aims 0, no EPS. methadone was decreased to 70 mg daily, tolerated well. Impression: History of schizoaffective disorder Opioid use disorder on maintenance methadone program History of alcohol use disorder Medication Change: Yes (ativan decreased) Medical Record Reviewed: Yes Consults ordered or reviewed: Patient was seen by medical team, consult appreciated medical team reconsulted. Mental Status Examination - Cognitive Function Orientation: Person, Place, Situation Memory: Intact Attention: Poor (Some improvement) Concentration: Poor Association: Loose (Baseline) Fund of Knowledge: Poor (Baseline) - Mood Mood: Depressed - Affect Affect: Constricted, Flat - Formal Thought Process Formal Thought Process: No Impairment, Hallucinations (Denied today) - Suicidal Ideation Suicidal Ideation: No - Homicidal Ideation Homicidal Ideation: No Goal/Treatment Plan - Goal/Treatment Plan Need for Continued Stay: Remain at risks for inpatient hospitalization, Severe depression anxiety, Discharge may exacerbated symptoms, Severe functional impairment Progress Toward Problem(s) and Goals/Treatment Plan: group, milieu and supportive tx * Depakote 250 mg po bid and hd for mood control * Depakote level 10/21/18 was 38 * Seroquel extended release 600 mg daily to help with with mood control * Trazodone 100 mg po HS PRN * Ativan 1 mg bid with plan to taper for alcohol and benzo withdrawals * Patient attends a methadone clinic so he is not a candidate for naltrexone to address is alcohol dependency. * Patient reports that methadone dose is 90 mg daily, dose was confirmed by nursing who noted recent methadone bottle in his possession. Patient attends [facility] methadone clinic ([phone]). now pt is on 70mg daily, * Medical consult appreciated * Nicoderm CQ 21 mg patch, replaced daily for nicotine cravings Follow up on labs Will monitor closely Pt was educated about risk/benefits and alternatives of medications, coping strategies (safety plan, suicide prevention), relapse prevention, importance of follow up with psychiatrist and therapist, stay away from drugs/alcohol/smoking medical follow up appreciated Estimated Date of D/C: 10/30/18
[2018-10-25] MEDS: Magnesium Citrate Oral SOL (300 ml) PO PRN (16:41)
[2018-10-25] MEDS: QUEtiapine 200 mg XR Tab PO SCH (21:18)
[2018-10-26] MEDS: Insulin Reg-LOW-Coverage SC SCH ×4 (08:16→22:39)
[2018-10-26] MEDS: Divalproex 250 mg DR (BID formulation) PO SCH ×3 (08:25→21:38)
[2018-10-26] MEDS: POLYETHYLENE GLYCOL 3350 17 GM/Dose PACKET PO SCH (08:28)
--- NOTE | 2018-10-26 15:03 | PCM.PYCHPN ---
Psychiatric Progress Note - Psychiatric Progress Note Patient seen today, length of contact: 30 minutes Patient Chief Complaint: "I feel depressed, I still hear voices..." Problems Identified/Issues Discussed: Risk/benefits and alternatives of medications discussed, suicide/ homicide prevention, past psychiatric h/o, current psychiatric symptoms, medical problems, risk/benefits and alternatives of medications, medications compliance, coping strategies, substance abuse h/o, relapse prevention, importance of follow up with psychiatrist and therapist, discharge plan. Medical Problems: asthma, HTN, NIDDM trichomonas in Urine Diagnostic Results: 10/14/18 11:00 10/14/18 11:00 Lab Results 10/16/18 16:01: POC Glucose (mg/dL) 117 H 10/16/18 11:30: POC Glucose (mg/dL) 156 H 10/16/18 07:44: POC Glucose (mg/dL) 125 H 10/15/18 21:13: POC Glucose (mg/dL) 123 H 10/15/18 15:56: POC Glucose (mg/dL) 82 10/15/18 12:30: Valproic Acid 28 L 10/15/18 11:47: POC Glucose (mg/dL) 109 10/15/18 08:30: Valproic Acid 31 L 10/15/18 08:30: RPR Nonreactive 10/15/18 08:30: Free T4 0.98, TSH 3rd Generation 1.57 10/15/18 08:30: Fasting Glucose 95, Triglycerides 104, Cholesterol 192, LDL Cholesterol Direct 100, HDL Cholesterol 73 H 10/15/18 07:38: POC Glucose (mg/dL) 104 10/14/18 21:37: POC Glucose (mg/dL) 142 H 10/14/18 15:40: POC Glucose (mg/dL) 153 H 10/14/18 13:22: Urine Opiates Screen Negative, Urine Methadone Screen Positive H , Ur Barbiturates Screen Negative, Ur Phencyclidine Scrn Negative, Ur Amphetamines Screen Negative, U Benzodiazepines Scrn Positive H, U Oth Cocaine Metabols Negative, U Cannabinoids Screen Negative 10/14/18 13:22: Urine Color Yellow, Urine Appearance Clear, Urine pH 6.0, Ur Specific [place] 1.020, Urine Protein Negative, Urine Glucose (UA) Negative, Urine Ketones Negative, Urine Blood Negative, Urine Nitrate Negative, Urine Bilirubin Negative, Urine Urobilinogen 0.2, Ur Leukocyte Esterase Negative 10/14/18 11:00: Alcohol, Quantitative < 10 10/14/18 11:00: Salicylates < 1 L, Acetaminophen < 10.0 L 10/14/18 11:00: Sodium 138, Potassium 3.9, Chloride 103, Carbon Dioxide 24, Anion Gap 15, BUN 11, Creatinine 0.8, Est GFR ( Amer) > 60, Est GFR (Non- Af Amer) > 60, Random Glucose 116 H, Calcium 9.3, Total Bilirubin 0.3, AST 30, ALT 29, Alkaline Phosphatase 82, Total Protein 8.1, Albumin 4.7, Globulin 3.4, Albumin/Globulin Ratio 1.4 10/14/18 11:00: WBC 6.8 D, RBC 4.51, Hgb 12.6 L, Hct 38.3 L, MCV 84.9, MCH 27.9, MCHC 32.9, RDW 14.2, Plt Count 277, MPV 11.0, Neut % (Auto) 53.3, Lymph % (Auto) 37.5 H, [place] % (Auto) 6.1 H, Eos % (Auto) 2.5, Baso % (Auto) 0.6, Lymph # (Auto) 2.6, [place] # (Auto) 0.4, Eos # (Auto) 0.2, Baso # (Auto) 0.04, Absolute Neuts (auto) 3.64 Vital Signs Temp Pulse Resp BP Pulse Ox 10/16/18 08:32 76 122/76 10/16/18 07:00 98.4 F 76 20 122/76 10/15/18 16:00 93 H 138/89 10/15/18 07:00 98.4 F 76 20 124/82 10/14/18 15:40 18 10/14/18 15:37 98.0 F 93 H 18 146/97 H 97 10/14/18 15:09 98 F 75 19 125/73 97 10/14/18 13:51 95 10/14/18 13:44 97.8 F 88 16 145/87 93 L 10/14/18 11:10 98.7 F 99 H 16 140/93 H 95 Abnormal Lab Results 10/17/18 10/17/18 10/17/18 07:17 11:11 16:30 WBC RBC Hgb Hct MCV MCH MCHC RDW Plt Count MPV POC Glucose (mg/dL) 100 189 H 138 H 10/17/18 10/18/18 10/18/18 21:10 07:13 11:03 WBC RBC Hgb Hct MCV MCH MCHC RDW Plt Count MPV POC Glucose (mg/dL) 225 H 138 H 150 H 10/18/18 14:55 WBC 5.7 RBC 4.78 Hgb 13.4 L Hct 40.8 L MCV 85.4 MCH 28.0 MCHC 32.8 RDW 14.1 Plt Count 204 MPV 10.6 POC Glucose (mg/dL) Temp Pulse Resp BP Pulse Ox 98.3 F 84 20 129/86 97 10/18/18 07:17 10/18/18 08:45 10/18/18 07:17 10/18/18 08:45 10/14/18 15:37 Laboratory Results - last 24 hr 10/18/18 10/18/18 10/18/18 14:55 14:55 15:00 WBC 5.7 RBC 4.78 Hgb 13.4 L Hct 40.8 L MCV 85.4 MCH 28.0 MCHC 32.8 RDW 14.1 Plt Count 204 MPV 10.6 Sodium 138 Potassium 4.1 Chloride 102 Carbon Dioxide 28 Anion Gap 13 BUN 19 Creatinine 1.0 Est GFR ( Amer) > 60 Est GFR (Non-Af Amer) > 60 POC Glucose (mg/dL) Random Glucose 126 H Calcium 10.3 Total Bilirubin 0.2 AST 25 ALT 15 Alkaline Phosphatase 66 Total Protein 8.1 Albumin 4.7 Globulin 3.4 Albumin/Globulin Ratio 1.4 Urine Color Yellow Urine Appearance Clear Urine pH 6.0 Ur Specific [place] >= 1.030 Urine Protein Negative Urine Glucose (UA) Negative Urine Ketones Negative Urine Blood Negative Urine Nitrate Negative Urine Bilirubin Negative Urine Urobilinogen 0.2 Ur Leukocyte Esterase Trace H Urine RBC None Urine WBC 5 - 10 H Ur Epithelial Cells 4 - 5 Urine Bacteria Mod Urine Other Trichomonas 10/18/18 10/18/18 16:40 20:39 WBC RBC Hgb Hct MCV MCH MCHC RDW Plt Count MPV Sodium Potassium Chloride Carbon Dioxide Anion Gap BUN Creatinine Est GFR ( Amer) Est GFR (Non-Af Amer) POC Glucose (mg/dL) 116 H 131 H Random Glucose Calcium Total Bilirubin AST ALT Alkaline Phosphatase Total Protein Albumin Globulin Albumin/Globulin Ratio Urine Color Urine Appearance Urine pH Ur Specific [place] Urine Protein Urine Glucose (UA) Urine Ketones Urine Blood Urine Nitrate Urine Bilirubin Urine Urobilinogen Ur Leukocyte Esterase Urine RBC Urine WBC Ur Epithelial Cells Urine Bacteria Urine Other Laboratory Results - last 24 hr 10/19/18 10/19/18 10/19/18 07:23 11:17 16:22 POC Glucose (mg/dL) 111 H 134 H 120 H 10/19/18 21:08 POC Glucose (mg/dL) 117 H Temp Pulse Resp BP Pulse Ox 98.2 F 80 20 109/69 97 10/20/18 07:10 10/20/18 07:10 10/20/18 07:10 10/20/18 07:10 10/14/18 15:37 Temp Pulse Resp BP Pulse Ox 98.2 F 81 20 134/94 H 97 10/20/18 07:10 10/21/18 09:00 10/20/18 07:10 10/21/18 09:00 10/14/18 15:37 Abnormal Lab Results 10/20/18 10/20/18 10/20/18 07:33 11:14 16:11 POC Glucose (mg/dL) 140 H 145 H Valproic Acid 48 L 10/20/18 10/20/18 10/21/18 16:27 21:20 07:00 POC Glucose (mg/dL) 96 136 H Valproic Acid 38 L 10/21/18 08:20 POC Glucose (mg/dL) 110 Valproic Acid DSM 5 Symptoms Update: Patient is a single 48 year old -[place] male, self reported history of schizoaffective disorder, opioid use disorder on methadone maintenance, numerous psychiatric admissions (>10) most recently discharged from this unit on 08/02- 08/10/18, historically poorly compliant with medications and aftercare recommendations who brought himself to the hospital looking for help with depression, suicidal ideation (with plan to jump in front of bus as well as well hearing voices 'I hear voices telling me to do bad things and I don't want to hurt anyone." Patient required further evaluation and stabilization and medication adjustment. Per ER records patient presented as tearful and physically distressed. He was observed placing paper towels to his ears to blo ck the voices. Pt expressed "I am a good person I don't want to hurt anyone but the voices are telling me to do bad things". Pt presented tearful and weepy. He also reported experiencing visual hallucinations " people and things moving". Patient was seen and examined in the day treatment area with medical student, hygiene is better, patient presented to be less disorganized, more pleasant, abena martinez reported that she still hears voices and voices telling him to jump in front of the train or in front of the car, patient denied any intent or plan to do so, patient asked about his medications, patient was educated about Seroquel extended release. As per staff report patient is compliant with his medications, more pleasant, impulses are better controlled. this financial underwriter had concern about AMS 10/18/18, that is why UA/CBC/CMP ordered, UA was positive for trichomonas, medical team notified, consulted, flagyl started. Patient also was seen by infectious disease, consultation appreciated, will follow up on HIV chlamydia, gonorrhea results. Patient was educated about safe sex, patient had no idea about what safe sex is, patient was educated about the importance to use condoms, patient reported that he is not sexually active. Patient has very poor insight. So far patient tolerates medications well, no side effects observed or reported, aims 0, no EPS. methadone was decreased to 70 mg daily, tolerated well. Impression: History of schizoaffective disorder Opioid use disorder on maintenance methadone program History of alcohol use disorder Medication Change: Yes (ativan decreased) Medical Record Reviewed: Yes Mental Status Examination - Cognitive Function Orientation: Person, Place, Situation Memory: Intact Attention: Poor (Some improvement) Concentration: Poor Association: Loose (Baseline) Fund of Knowledge: Poor (Baseline) - Mood Mood: Depressed - Affect Affect: Constricted, Flat - Formal Thought Process Formal Thought Process: No Impairment, Hallucinations (Denied today) - Suicidal Ideation Suicidal Ideation: No - Homicidal Ideation Homicidal Ideation: No Goal/Treatment Plan - Goal/Treatment Plan Need for Continued Stay: Remain at risks for inpatient hospitalization, Severe depression anxiety, Discharge may exacerbated symptoms, Severe functional impairment Progress Toward Problem(s) and Goals/Treatment Plan: group, milieu and supportive tx * Depakote 250 mg po bid and hd for mood control * Depakote level 10/21/18 was 38 * Seroquel extended release 600 mg daily to help with with mood control * Trazodone 100 mg po HS PRN * Ativan 1 mg bid with plan to taper for alcohol and benzo withdrawals * Patient attends a methadone clinic so he is not a candidate for naltrexone to address is alcohol dependency. * Patient reports that methadone dose is 90 mg daily, dose was confirmed by nursing who noted recent methadone bottle in his possession. Patient attends [facility] methadone clinic ([phone]). now pt is on 70mg daily, * Medical consult appreciated * Nicoderm CQ 21 mg patch, replaced daily for nicotine cravings Follow up on labs Will monitor closely Pt was educated about risk/benefits and alternatives of medications, coping strategies (safety plan, suicide prevention), relapse prevention, importance of follow up with psychiatrist and therapist, stay away from drugs/alcohol/smoking medical follow up appreciated Estimated Date of D/C: 10/30/18
[2018-10-26] MEDS: QUEtiapine 200 mg XR Tab PO SCH (21:37)
[2018-10-27] MEDS: Insulin Reg-LOW-Coverage SC SCH ×4 (09:12→21:26)
[2018-10-27] MEDS: Divalproex 250 mg DR (BID formulation) PO SCH ×3 (09:13→21:23)
[2018-10-27] MEDS: POLYETHYLENE GLYCOL 3350 17 GM/Dose PACKET PO SCH (09:15)
--- NOTE | 2018-10-27 12:44 | PCM.PYCHPN ---
Psychiatric Progress Note - Psychiatric Progress Note Patient seen today, length of contact: 30 minutes Patient Chief Complaint: "voices are not that loud" Problems Identified/Issues Discussed: Risk/benefits and alternatives of medications discussed, suicide/ homicide preve ntion, past psychiatric h/o, current psychiatric symptoms, medical problems, risk/benefits and alternatives of medications, medications compliance, coping strategies, substance abuse h/o, relapse prevention, importance of follow up with psychiatrist and therapist, discharge plan. Medical Problems: asthma, HTN, NIDDM trichomonas in Urine Diagnostic Results: 10/14/18 11:00 10/14/18 11:00 Lab Results 10/16/18 16:01: POC Glucose (mg/dL) 117 H 10/16/18 11:30: POC Glucose (mg/dL) 156 H 10/16/18 07:44: POC Glucose (mg/dL) 125 H 10/15/18 21:13: POC Glucose (mg/dL) 123 H 10/15/18 15:56: POC Glucose (mg/dL) 82 10/15/18 12:30: Valproic Acid 28 L 10/15/18 11:47: POC Glucose (mg/dL) 109 10/15/18 08:30: Valproic Acid 31 L 10/15/18 08:30: RPR Nonreactive 10/15/18 08:30: Free T4 0.98, TSH 3rd Generation 1.57 10/15/18 08:30: Fasting Glucose 95, Triglycerides 104, Cholesterol 192, LDL Cholesterol Direct 100, HDL Cholesterol 73 H 10/15/18 07:38: POC Glucose (mg/dL) 104 10/14/18 21:37: POC Glucose (mg/dL) 142 H 10/14/18 15:40: POC Glucose (mg/dL) 153 H 10/14/18 13:22: Urine Opiates Screen Negative, Urine Methadone Screen Positive H , Ur Barbiturates Screen Negative, Ur Phencyclidine Scrn Negative, Ur Amphetamines Screen Negative, U Benzodiazepines Scrn Positive H, U Oth Cocaine Metabols Negative, U Cannabinoids Screen Negative 10/14/18 13:22: Urine Color Yellow, Urine Appearance Clear, Urine pH 6.0, Ur Specific [place] 1.020, Urine Protein Negative, Urine Glucose (UA) Negative, Urine Ketones Negative, Urine Blood Negative, Urine Nitrate Negative, Urine Bilirubin Negative, Urine Urobilinogen 0.2, Ur Leukocyte Esterase Negative 10/14/18 11:00: Alcohol, Quantitative < 10 10/14/18 11:00: Salicylates < 1 L, Acetaminophen < 10.0 L 10/14/18 11:00: Sodium 138, Potassium 3.9, Chloride 103, Carbon Dioxide 24, Anion Gap 15, BUN 11, Creatinine 0.8, Est GFR ( Amer) > 60, Est GFR (Non- Af Amer) > 60, Random Glucose 116 H, Calcium 9.3, Total Bilirubin 0.3, AST 30, ALT 29, Alkaline Phosphatase 82, Total Protein 8.1, Albumin 4.7, Globulin 3.4, Albumin/Globulin Ratio 1.4 10/14/18 11:00: WBC 6.8 D, RBC 4.51, Hgb 12.6 L, Hct 38.3 L, MCV 84.9, MCH 27.9, MCHC 32.9, RDW 14.2, Plt Count 277, MPV 11.0, Neut % (Auto) 53.3, Lymph % (Auto) 37.5 H, [place] % (Auto) 6.1 H, Eos % (Auto) 2.5, Baso % (Auto) 0.6, Lymph # (Auto) 2.6, [place] # (Auto) 0.4, Eos # (Auto) 0.2, Baso # (Auto) 0.04, Absolute Neuts (auto) 3.64 Vital Signs Temp Pulse Resp BP Pulse Ox 10/16/18 08:32 76 122/76 10/16/18 07:00 98.4 F 76 20 122/76 10/15/18 16:00 93 H 138/89 10/15/18 07:00 98.4 F 76 20 124/82 10/14/18 15:40 18 10/14/18 15:37 98.0 F 93 H 18 146/97 H 97 10/14/18 15:09 98 F 75 19 125/73 97 10/14/18 13:51 95 10/14/18 13:44 97.8 F 88 16 145/87 93 L 10/14/18 11:10 98.7 F 99 H 16 140/93 H 95 Abnormal Lab Results 10/17/18 10/17/18 10/17/18 07:17 11:11 16:30 WBC RBC Hgb Hct MCV MCH MCHC RDW Plt Count MPV POC Glucose (mg/dL) 100 189 H 138 H 10/17/18 10/18/18 10/18/18 21:10 07:13 11:03 WBC RBC Hgb Hct MCV MCH MCHC RDW Plt Count MPV POC Glucose (mg/dL) 225 H 138 H 150 H 10/18/18 14:55 WBC 5.7 RBC 4.78 Hgb 13.4 L Hct 40.8 L MCV 85.4 MCH 28.0 MCHC 32.8 RDW 14.1 Plt Count 204 MPV 10.6 POC Glucose (mg/dL) Temp Pulse Resp BP Pulse Ox 98.3 F 84 20 129/86 97 10/18/18 07:17 10/18/18 08:45 10/18/18 07:17 10/18/18 08:45 10/14/18 15:37 Laboratory Results - last 24 hr 10/18/18 10/18/18 10/18/18 14:55 14:55 15:00 WBC 5.7 RBC 4.78 Hgb 13.4 L Hct 40.8 L MCV 85.4 MCH 28.0 MCHC 32.8 RDW 14.1 Plt Count 204 MPV 10.6 Sodium 138 Potassium 4.1 Chloride 102 Carbon Dioxide 28 Anion Gap 13 BUN 19 Creatinine 1.0 Est GFR ( Amer) > 60 Est GFR (Non-Af Amer) > 60 POC Glucose (mg/dL) Random Glucose 126 H Calcium 10.3 Total Bilirubin 0.2 AST 25 ALT 15 Alkaline Phosphatase 66 Total Protein 8.1 Albumin 4.7 Globulin 3.4 Albumin/Globulin Ratio 1.4 Urine Color Yellow Urine Appearance Clear Urine pH 6.0 Ur Specific [place] >= 1.030 Urine Protein Negative Urine Glucose (UA) Negative Urine Ketones Negative Urine Blood Negative Urine Nitrate Negative Urine Bilirubin Negative Urine Urobilinogen 0.2 Ur Leukocyte Esterase Trace H Urine RBC None Urine WBC 5 - 10 H Ur Epithelial Cells 4 - 5 Urine Bacteria Mod Urine Other Trichomonas 10/18/18 10/18/18 16:40 20:39 WBC RBC Hgb Hct MCV MCH MCHC RDW Plt Count MPV Sodium Potassium Chloride Carbon Dioxide Anion Gap BUN Creatinine Est GFR ( Amer) Est GFR (Non-Af Amer) POC Glucose (mg/dL) 116 H 131 H Random Glucose Calcium Total Bilirubin AST ALT Alkaline Phosphatase Total Protein Albumin Globulin Albumin/Globulin Ratio Urine Color Urine Appearance Urine pH Ur Specific [place] Urine Protein Urine Glucose (UA) Urine Ketones Urine Blood Urine Nitrate Urine Bilirubin Urine Urobilinogen Ur Leukocyte Esterase Urine RBC Urine WBC Ur Epithelial Cells Urine Bacteria Urine Other Laboratory Results - last 24 hr 10/19/18 10/19/18 10/19/18 07:23 11:17 16:22 POC Glucose (mg/dL) 111 H 134 H 120 H 10/19/18 21:08 POC Glucose (mg/dL) 117 H Temp Pulse Resp BP Pulse Ox 98.2 F 80 20 109/69 97 10/20/18 07:10 10/20/18 07:10 10/20/18 07:10 10/20/18 07:10 10/14/18 15:37 Temp Pulse Resp BP Pulse Ox 98.2 F 81 20 134/94 H 97 10/20/18 07:10 10/21/18 09:00 10/20/18 07:10 10/21/18 09:00 10/14/18 15:37 Abnormal Lab Results 10/20/18 10/20/18 10/20/18 07:33 11:14 16:11 POC Glucose (mg/dL) 140 H 145 H Valproic Acid 48 L 10/20/18 10/20/18 10/21/18 16:27 21:20 07:00 POC Glucose (mg/dL) 96 136 H Valproic Acid 38 L 10/21/18 08:20 POC Glucose (mg/dL) 110 Valproic Acid DSM 5 Symptoms Update: Patient is a single 48 year old -[place] male, self reported history of schizoaffective disorder, opioid use disorder on methadone maintenance, numerous psychiatric admissions (>10) most recently discharged from this unit on 08/02- 08/10/18, historically poorly compliant with medications and aftercare recommendations who brought himself to the hospital looking for help with depression, suicidal ideation (with plan to jump in front of bus as well as well hearing voices 'I hear voices telling me to do bad things and I don't want to hurt anyone." Patient required further evaluation and stabilization and medication adjustment. Per ER records patient presented as tearful and physically distressed. He was observed placing paper towels to his ears to block the voices. Pt expressed "I am a good person I don't want to hurt anyone but the voices are telling me to do bad things". Pt presented tearful and weepy. He also reported experiencing visual hallucinations " people and things moving". Patient was seen and examined in his room with medical student, hygiene is better, patient presented to be less disorganized, more pleasant, patient reported that she still hears voices but "they are less", patient denied any intent or plan to kill self or others, patient asked about his medications, patient was educated about Seroquel extended release. As per staff report patient is compliant with his medications, more pleasant, impulses are better controlled. this copy writer had concern about AMS 10/18/18, that is why UA/CBC/CMP ordered, UA was positive for trichomonas, pt has course of flagyl, pt's HIV test is negative, syphilis negative, education about safe sex provided by this copy writer and ID teams. So far patient tolerates medications well, no side effects observed or reported, aims 0, no EPS. methadone was decreased to 70 mg daily, tolerated well. Impression: History of schizoaffective disorder Opioid use disorder on maintenance methadone program History of alcohol use disorder Medication Change: No ( ) Medical Record Reviewed: Yes Mental Status Examination - Cognitive Function Orientation: Person, Place, Situation Memory: Intact Attention: Poor (Some improvement) Concentration: Poor Association: Loose (Baseline) Fund of Knowledge: Poor (Baseline) - Mood Mood: Depressed ("I feel little better") - Affect Affect: Constricted - Speech Speech: Appropriate (poverty of speech) - Formal Thought Process Formal Thought Process: No Impairment, Hallucinations (Denied today) - Suicidal Ideation Suicidal Ideation: No - Homicidal Ideation Homicidal Ideation: No Goal/Treatment Plan - Goal/Treatment Plan Need for Continued Stay: Remain at risks for inpatient hospitalization, Severe depression anxiety, Discharge may exacerbated symptoms, Severe functional impairment Progress Toward Problem(s) and Goals/Treatment Plan: group, milieu and supportive tx * Depakote 250 mg po bid and hd for mood control * Depakote level 10/21/18 was 38 * Seroquel extended release 600 mg HS to help with with mood control * Trazodone 100 mg po HS PRN * Ativan d/c * Patient attends a methadone clinic so he is not a candidate for naltrexone to address is alcohol dependency. * Patient reports that methadone dose is 90 mg daily, dose was confirmed by nursing who noted recent methadone bottle in his possession. Patient attends [facility] methadone clinic ([phone]). now pt is on 70mg daily, * Medical consult appreciated * Nicoderm CQ 21 mg patch, replaced daily for nicotine cravings Follow up on labs Will monitor closely Pt was educated about risk/benefits and alternatives of medications, coping strategies (safety plan, suicide prevention), relapse prevention, importance of follow up with psychiatrist and therapist, stay away from drugs/alcohol/smoking medical follow up appreciated Estimated Date of D/C: 10/30/18
[2018-10-27] MEDS: Magnesium Citrate Oral SOL (300 ml) PO PRN (16:17)
[2018-10-27] MEDS: QUEtiapine 200 mg XR Tab PO SCH (21:23)
[2018-10-28] MEDS: POLYETHYLENE GLYCOL 3350 17 GM/Dose PACKET PO SCH (09:18)
[2018-10-28] MEDS: Divalproex 250 mg DR (BID formulation) PO SCH ×3 (09:18→21:57)
[2018-10-28] MEDS: Insulin Reg-LOW-Coverage SC SCH ×4 (09:19→21:58)
--- NOTE | 2018-10-28 09:24 | PCM.PYCHPN ---
Psychiatric Progress Note - Psychiatric Progress Note Patient seen today, length of contact: 30 minutes Problems Identified/Issues Discussed: I reviewed recent notes and met with patient at bedside. Grooming and focus are adequate and patient appears less brittle than our prior encounters. Seems more friendly and approachable though still labile. He denies any new concerns, discomfort/pain or side effects. He doesn't appear to be responding to internal stimuli and he denies any perceptual disturbance. Staff notes have similar observations, overall he seems more organized and cooperative. Impulse control is improving. There were no behavioral issues overnight. Diagnostic Results: History of schizoaffective disorder Opioid use disorder on maintenance methadone program History of alcohol use disorder Medication Change: No ( ) Medical Record Reviewed: Yes Mental Status Examination - Cognitive Function Orientation: Person, Place, Situation Memory: Intact Attention: Poor (Some improvement) Concentration: Poor Association: Loose (Baseline) Fund of Knowledge: Poor (Baseline) - Mood Mood: Depressed - Affect Affect: Constricted, Flat, Other (labile) - Speech Speech: Appropriate (poverty of speech) - Formal Thought Process Formal Thought Process: No Impairment, Hallucinations (Denied today) - Suicidal Ideation Suicidal Ideation: No - Homicidal Ideation Homicidal Ideation: No Goal/Treatment Plan - Goal/Treatment Plan Need for Continued Stay: Remain at risks for inpatient hospitalization, Severe depression anxiety, Discharge may exacerbated symptoms, Severe functional impairment Progress Toward Problem(s) and Goals/Treatment Plan: * c/w current tx and plan * No new weekend lab results thus far * Vitals reviewed and noted below: Selected Entries 10/27/18 10/27/18 07:05 15:34 Temperature 97.8 F Pulse Rate 79 92 H Respiratory 20 Rate Blood Pressure 116/75 134/94 H ADMISSION LABS NOTED BELOW Laboratory Tests 10/14/18 10/14/18 10/14/18 11:00 11:00 11:00 WBC 6.8 D RBC 4.51 Hgb 12.6 L Hct 38.3 L MCV 84.9 MCH 27.9 MCHC 32.9 RDW 14.2 Plt Count 277 MPV 11.0 Neut % (Auto) 53.3 Lymph % (Auto) 37.5 H [place] % (Auto) 6.1 H Eos % (Auto) 2.5 Baso % (Auto) 0.6 Lymph # (Auto) 2.6 [place] # (Auto) 0.4 Eos # (Auto) 0.2 Baso # (Auto) 0.04 Absolute Neuts (auto) 3.64 Sodium 138 Potassium 3.9 Chloride 103 Carbon Dioxide 24 Anion Gap 15 BUN 11 Creatinine 0.8 Est GFR ( Amer) > 60 Est GFR (Non-Af Amer) > 60 POC Glucose (mg/dL) Random Glucose 116 H Fasting Glucose Calcium 9.3 Total Bilirubin 0.3 AST 30 ALT 29 Alkaline Phosphatase 82 Total Protein 8.1 Albumin 4.7 Globulin 3.4 Albumin/Globulin Ratio 1.4 Triglycerides Cholesterol LDL Cholesterol Direct HDL Cholesterol Urine Color Urine Appearance Urine pH Ur Specific [place] Urine Protein Urine Glucose (UA) Urine Ketones Urine Blood Urine Nitrate Urine Bilirubin Urine Urobilinogen Ur Leukocyte Esterase Salicylates < 1 L Urine Opiates Screen Urine Methadone Screen Acetaminophen < 10.0 L Ur Barbiturates Screen Ur Phencyclidine Scrn Ur Amphetamines Screen U Benzodiazepines Scrn U Oth Cocaine Metabols U Cannabinoids Screen Alcohol, Quantitative 10/14/18 10/14/18 10/14/18 11:00 13:22 13:22 WBC RBC Hgb Hct MCV MCH MCHC RDW Plt Count MPV Neut % (Auto) Lymph % (Auto) [place] % (Auto) Eos % (Auto) Baso % (Auto) Lymph # (Auto) [place] # (Auto) Eos # (Auto) Baso # (Auto) Absolute Neuts (auto) Sodium Potassium Chloride Carbon Dioxide Anion Gap BUN Creatinine Est GFR ( Amer) Est GFR (Non-Af Amer) POC Glucose (mg/dL) Random Glucose Fasting Glucose Calcium Total Bilirubin AST ALT Alkaline Phosphatase Total Protein Albumin Globulin Albumin/Globulin Ratio Triglycerides Cholesterol LDL Cholesterol Direct HDL Cholesterol Urine Color Yellow Urine Appearance Clear Urine pH 6.0 Ur Specific [place] 1.020 Urine Protein Negative Urine Glucose (UA) Negative Urine Ketones Negative Urine Blood Negative Urine Nitrate Negative Urine Bilirubin Negative Urine Urobilinogen 0.2 Ur Leukocyte Esterase Negative Salicylates Urine Opiates Screen Negative Urine Methadone Screen Positive H Acetaminophen Ur Barbiturates Screen Negative Ur Phencyclidine Scrn Negative Ur Amphetamines Screen Negative U Benzodiazepines Scrn Positive H U Oth Cocaine Metabols Negative U Cannabinoids Screen Negative Alcohol, Quantitative < 10 10/14/18 10/14/18 10/15/18 15:40 21:37 08:30 WBC RBC Hgb Hct MCV MCH MCHC RDW Plt Count MPV Neut % (Auto) Lymph % (Auto) [place] % (Auto) Eos % (Auto) Baso % (Auto) Lymph # (Auto) [place] # (Auto) Eos # (Auto) Baso # (Auto) Absolute Neuts (auto) Sodium Potassium Chloride Carbon Dioxide Anion Gap BUN Creatinine Est GFR ( Amer) Est GFR (Non-Af Amer) POC Glucose (mg/dL) 153 H 142 H Random Glucose Fasting Glucose 95 Calcium Total Bilirubin AST ALT Alkaline Phosphatase Total Protein Albumin Globulin Albumin/Globulin Ratio Triglycerides 104 Cholesterol 192 LDL Cholesterol Direct 100 HDL Cholesterol 73 H Urine Color Urine Appearance Urine pH Ur Specific [place] Urine Protein Urine Glucose (UA) Urine Ketones Urine Blood Urine Nitrate Urine Bilirubin Urine Urobilinogen Ur Leukocyte Esterase Salicylates Urine Opiates Screen Urine Methadone Screen Acetaminophen Ur Barbiturates Screen Ur Phencyclidine Scrn Ur Amphetamines Screen U Benzodiazepines Scrn U Oth Cocaine Metabols U Cannabinoids Screen Alcohol, Quantitative Estimated Date of D/C: 10/30/18
[2018-10-28] MEDS: QUEtiapine 200 mg XR Tab PO SCH (21:58)
[2018-10-29] MEDS: Insulin Reg-LOW-Coverage SC SCH ×4 (08:19→21:17)
[2018-10-29] MEDS: Divalproex 250 mg DR (BID formulation) PO SCH ×3 (08:53→21:14)
--- NOTE | 2018-10-29 09:08 | PCM.PYCHPN ---
Psychiatric Progress Note - Psychiatric Progress Note Patient seen today, length of contact: 30 minutes Problems Identified/Issues Discussed: I reviewed recent notes and met with patient at bedside. Grooming and focus are adequate and patient appears less brittle than our prior encounters (though still not overly communicative). Seems more friendly and approachable though still labile. He denies any new concerns, discomfort/pain or side effects. He doesn't appear to be responding to internal stimuli and he denies any perceptual disturbance. Staff notes have similar observations, overall he seems more organized and cooperative. Participates in groups. Impulse control is improving. There were no behavioral issues over the weekend. Diagnostic Results: History of schizoaffective disorder Opioid use disorder on maintenance methadone program History of alcohol use disorder Medication Change: No ( ) Medical Record Reviewed: Yes Mental Status Examination - Cognitive Function Orientation: Person, Place, Situation Memory: Intact Attention: Poor (Some improvement) Concentration: Poor Association: Loose (Baseline) Fund of Knowledge: Poor (Baseline) - Mood Mood: Depressed - Affect Affect: Constricted, Flat, Other (labile) - Speech Speech: Appropriate (poverty of speech) - Formal Thought Process Formal Thought Process: No Impairment, Hallucinations (Denied today) - Suicidal Ideation Suicidal Ideation: No - Homicidal Ideation Homicidal Ideation: No Goal/Treatment Plan - Goal/Treatment Plan Need for Continued Stay: Remain at risks for inpatient hospitalization, Severe depression anxiety, Discharge may exacerbated symptoms, Severe functional impairment Progress Toward Problem(s) and Goals/Treatment Plan: * c/w current tx and plan * No new weekend lab results thus far * Vitals reviewed and noted below: 10/28/18 10/28/18 07:00 16:00 Temperature 98.1 F Pulse Rate 64 80 Respiratory 20 Rate Blood Pressure 113/74 110/70 ADMISSION LABS NOTED BELOW Laboratory Tests 10/14/18 10/14/18 10/14/18 11:00 11:00 11:00 WBC 6.8 D RBC 4.51 Hgb 12.6 L Hct 38.3 L MCV 84.9 MCH 27.9 MCHC 32.9 RDW 14.2 Plt Count 277 MPV 11.0 Neut % (Auto) 53.3 Lymph % (Auto) 37.5 H [place] % (Auto) 6.1 H Eos % (Auto) 2.5 Baso % (Auto) 0.6 Lymph # (Auto) 2.6 [place] # (Auto) 0.4 Eos # (Auto) 0.2 Baso # (Auto) 0.04 Absolute Neuts (auto) 3.64 Sodium 138 Potassium 3.9 Chloride 103 Carbon Dioxide 24 Anion Gap 15 BUN 11 Creatinine 0.8 Est GFR ( Amer) > 60 Est GFR (Non-Af Amer) > 60 POC Glucose (mg/dL) Random Glucose 116 H Fasting Glucose Calcium 9.3 Total Bilirubin 0.3 AST 30 ALT 29 Alkaline Phosphatase 82 Total Protein 8.1 Albumin 4.7 Globulin 3.4 Albumin/Globulin Ratio 1.4 Triglycerides Cholesterol LDL Cholesterol Direct HDL Cholesterol Urine Color Urine Appearance Urine pH Ur Specific [place] Urine Protein Urine Glucose (UA) Urine Ketones Urine Blood Urine Nitrate Urine Bilirubin Urine Urobilinogen Ur Leukocyte Esterase Salicylates < 1 L Urine Opiates Screen Urine Methadone Screen Acetaminophen < 10.0 L Ur Barbiturates Screen Ur Phencyclidine Scrn Ur Amphetamines Screen U Benzodiazepines Scrn U Oth Cocaine Metabols U Cannabinoids Screen Alcohol, Quantitative 10/14/18 10/14/18 10/14/18 11:00 13:22 13:22 WBC RBC Hgb Hct MCV MCH MCHC RDW Plt Count MPV Neut % (Auto) Lymph % (Auto) [place] % (Auto) Eos % (Auto) Baso % (Auto) Lymph # (Auto) [place] # (Auto) Eos # (Auto) Baso # (Auto) Absolute Neuts (auto) Sodium Potassium Chloride Carbon Dioxide Anion Gap BUN Creatinine Est GFR ( Amer) Est GFR (Non-Af Amer) POC Glucose (mg/dL) Random Glucose Fasting Glucose Calcium Total Bilirubin AST ALT Alkaline Phosphatase Total Protein Albumin Globulin Albumin/Globulin Ratio Triglycerides Cholesterol LDL Cholesterol Direct HDL Cholesterol Urine Color Yellow Urine Appearance Clear Urine pH 6.0 Ur Specific [place] 1.020 Urine Protein Negative Urine Glucose (UA) Negative Urine Ketones Negative Urine Blood Negative Urine Nitrate Negative Urine Bilirubin Negative Urine Urobilinogen 0.2 Ur Leukocyte Esterase Negative Salicylates Urine Opiates Screen Negative Urine Methadone Screen Positive H Acetaminophen Ur Barbiturates Screen Negative Ur Phencyclidine Scrn Negative Ur Amphetamines Screen Negative U Benzodiazepines Scrn Positive H U Oth Cocaine Metabols Negative U Cannabinoids Screen Negative Alcohol, Quantitative < 10 10/14/18 10/14/18 10/15/18 15:40 21:37 08:30 WBC RBC Hgb Hct MCV MCH MCHC RDW Plt Count MPV Neut % (Auto) Lymph % (Auto) [place] % (Auto) Eos % (Auto) Baso % (Auto) Lymph # (Auto) [place] # (Auto) Eos # (Auto) Baso # (Auto) Absolute Neuts (auto) Sodium Potassium Chloride Carbon Dioxide Anion Gap BUN Creatinine Est GFR ( Amer) Est GFR (Non-Af Amer) POC Glucose (mg/dL) 153 H 142 H Random Glucose Fasting Glucose 95 Calcium Total Bilirubin AST ALT Alkaline Phosphatase Total Protein Albumin Globulin Albumin/Globulin Ratio Triglycerides 104 Cholesterol 192 LDL Cholesterol Direct 100 HDL Cholesterol 73 H Urine Color Urine Appearance Urine pH Ur Specific [place] Urine Protein Urine Glucose (UA) Urine Ketones Urine Blood Urine Nitrate Urine Bilirubin Urine Urobilinogen Ur Leukocyte Esterase Salicylates Urine Opiates Screen Urine Methadone Screen Acetaminophen Ur Barbiturates Screen Ur Phencyclidine Scrn Ur Amphetamines Screen U Benzodiazepines Scrn U Oth Cocaine Metabols U Cannabinoids Screen Alcohol, Quantitative Estimated Date of D/C: 10/30/18
[2018-10-29] MEDS: POLYETHYLENE GLYCOL 3350 17 GM/Dose PACKET PO SCH (14:17)
[2018-10-29] MEDS: QUEtiapine 200 mg XR Tab PO SCH (21:14)
[2018-10-30 07:16] VITALS: BP 118/68; PULSE 84; TEMP 97.7
[2018-10-30] MEDS: Insulin Reg-LOW-Coverage SC SCH ×2 (08:25→12:50)
[2018-10-30] MEDS: Divalproex 250 mg DR (BID formulation) PO SCH (08:38)
[2018-10-30] MEDS: POLYETHYLENE GLYCOL 3350 17 GM/Dose PACKET PO SCH (08:39)
--- NOTE | 2018-10-31 14:03 | PCM.PYCHDC ---
Mental Status Examination - Mental Status Examination Orientation: Person, Place, Situation, Time Memory: Intact Mood: Neutral Affect: Constricted (But reactive and mood congruent) Speech: Appropriate (But underproductive) Attention: Poor (Baseline but much better) Concentration: Poor (Baseline but much better) Association: Loose (Baseline) Fund of Knowledge: Poor (Baseline) Formal Thought Process: Hallucinations (Auditory hallucinations which seems to be chronic, non-command type.), Other (Thought processes mildly disorganized) Description of patient's judgement and insight: Pt has improved insight into mental and medical illness, pt was compliant with medications and unit rules and regulations, pt was going to groups, was calm, cooperative, socially appropriate, no behavioral incidents, no agitation, no aggression. Psychotic Thoughts and Behaviors: Pt denied v/a/t hallucinations, denied paranoid ideations, pt does not appear to be psychotic, and thought process is goal directed. Suicidal Ideation: No Current Homicidal Ideation?: No Plan: pt adamantly denied thoughts of harming self or others denied intent or plan. Discharge Summary - Discharge Note Reason for Hospitalization: Disorganized thoughts and disorganized behavior, hallucinations, possible suicidal ideation, please see admission note for more detailed information. Psychiatric History (includes Medical, Family, Personal Hx): Long history of noé izoaffective disorder and polysubstance abuse Laboratory Data: Abnormal Lab Results 10/29/18 10/29/18 10/29/18 12:25 15:59 21:16 POC Glucose (mg/dL) 142 H 84 253 H 10/30/18 10/30/18 07:16 11:08 POC Glucose (mg/dL) 93 175 H Consultations:: List each consultation separately and include: 1. Reason for request. 2. Findings. 3. Follow-up Consultations: Patient was seen by medical team, consult appreciated Patient was seen by infectious disease for trichomonas Please see notes for more detailed information Summary of Hospital Course include:: 1. Description of specific treatment plan utilized for patients during their course of treatmen. 2. Summarize the time- course for resolution of acute symptoms and/or regressed behaviors. 3. Describe issues identified and worked on during hospitalization. 4. Describe medication utilized. 5. Describe medical problems identified and treated. 6. Reassessment of suicide risk Summary of Hospital Course: As per Dr. Felix's initial evaluation: Patient is a single 48 year old -[place] male, self reported history of schizoaffective disorder, opioid use disorder on methadone maintenance, numerous psychiatric admissions (>10) most recently discharged from this unit on 08/02- 08/10/18, , historically poorly compliant with medications and aftercare recommendations who brought himself to the hospital looking for help with depression, suicidal ideation (with plan to jump in front of bus as well as well hearing voices 'I hear voices telling me to do bad things and I don't want to hurt anyone" Please see admission notes for more detailed information. Patient was stabilized on the following medications: Depakote 750 mg daily for mood stabilization Colace 100 mg daily Neurontin 300 mg 3 times a day for neuropathy Magnesium citrate 300 mL daily Metformin 500 mg twice a day Methadone 70 mg daily patient is on methadone maintenance program Seroquel extended release 600 mg at the nighttime for psychosis and mood stabilization Seroquel 150 mg at the nighttime for depression and insomnia Patient tolerated medications well, no side effects observed or reported, aims 0, no EPS. Overall patient improved significantly, psychosis improved, patient was appropriate, no agitation or aggression, patient was compliant with her medications and unit regulations. Over the course of this hospitalization pt was attending groups, pt also had medication management, had therapeutic milieu. Overall pt improved significantly, pt's affect became brighter, pt was less depressed, has realistic future oriented plans, patient appeared to be mildly disorganized but less psychotic overall, not anxious, pt was socially appropriate, no behavioral issues, pts insight improved as well and soon pt deemed to be ready for discharge. At the time of the discharge patient pose no imminent danger to self or others, will be following up at [facility] methadone clinic, information about follow up appointment, time and address provided to the pt, (see note for more detailed information). It is a patient responsibility to follow up with outpatient clinic, PMD as well as specialists In case patient will need to obtain results of studies pending at discharge, patient was provided with contact information of Psychiatric Inpatient unit [phone] as well as Medical Record Department [phone], as well as [employer] Phlebotomist Supervisor/Instructor team [phone]. Nicotine patch was offered, but patient declined that offer. Naltrexone treatment is not indicated because patient is on methadone Counseling about smoking and alcohol cessation provided AA meetings as well as [facility] smoking cessation treatment program information was provided by the pt was provided with prescriptions, see medication reconciliation form Pt was educated about safety plan in case of worsening of symptoms or in case of suicidal or homicidal ideation call 911 or go to the nearest ER, also was educated to take meds as prescribed and stay away from drugs, pt verbalized understanding. - Diagnosis (1) Schizoaffective disorder Current Visit: Yes Status: Chronic Priority: High (2) Alcohol use disorder, severe, dependence Current Visit: No Status: Acute (3) Opioid use disorder, moderate, in sustained remission, on maintenance therapy Current Visit: No Status: Chronic Priority: High - Final Diagnosis (DSM 5) Condition upon Discharge: STABLE Disposition: HOME/ ROUTINE Follow-up Treatment Plan: At the time of the discharge patient pose no imminent danger to self or others, will be following up at [facility] methadone [facility], information about follow up appointment, time and address provided to the pt, (see note for more detailed information). It is a patient responsibility to follow up with outpatient clinic, PMD as well as specialists In case patient will need to obtain results of studies pending at discharge, patient was provided with contact information of Psychiatric Inpatient unit [phone] as well as Medical Record Department [phone], as well as [facility] team [phone]. Nicotine patch was offered, but patient declined that offer. Naltrexone treatment is not indicated because patient is on methadone Counseling about smoking and alcohol cessation provided AA meetings as well as [facility] smoking cessation treatment program information was provided by the pt was provided with prescriptions, see medication reconciliation form Pt was educated about safety plan in case of worsening of symptoms or in case of suicidal or homicidal ideation call 911 or go to the nearest ER, also was educated to take meds as prescribed and stay away from drugs, pt verbalized understanding. Patient's methadone was decreased from 90 mg a day to 70 mg a day, patient tolerated well, nurse Saba was advised to call methadone clinic and give reported about dose adjustment. Prescriptions/Medication Reconciliation: amLODIPine [Norvasc] 5 mg PO DAILY #7 tab Divalproex [Depakote ER(ONCE DAILY)] 250 mg PO HS #14 ter Divalproex [Depakote ER(ONCE DAILY)] 500 mg PO HS #14 dose Docusate [Colace] 100 mg PO HS #7 cap Gabapentin [Neurontin] 300 mg PO TID #45 cap Magnesium Citrate [Citrate of Mag] 300 ml PO DAILY PRN #7 bottle PRN Reason: Constipation metFORMIN [glucOPHAGE] 500 mg PO BID #14 tab Polyethylene Glycol 3350 [Miralax] 17 gm PO DAILY #7 packet QUEtiapine [SEROquel XR] 600 mg PO HS #30 ter Trazodone HCl 150 mg PO HS #14 tablet - Smoking Cessation Smoking Cessation Medication prescribed: No Reason for not providing: refused - Antipsychotic Medications Pt discharged on 2 or more routine antipsychotic medications: No
== END 2018-10-30 15:36 | disposition home or self-care (01) | DRG 430 ==
LOC: ED 10:42 → ERH 13:48 → PSYC 15:22
PROVIDERS: ADMIT Psychiatry & Neurology Psychiatry; ATTEND Psychiatry & Neurology Psychiatry
DX: F25.9 Schizoaffective disorder, unspecified (principal); F31.9 Bipolar disorder, unspecified; F41.0 Panic disorder [episodic paroxysmal anxiety]; G47.00 Insomnia, unspecified; F13.159 Sedative, hypnotic or anxiolytic abuse with sedative, hypnotic or anxiolytic-induced psychotic disorder, unspecified; F11.259 Opioid dependence with opioid-induced psychotic disorder, unspecified; F11.21 Opioid dependence, in remission; F10.20 Alcohol dependence, uncomplicated; A59.9 Trichomoniasis, unspecified; E11.9 Type 2 diabetes mellitus without complications; E66.9 Obesity, unspecified; Z68.31 Body mass index [BMI] 31.0-31.9, adult; I10 Essential (primary) hypertension; J45.20 Mild intermittent asthma, uncomplicated; K59.00 Constipation, unspecified; R45.851 Suicidal ideations; Z79.899 Other long term (current) drug therapy; Z82.5 Family history of asthma and other chronic lower respiratory diseases; Z80.9 Family history of malignant neoplasm, unspecified; F17.210 Nicotine dependence, cigarettes, uncomplicated; Z91.14 Patient's other noncompliance with medication regimen